=== PATIENT | female | born 1945 | race Caucasian/White ===

== ENCOUNTER 2019-08-18 06:40 | Inpatient (IN) | payer MEDICARE, SELFPAY ==
[2019-08-18] VITALS (13 sets, daily range): BP systolic 142–179; BP diastolic 54–95; PULSE 66–79; RESP 16–25; TEMP 36–37.1; O2SAT 97–100; BMI 22.1
--- NOTE | 2019-08-18 06:54 | W.ED.SOB ---
HPI - SOB/Dyspnea General: Chief Complaint: Shortness of Breath/Dyspnea Stated Complaint: DIFFICULTY BREATHING/ CHEST PAIN Time Seen by Provider: 08/18/19 06:47 History of Present Illness: HPI Narrative: 73-year-old female presents emergency room with complaint of shortness of breath moderately productive cough. She is a former smoker. She was recently treated for car monoxide poisoning about 7 to 10 days ago. She does report having had the problem in her home faxed. She has other family members at home who have not had any other problems. She denies any fever sweats or chills she does have some mild orthopnea. She previously had a mitral valve replacement and is on Coumadin digoxin and sotalol. Associated symptoms: Reports orthopnea; Deny abdominal pain, fever(s), nausea or vomiting Review of Systems Const: Reports: body aches and fatigue; Denies: fever, chills, change in appetite or malaise ENMT: Denies: throat pain, ear pain, nasal discharge or nasal congestion Card: Reports: shortness of breath when lying down; Denies: edema or shortness of breath on exertion Resp: Reports: shortness of breath and productive cough; Denies: non-productive cough GI: Denies: abdominal pain, nausea, vomiting, vomiting blood, coffee grounds in vomit, diarrhea, constipation, bloating, blood in stool or black tarry stool : Denies: flank pain, difficulty urinating, painful urination, urinary frequency or urinary urgency Skin/Breast: Denies: rash or itching PFSH ED PFSH: Statuses (acute, chronic, etc) shown below reflect problem list status as previously entered and may not be historically accurate Medical History Atrial fibrillation (Acute) COPD (chronic obstructive pulmonary disease) (Acute) Hypertension (Acute) Surgical History H/O mitral valve replacement (Acute) Mechanical valve H/O: hysterectomy (Acute) History of carpal tunnel release (Acute) History of lumbar surgery (Acute) Family History Mother Clotting disorder Father Clotting disorder Sister AAA (abdominal aortic aneurysm) Social History (Reviewed 08/20/19 @ 08:52 by EDGAR Sharp Smoking and tobacco status: former smoker Alcohol intake: former Substance/Drug Use: never Physical Exam Const: COMMON NORMALS: no apparent distress GENERAL APPEARANCE: cooperative and comfortable ORIENTATION/CONSCIOUSNESS: Yes awake, Yes oriented to person, Yes oriented to place and Yes oriented to time HENMT: COMMON NORMALS: normocephalic, head/scalp atraumatic, hearing grossly normal bilaterally, external ears normal, EAC's normal, TM's normal bilaterally, nasal mucous membranes and turbinates normal, moist oral mucous membranes and oropharynx normal HEAD & SCALP: normocephalic and atraumatic NOSE: nasal mucous membranes and turbinates normal EXTERNAL EAR: Yes external ears normal EXTERNAL AUDITORY CANAL: EAC's normal TYMPANIC MEMBRANE: TM's normal bilaterally Eye: COMMON NORMALS: PERRL, EOMs intact bilaterally, conjunctivae normal and no scleral icterus CONJUNCTIVA: Yes conjunctivae normal PUPIL: Yes PERRL Neck/C-Spine: COMMON NORMALS: full ROM, no lymphadenopathy, supple and no JVD Lymph: LYMPHATIC: no lymphadenopathy noted and no lymphedema noted Resp: EFFORT & INSPECTION: Yes tachypneic AUSCULTATION: rhonchi (Very mild mostly at the bases bilaterally) and wheezes throughout Cardio: COMMON NORMALS: no JVD and no murmurs RHYTHM: abnormal rhythm irregularly irregular GI: COMMON NORMALS: normal to inspection, nondistended, normoactive bowel sounds, soft to palpation and no hepatosplenomegaly PALPATION: Yes soft and Yes no hepatosplenomegaly : COMMON NORMALS: Yes no CVA tenderness BLADDER/KIDNEY EXAM: Yes no CVA tenderness Back/Pelvis: COMMON NORMALS: no CVA tenderness Extremity: COMMON NORMALS: normal to inspection, normal capillary refill, no clubbing, cyanosis or edema, no calf tenderness and no pedal edema Neuro: SENSORIUM/ORIENTATION: Yes oriented to person, Yes oriented to place and Yes oriented to time Skin: COMMON NORMALS: no rashes or lesions noted GENERAL SKIN EXAM: no rashes or lesions noted Course ED course: [address] Allison of admit Patient continues to be short of breath she normally is not on oxygen at home she has some mild vascular congestion she is on Coumadin for her mitral valve and her INR is 2.3 is difficult to think that she may have a PE. Her second troponin is normal but her overall troponins are mildly elevated suspect that is from her COPD as well suspect she has some mild congestive heart failure and mild exacerbation COPD will put her on observation. Vital Signs: Vital signs: Vital Signs Temperature 98.0 F 08/20/19 07:38 Pulse Rate 71 08/20/19 07:38 Respiratory Rate 18 08/20/19 07:38 Blood Pressure 128/67 08/20/19 07:38 Pulse Oximetry 97 08/20/19 07:38 MDM - SOB/Dyspnea Lab Data: Labs: Lab Results 08/18/19 08/18/19 08/18/19 Range/Units 06:45 06:45 06:45 WBC 12.9 H (4.0-10.0) 10^3/ uL RBC 3.61 L (4.1-5.3) 10^6/u L Hgb 8.3 L (11.5-15.3) g/dL Hct 28.4 L (37.0-47.0) % MCV 78.7 L (81-99) fL MCH 23.0 L (28.0-34.0) pg MCHC 29.2 L (30.0-36.0) g/dL RDW 18.0 H (12.1-15.1) % Plt Count 317 (130-400) 10^3/c mm MPV 10.8 H (7.4-10.4) fL Neut % (Auto) 73.1 % Lymph % (Auto) 16.1 % [place] % (Auto) 7.5 % Eos % (Auto) 2.6 % Baso % (Auto) 0.3 % Neut # (Auto) 9.4 H (1.8-7.7) 10^3/u L Lymph # (Auto) 2.1 (0.8-4.8) 10^3/u L [place] # (Auto) 1.0 H (0.2-0.9) 10^3/u L Eos # (Auto) 0.3 (0.0-0.8) 10^3/u L Baso # (Auto) 0.0 (0.0-0.1) 10^3/u L Nucleated RBC % (a uto) 0 % Nucleated RBCs # 0.0 /100WBC PT 26.10 H (10.5-13.3) SECO NDS INR 2.30 H (0.8-1.2) Specimen Type Sample Site ABG pH (7.35-7.45) ABG pCO2 (35-45) mmHg ABG pO2 (80.0-100.0) mmH g ABG HCO3 (22-26) mmol/L ABG Base Excess (-2.0-2.0) mmol/ L Brennen Test Hematocrit (37-47) % Hgb O2 Saturation (95-100) % Carboxyhemoglobin (0.4-20.1) %THgb Methemoglobin (0.4-1.5) % Total Hemoglobin (12-16) g/dL O2 Delivery Device O2 Liters/Min % Chief Architect ID Sodium 131 L (136-145) mmol/L Potassium 4.7 (3.5-5.1) mmol/L Chloride 95 L (98-107) mmol/L Carbon Dioxide 27 (22-29) mmol/L Anion Gap 13.7 (5-19) BUN 15 (8-23) mg/dL Creatinine 0.7 (0.5-0.9) mg/dL Glucose 128 H (74-106) mg/dL Calcium 10.2 (8.8-10.2) mg/Dl Iron (37-145) ug/dL TIBC mg/dL % Saturation (20-50) % Unsat Iron Binding (112-347) ug/dL Total Bilirubin 0.3 (0.15-1.2) mg/dL AST 22 (0-32) U/L ALT 16 (0-33) U/L Alkaline Phosphata se 81 (35-105) IU/L Troponin T Baselin e (0-10) ng/mL Troponin T 120 Min circle (0-10) ng/mL Delta Troponin T (0-10) ABS# NT-Pro-B Natriuret Pep 6627 H (0-125) pg/mL Total Protein 6.9 (6.6-8.7) g/dL Albumin 4.9 (3.5-5.2) g/dL Globulin 2.0 (1.3-4.6) g/dL Vitamin B12 (232-1245) pg/mL Folate (4.8-37.3) ng/mL Influenza Type A A g (Negative) POC Influenza B Ag (Negative) 08/18/19 08/18/19 08/18/19 Range/Units 06:45 06:45 06:45 WBC (4.0-10.0) 10^3/ uL RBC (4.1-5.3) 10^6/u L Hgb (11.5-15.3) g/dL Hct (37.0-47.0) % MCV (81-99) fL MCH (28.0-34.0) pg MCHC (30.0-36.0) g/dL RDW (12.1-15.1) % Plt Count (130-400) 10^3/c mm MPV (7.4-10.4) fL Neut % (Auto) % Lymph % (Auto) % [place] % (Auto) % Eos % (Auto) % Baso % (Auto) % Neut # (Auto) (1.8-7.7) 10^3/u L Lymph # (Auto) (0.8-4.8) 10^3/u L [place] # (Auto) (0.2-0.9) 10^3/u L Eos # (Auto) (0.0-0.8) 10^3/u L Baso # (Auto) (0.0-0.1) 10^3/u L Nucleated RBC % (a uto) % Nucleated RBCs # /100WBC PT (10.5-13.3) SECO NDS INR (0.8-1.2) Specimen Type Sample Site ABG pH (7.35-7.45) ABG pCO2 (35-45) mmHg ABG pO2 (80.0-100.0) mmH g ABG HCO3 (22-26) mmol/L ABG Base Excess (-2.0-2.0) mmol/ L Brennen Test Hematocrit (37-47) % Hgb O2 Saturation (95-100) % Carboxyhemoglobin (0.4-20.1) %THgb Methemoglobin (0.4-1.5) % Total Hemoglobin (12-16) g/dL O2 Delivery Device O2 Liters/Min % Chief Architect ID Sodium (136-145) mmol/L Potassium (3.5-5.1) mmol/L Chloride (98-107) mmol/L Carbon Dioxide (22-29) mmol/L Anion Gap (5-19) BUN (8-23) mg/dL Creatinine (0.5-0.9) mg/dL Glucose (74-106) mg/dL Calcium (8.8-10.2) mg/Dl Iron 16 L (37-145) ug/dL TIBC 389 mg/dL % Saturation 4.1 L (20-50) % Unsat Iron Binding 373 H (112-347) ug/dL Total Bilirubin (0.15-1.2) mg/dL AST (0-32) U/L ALT (0-33) U/L Alkaline Phosphata se (35-105) IU/L Troponin T Baselin e 46 H (0-10) ng/mL Troponin T 120 Min circle (0-10) ng/mL Delta Troponin T (0-10) ABS# NT-Pro-B Natriuret Pep (0-125) pg/mL Total Protein (6.6-8.7) g/dL Albumin (3.5-5.2) g/dL Globulin (1.3-4.6) g/dL Vitamin B12 366 (232-1245) pg/mL Folate 11.0 (4.8-37.3) ng/mL Influenza Type A A g (Negative) POC Influenza B Ag (Negative) 08/18/19 08/18/19 08/18/19 Range/Units 07:15 07:35 08:45 WBC (4.0-10.0) 10^3/ uL RBC (4.1-5.3) 10^6/u L Hgb (11.5-15.3) g/dL Hct (37.0-47.0) % MCV (81-99) fL MCH (28.0-34.0) pg MCHC (30.0-36.0) g/dL RDW (12.1-15.1) % Plt Count (130-400) 10^3/c mm MPV (7.4-10.4) fL Neut % (Auto) % Lymph % (Auto) % [place] % (Auto) % Eos % (Auto) % Baso % (Auto) % Neut # (Auto) (1.8-7.7) 10^3/u L Lymph # (Auto) (0.8-4.8) 10^3/u L [place] # (Auto) (0.2-0.9) 10^3/u L Eos # (Auto) (0.0-0.8) 10^3/u L Baso # (Auto) (0.0-0.1) 10^3/u L Nucleated RBC % (a uto) % Nucleated RBCs # /100WBC PT (10.5-13.3) SECO NDS INR (0.8-1.2) Specimen Type Arterial Sample Site Radial, right ABG pH 7.36 (7.35-7.45) ABG pCO2 49.6 H (35-45) mmHg ABG pO2 78.6 L (80.0-100.0) mmH g ABG HCO3 28.0 H (22-26) mmol/L ABG Base Excess 2.1 H (-2.0-2.0) mmol/ L Brennen Test Pos Hematocrit 25.0 L (37-47) % Hgb O2 Saturation 92.8 L (95-100) % Carboxyhemoglobin 1.5 (0.4-20.1) %THgb Methemoglobin 1.2 (0.4-1.5) % Total Hemoglobin 8.2 L (12-16) g/dL O2 Delivery Device Nc O2 Liters/Min 2.0 % Chief Architect ID jmn Sodium (136-145) mmol/L Potassium (3.5-5.1) mmol/L Chloride (98-107) mmol/L Carbon Dioxide (22-29) mmol/L Anion Gap (5-19) BUN (8-23) mg/dL Creatinine (0.5-0.9) mg/dL Glucose (74-106) mg/dL Calcium (8.8-10.2) mg/Dl Iron (37-145) ug/dL TIBC mg/dL % Saturation (20-50) % Unsat Iron Binding (112-347) ug/dL Total Bilirubin (0.15-1.2) mg/dL AST (0-32) U/L ALT (0-33) U/L Alkaline Phosphata se (35-105) IU/L Troponin T Baselin e (0-10) ng/mL Troponin T 120 Min circle 45.93 H (0-10) ng/mL Delta Troponin T -0.07 L (0-10) ABS# NT-Pro-B Natriuret Pep (0-125) pg/mL Total Protein (6.6-8.7) g/dL Albumin (3.5-5.2) g/dL Globulin (1.3-4.6) g/dL Vitamin B12 (232-1245) pg/mL Folate (4.8-37.3) ng/mL Influenza Type A A g Negative (Negative) POC Influenza B Ag Negative (Negative) Imaging Data^: CXR: Radiologist's impression: CLINICAL INFORMATION: ACUTE LOBAR PNEUMONIA COMPARISON: October 31, 2014 FINDINGS: Heart: Normal cardiac silhouette. Sternotomy. Aortic valve replacement. Aortic calcification. Lungs: Chronic emphysematous changes. No acute pulmonary infiltrates. No consolidation or pleural fluid. Bones: Normal visualized bony structures. IMPRESSION: 1. Normal cardiac silhouette. Sternotomy with aVR. 2. Chronic emphysema. 3. No acute pulmonary infiltrates. Signed by: Dean Moy MD EKG Data^: EKG 1: EKG Interpretation Date: 08/18/19 EKG interpretation time: 06:52 Interpretation: Normal sinus rhythm no acute ST changes noted nonpathologic Q waves in V5 and [address] changes IN and QT intervals are normal. Rate is 67. Discharge Plan Discharge Patient Disposition: Admitted As Inpatient Admit Provider: Leela Allison Clinical Impression: COPD (chronic obstructive pulmonary disease) Qualifiers: COPD type: COPD with acute exacerbation Qualified Code(s): J44.1 - Chronic obstructive pulmonary disease with (acute) exacerbation Hypertension Qualifiers: Hypertension type: essential hypertension Qualified Code(s): I10 - Essential (primary) hypertension Atrial fibrillation Qualifiers: Atrial fibrillation type: longstanding persistent Qualified Code(s): I48.11 - Longstanding persistent atrial fibrillation Condition: Stable Interventions: ED Discharge Assessment Last Done: 08/18/19 11:28 Discharge Date/Time: 08/18/19 12:13 Coding Level of Care Code ED Hoop Flaring Machine Operator for Chg Fwd Exam Problem Focused
--- NOTE | 2019-08-18 06:55 | PC.NURSE ---
EKG performed by suzie araujo and shown to ER doctor @[phone]
--- NOTE | 2019-08-18 06:57 | XR_ITS ---
WS: [id number] Portable AP upright chest, 08/18/2019 Clinical Data: Dyspnea Comparison: PA and lateral chest, 10/22/2017. Findings: There is enlargement of the left hilum which could represent a mass or hilar adenopathy. Th e pulmonary vascularity is increased and the heart is slightly enlarged. There is a small left pleura l effusion. The aortic arch and descending aorta show calcification and tortuosity. No pneumonia or p neumothorax is present. There are midline sternotomy sutures and an artificial cardiac valve. XR/XR chest 1V portable [id number] Impression: 1. Left hilar enlargement which could represent a lung mass or left hilar adeno elder. 2. Cardiomegaly and mild pulmonary vascular congestion with small left effusion . 3. Atherosclerosis.
[2019-08-18 07:03] LABS: Basophils % 0.3 %; Eosinophils # 0.3 10^3/uL (0.0-0.8); Eosinophils % 2.6 %; Hematocrit 28.4 % (37.0-47.0); Hemoglobin 8.3 g/dL (11.5-15.3); Lymphocytes # 2.1 10^3/uL (0.8-4.8); Lymphocytes % 16.1 %; Mean Corpuscular HGB Conc 29.2 g/dL (30.0-36.0); Mean Corpuscular Volume 78.7 fL (81-99); Mean Platelet Volume 10.8 fL (7.4-10.4); Monocytes % 7.5 %; Neutrophils # 9.4 10^3/uL (1.8-7.7); Neutrophils % 73.1 %; Nucleated Red Blood Cells % 0 %; Platelet Count 317 10^3/cmm (130-400); Red Blood Count 3.61 10^6/uL (4.1-5.3); White Blood Count 12.9 10^3/uL (4.0-10.0)
--- NOTE | 2019-08-18 07:09 | ECG_ITS ---
Measurements Intervals [place] Rate: 67 P: 44 CT: 170 QRS: 18 QRSD: 91 T: 69 QT: 393 QTc: 416 SINUS RHYTHM WITH SINUS ARRHYTHMIA NONSPECIFIC ST & T-WAVE ABNORMALITY Compared to ECG 10/31/2014 14:00:28 No significant changes Electronically Signed On 08-18-2019 13:47:56 GUEST ATTENDANT by Blanca Weaver M.D. [id number]
[2019-08-18 07:28] LABS: Alanine Aminotransferase 16 U/L (0-33); Albumin Level 4.9 g/dL (3.5-5.2); Alkaline Phosphatase 81 IU/L (35-105); Anion Gap 13.7 (5-19); Aspartate Amino Transferase 22 U/L (0-32); Blood Urea Nitrogen 15 mg/dL (8-23); Calcium 10.2 mg/Dl (8.8-10.2); Carbon Dioxide 27 mmol/L (22-29); Chloride 95 mmol/L (98-107); Glucose 128 mg/dL (74-106); NT Pro B Type Natriuretic Pept 6627 pg/mL (0-125); Potassium 4.7 mmol/L (3.5-5.1); Sodium 131 mmol/L (136-145); Total Bilirubin 0.3 mg/dL (0.15-1.2); Total Protein 6.9 g/dL (6.6-8.7)
[2019-08-18 07:41] LABS: Troponin(5th) Baseline 46 ng/mL (0-10)
[2019-08-18 07:47] LABS: ABG PCO2 49.6 mmHg (35-45); ABG PH Result 7.36 (7.35-7.45); Base Excess ABG 2.1 mmol/L (-2.0-2.0); Blood Gas Allen Test Pos; Blood Gas Sample Site Radial, right; Blood Gas Sample Type Arterial; Carboxyhemoglobin 1.5 %THgb (0.4-20.1); HGB O2 Sat 92.8 % (95-100); Methemoglobin 1.2 % (0.4-1.5); PO2 ABG 78.6 mmHg (80.0-100.0); Total Hemoglobin 8.2 g/dL (12-16)
[2019-08-18 08:08] LABS: Influenza A by IFA Negative (Negative); Influenza B by IFA Negative (Negative)
[2019-08-18] MEDS: levofloxacin-dextrose 5 % 750 MG/150 ML PREMIX 150 MG IV (08:57)
[2019-08-18 09:34] LABS: Troponin 5 2HR 45.93 ng/mL (0-10)
[2019-08-18 09:39] LABS: Troponin 5 2HR Delta -0.07 ABS# (0-10)
[2019-08-18] MEDS: FUROsemide 10 mg/mL SDV 4mL 40 MG IVP (10:37)
--- NOTE | 2019-08-18 11:18 | PC.NURSE ---
pt ambulated to bedside commode without need for assist, pt tolerated well. pt placed back on monitor and resting in bed comfortably with no further needs at this time.
--- NOTE | 2019-08-18 13:09 | ECG_ITS ---
Measurements Intervals [place] Rate: 67 P: -38 CO: 166 QRS: 35 QRSD: 86 T: 85 QT: 388 QTc: [address] & T-WAVE ABNORMALITY Compared to ECG 10/31/2014 14:00:28 Sinus arrhythmia no longer present T-wave abnormality still present Electronically Signed On 08-18-2019 13:58:33 TRIM SAWYER by Blanca Weaver M.D. [id number]
[2019-08-18 13:21] LABS: Troponin 5 6HR 31.29 ng/L (0-10)
[2019-08-18] MEDS: morphine 4 mg/mL SDV 1 mL 2 MG IVP ×2 (13:36→22:32)
--- NOTE | 2019-08-18 14:44 | CT_ITS ---
WS: [id number] CT scan of the chest with IV contrast, additional two-dimensional coronal and sagittal reconstruction was performed. 08/18/2019 Clinical Data: hypoxia, adenopathy Comparison: Chest x-ray, 08/18/2019, CT chest, 11/19/2018. DLP: 367.[address] scans at [facility] use at least one of these dose optimization techniques: automat ed exposure control; mA and/or kV adjustment per patient size (includes targeted exams where dose is matched to clinical indication); or iterative reconstruction. Findings: The density in the left mediastinum probably represents hilar adenopathy. There is an 2.5 cm irregul ar mass in the lingula of the left upper lobe. A mitral valve replacement is in good position. There are small bilateral effusions with more on the left than the right. Coronary artery calcification is seen. The heart size is normal with no pericardial effusion. The pulmonary arterial system and thorac ic aorta demonstrate no dilatations, but there is calcification in the wall of the thoracic aorta.. The upper abdomen shows no change from before. No adrenal masses are noted. 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 CT/CT chest w con* [id number] Impression: 1. The lingular density could represent a cancer of the lung with rapid growth of left hilar mediastinal adenopathy. 2. Lymphoma or metastatic disease could cause the left hilar adenopathy. 3. Small bilateral pleural effusions. 4. Mitral valve replacement.
--- NOTE | 2019-08-18 14:46 | USCV_ITS ---
Debbi Garcias Age: 73 Gender: F : 1945 Exam Date: 08/18/2019 16:05 Ordering Phys: Leela Allison DO Technologist: Celena Grya Exam Location: [facility] [place] Indication: CHF, MV REPAIR, HYPOXIA BP: 171 / 54 HR: 75 Rhythm: Sinus Technical Quality: Technically difficult study MEASUREMENTS (Male / Female) Normal Values 2D ECHO LV Diastolic Diameter PLAX 3.8 cm 4.2 - 5.9 / 3.9 - 5.3 cm LV Systolic Diameter PLAX 2.4 cm LV Chamber Size 4.2 cm IVS Diastolic Thickness 1.8 cm 0.6 - 1.0 / 0.6 - 0.9 cm IVS Systolic Thickness 1.7 cm LVPW Diastolic Thickness 1.1 cm 0.6 - 1.0 / 0.6 - 0.9 cm LVPW Systolic Thickness 1.5 cm RV Chamber Size 1.8 cm LVOT Diameter 1.5 cm LV Ejection Fraction 2D Teich 67.1 % LV Ejection Fraction MOD 2C 63.4 % LV Ejection Fraction 2C AL 66.9 % LA Diameter 4.8 cm LA Width 4.8 cm LA Height 4.7 cm RA Width 2.8 cm RA Height 4.8 cm M-MODE LV Diastolic Diameter MM 5.6 cm 4.2 - 5.9 / 3.9 - 5.3 cm LV Systolic Diameter MM 3.6 cm LV Ejection Fraction MM Teich 63.1 % IVS Diastolic Thickness MM 1.0 cm 0.6 - 1.0 / 0.6 - 0.9 cm IVS Systolic Thickness MM 1.4 cm LVPW Diastolic Thickness MM 1.1 cm 0.6 - 1.0 / 0.6 - 0.9 cm LVPW Systolic Thickness MM 1.4 cm RV Diastolic Diameter MM 0.8 cm Aortic Annulus Diameter 3.5 cm LA Ao Ratio MM 1.4 DOPPLER AV Peak Velocity 249.0 cm/s LVOT Peak Velocity 96.0 cm/s AV Area Cont Eq vti 0.7 cm squared AV Area Cont Eq pk 0.7 cm squared MV Peak Velocity 164.0 cm/s MV Area PHT 4.0 cm squared Mitral E to A Ratio 2.8 MV E' Velocity 165.0 cm/s TR Peak Velocity 300.0 cm/s TR Peak Gradient 36.0 mmHg TV Peak E Velocity 53.0 cm/s Right Atrial Pressure 8.0 mmHg Pulmonary Artery Systolic Pressu 44.0 mmHg PV Peak Velocity 67.0 cm/s RV Acceleration Time 0.1 s RV Ejection Time 0.3 s RV AcT/ET 0.3 FINDINGS Left Ventricle Normal left ventricular cavity size. Moderate left ventricular hypertrophy. Normal left ventricular systolic function. No regional wall motion abnormalities. Grade II/IV diastolic dysfunction, moderately elevated filling pressures. Left ventricular ejection fraction is estimated at 60 %. Right Ventricle Normal right ventricular size and systolic function. Mild pulmonary hypertension, RVSP 44 mmHg. Right Atrium Mildly increased right atrial size. Left Atrium Moderately increased left atrial size. Mitral Valve Mitral valve is poorly seen. There is significant echo reverberations. The valve has either been replaced or repaired. There is minimal mitral regurgitation. The mitral valve area by pressure halftime is likely within normal range. Aortic Valve Structurally normal trileaflet aortic valve. Mild aortic valve calcification. Mild aortic valve stenosis, mean gradient 12.7 mmHg. There is at least moderate aortic regurgitation. Tricuspid Valve Structurally normal tricuspid valve. Mild tricuspid valve regurgitation. Pulmonic Valve Pulmonic valve not well visualized. Pericardium Normal pericardium without effusion. Aorta Normal ascending aorta dimension. CONCLUSIONS Normal left ventricular cavity size. Moderate left ventricular hypertrophy. Normal left ventricular systolic function. No regional wall motion abnormalities. Grade II/IV diastolic dysfunction, moderately elevated filling pressures. Left ventricular ejection fraction is estimated at 60 %. Normal right ventricular size and systolic function. Mild pulmonary hypertension, RVSP 44 mmHg. Mildly increased right atrial size. Moderately increased left atrial size. Mitral valve is poorly seen. There is significant echo reverberations. The valve has either been replaced or repaired. There is minimal mitral regurgitation. The mitral valve area by pressure halftime is likely within normal range. Structurally normal trileaflet aortic valve. Mild aortic valve calcification. Mild aortic valve stenosis, mean gradient 12.7 mmHg. There is at least moderate aortic regurgitation. No change from 09/23/14 Dr. Adriel Alvarez MD (Electronically Signed) Final Date: 18 August 2019 18:08 S
--- NOTE | 2019-08-18 14:51 | PM.HP ---
Providers/Chief Complaint Admitting Physician: Leela Allison MD Primary Care Provider: Dylan Connors MD Chief Complaint: DIFFICULTY BREATHING/ CHEST PAIN History of Present Illness Debbi Garcias is a 73 year old female that presented to the hospital due to increasing shortness of breath. She reported that she was at home this morning and had difficulty getting adequate air in. She stated that she did not even have a cough, no dry or productive cough just inability to catch her breath. She stated that this is been progressive over the past couple of days. She reports that she has had decreased energy and weight loss over the past several weeks. She reports having carbon monoxide poisoning recently and since this time she has had generalized weakness. She stated that she is not on any home oxygen, has not been on any oxygen in the past. She reported that she has not been smoking over the past 6 days, prior to that she was smoking daily. Patient noted that she is following closely with her primary care provider, Dr. Connors, no recent medication changes or adjustments. No sick contacts. Patient was seen and evaluated in the emergency department noted to have concern for acute respiratory distress and admitted for further evaluation and treatment. Review of Systems Const: Reports: body aches, change in weight (Weight loss) and fatigue; Denies: fever, chills, change in appetite or malaise Eyes: Denies: change in vision ENMT: Denies: throat pain, ear pain, nasal discharge or nasal congestion Card: Reports: shortness of breath when lying down; Denies: edema or shortness of breath on exertion Resp: Reports: shortness of breath; Denies: productive cough, non-productive cough or coughing up blood GI: Denies: abdominal pain, nausea, vomiting, vomiting blood, coffee grounds in vomit, diarrhea, constipation, bloating, blood in stool or black tarry stool : Denies: flank pain, difficulty urinating, painful urination, urinary frequency or urinary urgency Musc: Denies: extremity pain Skin/Breast: Denies: rash or itching Neuro: Denies: headache or dizziness Medications/Allergies Home Medications Medication Instructions Recorded Confirmed Last Taken Type atorvastatin 80 mg PO DAILY 08/18/19 08/18/19 08/13/19 History budesonide-formoterol [Symbicort] 2 puff INHALATION BID PRN 08/18/19 08/18/19 08/18/19 History bupropion HCl 150 mg PO DAILY 08/18/19 08/18/19 08/18/19 History calcium polycarbophil [FiberCon] 625 mg PO BID 08/18/19 08/18/19 08/17/19 History cholecalciferol (vitamin D3) 1,000 unit PO DAILY 08/18/19 08/18/19 08/17/19 History [Vitamin D3] digoxin 125 mcg PO DAILY 08/18/19 08/18/19 08/18/19 History famotidine 20 mg PO BID 08/18/19 08/18/19 08/18/19 History fluticasone propionate [Flonase 1 spray INTRANASAL DAILY 08/18/19 08/18/19 08/17/19 History Allergy Relief] hydrocodone-acetaminophen [Brickeys] 1 tab PO QID PRN 08/18/19 08/18/19 08/18/19 History lisinopril 20 mg PO BID 08/18/19 08/18/19 08/18/19 History sotalol 80 mg PO BID 08/18/19 08/18/19 08/18/19 History warfarin 3 mg PO DAILY 08/18/19 08/18/19 08/17/19 History warfarin See Rx Instructions .ROUTE .COMPLEX 08/18/19 08/18/19 08/17/19 History Allergies Allergy/AdvReac Type Severity Reaction Status Date / Time adhesive tape Allergy Intermediate ALGY-Bliste Verified 08/18/19 06:52 r ampicillin Allergy Mild ALGY-Fever Verified 08/18/19 06:52 PFSH Acute PFSH: Statuses (acute, chronic, etc) shown below reflect problem list status as previously entered and may not be historically accurate Medical History (Updated 08/18/19 @ 15:43 by Leela Allison DO) Atrial fibrillation (Acute) COPD (chronic obstructive pulmonary disease) (Acute) Hypertension (Acute) Surgical History (Updated 08/18/19 @ 14:56 by Leela Allison DO) H/O mitral valve replacement (Acute) Mechanical valve H/O: hysterectomy (Acute) History of carpal tunnel release (Acute) History of lumbar surgery (Acute) Family History (Updated 08/18/19 @ 14:57 by Leela Allison DO) Mother Clotting disorder Father Clotting disorder Sister AAA (abdominal aortic aneurysm) Social History (Updated 08/18/19 @ 14:57 by Leela Allison DO) Smoking and tobacco status: former smoker Alcohol intake: former Substance/Drug Use: never Vitals/I&O/Wt Last Vital Signs Temp 97.6 F 08/18/19 12:29 Pulse 76 08/18/19 12:29 Resp 16 08/18/19 12:29 BP 153/60 08/18/19 12:29 Pulse Ox 97 08/18/19 13:36 Weight last 48 hrs Weight 53.07 kg Physical Exam Const: COMMON NORMALS: oriented x3 and alert GENERAL APPEARANCE: cooperative NUTRITIONAL APPEARANCE: thin ORIENTATION/CONSCIOUSNESS: Yes awake, Yes oriented to person, Yes oriented to place and Yes oriented to time HENMT: COMMON NORMALS: normocephalic and head/scalp atraumatic HEAD & SCALP: normocephalic and atraumatic Eye: COMMON NORMALS: PERRL PUPIL: Yes PERRL Neck/C-Spine: COMMON NORMALS: supple GENERAL: Yes normal visual inspection Resp: AUSCULTATION: no rhonchi and wheezes OTHER: Diminished breath sounds bilaterally Cardio: COMMON NORMALS: regular rate, regular rhythm and no murmurs RATE: regular rate RHYTHM: regular rhythm GI: COMMON NORMALS: soft to palpation and non-tender INSPECTION: No abdominal distension AUSCULTATION: Yes normoactive bowel sounds PALPATION: Yes soft : COMMON NORMALS: Yes no CVA tenderness BLADDER/KIDNEY EXAM: Yes no CVA tenderness Back/Pelvis: COMMON NORMALS: no CVA tenderness Extremity: COMMON NORMALS: no clubbing, cyanosis or edema and no calf tenderness Neuro: COMMON NORMALS: oriented x3, CN's II-XII intact bilaterally, moves all extremities and no focal motor deficits SENSORIUM/ORIENTATION: Yes alert, Yes oriented to person, Yes oriented to place and Yes oriented to time SPEECH: speech normal Psych: COMMON NORMALS: mental status grossly normal and cooperative Skin: COMMON NORMALS: no rashes or lesions noted GENERAL SKIN EXAM: no rashes or lesions noted Data Micro: Micro: Microbiology 08/18/19 08:45 Blood Culture - Pr eliminary Blood SPECIMEN [facility]TE 08/18/19 08:50 Blood Culture - Pr eliminary Blood SPECIMEN [facility] Imaging^: CXR: Radiologist's impression: 1. Left hilar enlargement which could represent a lung mass or left hilar adenopathy. 2. Cardiomegaly and mild pulmonary vascular congestion with small left effusion. 3. Atherosclerosis. A&P Assessment and plan (1) COPD (chronic obstructive pulmonary disease): COPD with acute exacerbation Continue on Solu-Medrol and Levaquin at this time Oxygen per protocol Respiratory therapy to assess and treat We will further evaluate with CT scan of the chest due to concern on chest ray x-ray of left hilar adenopathy Status: Acute Code(s): J44.9 - Chronic obstructive pulmonary disease, unspecified (2) Atrial fibrillation: Patient is in sinus rhythm at this time, continue on home digoxin 125 mcg daily, sotalol 80 mg Continue on warfarin, INR therapeutic at this time. Status: Acute Code(s): I48.91 - Unspecified atrial fibrillation Additional A&P Information Additional A&P Information: Hilar adenopathy: We will further evaluate with CT scan of the chest due to patient's weight loss and tobacco use history On chronic anticoagulation with Coumadin: Continue at this time, INR therapeutic Microcytic anemia: We will continue with further evaluation, no evidence of any active bleeding at this time, patient is on Coumadin but will continue due to no concern for active bleeding. elevated BNP with concern for pulmonary vascular congestion on chest x-ray: Given IV Lasix x1 in the ER, will monitor response to diuresis and will further evaluate with echocardiogram Attestations Medical Necessity Statement*: Patient requires hospitalization due to concern for acute COPD exacerbation with concern for pulmonary vascular congestion. Expected stay greater than 2 midnights Coding Level of Care Code Acute Phosphorus Processing Supervisor for [facility] Exam Problem Focused Diagnoses COPD (chronic obstructive pulmonary disease) J44.9 Atrial fibrillation I48.91
[2019-08-18] MEDS: D5-NS 0.45% + KCL 20 mEq 20 MEQ/1,000 ML BAG 100 MEQ IV (15:24)
[2019-08-18] MEDS: iohexol 300 mg/mL 100 mL Btl IV (15:40)
[2019-08-18] MEDS: ipratropium-albuterol 3 mL Neb INHALATION (15:47)
[2019-08-18 16:31] LABS: Iron 16 ug/dL (37-145); Percent Saturation 4.1 % (20-50); Total Iron Binding Capacity 389 mg/dL; Unsaturated Iron Binding 373 ug/dL (112-347); Vitamin B12 366 pg/mL (232-1245)
[2019-08-18] MEDS: sotalol 80 mg Tablet PO (17:50)
[2019-08-18] MEDS: calcium polycarbophil 625 mg Tablet PO (17:50)
[2019-08-18] MEDS: lisinopril 20 mg Tablet PO (17:50)
[2019-08-18] MEDS: famotidine 20 mg Tablet PO (17:50)
[2019-08-18] MEDS: nicotine 21 mg Patch 1 PATCH TRANSDERMA (20:18)
[2019-08-18] MEDS: HYDROcodone-acetaminophen 10-325 mg Tablet 1 TAB PO (20:18)
[2019-08-19] VITALS (13 sets, daily range): BP systolic 125–165; BP diastolic 60–77; PULSE 71–86; RESP 16–22; TEMP 36.4–36.9; O2SAT 91–100
[2019-08-19] MEDS: D5-NS 0.45% + KCL 20 mEq 20 MEQ/1,000 ML BAG 100 MEQ IV ×3 (02:39→22:19)
[2019-08-19] MEDS: levofloxacin-dextrose 5 % 750 MG/150 ML PREMIX 150 MG IV (07:49)
[2019-08-19] MEDS: calcium polycarbophil 625 mg Tablet PO ×2 (10:18→17:51)
[2019-08-19] MEDS: buPROPion XL (24 HR) 150 mg Tablet PO (10:18)
[2019-08-19] MEDS: famotidine 20 mg Tablet PO ×2 (10:19→17:51)
[2019-08-19] MEDS: lisinopril 20 mg Tablet PO ×2 (10:19→17:51)
[2019-08-19] MEDS: atorvastatin 40 mg Tablet 80 MG PO (10:19)
[2019-08-19] MEDS: HYDROcodone-acetaminophen 10-325 mg Tablet 1 TAB PO ×2 (10:19→17:51)
[2019-08-19] MEDS: nicotine 21 mg Patch 1 PATCH TRANSDERMA (10:20)
[2019-08-19] MEDS: digoxin 125 mcg Tablet PO (10:20)
[2019-08-19] MEDS: cholecalciferol (vitamin D3) 1,000 unit Tablet 1000 UNIT PO (10:20)
[2019-08-19] MEDS: sotalol 80 mg Tablet PO ×2 (10:20→17:51)
[2019-08-19] MEDS: fluticasone nasal spray 16gm Btl 1 SPRAY INTRANASAL (10:22)
[2019-08-19] MEDS: morphine 4 mg/mL SDV 1 mL 2 MG IVP ×2 (13:10→22:14)
--- NOTE | 2019-08-19 14:38 | PM.PN ---
Subjective Subjective: Interval history: Patient awake in bed at time of exam today. She reported that breathing is improved today. She reports that whenever she lies flat she has some shortness of breath but it is improved since admission. Discussed with patient CT findings and need for further evaluation with biopsy, she verbalized understanding Vitals/I&O/Wt Last Vital Signs Temp 97.7 F 08/19/19 10:48 Pulse 86 08/19/19 10:48 Resp 18 08/19/19 13:10 BP 151/69 08/19/19 10:48 Pulse Ox 95 08/19/19 10:48 08/18/19 08/19/19 08/19/19 22:59 06:59 14:59 Intake Total 745 / 745 1335 / 2080 1253.333 / 1253.333 Output Total 0 / 0 2200 / 2200 200 / 200 Balance 745 / 745 -865 / -120 1053.333 / 1053.333 Weight last 48 hrs Weight 58.876 kg Weight 58.74 kg Weight 53.07 kg Physical Exam Const: COMMON NORMALS: oriented x3 and alert GENERAL APPEARANCE: cooperative NUTRITIONAL APPEARANCE: thin ORIENTATION/CONSCIOUSNESS: Yes awake, Yes oriented to person, Yes oriented to place and Yes oriented to time HENMT: COMMON NORMALS: normocephalic and head/scalp atraumatic HEAD & SCALP: normocephalic and atraumatic Eye: COMMON NORMALS: PERRL PUPIL: Yes PERRL Neck/C-Spine: COMMON NORMALS: supple GENERAL: Yes normal visual inspection Resp: AUSCULTATION: no rhonchi and wheezes OTHER: Diminished breath sounds bilaterally Cardio: COMMON NORMALS: regular rate, regular rhythm and no murmurs RATE: regular rate RHYTHM: regular rhythm GI: COMMON NORMALS: soft to palpation and non-tender INSPECTION: No abdominal distension AUSCULTATION: Yes normoactive bowel sounds PALPATION: Yes soft Extremity: COMMON NORMALS: no clubbing, cyanosis or edema and no calf tenderness Neuro: COMMON NORMALS: oriented x3, CN's II-XII intact bilaterally, moves all extremities and no focal motor deficits SENSORIUM/ORIENTATION: Yes alert, Yes oriented to person, Yes oriented to place and Yes oriented to time SPEECH: speech normal Psych: COMMON NORMALS: mental status grossly normal and cooperative Skin: COMMON NORMALS: no rashes or lesions noted GENERAL SKIN EXAM: no rashes or lesions noted Data Micro: Micro: Microbiology 08/18/19 08:45 Blood Culture - Pr eliminary Blood NEGATIVE TO COMPA E 08/18/19 08:50 Blood Culture - Pr eliminary Blood NEGATIVE TO COMPA E A&P Assessment and plan (1) COPD (chronic obstructive pulmonary disease): COPD with acute exacerbation Transition to oral prednisone, continue Levaquin Oxygen per protocol Respiratory therapy to assess and treat Status: Acute Code(s): J44.9 - Chronic obstructive pulmonary disease, unspecified (2) Atrial fibrillation: Patient is in sinus rhythm at this time, continue on home digoxin 125 mcg daily, sotalol 80 mg Continue on warfarin, INR therapeutic at this time. Status: Acute Code(s): I48.91 - Unspecified atrial fibrillation Additional A&P Information Additional A&P Information: Hilar adenopathy: 2.5 cm irregular mass in the lingula along the left upper lobe. Findings were discussed with patient with concern for lymphoma or metastatic disease. Findings were discussed with county tax assessor, Dr. Lyle. Will plan for close outpatient follow-up. On chronic anticoagulation with Coumadin: Continue at this time, INR therapeutic Anemia: No evidence of any active bleeding, iron deficiency, recheck in the morning Diastolic congestive heart failure: Started on Lasix 20 mg daily Pulmonary hypertension Attestations Medical Necessity Statement*: Requires further hospitalization due to concern for diastolic congestive heart failure exacerbation as well as COPD exacerbation Coding Level of Care Code Acute Conveyor Loader for [facility] Fwd Diagnoses COPD (chronic obstructive pulmonary disease) J44.9 Atrial fibrillation I48.91
[2019-08-19] MEDS: FUROsemide 20 mg Tablet PO (15:14)
[2019-08-19] MEDS: warfarin 3 mg Tablet PO (15:15)
[2019-08-19] MEDS: warfarin 1 mg Tablet 0.5 MG PO (15:16)
[2019-08-19 16:13] LABS: Oxygen Device NC
--- NOTE | 2019-08-19 16:43 | PC.CHAP ---
Pastoral Care Encounter/Spiritual Assessment Type of Contact [] Declined cooking casing and drying supervisor visit [] Patient/Family/Request visit [] Outpatient visit [] Follow-up visit [] Physician referral [] Code/Alert x[] Routine visit [] Staff referral [] Actively dying [] Patient sleeping [] Family support [] [] Out of room [] Palliative care [] [] Receiving care in room [] Pre-surgical visit [] Trauma [] Long length of stay [] ICU visit [] Other: Relational/Emotional Strength [x] Patient feels connected with others/family/visitors/staff [] Distress [] Loneliness/isolation [] Abandonment Spirituality of Patient [x] Person of Eunice [] Attends Sikh of their [place] [x] Believes in Prayer [] Reads Bible or Mormonism materials [] There are Spiritual issues to be addressed Experimental Welder Interventions [x] Prayer [x] Active listening [x] Non-anxious presence [x] Spiritual/emotional support [] Crisis/trauma care [x] Spiritual counseling [] Bereavement support [] Provided bereavement packet [] Provided Bible/devotional materials [] Provided toy/stuffed animal, coloring book to patient or family member [] Completed spiritual assessment [] Provided Communion [x] Anointing/[place] [] Salvation [] Other: Impact on Illness or Injury [] Angry [x] Fearful [x] Anxious [x] Often cries [] Exhaustion [] Unable to work [] Unable to attend sikhism [] Unable to walk/stand [] Unable to read [] Unable to drive [] Unable to eat/drink [] Unable to sleep [] Unable to be with family [] Other: Summary the patient was distressed becaused of diagnosis she might get. tThe Experimental Welder prayed and anointed her and talked with her until she felt better. Patient was in better state of mind at end. Time spent with patient 45 min.
--- NOTE | 2019-08-19 16:57 | PC.RESP ---
Patient given information on Pulmonary Rehab.
[2019-08-19] MEDS: ferrous sulfate EC 325 mg Tablet PO (17:51)
[2019-08-19] MEDS: LORazepam 0.5 mg Tablet 0.25 MG PO (22:15)
[2019-08-20] VITALS (20 sets, daily range): BP systolic 125–185; BP diastolic 49–72; PULSE 65–87; RESP 16–20; TEMP 36.3–36.9; O2SAT 90–99
[2019-08-20 05:14] LABS: Basophils % 0.1 %; Hematocrit 24.6 % (37.0-47.0); Hemoglobin 7.1 g/dL (11.5-15.3); Lymphocytes % 4.1 %; Mean Corpuscular HGB Conc 28.9 g/dL (30.0-36.0); Mean Corpuscular Hemoglobin 22.5 pg (28.0-34.0); Mean Corpuscular Volume 78.1 fL (81-99); Mean Platelet Volume 10.8 fL (7.4-10.4); Monocytes # 1.2 10^3/uL (0.2-0.9); Monocytes % 4.9 %; Neutrophils # 21.8 10^3/uL (1.8-7.7); Neutrophils % 90.2 %; Nucleated Red Blood Cells % 0.1 %; Platelet Count 294 10^3/cmm (130-400); Red Blood Count 3.15 10^6/uL (4.1-5.3); Red Cell Distribution Width 18.4 % (12.1-15.1); White Blood Count 24.2 10^3/uL (4.0-10.0)
[2019-08-20 05:27] LABS: INR 2.59 (0.8-1.2)
[2019-08-20 05:31] LABS: Anion Gap 11.3 (5-19); Blood Urea Nitrogen 13 mg/dL (8-23); Carbon Dioxide 29 mmol/L (22-29); Chloride 99 mmol/L (98-107); Glucose 149 mg/dL (74-106); Potassium 4.3 mmol/L (3.5-5.1); Sodium 135 mmol/L (136-145)
[2019-08-20] MEDS: buPROPion XL (24 HR) 150 mg Tablet PO (08:52)
[2019-08-20] MEDS: atorvastatin 40 mg Tablet 80 MG PO (08:52)
[2019-08-20] MEDS: famotidine 20 mg Tablet PO ×2 (08:52→20:36)
[2019-08-20] MEDS: lisinopril 20 mg Tablet PO ×2 (08:52→20:38)
[2019-08-20] MEDS: digoxin 125 mcg Tablet PO (08:53)
[2019-08-20] MEDS: predniSONE 20 mg Tablet 40 MG PO (08:54)
[2019-08-20] MEDS: levofloxacin-dextrose 5 % 750 MG/150 ML PREMIX 150 MG IV (08:54)
[2019-08-20] MEDS: cholecalciferol (vitamin D3) 1,000 unit Tablet 1000 UNIT PO (08:54)
[2019-08-20] MEDS: ferrous sulfate EC 325 mg Tablet PO ×2 (08:55→20:36)
[2019-08-20] MEDS: FUROsemide 20 mg Tablet PO (08:55)
[2019-08-20] MEDS: sotalol 80 mg Tablet PO ×2 (08:55→20:36)
[2019-08-20] MEDS: nicotine 21 mg Patch 1 PATCH TRANSDERMA (08:56)
[2019-08-20] MEDS: HYDROcodone-acetaminophen 10-325 mg Tablet 1 TAB PO ×3 (08:56→21:32)
[2019-08-20] MEDS: fluticasone nasal spray 16gm Btl 1 SPRAY INTRANASAL (09:09)
[2019-08-20] MEDS: calcium polycarbophil 625 mg Tablet PO (10:46)
--- NOTE | 2019-08-20 12:01 | P.PN_ITS ---
Subjective Subjective: Interval history: Patient awake in bed at time of exam this morning. She reports that breathing is somewhat better today. Discussed with patient significant drop in hemoglobin and need for continued continued hospitalization and transfusion. She reports that she has received transfusion recently for anemia. She denies any active bleeding, no bright red blood per rectum, no melanotic stools. Discussed with patient she will need continued outpatient work-up for anemia. Vitals/I&O/Wt Last Vital Signs Temp 98.0 F 08/20/19 07:38 Pulse 65 08/20/19 08:53 Resp 18 08/20/19 07:38 BP 128/67 08/20/19 07:38 Pulse Ox 97 08/20/19 07:38 08/19/19 08/20/19 08/20/19 22:59 06:59 14:59 Intake Total 1360 / 2763.333 0 / 2763.333 240 / 240 Output Total 0 / 200 1400 / 1600 Balance 1360 / 2563.333 -1400 / 1163.333 240 / 240 Weight last 48 hrs Weight 56.699 kg Weight 58.876 kg Weight 58.74 kg Physical Exam Const: COMMON NORMALS: oriented x3 and alert GENERAL APPEARANCE: cooperative NUTRITIONAL APPEARANCE: thin ORIENTATION/CONSCIOUSNESS: Yes awake, Yes oriented to person, Yes oriented to place and Yes oriented to time HENMT: COMMON NORMALS: normocephalic and head/scalp atraumatic HEAD & SCALP: normocephalic and atraumatic Eye: COMMON NORMALS: PERRL PUPIL: Yes PERRL Neck/C-Spine: COMMON NORMALS: supple GENERAL: Yes normal visual inspection Resp: AUSCULTATION: no rhonchi and wheezes OTHER: Diminished breath sounds bilaterally Cardio: COMMON NORMALS: regular rate, regular rhythm and no murmurs RATE: regular rate RHYTHM: regular rhythm GI: COMMON NORMALS: soft to palpation and non-tender INSPECTION: No abdominal distension AUSCULTATION: Yes normoactive bowel sounds PALPATION: Yes soft Extremity: COMMON NORMALS: no clubbing, cyanosis or edema and no calf tenderness Neuro: COMMON NORMALS: oriented x3, CN's II-XII intact bilaterally, moves all extremities and no focal motor deficits SENSORIUM/ORIENTATION: Yes alert, Yes oriented to person, Yes oriented to place and Yes oriented to time SPEECH: speech normal Psych: COMMON NORMALS: mental status grossly normal and cooperative Skin: COMMON NORMALS: no rashes or lesions noted GENERAL SKIN EXAM: no rashes or lesions noted Data Micro: Micro: Microbiology 08/19/19 11:31 Gram Stain - Final Sputum - Expector ated Sputum Sputum Culture - P reliminary 08/18/19 08:45 Blood Culture - Pr eliminary Blood NEGATIVE TO COMPA E 08/18/19 08:50 Blood Culture - Pr eliminary Blood NEGATIVE TO COMPA E A&P Assessment and plan (1) COPD (chronic obstructive pulmonary disease): COPD with acute exacerbation Continue on prednisone, continue Levaquin Oxygen per protocol Respiratory therapy to assess and treat Status: Acute Qualifiers: COPD type: COPD with acute exacerbation Qualified Code(s): J44.1 - Chronic obstructive pulmonary disease with (acute) exacerbation Code(s): J44.9 - Chronic obstructive pulmonary disease, unspecified (2) Atrial fibrillation: Patient is in sinus rhythm at this time, continue on home digoxin 125 mcg daily, sotalol 80 mg Continue on warfarin, INR therapeutic at this time. Status: Acute Qualifiers: Atrial fibrillation type: longstanding persistent Qualified Code(s): I48.11 - Longstanding persistent atrial fibrillation Code(s): I48.91 - Unspecified atrial fibrillation Additional A&P Information Additional A&P Information: Hilar adenopathy: 2.5 cm irregular mass in the lingula along the left upper lobe. Findings were discussed with patient with concern for lymphoma or metastatic disease. Findings were discussed with mold machine operator, Dr. Lyle. Will plan for close outpatient follow-up. On chronic anticoagulation with Coumadin: Continue at this time, INR therapeutic Anemia: No evidence of any active bleeding, iron deficiency, hemoglobin of 7.1 today requiring transfusion of packed red blood cells Diastolic congestive heart failure: Started on Lasix 20 mg daily Pulmonary hypertension Attestations Medical Necessity Statement*: Patient requires continued hospitalization due to anemia requiring transfusion along with COPD exacerbation Coding Level of Care Code Acute Advertising Representative for [facility] Fw Diagnoses COPD (chronic obstructive pulmonary disease) J44.1 COPD type: COPD with acute exacerbation Atrial fibrillation I48.11 Atrial fibrillation type: longstanding persistent
[2019-08-20] MEDS: warfarin 3 mg Tablet PO (18:57)
[2019-08-20] MEDS: warfarin 1 mg Tablet 0.5 MG PO (18:58)
[2019-08-21] MEDS: D5-NS 0.45% + KCL 20 mEq 20 MEQ/1,000 ML BAG 100 MEQ IV (03:29)
[2019-08-21 04:00] VITALS: BP 160/69; PULSE 71; RESP 18; TEMP 36.7; O2SAT 97
[2019-08-21 05:48] LABS: Basophils % 0.1 %; Hemoglobin 8.9 g/dL (11.5-15.3); Lymphocytes % 13.3 %; Mean Corpuscular HGB Conc 29.7 g/dL (30.0-36.0); Mean Corpuscular Hemoglobin 23.2 pg (28.0-34.0); Mean Corpuscular Volume 78.1 fL (81-99); Mean Platelet Volume 10.9 fL (7.4-10.4); Monocytes # 1.2 10^3/uL (0.2-0.9); Monocytes % 8.3 %; Neutrophils # 11.6 10^3/uL (1.8-7.7); Neutrophils % 77.8 %; Nucleated Red Blood Cells % 0 %; Platelet Count 248 10^3/cmm (130-400); Red Blood Count 3.84 10^6/uL (4.1-5.3); Red Cell Distribution Width 18.1 % (12.1-15.1); White Blood Count 14.9 10^3/uL (4.0-10.0)
[2019-08-21] MEDS: HYDROcodone-acetaminophen 10-325 mg Tablet 1 TAB PO (06:19)
--- NOTE | 2019-08-21 07:26 | PC.NURSE ---
AT BEGINNING OF RN CLINICAL RESOURCE PT WAS RECEIVING HER SECOND BLOOD TRANSFUSION, AT THIS TIME SHE COMPLAINED OF SEVERE NAUSEA. NURSE STOPPED BLOOD AND GAVE HER NAUSEA MEDICATION. A FEW MINUTES LATER PT COMPLAINED OF SEVERE HEADACHE. NURSE CHECKED VITALS- BP-189/50, PULSE- 87, OXYGEN-90, AND TEMP 98.1. NURSE WENT TO GET PT BLOOD PRESSURE MEDICATION, WHEN NURSE RETURNED PT COMPLAINED OF SEVERE PAIN BETWEEN HER SHOULDER BLADES AND IN HER LEFT SHOULDER. NURSE WAS CONCERNED AND STOPPED BLOOD, AND THE DOCTOR WAS NOTIFIED. AT THIS TIME 4 HOURS HAD PASSED SINCE THE START OF TRANSFUSION AND THE BLOOD WAS NO LONGER GOOD TO GIVE. SO APPROXIMATELY 1/3 OF THE BAG WAS NOT GIVEN. VITALS CONTINUED TO BE STABLE, PT WAS GIVEN PAIN MEDICATION, AND NURSE CONTINUED TO MONITOR.
[2019-08-21 07:43] VITALS: PULSE 73; RESP 16; O2SAT 98
[2019-08-21 07:45] VITALS: BP 155/72; PULSE 70; RESP 18; TEMP 36.6; O2SAT 95
--- NOTE | 2019-08-21 08:58 | P.DS_ITS ---
Discharge Providers Date of Admission: 08/18/19 11:26 Date of Discharge: 08/21/19 Attending Provider at Admission: Leela Allison MD Attending Provider at Discharge: Leela Allison MD Primary Care Provider: Dylan Connors MD Diagnoses at Discharge Discharge Diagnosis (1) COPD (chronic obstructive pulmonary disease): Status: Acute Problem details: Acute exacerbation Continue on levaquin and prednisone Qualifiers: COPD type: COPD with acute exacerbation Qualified Code(s): J44.1 - Chronic obstructive pulmonary disease with (acute) exacerbation (2) Atrial fibrillation: Status: Acute Problem details: Continue on digoxin 125 mcg daily within Continue on sotalol 80 mg twice daily Qualifiers: Atrial fibrillation type: longstanding persistent Qualified Code(s): I48.11 - Longstanding persistent atrial fibrillation Reason for Visit Reason for Visit: Reason For Visit: DIFFICULTY BREATHING/ CHEST PAIN Hospital Course Hospital Course: Patient was seen and evaluated in the emergency department noted to have concern for an acute COPD exacerbation and admitted for further evaluation and treatment. She was started on IV antibiotics and steroids. Placed on oxygen which was gradually titrated off. She was also noted to have concern for acute fluid overload and given IV Lasix x1 and then transition to oral Lasix. Echocardiogram was ordered for further evaluation and treatment which showed pulmonary hypertension and grade 3 diastolic dysfunction. Patient also had CT scan of the chest performed due to chest x-ray concerns of hilar lymphadenopathy, showed large hilar lymph node on the left, findings were discussed and imaging was reviewed with Dr. Lyle, specialty therapist. Discussed findings with patient and also discussed with her concern and need for further imaging and biopsy. Patient verbalized understanding. She was set up for EBUS on 09/02/[address] Lyle, to have follow-up in the outpatient clinic prior to this. Patient was also noted to have chronic anemia and did require transfusion of blood while in the hospital due to drop in hemoglobin. Patient was continued on her home Coumadin as she did not have any evidence of any active bleeding. On date of discharge patient reported that her breathing was doing much better, cough improved, she denied any chest pain or shortness of breath. Discussed with patient plan for follow-up with her primary care provider as well as pulmonology and she verbalized understanding and agreed with plan. Physical Exam Const: COMMON NORMALS: oriented x3 and alert GENERAL APPEARANCE: cooperative NUTRITIONAL APPEARANCE: thin ORIENTATION/CONSCIOUSNESS: Yes awake, Yes oriented to person, Yes oriented to place and Yes oriented to time HENMT: COMMON NORMALS: normocephalic and head/scalp atraumatic HEAD & SCALP: normocephalic and atraumatic Eye: COMMON NORMALS: PERRL PUPIL: Yes PERRL Neck/C-Spine: COMMON NORMALS: supple GENERAL: Yes normal visual inspection Resp: AUSCULTATION: no rhonchi and wheezes OTHER: Diminished breath sounds bilaterally Cardio: COMMON NORMALS: regular rate, regular rhythm and no murmurs RATE: regular rate RHYTHM: regular rhythm GI: COMMON NORMALS: soft to palpation and non-tender INSPECTION: No abdominal distension AUSCULTATION: Yes normoactive bowel sounds PALPATION: Yes soft Extremity: COMMON NORMALS: no clubbing, cyanosis or edema and no calf tenderness Neuro: COMMON NORMALS: oriented x3, CN's II-XII intact bilaterally, moves all extremities and no focal motor deficits SENSORIUM/ORIENTATION: Yes alert, Yes oriented to person, Yes oriented to place and Yes oriented to time SPEECH: speech normal Psych: COMMON NORMALS: mental status grossly normal and cooperative Skin: COMMON NORMALS: no rashes or lesions noted GENERAL SKIN EXAM: no rashes or lesions noted Discharge Data Data Completed and Pending: Completed Studies During Hospitalization Category Date Time Status CT chest w con* [id number] Routine Cat Scan 08/18/19 14:44 Completed XR chest 1V tere ble [id number] Urgent Exams 08/18/19 06:57 Completed CV echo complete* [id number] Routine Ultrasound 08/18/19 14:46 Completed Pending at discharge Category Date Time Status Blood Culture Sta t Lab 08/18/19 08:45 Results Occult Blood Diag nostic x 3 Routine Lab 08/18/19 12:40 Uncollected Occult Blood Stoo l Stat Lab 08/18/19 12:40 Uncollected Sputum Culture an d Gram Stain Stat Lab 08/19/19 11:31 Results Labs from last 24 hours 08/21/19 08/20/19 05:07 09:57 WBC 14.9 H RBC 3.84 L Hgb 8.9 L Hct 30.0 L MCV 78.1 L MCH 23.2 L MCHC 29.7 L RDW 18.1 H Plt Count 248 MPV 10.9 H Neut % (Auto) 77.8 Lymph % (Auto) 13.3 [place] % (Auto) 8.3 Eos % (Auto) 0.0 Baso % (Auto) 0.1 Neut # (Auto) 11.6 H Lymph # (Auto) 2.0 [place] # (Auto) 1.2 H Eos # (Auto) 0.0 Baso # (Auto) 0.0 Nucleated RBC % (a uto) 0 Nucleated RBCs # 0.0 Blood Type A Negative Antibody Screen Negative Crossmatch See Detail Vitals: Last Vital Signs Temp 97.8 F 08/21/19 07:45 Pulse 70 08/21/19 07:45 Resp 18 08/21/19 07:45 BP 155/72 08/21/19 07:45 Pulse Ox 95 08/21/19 07:45 Discharge Plan Discharge Patient Disposition: Home, Self-Care Condition: Stable Prescriptions: New prednisone 20 mg Tablet 40 mg PO DAILY 3 Days Qty: 6 RF: 0 ferrous sulfate 325 mg (65 mg iron) Tablet,Delayed Release (Dr/Ec) 325 mg PO BIDWM 30 Days Qty: 60 RF: 0 Levaquin 750 mg tablet 750 mg PO DAILY 7 Days Qty: 7 RF: 0 furosemide 20 mg Tablet 20 mg PO DAILY@0800 30 Days Qty: 30 RF: 0 Continued atorvastatin 80 mg tablet 80 mg PO DAILY RF: 0 sotalol 80 mg Tablet 80 mg PO BID RF: 0 lisinopril 20 mg Tablet 20 mg PO BID RF: 0 [place] 10-325 mg Tablet 1 tab PO QID PRN (Reason: Pain) RF: 0 warfarin 3 mg tablet 3 mg PO DAILY RF: 0 famotidine 20 mg Tablet 20 mg PO BID RF: 0 digoxin 125 mcg (0.125 mg) Tablet 125 mcg PO DAILY RF: 0 warfarin 1 mg tablet See Rx Instructions .ROUTE .COMPLEX RF: 0 Flonase Allergy Relief 50 mcg/actuation [place],Suspension 1 spray INTRANASAL DAILY RF: 0 Vitamin D3 1,000 unit Capsule 1,000 unit PO DAILY RF: 0 bupropion HCl 150 mg tablet extended release 24 hr 150 mg PO DAILY RF: 0 Symbicort 160-4.5 mcg/actuation Hfa Aerosol Inhaler 2 puff INHALATION BID PRN (Reason: Shortness Of Breath) RF: 0 FiberCon 625 mg Tablet 625 mg PO BID RF: 0 Discharge Orders: Discharge Order (Routine); Ordered 08/21/19 Ordered By: Leela Allison Referrals: Darrel Lyle MD [Physician] - 4-7 days (Follow-up when first appointment available to discuss EBUS, EBUS scheduled for 09/02/19) Dylan Connors MD [Primary Care Provider] - 1-3 days Discharge Diet: Usual diet Discharge Activity: Increase activity as tolerated Activity Restrictions/Additional Instructions: Continue on Levaquin 750 mg daily as prescribed Continue on prednisone 40 mg daily as prescribed Started on Lasix 20 mg daily Follow-up with Dr. Connors in 3 to 5 days for hospital follow-up, recommend recheck INR at this time Follow-up with specialty therapist, Dr. Lyle to discuss left hilar mediastinal adenopathy, EBUS scheduled on 09/02/2019 Discharge Attestations Time Spent in Discharge Care*: greater than 30 min Quality Metrics Clinical Quality Measures During this hospital stay, did patient experience: None Coding Level of Care Code Acute It Risk Analyst for [facility] Fwd Diagnoses COPD (chronic obstructive pulmonary disease) J44.1 COPD type: COPD with acute exacerbation Atrial fibrillation I48.11 Atrial fibrillation type: longstanding persistent
[2019-08-21] MEDS: atorvastatin 40 mg Tablet 80 MG PO (09:08)
[2019-08-21] MEDS: nicotine 21 mg Patch 1 PATCH TRANSDERMA (09:08)
[2019-08-21] MEDS: FUROsemide 20 mg Tablet PO (09:08)
[2019-08-21] MEDS: famotidine 20 mg Tablet PO (09:09)
[2019-08-21] MEDS: cholecalciferol (vitamin D3) 1,000 unit Tablet 1000 UNIT PO (09:09)
[2019-08-21] MEDS: warfarin 1 mg Tablet 0.5 MG PO (09:09)
[2019-08-21] MEDS: ferrous sulfate EC 325 mg Tablet PO (09:09)
[2019-08-21] MEDS: buPROPion XL (24 HR) 150 mg Tablet PO (09:09)
[2019-08-21 09:10] VITALS: PULSE 80
[2019-08-21] MEDS: sotalol 80 mg Tablet PO (09:10)
[2019-08-21] MEDS: digoxin 125 mcg Tablet PO (09:10)
[2019-08-21] MEDS: lisinopril 20 mg Tablet PO (09:10)
[2019-08-21] MEDS: predniSONE 20 mg Tablet 40 MG PO (09:11)
[2019-08-21] MEDS: levofloxacin-dextrose 5 % 750 MG/150 ML PREMIX 150 MG IV (09:11)
[2019-08-21] MEDS: fluticasone nasal spray 16gm Btl 1 SPRAY INTRANASAL (09:20)
[2019-08-21 10:07] VITALS: PULSE 80
--- NOTE | 2019-08-21 12:47 | PC.NURSE ---
DISCHARGE SUMMARY Patient was discharged home with daughter. Patients IV was discontinued and vitals stable. Patient verbalized understanding of discharge instructions. Patient is to make follow up appointments with physicians when offices open up on Thursday. Patient was taken to vehicle via wheelchair and o2. Patient refused to have any o2 sent home with her and stated that if she was to need it, her had some at home. Patient stable.
== END 2019-08-21 11:00 | disposition home or self-care (01) | DRG 190 ==
LOC: ER 09:31 → MEDSURG 11:28
PROVIDERS: Admitting Provider Family Medicine; Emergency Provider Family Medicine; Family Provider Family Medicine; PCP Family Medicine; Visit Provider Family Medicine
DX: J44.1 Chronic obstructive pulmonary disease with (acute) exacerbation (principal); I50.31 Acute diastolic (congestive) heart failure; I48.11 Longstanding persistent atrial fibrillation; I11.0 Hypertensive heart disease with heart failure; Z79.01 Long term (current) use of anticoagulants; I27.20 Pulmonary hypertension, unspecified; Z95.2 Presence of prosthetic heart valve; Z87.891 Personal history of nicotine dependence; R59.0 Localized enlarged lymph nodes
CPT/HCPCS: 36415; 36430; 36600; 71045; 71260; 80048; 80053; 82607; 82746; 82805; 83540; 83550; 83880; 84484; 85025; 85610; 86850; 86900; 87040; 87070; 87205; 87804; 93005; 93306; 94640; 96374; 96375; 99283; J1940; J1956; J2270; J2930; J7512; P9016; Q9967

== ENCOUNTER → 2019-09-05 10:29 | Outpatient (BNVA) | payer MEDICARE, SELFPAY | PROVIDERS: Family Provider Family Medicine; PCP Family Medicine; Visit Provider Internal Medicine Critical Care Medicine | DX: R59.0 Localized enlarged lymph nodes (principal) | CPT/HCPCS: 85610 ==

== ENCOUNTER 2019-09-09 05:49 | Day surgery (SDC) | payer MEDICARE, SELFPAY ==
[2019-09-09] VITALS (8 sets, daily range): BP systolic 114–172; BP diastolic 46–72; PULSE 67–79; RESP 16–20; TEMP 36.5–36.8; O2SAT 91–97; BMI 21.9
[2019-09-09] MEDS: sodium chloride 0.9% 1,000 ML 30 ML IV (06:26)
[2019-09-09] MEDS: scopolamine 1.5 Patch 1 PATCH TRANSDERMA (06:28)
--- NOTE | 2019-09-09 06:52 | ANES.PREANES ---
Pre-Anesthetic Assessment Pre-Anesthetic Assessment: Height/Weight: Height 1.55 m Weight 52.617 kg Temp Pulse Resp BP Pulse Ox 97.7 F 79 20 H 172/67 91 09/09/19 06:17 09/09/19 06:17 09/09/19 06:17 09/09/19 06:17 09/09/19 06:17 Preop Diagnosis: L hilar mass Proposed Procedure: Operation Date: 09/09/19 07:00 Proposed Procedures p Ebus(Not Applicable) - Darrel Lyle MD Familial anesthetic complications: No trouble Last intake: Intake Last Liquid Date 09/08/19 Last Liquid Time 20:00 Social: Packs per day: former 1 ppd smoker quit 30 days ago Exam: Pre-Anes Outpt Exam: alert, oriented x 3, clear to auscultation bilaterally and regular rate & rhythm Airway: Cervical ROM: WNL MP: 4 Additional comments: missing, top dentures Pulmonary: Pulmonary: COPD, PND and SOB Comments: Does not wear oxygen at home, no steroids, shortness of breath with recumbency, sleeps on side CV/HEM: CV/HEM: Afib, Arrythmia (atrial fibrill), CHF and HTN Comments: mitral valve mechanical ventilation 2000 - doing well : : None reported Hepatic: Hepatic: None reported GI: GI: None reported Metabolic: Metabolic: Hyperlipidemia Musc/skel: Musc/skel: Lower Back Pain Neuropsych: Neuropsych: None reported Anesthetic Plan: ASA status: V Anesthesia: General Risk of > 500 ml blood loss (7ml/kg in children): No Other Pertinent Information: last took warfarin last thursday, last took lovenox last thursday Came in with O2 sats low 90s on room air, placed on oxygen Meds/Allergies Current Medications: Current Medications Generic Name Dose Route Start Last Admin Trade Name Freq PRN Reason Stop Dose Admin Sodium Chloride 1,000 mls @ 30 ml s/hr 09/09/19 06:00 09/09/19 06:26 Sodium Chloride 0.9% IV 09/10/19 05:59 30 mls/hr .Q24H JENNY Administration PFSH Anesthesia PFSH: Social History Smoking and tobacco status: former smoker Quit status (tobacco): has quit using tobacco Year quit tobacco: 2020 - 0.5 PPD x 35 Years Alcohol intake: former Household members: spouse Marital status: Current occupational status: retired History of recent travel: No Current gender identity: Female Data Anesthesia Cardiac Studies: No Data to Display
--- NOTE | 2019-09-09 07:05 | PM.HPUD ---
H&P update H&P Update: DATE OF SURGERY/PROCEDURE: 09/09/19 DATE H&P PERFORMED: 08/31/19 PLANNED PROCEDURE: Operation Date: 09/09/19 07:00 Proposed Procedures p Ebus(Not Applicable) - Darrel Lyle MD Full H&P HPI: PLANNED PROCEDURE: Bronchoscopy with airway inspection, endobronchial ultrasound-guided transbronchial needle aspiration of the left hilar mass. HPI: The patient is here for the forementioned procedure. There is no significant change since the last H&P in the office. Medications/Allergies: Current Medications: Current Medications Generic Name Dose Route Start Last Admin Trade Name Freq PRN Reason Stop Dose Admin Sodium Chloride 1,000 mls @ 30 ml s/hr 09/09/19 06:00 09/09/19 06:26 Sodium Chloride 0.9% IV 09/10/19 05:59 30 mls/hr .Q24H JENNY Administration Perinent History: Medical/Surgical History: Medical History (Updated 08/31/19 @ 14:50 by Darrel Lyle MD) Aortic regurgitation (Acute) Atrial fibrillation (Acute) Continue on digoxin 125 mcg daily within Continue on sotalol 80 mg twice daily Chronic anticoagulation (Acute) COPD (chronic obstructive pulmonary disease) (Acute) Diastolic CHF, chronic (Acute) Hypertension (Acute) Family History: Family History (Updated 08/18/19 @ 14:57 by Leela Allison DO) Mother Clotting disorder Father Clotting disorder Sister AAA (abdominal aortic aneurysm) Social History: Social History Smoking and tobacco status: former smoker Quit status (tobacco): has quit using tobacco Year quit tobacco: 2020 - 0.5 PPD x 35 Years Alcohol intake: former Household members: spouse Marital status: Current occupational status: retired History of recent travel: No Current gender identity: Female
[2019-09-09] MEDS: sotalol 80 mg Tablet PO (07:13)
[2019-09-09] MEDS: lidocaine 1% INJ 20 mL XX (07:35)
[2019-09-09] MEDS: EPINEPHrine 1 mg/mL INJ XX (08:14)
--- NOTE | 2019-09-09 08:34 | P.OP_ITS ---
Operative Report Date of procedure: September 09, 2019 Pre-op Diagnosis: L hilar mass Post-op diagnosis: same Post-op Findings: Diffuse mediastinal hilar and mediastinal lymphadenopathy Procedure Done: Bronchoscopy with endobronchial biopsies, bronchoalveolar lavage and Cytobrush, endobronchial ultrasound-guided transbronchial needle aspiration of the left hilar mass Surgeon: Darrel Lyle Procedure: Name of the procedure: Bronchoscopy with bronchoalveolar lavage, endobronchial biopsies of the left upper lobe, Cytobrush, control of bleeding, endobronchial ultrasound-guided transbronchial needle aspiration of left hilar mass. Indication: Left hilar mass with diffuse mediastinal and hilar lymphadenopathy Anesthesia: General anesthesia Local anesthesia: 1% lidocaine instilled on the vahid and right and left mainstem bronchi, a total of 5 mm was used. Description of the procedure: The patient was brought to the OR and was endotracheally intubated for general anesthesia. A timeout was performed. The bronchoscope was advanced through the ET tube to the lower part of the trachea was reached. The vahid appeared sharp. The vahid in the right and left mainstem bronchi anesthetized with 1% lidocaine. Endoscope was then advanced systematically into bilateral bronchial tree. The right upper lobe bronchus, bronchus intermedius and right lower lobe bronchi appeared patent, without any endobronchial lesion or mucous plugging. The bronchi were inspected at least at the fourth subsegmental level. The bronchoscope was then advanced into the left mainstem bronchus. Distortion of the left mainstem bronchus at its distal part was noted predominantly at the origin of the left upper lobe bronchus. There a ppeared to be submucosal infiltrate in the left upper lobe. There is no significant lesion or distortion of the left lower lobe. There is no active bleeding or endobronchial lesion. The bronchoscope was withdrawn and endobronchial ultrasound scope was then introduced through the ET tube. There was diffuse lymphadenopathy involving the hilar and mediastinal lymph nodes. The left hilar mass was identified under ultrasound guidance. Multiple transbronchial needle aspirations were performed. Samples: 1. Transbronchial needle aspiration of the left hilar mass. 7 samples are obtained and sent for cytologic evaluation in 1 container. 2. Endobronchial biopsies were performed from the left upper lobe bronchus. 2 samples were obtained. There was bleeding that was controlled with cold saline and epinephrine. 3. Left upper lobe Cytobrush in was performed and the specimen was sent for cytology. 4. Left upper lobe bronchoalveolar lavage was performed and sent for Gram stain and culture, AFB stain culture, fungal stain and culture. Also sent for cytology. Complications: There is no immediate complications. The patient was extubated and brought to the PACU in stable condition. Follow-up: I will follow-up the results and arrange for subsequent follow-up.
[2019-09-09] MEDS: ondansetron 2 mg/ML SDV 2 mL 4 MG IVP (08:40)
--- NOTE | 2019-09-09 13:05 | SUR.OPER ---
0820 balloon removed intact
== END 2019-09-09 10:00 | disposition home or self-care (01) ==
PROVIDERS: Family Provider Family Medicine; PCP Family Medicine; Visit Provider Internal Medicine Critical Care Medicine
PROC: BB4BZZZ Ultrasonography of Pleura (ICD-10-PCS; CPT 31624; principal; 2019-09-09 07:00)
DX: R59.1 Generalized enlarged lymph nodes (principal); F17.210 Nicotine dependence, cigarettes, uncomplicated; J44.9 Chronic obstructive pulmonary disease, unspecified; I48.91 Unspecified atrial fibrillation; I11.0 Hypertensive heart disease with heart failure; I50.9 Heart failure, unspecified; E78.5 Hyperlipidemia, unspecified
CPT/HCPCS: 31624; 31625; 12345; 87015; 87070; 87102; 87116; 87205; 87206; 87801; 88112; 88305; 88341; 88342; J0171; J2001; J2370; J2405; J2704; J2710; J3490; J7030

== ENCOUNTER → 2019-09-12 13:02 | Outpatient (BNVA) | payer MEDICARE, SELFPAY | PROVIDERS: Family Provider Family Medicine; PCP Family Medicine; Visit Provider Internal Medicine Critical Care Medicine | DX: Z79.01 Long term (current) use of anticoagulants (principal) | CPT/HCPCS: 85610 ==

== ENCOUNTER → 2019-09-15 11:40 | Outpatient (BNVA) | payer MEDICARE, SELFPAY | PROVIDERS: Family Provider Family Medicine; PCP Family Medicine; Visit Provider Internal Medicine Cardiovascular Disease | DX: I48.91 Unspecified atrial fibrillation (principal) | CPT/HCPCS: 85610 ==

== ENCOUNTER 2019-09-21 12:00 | Outpatient (CLI) | payer MEDICARE, SELFPAY ==
[2019-09-21 15:27] LABS: Ferritin 57 ng/mL (15-150); Iron 73 ug/dL (37-145); Total Iron Binding Capacity 292 mcg/dl; Unsaturated Iron Binding 219 ug/dL (112-347)
--- NOTE | 2019-09-21 15:31 | ONC CON_ITS ---
Dr. Delgadillo New Patient Note Patient: Debbi Garcias Unit #: [id number]: 1945 Dicatated By: Sonny Delgadillo M.D.Date of Visit: Sep 21, 2019 Onc MED New Patient/Consult Referring Physician: Dr. KITTY FRANCES M.D. History of Present Illness: Mrs. Debbi Garcias, is a 73-year-old female who was admitted to hospital on 08/18/2019 with a COPD exacerbation, patient was treated with IV antibiotics and steroids and diuretics for possible fluid overload and chest x-ray was done which showed left hilar fullness subsequently underwent CT scan of chest which showed the lingular density could represent a cancer of lung with left with rapid growth of left hilar mediastinal lymphadenopathy. Small bilateral pleural effusions. Mitral valve replacement , pulmonology was consulted and on 09/09/2019, patient underwent EBUS which confirmed small cell carcinoma of the lung. Possible medical history significant for mechanical mitral valve replacement in 2000, since then on chronic Coumadin therapy History of atrial fibrillation. COPD, diastolic congestive heart failure, hypertension. Iron deficiency anemia on oral iron supplement. History of smoking for 35 years quit year ago. Patient denies any fever, chills, nausea or vomiting. Denies any headaches blurred vision double vision, denies any muscle or hematemesis, denies any jaundice denies any bony pains. Past Medical History: Ms. Garcias's medical history consists of aortic regurgitation, atrial fibrillation, chronic obstructive pulmonary disease, congestive heart failure, and hypertension. Past Surgical History: Ms. Garcias's surgical/procedural history consists of carpal tunnel release, hysterectomy, lumbar surgery, and mitral valve replacement. Medications: Atorvastatin Calcium 1 Tablet (of 80 mg) Oral daily, buPROPion HCl ER (SR) 1 Tablet (of 150 mg) Tablet SR 12 HR Oral daily, Cholecalciferol 1 Tablet (of 1000 mg) Oral daily, Digoxin 1 Tablet (of 125 mcg) Oral daily, DULoxetine HCl 1 Capsule (of 20 mg) Capsule Delayed Release Particles Oral daily, HYDROcodone-Acetaminophen 1 Tablet (of 10-325 mg) Oral four times a day, Mirtazapine 0.5 Tablet (of 15 mg) Oral daily, Sotalol HCl 1 Tablet (of 80 mg) Oral daily, Warfarin Sodium Tablet Oral daily Allergies: Adhesive Tape and Ampicillin. Social History: Ms. Garcias is and she is retired. Ms. Garcias quit smoking 3 years ago but had smoked 1.0 pack/day for 54 years. She has no history of drinking. Family History: Ms. Garcias's mother at age 70: Chronic obstruction pulmonary disease. Ms. Garcias's father is : heart disease. Ms. Garcias has 1 brother who is alive. She has 2 sisters: 1 alive, 1 . Ms. Garcias's first sister's chronic obstruction pulmonary disease. Review Of Symptoms: Review of Systems is not available for this patient. Vital Signs: Performed on Sep 21, 2019 13:57: 0, 21.46, 1.49 sq.m, 61.00 in, 94 % (LOW), 80 /min, 18 /min, 146/69 mm(hg) (HIGH), 99.2 F (HIGH), and 113.6 lbs (HIGH). Performance Status: 1 - No physically strenuous activity, but ambulatory and able to carry out light or sedentary work (e.g. office work, light house work). (ECOG) Physical Examination: ENMT - No oral exudates, ulcers, masses, thrush or mucositis. Oropharynx clear. Tongue normal, Respiratory - poor air entry with mild wheezing, Cardiovascular - S1-S2 with click, Abdomen - Non-tender, non-distended, . Good bowel sounds. No guarding or rebound tenderness. No pulsatile masses, Extremities - no edema. Lab/Imaging: Most recent lab results are not available for this patient. 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 Next COPD, on home oxygen Mitral valve replacement, on chronic anticoagulation Iron deficiency anemia on oral iron supplement Plan: Discussed with patient regarding her disease status and further planning and options, at this point we'll proceed with staging workup which include CT PET scan and MRI scan of the head, if it shows localized disease e.g. limited disease then will consult radiation for combined chemoradiation therapy on the other hand if it shows metastatic disease then plan accordingly. Iron deficiency anemia, etiology iron malabsorption versus chronic GI blood loss, patient is on chronic anticoagulation, and now on oral iron, we'll repeat her iron studies and CBC if it shows improvement then continue and also discuss about GI workup if is not done recently. We will also request for Port-A-Cath placement to facilitate systemic therapy. Patient will return to clinic after CT PET scan MRI scan of the brain done for further discussion Signed By: Sonny Delgadillo M.D. <<Signature on File>>
[2019-09-21 15:41] LABS: Vitamin B12 341 pg/mL (232-1245)
[2019-09-21 16:05] LABS: Folate Level 10.2 ng/mL (4.8-37.3)
== END 2019-09-21 12:01 | disposition home or self-care (01) ==
PROVIDERS: Absent Provider Radiology Radiation Oncology; Family Provider Family Medicine; PCP Family Medicine; Visit Provider Internal Medicine Hematology & Oncology
DX: C34.02 Malignant neoplasm of left main bronchus (principal); I48.91 Unspecified atrial fibrillation; J44.9 Chronic obstructive pulmonary disease, unspecified; I50.9 Heart failure, unspecified; I11.0 Hypertensive heart disease with heart failure; D64.9 Anemia, unspecified; Z99.81 Dependence on supplemental oxygen; Z79.891 Long term (current) use of opiate analgesic; Z79.01 Long term (current) use of anticoagulants; Z95.2 Presence of prosthetic heart valve; Z87.891 Personal history of nicotine dependence
CPT/HCPCS: 36415; 82607; 82728; 82746; 83540; 83550; 99203

== ENCOUNTER 2019-09-28 09:14 | Outpatient (CLI) | payer MEDICARE, SELFPAY ==
--- NOTE | 2019-09-28 09:22 | MR_ITS ---
WS: [id number] MRI BRAIN WITH AND WITHOUT CONTRAST HISTORY: SMALL CELL LUNG CANCER/STAGING COMPARISON: 12/15/[address] head 12/10/2018 TECHNIQUE: Multiplanar imaging performed through the brain with Prohance 11 ml's IV. No acute infarcts are identified today. Again noted is the chronic infarct with gliosis involving the RIGHT parasagittal occipital and posterior RIGHT temporal lobe. There are additional multiple foci o f increased T2 and FLAIR signal in the subcortical and periventricular white matter. Slightly greater on the RIGHT than the LEFT. Overall slight progression of disease since 12/15/2018. Increased T1 signa l in the area the chronic RIGHT occipital lobe infarct. No enhancement. Stable bilateral cerebellar i nfarcts. No susceptibility artifacts or prior lacunar infarcts. Ventricles and extra-axial spaces are normal. Clivus and pituitary gland are normal. Visualized posterior fossa and brainstem are also normal. Postcontrast images are negative for masses or vascular malformations. Dural venous sinuses are normal. Paranasal sinuses: Well aerated with no significant disease. Mastoid air cells: Normal. Calvarium and scalp: Normal. MR/MR head wo/w con [id number] IMPRESSION: 1. No acute infarct or metastatic disease to the brain. 2. Remote infarct with volume loss RIGHT parasagittal occipital and temporal l obe. 3. Moderate chronic microvascular ischemic disease with mild progression since 12/15/2018.
== END 2019-09-28 09:15 | disposition home or self-care (01) ==
LOC: ONCMED 09:17
PROVIDERS: Family Provider Family Medicine; PCP Family Medicine; Visit Provider Internal Medicine Hematology & Oncology
DX: C34.02 Malignant neoplasm of left main bronchus (principal)
CPT/HCPCS: 70553; A9579

== ENCOUNTER 2019-10-17 15:46 | Outpatient (CLI) | payer MEDICARE, SELFPAY ==
[2019-10-17 16:29] LABS: Basophils % 0.5 %; Hematocrit 31.4 % (37.0-47.0); Hemoglobin 9.7 g/dL (11.5-15.3); Lymphocytes # 1.1 10^3/uL (0.8-4.8); Lymphocytes % 17.7 %; Mean Corpuscular HGB Conc 30.9 g/dL (30.0-36.0); Mean Corpuscular Hemoglobin 27.3 pg (28.0-34.0); Mean Corpuscular Volume 88.5 fL (81-99); Mean Platelet Volume 10.6 fL (7.4-10.4); Monocytes # 0.4 10^3/uL (0.2-0.9); Monocytes % 6.6 %; Neutrophils # 4.6 10^3/uL (1.8-7.7); Neutrophils % 74.6 %; Nucleated Red Blood Cells % 0 %; Platelet Count 278 10^3/cmm (130-400); Red Blood Count 3.55 10^6/uL (4.1-5.3); Red Cell Distribution Width 19.2 % (12.1-15.1); White Blood Count 6.2 10^3/uL (4.0-10.0)
[2019-10-17 16:36] LABS: Alanine Aminotransferase 17 U/L (0-33); Albumin Level 3.9 g/dL (3.5-5.2); Alkaline Phosphatase 74 IU/L (35-105); Anion Gap 15.4 (5-19); Aspartate Amino Transferase 35 U/L (0-32); Blood Urea Nitrogen 16 mg/dL (8-23); Calcium 10.2 mg/dL (8.5-10.5); Carbon Dioxide 29 mmol/L (22-29); Chloride 92 mmol/L (98-107); Glucose 134 mg/dL (65-115); Osmolality Calculated 272 mOsm/kg (285-295); Potassium 4.4 mmol/L (3.5-5.1); Sodium 132 mmol/L (136-145); Total Bilirubin 0.3 mg/dL (0.15-1.2); Total Protein 6.9 g/dL (6.6-8.7)
--- NOTE | 2019-10-17 17:24 | ONC FU_ITS ---
Dr. Delgadillo follow up note Patient: Debbi Garcias Unit #: [id number]: 1945 Dicatated By: Sonny Delgadillo M.D.Date of Visit:Oct 17, 2019 Onc Med Follow-up/Prog Note History of Present Illness: Mrs. Debbi Garcias, is a 73-year-old female who was admitted to hospital on 08/18/2019 with a COPD exacerbation, patient was treated with IV antibiotics and steroids and diuretics for possible fluid overload and chest x-ray was done which showed left hilar fullness subsequently underwent CT scan of chest which showed the lingular density could represent a cancer of lung with left with rapid growth of left hilar mediastinal lymphadenopathy. Small bilateral pleural effusions. Mitral valve replacement , pulmonology was consulted and on 09/09/2019, patient underwent EBUS which confirmed small cell carcinoma of the lung. Possible medical history significant for mechanical mitral valve replacement in 2000, since then on chronic Coumadin therapy History of atrial fibrillation. COPD, diastolic congestive heart failure, hypertension. Iron deficiency anemia on oral iron supplement. History of smoking for 35 years quit year ago. Patient denies any fever, chills, nausea or vomiting. Denies any headaches blurred vision double vision, denies any muscle or hematemesis, denies any jaundice denies any bony pains.CT PET scan done on 10/01/2019 showed left upper lobe mass with mediastinal invasion, malignant mediastinal, left internal mammary lymphadenopathy, other satellite subpleural nodules FDG positive consistent with malignancy, multifocal osseous metastatic disease. MRI scan of the head done on 09/28/2019 showed no evidence of metastatic disease Came for follow-up, denies any specific complaints patient missed follow-up appointments twice because of family issues. Denies any fever chills denies any nausea vomiting denies any hemoptysis hematemesis denies any shortness of breath denies any dysphagia or jaundice or headaches or blurred vision. Medications: Atorvastatin Calcium 1 Tablet (of 80 mg) Oral daily, buPROPion HCl ER (SR) 1 Tablet (of 150 mg) Tablet SR 12 HR Oral daily, Cholecalciferol 1 Tablet (of 1000 mg) Oral daily, Digoxin 1 Tablet (of 125 mcg) Oral daily, DULoxetine HCl 1 Capsule (of 20 mg) Capsule Delayed Release Particles Oral daily, HYDROcodone-Acetaminophen 1 Tablet (of 10-325 mg) Oral four times a day, Mirtazapine 0.5 Tablet (of 15 mg) Oral daily, Sotalol HCl 1 Tablet (of 80 mg) Oral daily, Warfarin Sodium Tablet Oral daily Allergies: Adhesive Tape and Ampicillin. Review of Systems: Constitutional - Appetite is fair and weight is decreasing. No fever, chills, hot flashes, or night sweats. Energy level is poor, ENMT - Positive for sinus congestion/drainage. No mouth sores. No sore throat or difficulty swallowing, Hematologic/Lymphatic - Positive for easy bruising, Respiratory - Positive for shortness of breath. No cough. No pleuritic pain or hemoptysis, Cardiovascular - No angina pain. No palpitations, Gastrointestinal - Positive for nausea, no vomiting. Positive for heartburn and acid reflux. No diarrhea or constipation. No blood in the stool or black stools, Genitourinary (F) - No dysuria or hematuria. No urinary frequency. No urgency or incontinence, Musculoskeletal - Positive for joint pain, Neurologic - No headache or dizziness. No numbness/paresthesias or other focal neurologic symptoms, Psychiatric - Positive for anxiety and depression. Vital Signs: Performed on Oct 17, 2019 16:20 Height - 61.00 in Weight - 110.2 lbs (LOW) BSA - 1.47 sq.m BMI - 20.82 Temperature - 97.6 F (LOW) Pulse - 91 /min Respiration - 18 /min BP - 118/50 mm(hg) O2 Sat - 99 % Pain - 0 Performance Status: 1 - No physically strenuous activity, but ambulatory and able to carry out light or sedentary work (e.g. office work, light house work). (ECOG) Physical Examination: ENMT - No oral exudates, ulcers, masses, thrush or mucositis. Oropharynx clear. Tongue normal, Respiratory - Lungs are clear to auscultation without rhonchi or wheezing, Cardiovascular - Regular rate and rhythm of heart, Abdomen - Non-tender, non-distended, Good bowel sounds. No guarding or rebound tenderness. No pulsatile masses, Extremities - no edema. Lab/Imaging: Test performed on Sep 21, 2019 14:44 Ferritin 57 ng/mL Iron 73 ug/dL Vitamin B12 341 pg/mL UIBC 219 ug/dL Impression: metastatic Small cell lung cancer involving left hilar per EBUS biopsy done on 09/09/2019 CT scan of chest done on 08/18/2019 shows lingular density could represent cancer of the lung with rapid growth of left hilar mediastinal lymphadenopathy, small bilateral pleural effusion, mitral valve replacement. follow-up CT PET scan done on 10/01/2019 showed a lingular mass invading into mediastinal measuring 7.2 x 6.5 cm with SUV of 11.6. Secondary nodule at the anterior left upper lobe measure 1.7 x 2.8 cm with SUV of 6.4. As subpleural nodule in the left lower lobe measure 1.4 cm with SUV of 2.6 consistent with metastatic disease. Multiple mediastinal and left internal mammary nodes are FDG positive consistent with metastatic disease. Multiple osseous metastatic disease is present index lesion in the right sacrum has an SUV of 5.4. Other suspicious, less conspicuous lesions are present in the posterior left iliac, L5, C7, left ischium . MRI scan of the head done on 09/28/2019 shows no brain metastases, clinical stage extensive disease small cell lung cancer COPD, on home oxygen Mitral valve replacement, on chronic anticoagulation Iron deficiency anemia on oral iron supplement Plan: discussed with patient and her daughter regarding her CT PET scan report and MRI scan of the head report, CT PET scan has confirmed she has extensive disease with bone metastases. At this point we'll consider systemic therapy withchemotherapy/immunotherapy with carboplatin/etoposide/tecentriq with Neulasta support every 3 - 4 weeks and monthly Xgeva to prevent skeletal related complications. All the side effect possible benefits associated with chemotherapy including but not limited to bone marrow suppression, nausea vomiting, hair loss, thrombocytopenia due to carboplatin and immunotherapy related side effects like colitis, pneumonitis skin rash or thyroid malfunctioning.and tumor lysis, Further teaching will be done by chemotherapy nurse. we will consider allopurinol 100 mg twice a day for tumor lysis prevention and patient was also maintained maintain good hydration during and after chemotherapy, we'll follow her electrolytes. We will obtain approval from her insurance prior to the treatment and also consider Port-A-Cath Placement to facilitate chemotherapy. And patient will return to clinic week after chemotherapy is initiated.with CBC CMP Signed By: Sonny Delgadillo M.D. <<Signature on File>>
[2019-10-17 20:19] LABS: Ferritin 31 ng/mL (15-150); Iron 29 ug/dL (37-145); Percent Saturation 8.9 % (20-50); Total Iron Binding Capacity 323 mcg/dl; Unsaturated Iron Binding 294 ug/dL (112-347)
[2019-10-17 20:34] LABS: Vitamin B12 352 pg/mL (232-1245)
== END 2019-10-17 15:47 | disposition home or self-care (01) ==
LOC: ONCMED 15:49
PROVIDERS: Family Provider Family Medicine; PCP Family Medicine; Visit Provider Internal Medicine Hematology & Oncology
DX: C34.02 Malignant neoplasm of left main bronchus (principal); J44.9 Chronic obstructive pulmonary disease, unspecified; I48.91 Unspecified atrial fibrillation; I50.32 Chronic diastolic (congestive) heart failure; D50.9 Iron deficiency anemia, unspecified; Z99.81 Dependence on supplemental oxygen; Z79.891 Long term (current) use of opiate analgesic; Z79.899 Other long term (current) drug therapy; Z79.01 Long term (current) use of anticoagulants; Z95.2 Presence of prosthetic heart valve; Z87.891 Personal history of nicotine dependence
CPT/HCPCS: 36415; 80053; 82607; 82728; 83540; 83550; 85025; 99214

== ENCOUNTER 2019-10-25 11:40 | Outpatient (CLI) | payer MEDICARE, SELFPAY ==
[2019-10-25 13:04] LABS: INR 2.04 (0.8-1.2)
== END 2019-10-25 11:41 | disposition home or self-care (01) ==
LOC: ONCMED 13:33
PROVIDERS: Family Provider Family Medicine; PCP Family Medicine; Visit Provider Internal Medicine Hematology & Oncology
DX: C34.02 Malignant neoplasm of left main bronchus (principal)
CPT/HCPCS: 85610

== ENCOUNTER 2019-10-25 14:33 | Outpatient (CLI) | payer MEDICARE, SELFPAY ==
--- NOTE | 2019-10-25 15:19 | XR_ITS ---
WS: [id number] XR chest 1V portable [id number] REASON FOR EXAM: post picc insertion FINDINGS: PICC line is seen extending from the right side the tip is seen in this midportion of the s uperior vena cava. A large mass is seen off the left hilum. There is previous bowel wrist replacement of the mitral valve. XR/XR chest 1V portable [id number] IMPRESSION: PICC line in adequate position. 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
== END 2019-10-25 14:34 | disposition home or self-care (01) ==
LOC: OPS 14:41
PROVIDERS: Family Provider Family Medicine; PCP Family Medicine; Visit Provider Internal Medicine Hematology & Oncology
DX: Z45.2 Encounter for adjustment and management of vascular access device (principal)
CPT/HCPCS: 36569; 71045

== ENCOUNTER 2019-10-25 15:51 | Inpatient (IN) | payer MEDICARE, SELFPAY ==
[2019-10-25] VITALS (7 sets, daily range): BP systolic 101–152; BP diastolic 66–74; PULSE 69–128; RESP 17–25; TEMP 36.7–36.8; O2SAT 94–100; BMI 20.7
--- NOTE | 2019-10-25 16:02 | ECG_ITS ---
Measurements Intervals [place] Rate: 68 P: 94 [place]: 179 QRS: 38 QRSD: 96 T: 59 QT: 385 QTc: [address] & T-WAVE ABNORMALITY Compared to ECG 08/18/2019 09:16:21 No significant changes Electronically Signed On 10-25-2019 17:42:58 CDT by Blanca Weaver M.D. [id number]
[2019-10-25 16:16] LABS: Basophils % 0.5 %; Eosinophils % 0.3 %; Hematocrit 24.4 % (37.0-47.0); Hemoglobin 7.4 g/dL (11.5-15.3); Lymphocytes % 13.2 %; Mean Corpuscular HGB Conc 30.3 g/dL (30.0-36.0); Mean Corpuscular Hemoglobin 26.1 pg (28.0-34.0); Mean Corpuscular Volume 85.9 fL (81-99); Mean Platelet Volume 10.1 fL (7.4-10.4); Monocytes # 0.8 10^3/uL (0.2-0.9); Monocytes % 9.6 %; Neutrophils # 5.9 10^3/uL (1.8-7.7); Neutrophils % 75.6 %; Nucleated Red Blood Cells % 0.3 %; Platelet Count 344 10^3/cmm (130-400); Red Blood Count 2.84 10^6/uL (4.1-5.3); Red Cell Distribution Width 18.6 % (12.1-15.1); White Blood Count 7.8 10^3/uL (4.0-10.0)
[2019-10-25 16:42] LABS: Troponin(5th) Baseline 25 ng/mL (0-10)
[2019-10-25 16:52] LABS: Alanine Aminotransferase 15 U/L (0-33); Albumin Level 3.7 g/dL (3.5-5.2); Alkaline Phosphatase 71 IU/L (35-105); Anion Gap 14.3 (5-19); Aspartate Amino Transferase 32 U/L (0-32); Blood Urea Nitrogen 16 mg/dL (8-23); Calcium 9.7 mg/dL (8.5-10.5); Carbon Dioxide 26 mmol/L (22-29); Chloride 91 mmol/L (98-107); Creatinine Clr Calc Pharmacy 48.0891; Globulin 2.6 g/dL (1.3-4.6); Glucose 96 mg/dL (65-115); NT Pro B Type Natriuretic Pept 2569 pg/mL (0-125); Osmolality Calculated 260 mOsm/kg (285-295); Potassium 4.3 mmol/L (3.5-5.1); Sodium 127 mmol/L (136-145); Total Bilirubin 0.4 mg/dL (0.15-1.2); Total Protein 6.3 g/dL (6.6-8.7)
--- NOTE | 2019-10-25 17:18 | PC.NURSE ---
Patient uncomfortable in bed. She was assisted to a wheel chair. She is much more comfortable sitting.
--- NOTE | 2019-10-25 17:47 | W.ED.CHESTPA ---
Documented by User: Crow Shaffer DO 10/25/19 17:47 HPI - Chest Pain General: Chief Complaint: Chest Pain Stated Complaint: CHEST PAIN Time Seen by Provider: 10/25/19 16:09 PFSH ED PFSH: Medical History Aortic regurgitation Atrial fibrillation Continue on digoxin 125 mcg daily within Continue on sotalol 80 mg twice daily Chronic anticoagulation COPD (chronic obstructive pulmonary disease) Diastolic CHF, chronic Hypertension Surgical History H/O mitral valve replacement Mechanical valve H/O: hysterectomy History of carpal tunnel release History of lumbar surgery Family History Mother Clotting disorder Father Clotting disorder Sister AAA (abdominal aortic aneurysm) Social History Smoking and tobacco status: former smoker Quit status (tobacco): has quit using tobacco Year quit tobacco: 2020 - 0.5 PPD x 35 Years Alcohol intake: former Household members: spouse Marital status: Current occupational status: retired History of recent travel: No Current gender identity: Female Course Vital Signs: Vital signs: Vital Signs Temperature 98.2 F 10/25/19 15:57 Pulse Rate 114 H 10/25/19 21:00 Respiratory Rate 20 H 10/25/19 21:00 Blood Pressure 152/74 10/25/19 15:57 Pulse Oximetry 94 10/25/19 21:00 MDM - Chest Pain Lab Data: Labs: Lab Results 10/25/19 10/25/19 10/25/19 Range/Units 16:10 16:10 16:10 WBC 7.8 (4.0-10.0) 10^3/ uL RBC 2.84 L (4.1-5.3) 10^6/u L Hgb 7.4 L (11.5-15.3) g/dL Hct 24.4 L (37.0-47.0) % MCV 85.9 (81-99) fL MCH 26.1 L (28.0-34.0) pg MCHC 30.3 (30.0-36.0) g/dL RDW 18.6 H (12.1-15.1) % Plt Count 344 (130-400) 10^3/c mm MPV 10.1 (7.4-10.4) fL Neut % (Auto) 75.6 % Lymph % (Auto) 13.2 % [place] % (Auto) 9.6 % Eos % (Auto) 0.3 % Baso % (Auto) 0.5 % Neut # (Auto) 5.9 (1.8-7.7) 10^3/u L Lymph # (Auto) 1.0 (0.8-4.8) 10^3/u L [place] # (Auto) 0.8 (0.2-0.9) 10^3/u L Eos # (Auto) 0.0 (0.0-0.8) 10^3/u L Baso # (Auto) 0.0 (0.0-0.1) 10^3/u L Nucleated RBC % (a uto) 0.3 % Nucleated RBCs # 0.0 /100WBC PT (10.5-13.3) SECO NDS INR (0.8-1.2) Sodium 127 L (136-145) mmol/L Potassium 4.3 (3.5-5.1) mmol/L Chloride 91 L (98-107) mmol/L Carbon Dioxide 26 (22-29) mmol/L Anion Gap 14.3 (5-19) BUN 16 (8-23) mg/dL Creatinine 0.8 (0.5-0.9) mg/dL Glucose 96 (65-115) mg/dL Calculated Osmolal ity 260 L (285-295) mOsm/k g Calcium 9.7 (8.5-10.5) mg/dL Total Bilirubin 0.4 (0.15-1.2) mg/dL AST 32 (0-32) U/L ALT 15 (0-33) U/L Alkaline Phosphata se 71 (35-105) IU/L Troponin T Baselin e 25 H (0-10) ng/mL Troponin T 120 Min [place] (0-10) ng/mL Delta Troponin T (0-10) ABS# NT-Pro-B Natriuret Pep 2569 H (0-125) pg/mL Total Protein 6.3 L (6.6-8.7) g/dL Albumin 3.7 (3.5-5.2) g/dL Globulin 2.6 (1.3-4.6) g/dL 10/25/19 10/25/19 Range/Units 18:04 18:04 WBC (4.0-10.0) 10^3/ uL RBC (4.1-5.3) 10^6/u L Hgb (11.5-15.3) g/dL Hct (37.0-47.0) % MCV (81-99) fL MCH (28.0-34.0) pg MCHC (30.0-36.0) g/dL RDW (12.1-15.1) % Plt Count (130-400) 10^3/c mm MPV (7.4-10.4) fL Neut % (Auto) % Lymph % (Auto) % [place] % (Auto) % Eos % (Auto) % Baso % (Auto) % Neut # (Auto) (1.8-7.7) 10^3/u L Lymph # (Auto) (0.8-4.8) 10^3/u L [place] # (Auto) (0.2-0.9) 10^3/u L Eos # (Auto) (0.0-0.8) 10^3/u L Baso # (Auto) (0.0-0.1) 10^3/u L Nucleated RBC % (a uto) % Nucleated RBCs # /100WBC PT 23.60 H (10.5-13.3) SECO NDS INR 2.08 H (0.8-1.2) Sodium (136-145) mmol/L Potassium (3.5-5.1) mmol/L Chloride (98-107) mmol/L Carbon Dioxide (22-29) mmol/L Anion Gap (5-19) BUN (8-23) mg/dL Creatinine (0.5-0.9) mg/dL Glucose (65-115) mg/dL Calculated Osmolal ity (285-295) mOsm/k g Calcium (8.5-10.5) mg/dL Total Bilirubin (0.15-1.2) mg/dL AST (0-32) U/L ALT (0-33) U/L Alkaline Phosphata se (35-105) IU/L Troponin T Baselin e (0-10) ng/mL Troponin T 120 Min [place] 25.10 H (0-10) ng/mL Delta Troponin T 0.10 (0-10) ABS# NT-Pro-B Natriuret Pep (0-125) pg/mL Total Protein (6.6-8.7) g/dL Albumin (3.5-5.2) g/dL Globulin (1.3-4.6) g/dL Discharge Plan Discharge Patient Disposition: Admitted As Inpatient Clinical Impression: Acute hyponatremia, Chest pain, Anemia, GI bleed Condition: Stable Referrals: Dylan Connors MD [Primary Care Provider] - Coding Level of Care Code ED Senior Informatica Developer for Chg Fwd Exam Detailed Documented by User: JAIME Jacques 10/25/19 21:32 HPI - Chest Pain General: Chief Complaint: Chest Pain Stated Complaint: CHEST PAIN Time Seen by Provider: 10/25/19 16:09 Source: patient Mode of arrival: wheelchair Limitations: no limitations History of Present Illness: HPI narrative: Patient is a 74-year-old female who presents to ED today after developing chest pain while she was receiving a port to begin receiving chemotherapy treatments. 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 Patient states upon arrival her chest pain has subsided. She states over the past 3 months she has had about 1-2 episodes of weekly chest pains that last about an hour and describes them as heartburn-like . Patient reports history of mitral valve replacement. She denies any previous heart attacks or cardiac stents. Patient has a complaint of hoarseness over the past 2 to 3 days. She states she also has been short of breath. She has not been running fevers or had recent travel. She has no sick contacts. She is not experiencing a cough. PMH is significant for HTN, mitral valve replacement, hypercholesterolemia, and the lung mass MD complaint: chest pain Onset (ago): hour(s) Timing of current episode: now resolved Prior episodes: Yes Onset: during rest Pain location: substernal Pain radiation: none Quality: other ( heartburn like ) Relieving factors: nothing Exacerbating factors: nothing Associated symptoms: Reports dyspnea; Deny abdominal pain, fever(s), nausea, palpitations, syncope or vomiting Review of Systems Const: Denies: fever, chills, body aches, change in appetite, change in weight or fatigue Eyes: Denies: change in vision or blurry vision ENMT: Reports: other (hoarseness); Denies: throat pain, enlarged tonsils or painful swallowing Card: Reports: chest pain (resolved now); Denies: palpitations, irregular heart rhythm, edema, lightheadedness, syncope or pre-syncope Resp: Reports: shortness of breath; Denies: productive cough, non-productive cough, pain on inspiration, coughing up blood or chest congestion GI: Denies: abdominal pain, nausea, vomiting or diarrhea : Denies: flank pain, difficulty urinating, painful urination, urinary frequency or urinary urgency Musc: Denies: neck pain or back pain Skin/Breast: Denies: rash Neuro: Denies: headache, numbness in extremities, weakness in extremities or changes in sensation PFSH ED PFSH: Medical History Aortic regurgitation Atrial fibrillation Continue on digoxin 125 mcg daily within Continue on sotalol 80 mg twice daily Chronic anticoagulation COPD (chronic obstructive pulmonary disease) Diastolic CHF, chronic Hypertension Surgical History H/O mitral valve replacement Mechanical valve H/O: hysterectomy History of carpal tunnel release History of lumbar surgery Family History Mother Clotting disorder Father Clotting disorder Sister AAA (abdominal aortic aneurysm) Social History Smoking and tobacco status: former smoker Quit status (tobacco): has quit using tobacco Year quit tobacco: 2020 - 0.5 PPD x 35 Years Alcohol intake: former Household members: spouse Marital status: Current occupational status: retired History of recent travel: No Current gender identity: Female Physical Exam Const: COMMON NORMALS: no apparent distress, oriented x3, no limitations, alert and well nourished HENMT: COMMON NORMALS: normocephalic and head/scalp atraumatic HEAD & SCALP: normocephalic and atraumatic Chest: COMMONS NORMALS: inspection of chest normal and palpation of chest normal Resp: COMMON NORMALS: normal respiratory effort and clear to auscultation bilaterally AUSCULTATION: clear to auscultation bilaterally Cardio: COMMON NORMALS: regular rate and regular rhythm RATE: regular rate RHYTHM: regular rhythm GI: OTHER: hemoccult positive Extremity: COMMON NORMALS: normal to inspection Neuro: COMMON NORMALS: oriented x3 SENSORIUM/ORIENTATION: Yes alert Skin: COMMON NORMALS: no rashes or lesions noted GENERAL SKIN EXAM: no rashes or lesions noted Course Vital Signs: Vital signs: Vital Signs Temperature 98.2 F 10/25/19 15:57 Pulse Rate 114 H 10/25/19 21:00 Respiratory Rate 20 H 10/25/19 21:00 Blood Pressure 152/74 10/25/19 15:57 Pulse Oximetry 94 10/25/19 21:00 MDM - Chest Pain MDM Narrative: Medical decision making narrative: Patient's initial troponin is 25. We will obtain repeat. Patient's hemoglobin today is 7.4. She was 9.7 8 days ago. She tells me she does have a history of anemia requiring blood transfusions. She states they have evaluated her for GI bleeds and these are always negative however pts hemoccult is positive today. Upon repeat examination patient's O2 sat was anywhere from 88-90% on room air. She was placed on 2L O2. She is also hyponatremic. HEART score of 6. Spoke to Dr. Mendoza and we will admit her to hospital. Lab Data: Labs: Lab Results 10/25/19 10/25/19 10/25/19 Range/Units 16:10 16:10 16:10 WBC 7.8 (4.0-10.0) 10^3/ uL RBC 2.84 L (4.1-5.3) 10^6/u L Hgb 7.4 L (11.5-15.3) g/dL Hct 24.4 L (37.0-47.0) % MCV 85.9 (81-99) fL MCH 26.1 L (28.0-34.0) pg MCHC 30.3 (30.0-36.0) g/dL RDW 18.6 H (12.1-15.1) % Plt Count 344 (130-400) 10^3/c mm MPV 10.1 (7.4-10.4) fL Neut % (Auto) 75.6 % Lymph % (Auto) 13.2 % [place] % (Auto) 9.6 % Eos % (Auto) 0.3 % Baso % (Auto) 0.5 % Neut # (Auto) 5.9 (1.8-7.7) 10^3/u L Lymph # (Auto) 1.0 (0.8-4.8) 10^3/u L [place] # (Auto) 0.8 (0.2-0.9) 10^3/u L Eos # (Auto) 0.0 (0.0-0.8) 10^3/u L Baso # (Auto) 0.0 (0.0-0.1) 10^3/u L Nucleated RBC % (a uto) 0.3 % Nucleated RBCs # 0.0 /100WBC PT (10.5-13.3) SECO NDS INR (0.8-1.2) Sodium 127 L (136-145) mmol/L Potassium 4.3 (3.5-5.1) mmol/L Chloride 91 L (98-107) mmol/L Carbon Dioxide 26 (22-29) mmol/L Anion Gap 14.3 (5-19) BUN 16 (8-23) mg/dL Creatinine 0.8 (0.5-0.9) mg/dL Glucose 96 (65-115) mg/dL Calculated Osmolal ity 260 L (285-295) mOsm/k g Calcium 9.7 (8.5-10.5) mg/dL Total Bilirubin 0.4 (0.15-1.2) mg/dL AST 32 (0-32) U/L ALT 15 (0-33) U/L Alkaline Phosphata se 71 (35-105) IU/L Troponin T Baselin e 25 H (0-10) ng/mL Troponin T 120 Min [place] (0-10) ng/mL Delta Troponin T (0-10) ABS# NT-Pro-B Natriuret Pep 2569 H (0-125) pg/mL Total Protein 6.3 L (6.6-8.7) g/dL Albumin 3.7 (3.5-5.2) g/dL Globulin 2.6 (1.3-4.6) g/dL 10/25/19 10/25/19 Range/Units 18:04 18:04 WBC (4.0-10.0) 10^3/ uL RBC (4.1-5.3) 10^6/u L Hgb (11.5-15.3) g/dL Hct (37.0-47.0) % MCV (81-99) fL MCH (28.0-34.0) pg MCHC (30.0-36.0) g/dL RDW (12.1-15.1) % Plt Count (130-400) 10^3/c mm MPV (7.4-10.4) fL Neut % (Auto) % Lymph % (Auto) % [place] % (Auto) % Eos % (Auto) % Baso % (Auto) % Neut # (Auto) (1.8-7.7) 10^3/u L Lymph # (Auto) (0.8-4.8) 10^3/u L [place] # (Auto) (0.2-0.9) 10^3/u L Eos # (Auto) (0.0-0.8) 10^3/u L Baso # (Auto) (0.0-0.1) 10^3/u L Nucleated RBC % (a uto) % Nucleated RBCs # /100WBC PT 23.60 H (10.5-13.3) SECO NDS INR 2.08 H (0.8-1.2) Sodium (136-145) mmol/L Potassium (3.5-5.1) mmol/L Chloride (98-107) mmol/L Carbon Dioxide (22-29) mmol/L Anion Gap (5-19) BUN (8-23) mg/dL Creatinine (0.5-0.9) mg/dL Glucose (65-115) mg/dL Calculated Osmolal ity (285-295) mOsm/k g Calcium (8.5-10.5) mg/dL Total Bilirubin (0.15-1.2) mg/dL AST (0-32) U/L ALT (0-33) U/L Alkaline Phosphata se (35-105) IU/L Troponin T Baselin e (0-10) ng/mL Troponin T 120 Min [place] 25.10 H (0-10) ng/mL Delta Troponin T 0.10 (0-10) ABS# NT-Pro-B Natriuret Pep (0-125) pg/mL Total Protein (6.6-8.7) g/dL Albumin (3.5-5.2) g/dL Globulin (1.3-4.6) g/dL Imaging Data^: CXR: Radiologist's impression: [address] [address] XRay Report Signed Patient: Debbi Garcias Unit #: [id number] : 1945 Age/Sex: 74 / F ADM Date: 10/25/19 Loc: OPS Room/Bed: Attending Dr: Sonny Delgadillo MD Ordering Provider/Ordering MD: Sonny Delgadillo MD Date of Service: 10/25/19 Procedure(s): XR chest 1V portable 11340 Accession Number(s): [id number] Report Number: [id number] WS: [id number] XR chest 1V portable [id number] REASON FOR EXAM: post picc insertion FINDINGS: PICC line is seen extending from the right side the tip is seen in this midportion of the superior vena cava. A large mass is seen off the left hilum. There is previous bowel wrist replacement of the mitral valve. XR/XR chest 1V portable [id number] IMPRESSION: PICC line in adequate position. 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 Dictated By: Daniel Bates DO Signed By: Daniel Bates DO Signed Date/Time: 10/25/191533 DD/ 32 Discharge Plan Discharge Patient Disposition: Admitted As Inpatient Clinical Impression: Acute hyponatremia, Chest pain, Anemia, GI bleed Condition: Stable Referrals: Dylan Connors MD [Primary Care Provider] - Coding Level of Care Code ED Senior Informatica Developer for Chg Fwd Exam Detailed Documented by User: Shaka Mendoza DO 10/25/19 20:31 HPI - Chest Pain General: Chief Complaint: Chest Pain Stated Complaint: CHEST PAIN Time Seen by Provider: 10/25/19 16:09 History of Present Illness: HPI narrative: 74-year-old female came emergency room for chest pain. Initially seen by JAIME Jacques reviewed her notes also discussed with her and seen and examined the patient see below. [facility] ED PFSH: Medical History Aortic regurgitation Atrial fibrillation Continue on digoxin 125 mcg daily within Continue on sotalol 80 mg twice daily Chronic anticoagulation COPD (chronic obstructive pulmonary disease) Diastolic CHF, chronic Hypertension Surgical History H/O mitral valve replacement Mechanical valve H/O: hysterectomy History of carpal tunnel release History of lumbar surgery Family History Mother Clotting disorder Father Clotting disorder Sister AAA (abdominal aortic aneurysm) Social History Smoking and tobacco status: former smoker Quit status (tobacco): has quit using tobacco Year quit tobacco: 2020 - 0.5 PPD x 35 Years Alcohol intake: former Household members: spouse Marital status: Current occupational status: retired History of recent travel: No Current gender identity: Female Course ED course: Discussed the findings with the patient I agree with admission for evaluation of anemia as well as evaluation of her chest pain. I discussed Dr. Akers she will admit the patient we will put her on CSU for now. Vital Signs: Vital signs: Vital Signs Temperature 98.2 F 10/25/19 15:57 Pulse Rate 114 H 10/25/19 21:00 Respiratory Rate 20 H 10/25/19 21:00 Blood Pressure 152/74 10/25/19 15:57 Pulse Oximetry 94 10/25/19 21:00 MDM - Chest Pain Lab Data: Labs: Lab Results 10/25/19 10/25/19 10/25/19 Range/Units 16:10 16:10 16:10 WBC 7.8 (4.0-10.0) 10^3/ uL RBC 2.84 L (4.1-5.3) 10^6/u L Hgb 7.4 L (11.5-15.3) g/dL Hct 24.4 L (37.0-47.0) % MCV 85.9 (81-99) fL MCH 26.1 L (28.0-34.0) pg MCHC 30.3 (30.0-36.0) g/dL RDW 18.6 H (12.1-15.1) % Plt Count 344 (130-400) 10^3/c mm MPV 10.1 (7.4-10.4) fL Neut % (Auto) 75.6 % Lymph % (Auto) 13.2 % [place] % (Auto) 9.6 % Eos % (Auto) 0.3 % Baso % (Auto) 0.5 % Neut # (Auto) 5.9 (1.8-7.7) 10^3/u L Lymph # (Auto) 1.0 (0.8-4.8) 10^3/u L [place] # (Auto) 0.8 (0.2-0.9) 10^3/u L Eos # (Auto) 0.0 (0.0-0.8) 10^3/u L Baso # (Auto) 0.0 (0.0-0.1) 10^3/u L Nucleated RBC % (a uto) 0.3 % Nucleated RBCs # 0.0 /100WBC PT (10.5-13.3) SECO NDS INR (0.8-1.2) Sodium 127 L (136-145) mmol/L Potassium 4.3 (3.5-5.1) mmol/L Chloride 91 L (98-107) mmol/L Carbon Dioxide 26 (22-29) mmol/L Anion Gap 14.3 (5-19) BUN 16 (8-23) mg/dL Creatinine 0.8 (0.5-0.9) mg/dL Glucose 96 (65-115) mg/dL Calculated Osmolal ity 260 L (285-295) mOsm/k g Calcium 9.7 (8.5-10.5) mg/dL Total Bilirubin 0.4 (0.15-1.2) mg/dL AST 32 (0-32) U/L ALT 15 (0-33) U/L Alkaline Phosphata se 71 (35-105) IU/L Troponin T Baselin e 25 H (0-10) ng/mL Troponin T 120 Min [place] (0-10) ng/mL Delta Troponin T (0-10) ABS# NT-Pro-B Natriuret Pep 2569 H (0-125) pg/mL Total Protein 6.3 L (6.6-8.7) g/dL Albumin 3.7 (3.5-5.2) g/dL Globulin 2.6 (1.3-4.6) g/dL 10/25/19 10/25/19 Range/Units 18:04 18:04 WBC (4.0-10.0) 10^3/ uL RBC (4.1-5.3) 10^6/u L Hgb (11.5-15.3) g/dL Hct (37.0-47.0) % MCV (81-99) fL MCH (28.0-34.0) pg MCHC (30.0-36.0) g/dL RDW (12.1-15.1) % Plt Count (130-400) 10^3/c mm MPV (7.4-10.4) fL Neut % (Auto) % Lymph % (Auto) % [place] % (Auto) % Eos % (Auto) % Baso % (Auto) % Neut # (Auto) (1.8-7.7) 10^3/u L Lymph # (Auto) (0.8-4.8) 10^3/u L [place] # (Auto) (0.2-0.9) 10^3/u L Eos # (Auto) (0.0-0.8) 10^3/u L Baso # (Auto) (0.0-0.1) 10^3/u L Nucleated RBC % (a uto) % Nucleated RBCs # /100WBC PT 23.60 H (10.5-13.3) SECO NDS INR 2.08 H (0.8-1.2) Sodium (136-145) mmol/L Potassium (3.5-5.1) mmol/L Chloride (98-107) mmol/L Carbon Dioxide (22-29) mmol/L Anion Gap (5-19) BUN (8-23) mg/dL Creatinine (0.5-0.9) mg/dL Glucose (65-115) mg/dL Calculated Osmolal ity (285-295) mOsm/k g Calcium (8.5-10.5) mg/dL Total Bilirubin (0.15-1.2) mg/dL AST (0-32) U/L ALT (0-33) U/L Alkaline Phosphata se (35-105) IU/L Troponin T Baselin e (0-10) ng/mL Troponin T 120 Min [place] 25.10 H (0-10) ng/mL Delta Troponin T 0.10 (0-10) ABS# NT-Pro-B Natriuret Pep (0-125) pg/mL Total Protein (6.6-8.7) g/dL Albumin (3.5-5.2) g/dL Globulin (1.3-4.6) g/dL Discharge Plan Discharge Patient Disposition: Admitted As Inpatient Clinical Impression: Acute hyponatremia, Chest pain, Anemia, GI bleed Condition: Stable Referrals: Dylan Connors MD [Primary Care Provider] - Coding Level of Care Code ED Senior Informatica Developer for Chg Fwd Exam Detailed
[2019-10-25 18:32] LABS: INR 2.08 (0.8-1.2)
--- NOTE | 2019-10-25 22:02 | ECG_ITS ---
Measurements Intervals [place] Rate: 74 P: -32 W[place]: 116 QRS: 52 QRSD: 101 T: 77 QT: 375 QTc: 417 SINUS RHYTHM WITH SHORT W[place] INTERVAL NONSPECIFIC ST & T-WAVE ABNORMALITY Compared to ECG 10/25/2019 16:03:05 Short [place] interval now present T-wave abnormality still present Electronically Signed On 10-25-2019 20:06:33 CDT by Blanca Weaver M.D. [email or web address]
[2019-10-25] MEDS: HYDROcodone-acetaminophen 10-325 mg Tablet 1 TAB PO (22:05)
--- NOTE | 2019-10-25 22:09 | PM.HP ---
Providers/Chief Complaint Admitting Physician: Ale Akers MD Primary Care Provider: Dylan Connors MD Chief Complaint: CHEST PAIN History of Present Illness Debbi Garcias is a 74 year old female with h/o COPD, not on home 02 per se but uses 's 02 at 2lpm , pulmonary hypertension, recently diagnosed to have a left hilar mass for which she underwent EBUS and confirmed small cell carcinoma of the lung. Past medical history also significant for mechanical mitral valve replacement 2000, currently on anticoagulation with Coumadin, history of atrial fibrillation, diastolic CHF, hypertension, iron deficiency anemia. She recently saw oncology on September 21, 2019, found to have extensive metastatic disease to with bone involevment. She is planned for systemic chemotherapy/immunotherapy and underwent placement of R arm PICC line for the same. Chemo has not yet started. She presented to Er after undergoing placement of this line with c/o chest pain. The pain has since subsided since arrival to the ER. Denies any current shortness of breath, palpitations. syncope. Incidentally she was noted to have a hemoglobin of 7.4, which was 9.7 and will be difficult. Hemoccult was checked in the ED and was positive. She was also noted to be tachycardic with heart rate between 120s to 130s. She was also briefly hypoxic. He did have tachycardia between 88 to 90% on room air. She is currently on 2 L oxygen and maintaining oxygen saturation well. Troponins x2 have been unremarkable with nonsignificant delta's. Her INR today is 2.08. She denies any current complaints of melena or hematemesis. Last colonoscopy in system dates back to 2014 which showed cecal polyps. Review of Systems General: Reports: 10 or more systems reviewed and unremarkable except in HPI and below Const: Denies: fever, chills or body aches Eyes: Denies: change in vision, blurry vision or photophobia ENMT: Denies: throat pain, enlarged tonsils, painful swallowing, hoarseness or nasal congestion Card: Denies: chest pain, palpitations, irregular heart rhythm, edema, swelling of feet/ankles, lightheadedness, pre-syncope, shortness of breath on exertion or shortness of breath when lying down Resp: Denies: shortness of breath, productive cough, non-productive cough, wheezing, stridor, pain on inspiration, change in phlegm color, coughing up blood or chest congestion GI: Denies: abdominal pain, nausea, vomiting, vomiting blood, coffee grounds in vomit, difficulty swallowing, heartburn/indigestion, diarrhea, constipation, cramping, change in stool character, blood in stool or black tarry stool : Denies: flank pain, difficulty urinating, painful urination, urinary frequency, urinary urgency, urinary hesitancy or blood in urine Musc: Denies: neck pain, back pain, extremity pain, joint swelling, joint warmth or deformity Neuro: Denies: headache, numbness in extremities, weakness in extremities, changes in sensation, difficulty walking, frequent falls, dizziness, vertigo, behavioral changes, slurred speech or seizure-like activity Psych: Denies: anxiety, depression, suicidal ideation or homicidal ideation Endo: Denies: excessive urination, excessive thirst, tired all the time, cold intolerance or hot flashes Royal/Lymph: Denies: easy bruising or easy bleeding Medications/Allergies Home Medications Medication Instructions Recorded Confirmed Last Taken Type buspirone 5 mg PO BID 10/25/19 10/25/19 10/25/19 History duloxetine 20 mg PO BID 10/25/19 10/25/19 10/25/19 History Allergies Allergy/AdvReac Type Severity Reaction Status Date / Time adhesive tape Allergy Intermediate ALGY-Bliste Verified 08/31/19 13:03 r ampicillin Allergy Mild ALGY-Fever Verified 08/31/19 13:03 PFSH Acute PFSH: Medical History Aortic regurgitation Atrial fibrillation Continue on digoxin 125 mcg daily within Continue on sotalol 80 mg twice daily Chronic anticoagulation COPD (chronic obstructive pulmonary disease) Diastolic CHF, chronic Hypertension Surgical History H/O mitral valve replacement Mechanical valve H/O: hysterectomy History of carpal tunnel release History of lumbar surgery Family History Mother Clotting disorder Father Clotting disorder Sister AAA (abdominal aortic aneurysm) Social History Smoking and tobacco status: former smoker Quit status (tobacco): has quit using tobacco Year quit tobacco: 2020 - 0.5 PPD x 35 Years Alcohol intake: former Household members: spouse Marital status: Current occupational status: retired History of recent travel: No Current gender identity: Female Vitals/I&O/Wt Last Vital Signs Temp 98.2 F 10/25/19 15:57 Pulse 114 H 10/25/19 21:00 Resp 20 H 10/25/19 21:00 BP 152/74 10/25/19 15:57 Pulse Ox 94 10/25/19 21:00 Weight last 48 hrs Weight 49.895 kg Physical Exam Narrative: EXAM NARRATIVE: GEN: Awake, alert and oriented, no acute distress CVS: S1S2 N RS: CTA B/L Abd: Soft, nt/nd , bs+ BATCH TESTER: no focal neuro deficits Data : 10/25/19 16:10 10/25/19 16:10 A&P Assessment and plan (1) Chest pain: Status: Acute Code(s): R07.9 - Chest pain, unspecified (2) Anemia: Status: Acute Code(s): D64.9 - Anemia, unspecified (3) GI bleed: Status: Acute Code(s): K92.2 - Gastrointestinal hemorrhage, unspecified (4) COPD (chronic obstructive pulmonary disease): Status: Acute Qualifiers: COPD type: COPD with acute exacerbation Qualified Code(s): J44.1 - Chronic obstructive pulmonary disease with (acute) exacerbation Code(s): J44.9 - Chronic obstructive pulmonary disease, unspecified (5) Atrial fibrillation: Status: Acute Qualifiers: Atrial fibrillation type: longstanding persistent Qualified Code(s): I48.11 - Longstanding persistent atrial fibrillation Code(s): I48.91 - Unspecified atrial fibrillation (6) Hypertension: Status: Acute Qualifiers: Hypertension type: essential hypertension Qualified Code(s): I10 - Essential (primary) hypertension Code(s): I10 - Essential (primary) hypertension (7) H/O mitral valve replacement with mechanical valve: Status: Acute Code(s): Z95.2 - Presence of prosthetic heart valve (8) Diastolic CHF, chronic: Status: Acute Code(s): I50.32 - Chronic diastolic (congestive) heart failure (9) Non-small cell lung cancer: Status: Acute Code(s): C34.90 - Malignant neoplasm of unspecified part of unspecified bronchus or lung Additional A&P Information 74-year-old lady recently diagnosed with lung cancer, plan to start chemotherapy which she received a PICC line today. After placement of She started to experience chest pain. ACS ruled out by negative troponins and no acute ST-T changes. Incidentally noted to have hemoglobin of 7.4 from 9.7 recently. Hemoccult positive in the ER. No rachel melena but reports dark stools recently. Last colonoscopy dates back to 2014. 1. Non-small cell lung cancer, not yet started definitive treatment. Received PICC line today for the same. 2. Atrial fibrillation currently with RVR with heart rate of 120s. She has missed her regular doses of digoxin and sotalol today. I will resume this so she can get both of these medications at this present time. She is on chronic anticoagulation with Coumadin for a mechanical mitral valve. INR today is at 2.08. For now we will hold the Coumadin and bridge her with heparin with close monitoring of hemoglobin every 4 hours. Given history of diverticulosis, positive Hemoccult, will consult surgery for possible colonoscopy to rule out active bleeding before placing her back on Coumadin. 3. COPD, not currently exacerbated. L DuoNeb and budesonide inhalation No steroids for now 4. GI bleeding as noted with positive heme and hemoglobin to 7.4 Blood transfusion today with 1 unit of packed red blood cells with target to keep hemoglobin greater than 8 in cardiac patient symptoms of chest pain. Review of notes patient also received blood transfusion for anemia without any active source of bleeding noted in August of this year. Protonix infusion in the interim Keep n.p.o. except medications after midnight for the same 4. Hypertension: Hold lisinopril for now 5. History of diastolic CHF: Currently not in acute exacerbation. Euvolemic. 6. Continue home medications of aspirin, duloxetine Full code Dvt ppx: heaprin drip Attestations Medical Necessity Statement*: Anticipate greater than 2 midnight admission for management of anemia, GI bleeding which needs close monitoring, A. fib Coding Level of Care Code Acute Zigzag Machine Operator for [facility] Fwd Diagnoses Chest pain R07.9 Anemia D64.9 GI bleed K92.2 COPD (chronic obstructive pulmonary disease) J44.1 COPD type: COPD with acute exacerbation Atrial fibrillation I48.11 Atrial fibrillation type: longstanding persistent Hypertension I10 Hypertension type: essential hypertension H/O mitral valve replacement with mechanical valve Z95.2 Diastolic CHF, chronic I50.32 Non-small cell lung cancer C34.90
[2019-10-25 22:45] LABS: Troponin 5 6HR 26.53 ng/mL (0-10); Troponin 5 6HR Delta 1.53 ng/L (0-12)
[2019-10-25 22:56] LABS: Hematocrit 24.8 % (37.0-47.0); Hemoglobin 7.5 g/dL (11.5-15.3); Platelet Count 350 10^3/cmm (130-400)
[2019-10-25 23:39] LABS: Partial Thromboplastin Time 37.6 SECONDS (23.9-36.7)
[2019-10-25] MEDS: pantoprazole 40 MG in sodium chloride 0.9% (plus) 100 ML 20 MG IV (23:44)
[2019-10-25] MEDS: sodium chloride 0.9% 1,000 ML 125 ML IV (23:48)
[2019-10-25] MEDS: sotalol 80 mg Tablet PO (23:51)
[2019-10-25] MEDS: duloxetine 20 mg Capsule PO (23:51)
[2019-10-25] MEDS: digoxin 125 mcg Tablet PO (23:52)
[2019-10-25] MEDS: BuSPIRONE 5 mg Tablet PO (23:52)
[2019-10-25] MEDS: ondansetron 2 mg/ML SDV 2 mL 4 MG IVP (23:57)
[2019-10-26] VITALS (33 sets, daily range): BP systolic 99–164; BP diastolic 33–85; PULSE 70–128; RESP 13–27; TEMP 36.1–37.1; O2SAT 90–99
[2019-10-26] MEDS: heparin 5,000 unit/mL INJ 1 mL IV (02:08)
[2019-10-26] MEDS: heparin drip 25,000 UNIT/500 ML PREMIX 16 UNIT IV (02:11)
--- NOTE | 2019-10-26 02:14 | PC.NURSE ---
Dr. Akers notified of patient asking for something to help her sleep. Xanax 0.25 mg ordered.
[2019-10-26] MEDS: ALPRAZolam 0.25 mg Tablet PO (02:20)
[2019-10-26] MEDS: pantoprazole 40 MG in sodium chloride 0.9% (plus) 100 ML 20 MG IV ×4 (04:49→20:59)
[2019-10-26 04:55] LABS: Basophils % 0.6 %; Eosinophils # 0.1 10^3/uL (0.0-0.8); Eosinophils % 0.8 %; Hemoglobin 9.1 g/dL (11.5-15.3); Lymphocytes # 1.6 10^3/uL (0.8-4.8); Lymphocytes % 21.7 %; Mean Corpuscular HGB Conc 30.3 g/dL (30.0-36.0); Mean Corpuscular Hemoglobin 27.6 pg (28.0-34.0); Mean Corpuscular Volume 90.9 fL (81-99); Mean Platelet Volume 9.8 fL (7.4-10.4); Monocytes # 0.9 10^3/uL (0.2-0.9); Monocytes % 12.2 %; Neutrophils # 4.6 10^3/uL (1.8-7.7); Neutrophils % 63.7 %; Nucleated Red Blood Cells % 0.3 %; Platelet Count 258 10^3/cmm (130-400); White Blood Count 7.2 10^3/uL (4.0-10.0)
[2019-10-26 05:07] LABS: Alanine Aminotransferase 13 U/L (0-33); Albumin Level 3.1 g/dL (3.5-5.2); Alkaline Phosphatase 69 IU/L (35-105); Anion Gap 15.5 (5-19); Aspartate Amino Transferase 29 U/L (0-32); Blood Urea Nitrogen 12 mg/dL (8-23); Calcium 9.2 mg/dL (8.5-10.5); Carbon Dioxide 24 mmol/L (22-29); Chloride 94 mmol/L (98-107); Creatinine Clr Calc Pharmacy 48.0891; Globulin 3.1 g/dL (1.3-4.6); Glucose 94 mg/dL (65-115); Osmolality Calculated 264 mOsm/kg (285-295); Potassium 4.5 mmol/L (3.5-5.1); Sodium 129 mmol/L (136-145); Total Bilirubin 0.7 mg/dL (0.15-1.2); Total Protein 6.2 g/dL (6.6-8.7)
--- NOTE | 2019-10-26 05:17 | PC.NURSE ---
patients blood transfusion went off well, no complaints of fever, chills, nausea, extreme back pain, dizziness or other side effects. H & H scheduled for 2 hours after.
[2019-10-26 08:31] LABS: Hematocrit 28.4 % (37.0-47.0)
[2019-10-26 08:53] LABS: Partial Thromboplastin Time > 250.0 SECONDS (23.9-36.7)
--- NOTE | 2019-10-26 09:01 | PM.PN ---
Subjective Subjective: Interval history: Admitted overnight. Labs and H&P noted. This morning patient was evaluated prior to her endoscopy. She has been on heparin drip, Protonix drip since last night. PTT just prior to me examining her was more than 250 so I have asked the heparin drip to be stopped for 2 hours. Patient denies of having any nausea, vomiting, weakness, dizziness, headache last 24 hours she has received 1 unit of PRBC transfusion. Vitals/I&O/Wt Last Vital Signs Temp 98.7 F 10/26/19 07:33 Pulse 78 10/26/19 07:33 Resp 24 H 10/26/19 07:33 BP 135/72 10/26/19 07:33 Pulse Ox 92 10/26/19 07:33 10/25/19 10/26/19 10/26/19 22:59 06:59 14:59 Intake Total 554.167 / 554.167 Balance 554.167 / 554.167 Weight last 48 hrs Weight 49.895 kg Physical Exam Narrative: EXAM NARRATIVE: General: No acute distress, AO x3, pallor present HEENT: PERRLA, pupils bilaterally equal and reactive Chest: Normal vesicular breath sounds, no added sounds, equal good air entry bilaterally CVS: S1-S2 regular metallic click heard in the whole precordium, no murmurs, no tachycardia, no gallops, no rubs Abdomen: Soft, nontender, no organomegaly, bowel sounds present Neuro: No focal deficits, no facial deformity, AO x3, power 5/5 in all limbs Data : 10/26/19 09:21 10/26/19 03:59 A&P Assessment and plan (1) Chest pain: Status: Acute Code(s): R07.9 - Chest pain, unspecified (2) Anemia: Status: Acute Code(s): D64.9 - Anemia, unspecified (3) GI bleed: Status: Acute Code(s): K92.2 - Gastrointestinal hemorrhage, unspecified (4) COPD (chronic obstructive pulmonary disease): Status: Acute Qualifiers: COPD type: COPD with acute exacerbation Qualified Code(s): J44.1 - Chronic obstructive pulmonary disease with (acute) exacerbation Code(s): J44.9 - Chronic obstructive pulmonary disease, unspecified (5) Atrial fibrillation: Status: Acute Qualifiers: Atrial fibrillation type: longstanding persistent Qualified Code(s): I48.11 - Longstanding persistent atrial fibrillation Code(s): I48.91 - Unspecified atrial fibrillation (6) Hypertension: Status: Acute Qualifiers: Hypertension type: essential hypertension Qualified Code(s): I10 - Essential (primary) hypertension Code(s): I10 - Essential (primary) hypertension (7) H/O mitral valve replacement with mechanical valve: Status: Acute Code(s): Z95.2 - Presence of prosthetic heart valve (8) Diastolic CHF, chronic: Status: Acute Code(s): I50.32 - Chronic diastolic (congestive) heart failure (9) Non-small cell lung cancer: Status: Acute Code(s): C34.90 - Malignant neoplasm of unspecified part of unspecified bronchus or lung Additional A&P Information 74-year-old lady recently diagnosed with lung cancer, plan to start chemotherapy which she received a PICC line today. After placement of She started to experience chest pain. ACS ruled out by negative troponins and no acute ST-T changes. Incidentally noted to have hemoglobin of 7.4 from 9.7 recently. Hemoccult positive in the ER. No rachel melena but reports dark stools recently. Last colonoscopy dates back to 2014. GI bleed: Endoscopy done by Dr. Maharaj suggestive of gastritis. Stop Protonix drip start on Protonix oral 40 twice daily Check hemoglobin every 12 hours. Check iron panel to the first lab. For now we will start patient on oral iron supplementation 325 mg twice daily. Metallic mitral valve: Patient is on Coumadin as blood thinners. She states she takes 4.5 mg 7 days a week. As per her her goal INR is 3.2. Goal on INR to be 3?3.5. Patient admission was subtherapeutic. Continue with heparin drip keeping PTT therapeutic. We will bridge her to warfarin till we get to the goal INR. As stated above will monitor hemoglobin every 12 hours. Atrial fibrillation: Currently rate controlled. Continue with home dose of sotalol, digoxin. Anticoagulation as described above. Non-small cell lung cancer, not yet started definitive treatment. Received PICC line today for the same. COPD, not currently exacerbated: DuoNeb every 6 hour and budesonide twice daily inhalation No steroids for now Hypertension: Well-controlled. Hold lisinopril for now History of diastolic CHF: Currently not in acute exacerbation. Euvolemic. Continue home medications of aspirin, duloxetine Full code Dvt ppx: heaprin drip/Coumadin bridge. GI soft diet Attestations Medical Necessity Statement*: Subtherapeutic INR, GI bleed Time Spent in Patient Care: Greater than 35 minutes Coding Level of Care Code Acute Dot Net Architect for [facility] Fwd Diagnoses Chest pain R07.9 Anemia D64.9 GI bleed K92.2 COPD (chronic obstructive pulmonary disease) J44.1 COPD type: COPD with acute exacerbation Atrial fibrillation I48.11 Atrial fibrillation type: longstanding persistent Hypertension I10 Hypertension type: essential hypertension H/O mitral valve replacement with mechanical valve Z95.2 Diastolic CHF, chronic I50.32 Non-small cell lung cancer C34.90
[2019-10-26] MEDS: ipratropium-albuterol 3 mL Neb INHALATION ×2 (09:28→20:09)
[2019-10-26 09:29] LABS: Hematocrit 28.3 % (37.0-47.0); Hemoglobin 8.9 g/dL (11.5-15.3)
[2019-10-26] MEDS: digoxin 125 mcg Tablet PO (09:29)
[2019-10-26] MEDS: budesonide 0.5 mg/2 mL Neb INHALATION ×2 (09:29→20:09)
[2019-10-26] MEDS: BuSPIRONE 5 mg Tablet PO ×2 (09:29→18:05)
[2019-10-26] MEDS: atorvastatin 40 mg Tablet 80 MG PO (09:29)
[2019-10-26] MEDS: duloxetine 20 mg Capsule PO ×2 (09:29→18:05)
[2019-10-26] MEDS: sotalol 80 mg Tablet PO ×2 (09:29→18:05)
--- NOTE | 2019-10-26 09:57 | PC.CHAP ---
Pastoral Care Encounter/Spiritual Assessment Type of Contact [] Declined presser and shaper knitted goods visit [] Patient/Family/Request visit [] Outpatient visit [] Follow-up visit [] Physician referral [] Code/Alert [x] Routine visit [] Staff referral [] Actively dying [] Patient sleeping [] Family support [] [] Out of room [] Palliative care [] [] Receiving care in room [] Pre-surgical visit [] Trauma [] Long length of stay [] ICU visit [] Other: Relational/Emotional Strength [] Patient feels connected with others/family/visitors/staff [] Distress [] Loneliness/isolation [] Abandonment Spirituality of Patient [] Person of Eunice [] Attends Yazidism of their Eunice [] Believes in Prayer [] Reads Bible or Pentecostal materials [] There are Spiritual issues to be addressed Doughnut Machine Operator Interventions [x] Prayer [] Active listening [] Non-anxious presence [] Spiritual/emotional support [] Crisis/trauma care [] Spiritual counseling [] Bereavement support [] Provided bereavement packet [] Provided Bible/devotional materials [] Provided toy/stuffed animal, coloring book to patient or family member [] Provided Communion [] Anointing/[place] [] Salvation [x] Completed spiritual assessment [] Other: Impact on Illness or Injury [] Angry [] Fearful [] Anxious [] Often cries [] Exhaustion [] Unable to work [] Unable to attend anglican [] Unable to walk/stand [] Unable to read [] Unable to drive [] Unable to eat/drink [] Unable to sleep [] Unable to be with family [] Patient intubated [] Other: Summary Doctor present. Nurse treating patient. Breathing treatment being administered Patient feeling weak Myah didn't want to interrupt in room care Time spent with patient 5 min
--- NOTE | 2019-10-26 10:44 | PM.CONSULT ---
Providers/Reason For Consult Consulting Physican/Specialty*: General Surgery Norberto Maharaj MD Reason for Consult*: Melena, anemia, heme positive stool. Attending Physician: Josiah Jha MD Primary Care Provider: Dylan Connors MD History of Present Illness History of Present Illness Debbi Garcias is a 74 year old female who recently presented to the emergency room for some chest pain and shortness of breath. This apparently got better while she was waiting to be seen, but she was found to have a hemoglobin of 7.4. Her stool was heme at checked and was found to be positive. She does report having some black stool for the last 3 weeks. She does report having increased heartburn over that period of time, as well. She denies any regular NSAID use and has no known history of peptic ulcer disease but she does take Coumadin at home. Debbi had a colonoscopy 09/2014 and some small polyps removed but they were hyperplastic. She does not recall ever having an EGD. Meds/Allergies Home Medications and Allergies Home Medications Medication Instructions Recorded Confirmed Type Symbicort 2 puff INHALATION BID PRN 08/18/19 10/25/19 History atorvastatin 80 mg PO DAILY 08/18/19 10/25/19 History calcium polycarbophil [FiberCon] 625 mg PO BID 08/18/19 10/25/19 History cholecalciferol (vitamin D3) 1,000 unit PO DAILY 08/18/19 10/25/19 History [Vitamin D3] digoxin 125 mcg PO DAILY 08/18/19 10/25/19 History famotidine 20 mg PO BID 08/18/19 10/25/19 History fluticasone propionate [Flonase 1 spray INTRANASAL DAILY 08/18/19 10/25/19 History Allergy Relief] hydrocodone-acetaminophen [Minerva] 1 tab PO QID PRN 08/18/19 10/25/19 History lisinopril 40 mg PO DAILY 08/18/19 10/25/19 History sotalol 80 mg PO BID 08/18/19 10/25/19 History warfarin See Rx Instructions .ROUTE .COMPLEX 08/18/19 10/25/19 History warfarin See Rx Instructions .ROUTE .COMPLEX 08/18/19 10/25/19 History buspirone 5 mg PO BID 10/25/19 10/25/19 History duloxetine 20 mg PO BID 10/25/19 10/25/19 History Allergies Allergy/AdvReac Type Severity Reaction Status Date / Time adhesive tape Allergy Intermediate ALGY-Bliste Verified 08/31/19 13:03 r ampicillin Allergy Mild ALGY-Fever Verified 08/31/19 13:03 Current Medications Current Medications Generic Name Dose Route Start Last Admin Trade Name Freq PRN Reason Stop Dose Admin Hydrocodone Bitart/Acetaminophen 1 tab 10/25/19 22:02 10/25/19 22:05 Minerva 10-325 Mg PO 1 tab QID PRN Administration Pain Albuterol/Ipratropium 3 ml 10/25/19 23:02 10/26/19 09:28 Duoneb INHALATION 3 ml Q4H.RESPIRATORY PRN Administration SHORTNESS OF BREATH Atorvastatin Calcium 80 mg 10/26/19 09:00 10/26/19 09:29 Lipitor PO 80 mg DAILY JENNY Administration Budesonide 0.5 mg 10/26/19 09:00 10/26/19 09:29 Pulmicort INHALATION 0.5 mg BID.RESPIRATORY JENNY Administration Buspirone HCl 5 mg 10/25/19 22:15 10/26/19 09:29 Buspar PO 5 mg BID JENNY Administration Digoxin 125 mcg 10/25/19 22:30 10/26/19 09:29 Lanoxin PO 125 mcg DAILY JENNY Administration Heparin Sodium (Beef Lung) 0 unit 10/25/19 22:30 10/26/19 02:08 Heparin IV 2,800 unit PRN PRN Administration Heparin weight-base protocol Protocol Pantoprazole Sodium 40 mg/ 100 mls @ 20 mls/hr 10/25/19 22:30 10/26/19 10:06 Sodium Chloride IV 8 mg/hr .Q5H JENNY 20 mls/hr Administration 8 MG/HR Heparin Sodium/Sodium Chloride 25,000 unit in 500 mls @ 0 mls/hr 10/25/19 22:30 10/26/19 02:11 Heparin Drip IV 16.03 unit/kg/hr .Q0M JENNY 16 mls/hr Administration Protocol Per Protocol Ondansetron HCl 4 mg 10/25/19 21:57 10/25/19 23:57 Zofran IVP 4 mg Q8H PRN Administration vomiting, or N/V if npo Sotalol HCl 80 mg 10/25/19 22:15 10/26/19 09:29 Betapace PO 80 mg BID JENNY Administration PFSH Acute PFSH: Medical History (Updated 10/26/19 @ 10:53 by Norberto Maharaj MD) Aortic regurgitation Atrial fibrillation Continue on digoxin 125 mcg daily within Continue on sotalol 80 mg twice daily Chronic anticoagulation COPD (chronic obstructive pulmonary disease) Diastolic CHF, chronic Hypertension Non-small cell lung cancer Surgical History (Updated 10/26/19 @ 10:52 by Nobrerto Maharaj MD) H/O mitral valve replacement Mechanical valve 2000 H/O: hysterectomy Left oophorectomy History of carpal tunnel release Right History of lumbar surgery x 1 Family History Mother Clotting disorder Father Clotting disorder Sister AAA (abdominal aortic aneurysm) Social History Smoking and tobacco status: former smoker Quit status (tobacco): has quit using tobacco Year quit tobacco: 2020 - 0.5 PPD x 35 Years Alcohol intake: former Household members: spouse Marital status: Current occupational status: retired History of recent travel: No Current gender identity: Female Vitals/I&O/Wt Last Vital Signs Temp 98.7 F 10/26/19 07:33 Pulse 74 10/26/19 09:41 Resp 20 H 10/26/19 09:34 BP 135/72 10/26/19 07:33 Pulse Ox 98 10/26/19 09:34 10/25/19 10/26/19 10/26/19 22:59 06:59 14:59 Intake Total 554.167 / 554.167 100 / 100 Balance 554.167 / 554.167 100 / 100 Weight last 48 hrs Weight 110 lb Physical Exam Narrative: EXAM NARRATIVE: The patient was encountered in her hospital room sitting on the edge of her bed with a nasal cannula in place. She does not appear to be in any distress. The pupils seem equal. The neck reveals no bruits. The lungs revealed diminished air movement and she has a few inspiratory and expiratory wheezes on the left side. The heart is regular but there is a mechanical heart valve sound present. The abdomen is soft and nontender. The extremities reveal no edema. Neurologically the patient appears to be grossly intact. A&P Assessment and plan (1) Anemia: Patient was transfused last night. Status: Acute Code(s): D64.9 - Anemia, unspecified (2) Melena: This has been going on for about 3 weeks. The patient reports increased heartburn symptoms during that time. The patient had a colonoscopy 5 years ago which was unremarkable for any significant findings. Given her melena and lack of any obvious hematochezia, I think an EGD is probably much more appropriate at this time as opposed to repeating her colonoscopy. She is currently on a heparin drip but I think an EGD could be reasonably safely performed with her anticoagulated. The procedure was discussed with her in some detail and she would like to proceed. She says she is very hungry and would like to eat following the procedure if possible. Status: Acute Code(s): K92.1 - Melena (3) Heme positive stool: Plan as above. Status: Acute Code(s): R19.5 - Other fecal abnormalities Consult Attestations Medical Necessity Statement: See admitting service's notation. Coding Level of Care Code Acute Manager Loan for [facility] Fwd Diagnoses Anemia D64.9 Melena K92.1 Heme positive stool R19.5
--- NOTE | 2019-10-26 11:11 | ANES.PREANE2 ---
Pre-Anesthetic Assessment Pre-Anesthetic Assessment: Height/Weight: Height 1.55 m Weight 49.895 kg Temp Pulse Resp BP Pulse Ox 97.4 F L 73 20 H 143/59 98 10/26/19 11:09 10/26/19 11:09 10/26/19 11:09 10/26/19 11:09 10/26/19 11:09 Preop Diagnosis: L hilar mass Proposed Procedure: Operation Date: 10/26/19 11:00 Proposed Procedures p EGD(Not Applicable) - Norberto Maharaj MD Was Beta Jj taken within 24 hours: Yes Last Intake: 08:00 Social: Social History: Tobacco and No alcohol Packs per day: 0.5 Pack years: 30 plus Comment: stop 3 month ago Exam: Pre-Anes Outpt Exam: alert and oriented x 3 Additional Exam Findings (including area of procedure): Exp wheezes bilateral with mechanical valve noted Airway: Submandibular: WNL Cervical ROM: WNL MP: 2 Dentition: False Pulmonary: Pulmonary: COPD, BYRD and SOB Comments: pul HTN wears 02 at night CV/HEM: CV/HEM: Afib, CAD, CHF, HTN and Murmur Comments: mechanical mitral valve : : None reported Hepatic: Hepatic: None reported GI: GI: None reported Metabolic: Metabolic: None reported Musc/skel: Musc/skel: Lower Back Pain Neuropsych: Neuropsych: Anxiety and Depression Anesthetic Plan: ASA status: 4 Anesthesia: Anesthesia Evaluation and MAC Risk of > 500 ml blood loss (7ml/kg in children): No Meds/Allergies Current Medications: Current Medications Generic Name Dose Route Start Last Admin Trade Name Freq PRN Reason Stop Dose Admin Hydrocodone Bitart /Acetaminophen 1 tab 10/25/19 22:02 10/25/19 22:05 [place] 10-325 Mg PO 1 tab QID PRN Administration Pain Albuterol/Ipratrop ium 3 ml 10/25/19 23:02 10/26/19 09:28 Duoneb INHALATION 3 ml Q4H.RESPIRATORY P RN Administration SHORTNESS OF HUEY TH Atorvastatin Calci um 80 mg 10/26/19 09:00 10/26/19 09:29 Lipitor PO 80 mg DAILY JENNY Administration Budesonide 0.5 mg 10/26/19 09:00 10/26/19 09:29 Pulmicort INHALATION 0.5 mg BID.RESPIRATORY S CH Administration Buspirone HCl 5 mg 10/25/19 22:15 10/26/19 09:29 Buspar PO 5 mg BID JENNY Administration Digoxin 125 mcg 10/25/19 22:30 10/26/19 09:29 Lanoxin PO 125 mcg DAILY JENNY Administration Heparin Sodium (Be ef Lung) 0 unit 10/25/19 22:30 10/26/19 02:08 Heparin IV 2,800 unit PRN PRN Administration Heparin weight-ba se protocol Protocol Pantoprazole Sodiu m 40 mg/ 100 mls @ 20 mls/ hr 10/25/19 22:30 10/26/19 10:06 Sodium Chloride IV 8 mg/hr .Q5H JENNY 20 mls/hr Administration 8 MG/HR Heparin Sodium/Sod ium Chloride 25,000 unit in 50 0 mls @ 0 mls/hr 10/25/19 22:30 10/26/19 02:11 Heparin Drip IV 16.03 unit/kg/hr .Q0M JENNY 16 mls/hr Administration Protocol Per Protocol Ondansetron HCl 4 mg 10/25/19 21:57 10/25/19 23:57 Zofran IVP 4 mg Q8H PRN Administration vomiting, or N/V if npo Sotalol HCl 80 mg 10/25/19 22:15 10/26/19 09:29 Betapace PO 80 mg BID JENNY Administration PFSH Anesthesia PFSH: Medical History Aortic regurgitation Atrial fibrillation Continue on digoxin 125 mcg daily within Continue on sotalol 80 mg twice daily Chronic anticoagulation COPD (chronic obstructive pulmonary disease) Diastolic CHF, chronic Hypertension Non-small cell lung cancer Surgical History H/O mitral valve replacement Mechanical valve 2000 H/O: hysterectomy Left oophorectomy History of carpal tunnel release Right History of lumbar surgery x 1 Family History Mother Clotting disorder Father Clotting disorder Sister AAA (abdominal aortic aneurysm) Social History Smoking and tobacco status: former smoker Quit status (tobacco): has quit using tobacco Year quit tobacco: 2020 - 0.5 PPD x 35 Years Alcohol intake: former Household members: spouse Marital status: Current occupational status: retired History of recent travel: No Current gender identity: Female Data Anesthesia CBC & Chem 7: 10/26/19 09:21 10/26/19 03:59 Other Labs: Laboratory Results - last 48 hr 10/25/19 10/25/19 10/25/19 16:10 16:10 16:10 WBC 7.8 RBC 2.84 L Hgb 7.4 L Hct 24.4 L MCV 85.9 MCH 26.1 L MCHC 30.3 RDW 18.6 H Plt Count 344 MPV 10.1 Neut % (Auto) 75.6 Lymph % (Auto) 13.2 [place] % (Auto) 9.6 Eos % (Auto) 0.3 Baso % (Auto) 0.5 Neut # (Auto) 5.9 Lymph # (Auto) 1.0 [place] # (Auto) 0.8 Eos # (Auto) 0.0 Baso # (Auto) 0.0 Nucleated RBC % (auto) 0.3 Nucleated RBCs # 0.0 PT INR APTT Sodium 127 L Potassium 4.3 Chloride 91 L Carbon Dioxide 26 Anion Gap 14.3 BUN 16 Creatinine 0.8 Glucose 96 Calculated Osmolality 260 L Calcium 9.7 Total Bilirubin 0.4 AST 32 ALT 15 Alkaline Phosphatase 71 Troponin I 6 Hour Troponin I Hi Sens Del Troponin T Baseline 25 H Troponin T 120 Minute Delta Troponin T NT-Pro-B Natriuret Pep 2569 H Total Protein 6.3 L Albumin 3.7 Globulin 2.6 Blood Type Rho(D) Type Antibody Screen Crossmatch 10/25/19 10/25/19 10/25/19 18:04 18:04 22:19 WBC RBC Hgb Hct MCV MCH MCHC RDW Plt Count MPV Neut % (Auto) Lymph % (Auto) [place] % (Auto) Eos % (Auto) Baso % (Auto) Neut # (Auto) Lymph # (Auto) [place] # (Auto) Eos # (Auto) Baso # (Auto) Nucleated RBC % (auto) Nucleated RBCs # PT 23.60 H INR 2.08 H APTT Sodium Potassium Chloride Carbon Dioxide Anion Gap BUN Creatinine Glucose Calculated Osmolality Calcium Total Bilirubin AST ALT Alkaline Phosphatase Troponin I 6 Hour 26.53 H Troponin I Hi Sens Del 1.53 Troponin T Baseline Troponin T 120 Minute 25.10 H Delta Troponin T 0.10 NT-Pro-B Natriuret Pep Total Protein Albumin Globulin Blood Type Rho(D) Type Antibody Screen Crossmatch 10/25/19 10/25/19 10/25/19 22:19 22:19 23:11 WBC RBC Hgb 7.5 L Hct 24.8 L MCV MCH MCHC RDW Plt Count 350 MPV Neut % (Auto) Lymph % (Auto) [place] % (Auto) Eos % (Auto) Baso % (Auto) Neut # (Auto) Lymph # (Auto) [place] # (Auto) Eos # (Auto) Baso # (Auto) Nucleated RBC % (auto) Nucleated RBCs # PT INR APTT 37.6 H Sodium Potassium Chloride Carbon Dioxide Anion Gap BUN Creatinine Glucose Calculated Osmolality Calcium Total Bilirubin AST ALT Alkaline Phosphatase Troponin I 6 Hour Troponin I Hi Sens Del Troponin T Baseline Troponin T 120 Minute Delta Troponin T NT-Pro-B Natriuret Pep Total Protein Albumin Globulin Blood Type A Negative Rho(D) Type Negaive Antibody Screen Negative Crossmatch See Detail 10/26/19 10/26/19 10/26/19 03:59 03:59 07:48 WBC 7.2 RBC 3.30 L Hgb 9.1 L Hct 30.0 L MCV 90.9 D MCH 27.6 L MCHC 30.3 RDW 17.0 H Plt Count 258 MPV 9.8 Neut % (Auto) 63.7 Lymph % (Auto) 21.7 [place] % (Auto) 12.2 Eos % (Auto) 0.8 Baso % (Auto) 0.6 Neut # (Auto) 4.6 Lymph # (Auto) 1.6 [place] # (Auto) 0.9 Eos # (Auto) 0.1 Baso # (Auto) 0.0 Nucleated RBC % (auto) 0.3 Nucleated RBCs # 0.0 PT INR APTT > 250.0 H* D Sodium 129 L Potassium 4.5 Chloride 94 L Carbon Dioxide 24 Anion Gap 15.5 BUN 12 Creatinine 0.7 Glucose 94 Calculated Osmolality 264 L Calcium 9.2 Total Bilirubin 0.7 AST 29 ALT 13 Alkaline Phosphatase 69 Troponin I 6 Hour Troponin I Hi Sens Del Troponin T Baseline Troponin T 120 Minute Delta Troponin T NT-Pro-B Natriuret Pep Total Protein 6.2 L Albumin 3.1 L Globulin 3.1 Blood Type Rho(D) Type Antibody Screen Crossmatch 10/26/19 10/26/19 10/26/19 07:48 09:21 09:21 WBC RBC Hgb 9.0 L 8.9 L Hct 28.4 L 28.3 L MCV MCH MCHC RDW Plt Count MPV Neut % (Auto) Lymph % (Auto) [place] % (Auto) Eos % (Auto) Baso % (Auto) Neut # (Auto) Lymph # (Auto) [place] # (Auto) Eos # (Auto) Baso # (Auto) Nucleated RBC % (auto) Nucleated RBCs # PT INR APTT 239.0 H* Sodium Potassium Chloride Carbon Dioxide Anion Gap BUN Creatinine Glucose Calculated Osmolality Calcium Total Bilirubin AST ALT Alkaline Phosphatase Troponin I 6 Hour Troponin I Hi Sens Del Troponin T Baseline Troponin T 120 Minute Delta Troponin T NT-Pro-B Natriuret Pep Total Protein Albumin Globulin Blood Type Rho(D) Type Antibody Screen Crossmatch Cardiac Studies: No Data to Display
--- NOTE | 2019-10-26 11:57 | ANE.PACU2 ---
 Inpatient post-anesthesia follow up: Airway intact: Yes Vital signs: Temperature 97 F Pulse Rate 74 Respiratory Rate 20 Blood Pressure 135/74 Pulse Oximetry 99 Oxygen Delivery Me thod Nasal Cannula Oxygen Flow Rate 2 Fraction of Inspir ed Oxygen Hydration adequate: Yes Nausea and vomiting: No Pain level: 1
[2019-10-26] MEDS: sodium chloride 0.9% 1,000 ML 30 ML (11:58)
[2019-10-26 13:01] LABS: Partial Thromboplastin Time 101.3 SECONDS (23.9-36.7)
[2019-10-26] MEDS: HYDROcodone-acetaminophen 10-325 mg Tablet 1 TAB PO (20:59)
[2019-10-26 22:53] LABS: Partial Thromboplastin Time 126.3 SECONDS (23.9-36.7)
[2019-10-27] VITALS (31 sets, daily range): BP systolic 124–169; BP diastolic 52–84; PULSE 74–90; RESP 8–39; TEMP 36.6–36.8; O2SAT 91–98
[2019-10-27] MEDS: pantoprazole 40 MG in sodium chloride 0.9% (plus) 100 ML 20 MG IV ×2 (02:15→06:13)
[2019-10-27 04:40] LABS: Basophils % 0.3 %; Eosinophils # 0.1 10^3/uL (0.0-0.8); Eosinophils % 1.9 %; Hematocrit 26.3 % (37.0-47.0); Hemoglobin 8.3 g/dL (11.5-15.3); Lymphocytes # 1.3 10^3/uL (0.8-4.8); Lymphocytes % 22.4 %; Mean Corpuscular HGB Conc 31.6 g/dL (30.0-36.0); Mean Corpuscular Hemoglobin 27.7 pg (28.0-34.0); Mean Corpuscular Volume 87.7 fL (81-99); Mean Platelet Volume 10.3 fL (7.4-10.4); Monocytes # 0.8 10^3/uL (0.2-0.9); Monocytes % 13.2 %; Neutrophils # 3.5 10^3/uL (1.8-7.7); Neutrophils % 61.2 %; Nucleated Red Blood Cells % 0.5 %; Platelet Count 280 10^3/cmm (130-400); Red Cell Distribution Width 17.5 % (12.1-15.1); White Blood Count 5.8 10^3/uL (4.0-10.0)
[2019-10-27 05:03] LABS: Alanine Aminotransferase 14 U/L (0-33); Albumin Level 3.3 g/dL (3.5-5.2); Alkaline Phosphatase 67 IU/L (35-105); Anion Gap 12.1 (5-19); Aspartate Amino Transferase 29 U/L (0-32); Blood Urea Nitrogen 12 mg/dL (8-23); Calcium 8.9 mg/dL (8.5-10.5); Carbon Dioxide 27 mmol/L (22-29); Chloride 96 mmol/L (98-107); Creatinine Clr Calc Pharmacy 48.0891; Globulin 2.3 g/dL (1.3-4.6); Glucose 111 mg/dL (65-115); Osmolality Calculated 269 mOsm/kg (285-295); Potassium 4.1 mmol/L (3.5-5.1); Sodium 131 mmol/L (136-145); Total Bilirubin 0.3 mg/dL (0.15-1.2); Total Protein 5.6 g/dL (6.6-8.7)
[2019-10-27 05:08] LABS: Partial Thromboplastin Time 133.3 SECONDS (23.9-36.7)
[2019-10-27 05:59] LABS: H. Pylori / CLO Test Negative
[2019-10-27] MEDS: budesonide 0.5 mg/2 mL Neb INHALATION ×2 (08:42→20:50)
[2019-10-27] MEDS: ipratropium-albuterol 3 mL Neb INHALATION (08:42)
[2019-10-27] MEDS: duloxetine 20 mg Capsule PO ×2 (09:05→17:52)
[2019-10-27] MEDS: BuSPIRONE 5 mg Tablet PO ×2 (09:05→17:52)
[2019-10-27] MEDS: digoxin 125 mcg Tablet PO (09:06)
[2019-10-27] MEDS: atorvastatin 40 mg Tablet 80 MG PO (09:06)
[2019-10-27] MEDS: sotalol 80 mg Tablet PO ×2 (09:06→17:52)
--- NOTE | 2019-10-27 09:28 | P.PN_ITS ---
Subjective Subjective: Interval history: Patient underwent EGD yesterday and was found to have some gastritis/duodenitis with some very small superficial erosions but no ongoing bleeding. She says the bowel movements that she had yesterday afternoon are getting back to normal color. Vitals/I&O/Wt Last Vital Signs Temp 97.8 F 10/27/19 07:27 Pulse 84 10/27/19 09:06 Resp 22 H 10/27/19 08:45 BP 151/56 10/27/19 07:27 Pulse Ox 91 10/27/19 08:45 10/26/19 10/27/19 10/27/19 22:59 06:59 14:59 Intake Total 845.400 / 1576.600 239.000 / 1815.600 120 / 120 Balance 845.400 / 1576.600 239.000 / 1815.600 120 / 120 Weight last 48 hrs Weight 110 lb Physical Exam Narrative: EXAM NARRATIVE: Exam remains about the same. Data : 10/27/19 03:00 10/27/19 03:00 A&P Assessment and plan (1) Gastritis: The patient was found to have some gastritis on her EGD yesterday. CLOtest was negative. Hemoglobin has drifted but her stools have returned to normal color. I am hoping this has now plateaued and still do not feel strongly about performing another colonoscopy at this time since the patient has had no evidence of hematochezia. If her hemoglobin continues to drift then it could be considered. Continue proton pump inhibitor. Status: Acute Code(s): K29.70 - Gastritis, unspecified, without bleeding Attestations Medical Necessity Statement*: See admitting service's notation. 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
--- NOTE | 2019-10-27 11:59 | PM.PN ---
Subjective Subjective: Interval history: No acute events overnight. Patient denies of any nausea, vomiting, palpitations but does complain of orthopnea and PND which has been getting worse for last 3 to 4 months. Patient underwent EGD yesterday and was found to have some gastritis/duodenitis with some very small superficial erosions but no ongoing bleeding. She says the bowel movements that she had yesterday afternoon are getting back to normal color. Labs noted. Vitals/I&O/Wt Last Vital Signs Temp 97.8 F 10/27/19 11:23 Pulse 86 10/27/19 11:23 Resp 18 10/27/19 11:23 BP 169/83 10/27/19 11:23 Pulse Ox 97 10/27/19 11:23 10/26/19 10/27/19 10/27/19 22:59 06:59 14:59 Intake Total 845.400 / 1576.600 239.000 / 1815.600 120 / 120 Balance 845.400 / 1576.600 239.000 / 1815.600 120 / 120 Weight last 48 hrs Weight 49.895 kg Physical Exam Narrative: EXAM NARRATIVE: General: No acute distress, AO x3, pallor present HEENT: PERRLA, pupils bilaterally equal and reactive Chest: Normal vesicular breath sounds, no added sounds, equal good air entry bilaterally CVS: S1-S2 regular metallic click heard in the whole precordium, no murmurs, no tachycardia, no gallops, no rubs Abdomen: Soft, nontender, no organomegaly, bowel sounds present Neuro: No focal deficits, no facial deformity, AO x3, power 5/5 in all limbs Data : 10/27/19 03:00 10/27/19 03:00 A&P Assessment and plan (1) Chest pain: Status: Acute Code(s): R07.9 - Chest pain, unspecified (2) Anemia: Status: Acute Code(s): D64.9 - Anemia, unspecified (3) GI bleed: Status: Acute Code(s): K92.2 - Gastrointestinal hemorrhage, unspecified (4) COPD (chronic obstructive pulmonary disease): Status: Acute Qualifiers: COPD type: COPD with acute exacerbation Qualified Code(s): J44.1 - Chronic obstructive pulmonary disease with (acute) exacerbation Code(s): J44.9 - Chronic obstructive pulmonary disease, unspecified (5) Atrial fibrillation: Status: Acute Qualifiers: Atrial fibrillation type: longstanding persistent Qualified Code(s): I48.11 - Longstanding persistent atrial fibrillation Code(s): I48.91 - Unspecified atrial fibrillation (6) Hypertension: Status: Acute Qualifiers: Hypertension type: essential hypertension Qualified Code(s): I10 - Essential (primary) hypertension Code(s): I10 - Essential (primary) hypertension (7) H/O mitral valve replacement with mechanical valve: Status: Acute Code(s): Z95.2 - Presence of prosthetic heart valve (8) Diastolic CHF, chronic: Status: Acute Code(s): I50.32 - Chronic diastolic (congestive) heart failure (9) Non-small cell lung cancer: Status: Acute Code(s): C34.90 - Malignant neoplasm of unspecified part of unspecified bronchus or lung Additional A&P Information 74-year-old lady recently diagnosed with lung cancer, plan to start chemotherapy which she received a PICC line today. After placement of She started to experience chest pain. ACS ruled out by negative troponins and no acute ST-T changes. Incidentally noted to have hemoglobin of 7.4 from 9.7 recently. Hemoccult positive in the ER. No rachel melena but reports dark stools recently. Last colonoscopy dates back to 2014. GI bleed: Endoscopy done by Dr. Maharaj suggestive of gastritis. Protonix oral 40 twice daily Check hemoglobin every 12 hours. Hemoglobin is lower today as compared to yesterday. If continues to trend down tomorrow will have to plan for a possible colonoscopy. Case discussed with Dr. Maharaj. Oral iron supplementation 325 mg twice daily. Appreciate Dr. Bearden recommendations Metallic Mitral valve: Patient is on Coumadin as blood thinners. She states she takes 4.5 mg 7 days a week. As per her her goal INR is 3.2. Goal on INR to be 3?3.5. Patient admission was subtherapeutic. Continue with heparin drip keeping PTT therapeutic. We will bridge her to warfarin till we get to the goal INR. Warfarin 6 mg daily for now. As stated above will monitor hemoglobin every 12 hours. Atrial fibrillation: Currently rate controlled. Continue with home dose of sotalol, digoxin. Anticoagulation as described above. Diastolic heart failure: Patient symptoms consistent with heart failure. Echo done August consistent with diastolic heart failure. Most likely getting exacerbated by anemia. Start on Lasix 20 mg daily. Non-small cell lung cancer, not yet started definitive treatment. Received PICC line today for the same. COPD, not currently exacerbated: DuoNeb every 6 hour and budesonide twice daily inhalation No steroids for now Hypertension: Well-controlled. Hold lisinopril for now History of diastolic CHF: Currently not in acute exacerbation. Euvolemic. Continue home medications of aspirin, duloxetine Full code Dvt ppx: Heparin drip/Coumadin bridge. 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
[2019-10-27] MEDS: FUROsemide 20 mg Tablet PO (12:13)
[2019-10-27 12:30] LABS: Potassium, Radom Urine 48 mmol/L; Urine Creatinine 104 mg/dL (28-217); Urine Random Chloride 146 mmol/L; Urine Random Sodium 72 mmol/L
[2019-10-27 12:48] LABS: INR 1.76 (0.8-1.2); Partial Thromboplastin Time 51.4 SECONDS (23.9-36.7)
[2019-10-27] MEDS: warfarin 3 mg Tablet 6 MG PO (13:38)
[2019-10-27] MEDS: heparin 5,000 unit/mL INJ 1 mL 1100 UNIT IV (13:40)
[2019-10-27] MEDS: pantoprazole DR 40 mg Tablet PO (17:52)
[2019-10-27] MEDS: HYDROcodone-acetaminophen 10-325 mg Tablet 1 TAB PO (19:14)
[2019-10-27 20:09] LABS: Partial Thromboplastin Time 47.8 SECONDS (23.9-36.7)
[2019-10-27] MEDS: heparin 5,000 unit/mL INJ 1 mL IV (20:38)
--- NOTE | 2019-10-27 20:47 | PC.NURSE ---
Patient was found laying upside down in her bed. Patient stated that this is a comfortable position for her. Patient had her oxygen pulled out of her nose and oxygen saturation was 70 percent. Patient was educated that she needed to leave her oxygen on and verbalized understanding. Continuous pulse ox placed on patient for closer monitoring.
--- NOTE | 2019-10-27 22:05 | PC.NURSE ---
Patient was found with her oxygen cord and IV tubing tangled and wrapped around her. Patient had pulled of pulse ox monitor and part of heart monitor. Patient is alert and oriented to person, place, time and situation. Patient was reattached to cords and repositioned in bed. Patient has been reeducated on need for oxygen and pulse ox and heart monitor and verbalized understanding. Call light within reach and patient showed how to use call light. Will continue to monitor. Patient is close to nurse's station for close monitoring.
[2019-10-28] VITALS (22 sets, daily range): BP systolic 128–160; BP diastolic 59–68; PULSE 69–130; RESP 14–30; TEMP 36.6–36.8; O2SAT 83–100
--- NOTE | 2019-10-28 00:18 | PC.NURSE ---
Patient again pulled her oxygen out of her nose and pulled her sticker for her pulse ox off of her finger. These were placed back on patient and patient was educated again that she needs her oxygen. Patient stated I don't know why I keep pulling them off, I just keep forgetting.
--- NOTE | 2019-10-28 02:42 | PC.NURSE ---
Patient has pulled her oxygen out of her nose several times. Nurse continually puts oxygen backs in patients nose and reminds patient that she needs it. Patient states oh shoot, I keep forgetting. Patient's oxygen saturation drops down into the 70s when oxygen is out of patient's nose. Will continue to monitor.
[2019-10-28 02:44] LABS: Basophils % 0.2 %; Eosinophils # 0.1 10^3/uL (0.0-0.8); Eosinophils % 1.1 %; Hematocrit 26.9 % (37.0-47.0); Hemoglobin 8.5 g/dL (11.5-15.3); Lymphocytes # 0.9 10^3/uL (0.8-4.8); Lymphocytes % 13.8 %; Mean Corpuscular HGB Conc 31.6 g/dL (30.0-36.0); Mean Corpuscular Volume 85.4 fL (81-99); Mean Platelet Volume 9.4 fL (7.4-10.4); Monocytes # 0.7 10^3/uL (0.2-0.9); Monocytes % 11.1 %; Neutrophils # 4.6 10^3/uL (1.8-7.7); Neutrophils % 73.2 %; Nucleated Red Blood Cells % 0 %; Platelet Count 266 10^3/cmm (130-400); Red Blood Count 3.15 10^6/uL (4.1-5.3); Red Cell Distribution Width 17.1 % (12.1-15.1); White Blood Count 6.3 10^3/uL (4.0-10.0)
--- NOTE | 2019-10-28 02:47 | PC.NURSE ---
Patient's states that she hasn't had a bowel movement in a month and a half, however patient seems to be very forgetful.
[2019-10-28 03:05] LABS: Alanine Aminotransferase 16 U/L (0-33); Albumin Level 3.4 g/dL (3.5-5.2); Alkaline Phosphatase 75 IU/L (35-105); Aspartate Amino Transferase 29 U/L (0-32); Blood Urea Nitrogen 7 mg/dL (8-23); Calcium 9.4 mg/dL (8.5-10.5); Carbon Dioxide 35 mmol/L (22-29); Chloride 90 mmol/L (98-107); Globulin 2.9 g/dL (1.3-4.6); Glucose 98 mg/dL (65-115); Osmolality Calculated 266 mOsm/kg (285-295); Sodium 130 mmol/L (136-145); Total Bilirubin 0.4 mg/dL (0.15-1.2); Total Protein 6.3 g/dL (6.6-8.7)
[2019-10-28 03:12] LABS: Partial Thromboplastin Time 69.6 SECONDS (23.9-36.7)
--- NOTE | 2019-10-28 05:37 | PC.NURSE ---
Patient again pulled her sticker pulse ox off her finger. Nurse went to check on patient and her oxygen was also out of her nose. Patient's oxygen was placed back in her nose and patient was reeducated on need for oxygen.
[2019-10-28] MEDS: FUROsemide 20 mg Tablet PO (07:30)
[2019-10-28] MEDS: sotalol 80 mg Tablet PO ×2 (07:30→17:37)
[2019-10-28] MEDS: atorvastatin 40 mg Tablet 80 MG PO (07:31)
[2019-10-28] MEDS: lisinopril 20 mg Tablet PO (07:31)
[2019-10-28] MEDS: duloxetine 20 mg Capsule PO ×2 (07:31→17:37)
[2019-10-28] MEDS: digoxin 125 mcg Tablet PO (07:31)
[2019-10-28] MEDS: BuSPIRONE 5 mg Tablet PO ×2 (07:32→17:37)
[2019-10-28] MEDS: pantoprazole DR 40 mg Tablet PO ×2 (07:32→17:37)
[2019-10-28] MEDS: HYDROcodone-acetaminophen 10-325 mg Tablet 1 TAB PO (08:11)
[2019-10-28] MEDS: ipratropium-albuterol 3 mL Neb INHALATION ×2 (08:42→21:11)
[2019-10-28] MEDS: budesonide 0.5 mg/2 mL Neb INHALATION ×2 (08:42→21:11)
[2019-10-28 09:38] LABS: Partial Thromboplastin Time 73.3 SECONDS (23.9-36.7)
--- NOTE | 2019-10-28 09:58 | ECG_ITS ---
Measurements Intervals [place] Rate: 78 P: 91 NE: 202 QRS: 24 QRSD: 94 T: 74 QT: 332 QTc: [address] & T-WAVE ABNORMALITY Compared to ECG 10/25/2019 19:13:26 Short NE interval no longer present T-wave abnormality still present Electronically Signed On 10-28-2019 10:59:44 CDT by Marycruz Trent [email or web address]
--- NOTE | 2019-10-28 13:06 | PM.PN ---
Subjective Subjective: Interval history: No acute events overnight. Patient denies of any nausea, vomiting, palpitations, orthopnea and PND. She states her orthopnea and PND has resolved for now. She is complaining of mild headache earlier in the day but none none at present. She is actually states she is feeling a lot better today. No episodes of melena, diarrhea, hematemesis. Labs noted. Vitals/I&O/Wt Last Vital Signs Temp 97.9 F 10/28/19 02:45 Pulse 102 H 10/28/19 12:00 Resp 17 10/28/19 12:00 BP 141/61 10/28/19 12:00 Pulse Ox 90 10/28/19 11:00 10/27/19 10/28/19 10/28/19 22:59 06:59 14:59 Intake Total 241.167 / 564.000 200 / 764.000 480 / 480 Output Total 1300 / 1300 200 / 1500 250 / 250 Balance -1058.833 / -736.000 0 / -736.000 230 / 230 Weight last 48 hrs Weight 55.021 kg Physical Exam Narrative: EXAM NARRATIVE: General: No acute distress, AO x3, pallor present HEENT: PERRLA, pupils bilaterally equal and reactive Chest: Normal vesicular breath sounds, no added sounds, equal good air entry bilaterally CVS: S1-S2 regular metallic click heard in the whole precordium, no murmurs, no tachycardia, no gallops, no rubs Abdomen: Soft, nontender, no organomegaly, bowel sounds present Neuro: No focal deficits, no facial deformity, AO x3, power 5/5 in all limbs Data : 10/28/19 02:30 10/28/19 02:30 A&P Assessment and plan (1) Chest pain: Status: Acute Code(s): R07.9 - Chest pain, unspecified (2) Anemia: Status: Acute Code(s): D64.9 - Anemia, unspecified (3) GI bleed: Status: Acute Code(s): K92.2 - Gastrointestinal hemorrhage, unspecified (4) COPD (chronic obstructive pulmonary disease): Status: Acute Qualifiers: COPD type: COPD with acute exacerbation Qualified Code(s): J44.1 - Chronic obstructive pulmonary disease with (acute) exacerbation Code(s): J44.9 - Chronic obstructive pulmonary disease, unspecified (5) Atrial fibrillation: Status: Acute Qualifiers: Atrial fibrillation type: longstanding persistent Qualified Code(s): I48.11 - Longstanding persistent atrial fibrillation Code(s): I48.91 - Unspecified atrial fibrillation (6) Hypertension: Status: Acute Qualifiers: Hypertension type: essential hypertension Qualified Code(s): I10 - Essential (primary) hypertension Code(s): I10 - Essential (primary) hypertension (7) H/O mitral valve replacement with mechanical valve: Status: Acute Code(s): Z95.2 - Presence of prosthetic heart valve (8) Diastolic CHF, chronic: Status: Acute Code(s): I50.32 - Chronic diastolic (congestive) heart failure (9) Non-small cell lung cancer: Status: Acute Code(s): C34.90 - Malignant neoplasm of unspecified part of unspecified bronchus or lung Additional A&P Information 74-year-old lady recently diagnosed with lung cancer, plan to start chemotherapy which she received a PICC line today. After placement of She started to experience chest pain. ACS ruled out by negative troponins and no acute ST-T changes. Incidentally noted to have hemoglobin of 7.4 from 9.7 recently. Hemoccult positive in the ER. No rachel melena but reports dark stools recently. Last colonoscopy dates back to 2014. GI bleed: Endoscopy done by Dr. Maharaj suggestive of gastritis. Protonix oral 40 twice daily. Hemoglobin stable. Recheck hemoglobin on daily basis for now until patient has melena. If hemoglobin continues to trend down tomorrow will have to plan for a possible colonoscopy. Case discussed with Dr. Maharaj. Oral iron supplementation 325 mg twice daily. Appreciate Dr. Bearden recommendations Metallic Mitral valve: Patient is on Coumadin as blood thinners. She states she takes 4.5 mg 7 days a week. Goal on INR to be 3?3.5. Patient admission was subtherapeutic. INR 2.0 today Continue with heparin drip keeping PTT therapeutic. We will bridge her to warfarin till we get to the goal INR. Increase warfarin to 7 mg daily for now. We will continue the same dose till patient becomes therapeutic. Atrial fibrillation: Currently rate controlled. Continue with home dose of sotalol, digoxin. Anticoagulation as described above. Diastolic heart failure: Patient symptoms consistent with heart failure. Echo done August consistent with diastolic heart failure. Most likely getting exacerbated by anemia. Patient is euvolemic today. Her lab is consistent with contraction alkalosis so we will change Lasix to 20 mg daily as needed for shortness of breath, orthopnea. Non-small cell lung cancer, not yet started definitive treatment. Received PICC line today for the same. COPD, not currently exacerbated: DuoNeb every 6 hour and budesonide twice daily inhalation No steroids for now Hypertension: Well-controlled. Hold lisinopril for now History of diastolic CHF: Currently not in acute exacerbation. Euvolemic. Continue home medications of aspirin, duloxetine Full code Dvt ppx: Heparin drip/Coumadin bridge. GI soft diet Attestations Medical Necessity Statement*: GI bleed, metallic mitral valve, subtherapeutic INR. 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
[2019-10-28] MEDS: warfarin 2 mg Tablet PO (14:55)
[2019-10-28] MEDS: warfarin 5 mg Tablet PO (14:55)
--- NOTE | 2019-10-28 14:55 | PC.CHAP ---
Pastoral Care Encounter/Spiritual Assessment Type of Contact [] Declined tariff clerk visit [] Patient/Family/Request visit [] Outpatient visit [] Follow-up visit [] Physician referral [] Code/Alert [x] Routine visit [] Staff referral [] Actively dying [] Patient sleeping [] Family support [] [] Out of room [] Palliative care [] [] Receiving care in room [] Pre-surgical visit [] Trauma [] Long length of stay [] ICU visit [] Other: Relational/Emotional Strength [x] Patient feels connected with others/family/visitors/staff [] Distress [] Loneliness/isolation [] Abandonment Spirituality of Patient [x] Person of Eunice [] Attends Restorationism of their Eunice [] Believes in Prayer [] Reads Bible or Catholic materials [] There are Spiritual issues to be addressed Corporate Communications Manager Interventions [x] Prayer [x] Active listening [x] Non-anxious presence [x] Spiritual/emotional support [] Crisis/trauma care [] Spiritual counseling [] Bereavement support [] Provided bereavement packet [] Provided Bible/devotional materials [] Provided toy/stuffed animal, coloring book to patient or family member [] Provided Communion [] Anointing/[place] [] Salvation [x] Completed spiritual assessment [] Other: Impact on Illness or Injury [] Angry [] Fearful [] Anxious [] Often cries [] Exhaustion [] Unable to work [] Unable to attend mormon [] Unable to walk/stand [] Unable to read [] Unable to drive [] Unable to eat/drink [] Unable to sleep [] Unable to be with family [] Patient intubated [] Other: Summary Patient is feeling better and wants to go home . Time spent with patient 10 min
[2019-10-28] MEDS: heparin drip 25,000 UNIT/500 ML PREMIX 6 UNIT IV (17:38)
[2019-10-28 21:26] LABS: Partial Thromboplastin Time 60.9 SECONDS (23.9-36.7)
--- NOTE | 2019-10-28 22:52 | PC.NURSE ---
Rounded on patient and patient's oxygen cannula was on her bedside commode. Oxygen saturation was 83% and Nasal cannula was placed in patient's nose. Bed alarm activated.
[2019-10-28] MEDS: metoprolol tartrate 1 mg/1 mL SDV 5 mL 2.5 MG IV (23:39)
--- NOTE | 2019-10-28 23:49 | PC.NURSE ---
Patient's heart rate sustained greater than 130 bpm. Metoprolol 2.5 mg IVP given as ordered. Will continue to monitor.
[2019-10-29] VITALS (17 sets, daily range): BP systolic 137–168; BP diastolic 51–82; PULSE 81–112; RESP 16–27; TEMP 36.3–36.6; O2SAT 90–98
[2019-10-29] MEDS: ipratropium-albuterol 3 mL Neb INHALATION ×4 (02:00→20:37)
[2019-10-29 03:23] LABS: Basophils % 0.4 %; Eosinophils % 0.4 %; Hematocrit 27.7 % (37.0-47.0); Lymphocytes # 1.1 10^3/uL (0.8-4.8); Lymphocytes % 15.6 %; Mean Corpuscular HGB Conc 32.5 g/dL (30.0-36.0); Mean Corpuscular Hemoglobin 26.9 pg (28.0-34.0); Mean Corpuscular Volume 82.9 fL (81-99); Mean Platelet Volume 9.6 fL (7.4-10.4); Monocytes # 0.8 10^3/uL (0.2-0.9); Neutrophils # 5.2 10^3/uL (1.8-7.7); Neutrophils % 72.2 %; Nucleated Red Blood Cells % 0.3 %; Platelet Count 293 10^3/cmm (130-400); Red Blood Count 3.34 10^6/uL (4.1-5.3); White Blood Count 7.2 10^3/uL (4.0-10.0)
[2019-10-29 03:44] LABS: Partial Thromboplastin Time 67.8 SECONDS (23.9-36.7)
[2019-10-29 03:54] LABS: INR 2.79 (0.8-1.2)
[2019-10-29] MEDS: budesonide 0.5 mg/2 mL Neb INHALATION ×2 (08:39→20:37)
--- NOTE | 2019-10-29 09:34 | XR_ITS ---
WS: [id number] XR chest 1V portable [id number] REASON FOR EXAM: lethargy FINDINGS: Increased left pleural effusion with increased mass configuration off the left hilum. The right lung field is well aerated. There is cardiomegaly and radius mitral valve replacement. The apices are normal. XR/XR chest 1V portable [id number] IMPRESSION: Increased left pleural effusion Increased mass configuration of the left hilum Sternotomy with previous mitral valve replacement.
[2019-10-29] MEDS: sotalol 80 mg Tablet PO ×2 (09:38→18:13)
[2019-10-29] MEDS: duloxetine 20 mg Capsule PO (09:38)
[2019-10-29] MEDS: digoxin 125 mcg Tablet PO (09:38)
[2019-10-29] MEDS: lisinopril 20 mg Tablet PO (09:38)
[2019-10-29] MEDS: atorvastatin 40 mg Tablet 80 MG PO (09:40)
[2019-10-29] MEDS: BuSPIRONE 5 mg Tablet PO ×2 (09:40→18:13)
[2019-10-29] MEDS: pantoprazole DR 40 mg Tablet PO ×2 (09:40→18:13)
--- NOTE | 2019-10-29 09:44 | PM.PN ---
Subjective Subjective: Interval history: Having nausea and feeling tired. Lethargic this morning. Wakes up to follow some commands. A little short of breath but has not been wearing her oxygen. At home reportedly wears her 's. Denies cough. Afebrile. Vitals/I&O/Wt Last Vital Signs Temp 97.9 F 10/29/19 04:00 Pulse 86 10/29/19 08:54 Resp 18 10/29/19 08:40 BP 149/82 10/29/19 04:00 Pulse Ox 97 10/29/19 04:00 10/28/19 10/29/19 10/29/19 22:59 06:59 14:59 Intake Total 386.2 / 945.933 180 / 180 Output Total 200 / 800 Balance 186.2 / 145.933 180 / 180 Weight last 48 hrs Weight 54.567 kg Weight 55.021 kg Physical Exam Const: COMMON NORMALS: no apparent distress; negative for oriented x3 HENMT: COMMON NORMALS: oropharynx normal Neck/C-Spine: COMMON NORMALS: no JVD Resp: COMMON NORMALS: normal respiratory effort and clear to auscultation bilaterally AUSCULTATION: clear to auscultation bilaterally Cardio: COMMON NORMALS: no JVD, regular rhythm, S1 normal heart sound, S2 normal heart sound and no murmurs RHYTHM: regular rhythm HEART SOUNDS: S1 normal and S2 normal GI: COMMON NORMALS: normal to inspection, nondistended, normoactive bowel sounds and soft to palpation PALPATION: Yes soft and Yes tender (Epigastrium) Extremity: COMMON NORMALS: no joint enlargement and no pedal edema Neuro: COMMON NORMALS: moves all extremities; negative for oriented x3 Skin: COMMON NORMALS: no rashes or lesions noted GENERAL SKIN EXAM: no rashes or lesions noted Data : 10/29/19 03:14 10/28/19 02:30 A&P Assessment and plan (1) Acute encephalopathy: Lethargic, wakes up to voice, follows some commands, however, not very cooperative. Not oriented x3. Baseline is unknown. Reporting some tenderness in epigastrium and nausea. Denies any other pain. No headache. No cough. Is little short of breath, although is not wearing oxygen and at home wears her 's. At this time request for UA, chest x-ray, rapid flu. Will decrease duloxetine dose to 10 mg. Check digoxin level. Monitor for development of fever, cough. No answer on 's phone. Status: Acute Code(s): G93.40 - Encephalopathy, unspecified (2) Chest pain: Currently no chest pain. Acute VA was not suspected. Status: Acute Code(s): R07.9 - Chest pain, unspecified (3) GI bleed: This appears to have improved. Stools were reported back to normal color. Currently constipated. Hemoglobin is 9. INR approaching therapeutic. Status: Acute Code(s): K92.2 - Gastrointestinal hemorrhage, unspecified (4) Anemia: Status: Acute Code(s): D64.9 - Anemia, unspecified (5) COPD (chronic obstructive pulmonary disease): Likely may need her own oxygen on discharge. Continue nebs. Status: Acute Qualifiers: COPD type: COPD with acute exacerbation Qualified Code(s): J44.1 - Chronic obstructive pulmonary disease with (acute) exacerbation Code(s): J44.9 - Chronic obstructive pulmonary disease, unspecified (6) Atrial fibrillation: Continue control medications. Check digoxin level. Warfarin approaching therapeutic level. Status: Acute Qualifiers: Atrial fibrillation type: longstanding persistent Qualified Code(s): I48.11 - Longstanding persistent atrial fibrillation Code(s): I48.91 - Unspecified atrial fibrillation (7) Hypertension: Monitor blood pressures. Status: Acute Qualifiers: Hypertension type: essential hypertension Qualified Code(s): I10 - Essential (primary) hypertension Code(s): I10 - Essential (primary) hypertension (8) H/O mitral valve replacement with mechanical valve: INR up to 2.79 today. Goals reported 3-3.5. Decrease warfarin dose to 6 mg. Heparin drip bridging until therapeutic. Status: Acute Code(s): Z95.2 - Presence of prosthetic heart valve (9) Diastolic CHF, chronic: Currently does not appear in fluid overload. Continue cardiac diet, Lasix as needed. Status: Acute Code(s): I50.32 - Chronic diastolic (congestive) heart failure (10) Non-small cell lung cancer: Awaiting initiation of chemotherapy. Status post PICC line placement. Status: Acute Code(s): C34.90 - Malignant neoplasm of unspecified part of unspecified bronchus or lung (11) Gastritis: Continue twice daily PPI. Status: Acute Code(s): K29.70 - Gastritis, unspecified, without bleeding Additional A&P Information Constipation: Add MiraLAX, Dulcolax suppository. Avoid constipation. Attestations Medical Necessity Statement*: Continue admission for assessment management of acute encephalopathy, optimization of anticoagulation for mechanical mitral valve with heparin bridging and monitoring of hemoglobin with GI bleed and gastritis. Coding Level of Care Code Acute [employer] Developer for [facility] Diagnoses Acute encephalopathy G93.40 Chest pain R07.9 GI bleed K92.2 Anemia D64.9 COPD (chronic obstructive pulmonary disease) J44.1 COPD type: COPD with acute exacerbation Atrial fibrillation I48.11 Atrial fibrillation type: longstanding persistent Hypertension I10 Hypertension type: essential hypertension H/O mitral valve replacement with mechanical valve Z95.2 Diastolic CHF, chronic I50.32 Non-small cell lung cancer C34.90 Gastritis K29.70
[2019-10-29] MEDS: bisacodyl 10 mg Supp PR (09:45)
[2019-10-29] MEDS: HYDROcodone-acetaminophen 10-325 mg Tablet 1 TAB PO (10:03)
[2019-10-29 10:18] LABS: Partial Thromboplastin Time 61.6 SECONDS (23.9-36.7)
[2019-10-29 10:23] LABS: Alanine Aminotransferase 17 U/L (0-33); Albumin Level 3.5 g/dL (3.5-5.2); Alkaline Phosphatase 75 IU/L (35-105); Aspartate Amino Transferase 28 U/L (0-32); Blood Urea Nitrogen 11 mg/dL (8-23); Calcium 9.8 mg/dL (8.5-10.5); Carbon Dioxide 29 mmol/L (22-29); Chloride 88 mmol/L (98-107); Globulin 2.5 g/dL (1.3-4.6); Glucose 120 mg/dL (65-115); Osmolality Calculated 265 mOsm/kg (285-295); Sodium 129 mmol/L (136-145); Total Bilirubin 0.5 mg/dL (0.15-1.2)
[2019-10-29 12:27] LABS: Add Urine Microscopic? NO
[2019-10-29 12:51] LABS: Bilirubin Urine Neg (NEGATIVE); Blood Urine Neg (Negative); Glucose Urine UA Norm (Normal); Ketones Urine 1+ (Negative); Leukocyte Esterase Urine Negative (Negative); Nitrate Urine Negative (Negative); Protein Urine Neg (Negative); Specific Gravity, Urine 1.025 (1.005-1.030); Urine Appearance Clear (CLEAR); Urine Color Yellow (Yellow); Urobilinogen Urine Norm (Negative); pH Urine 5 (5-7)
[2019-10-29 12:52] LABS: Influenza A by IFA Negative (Negative); Influenza B by IFA Negative (Negative)
[2019-10-29] MEDS: warfarin 5 mg Tablet PO (14:27)
[2019-10-29] MEDS: warfarin 1 mg Tablet PO (14:27)
[2019-10-29] MEDS: duloxetine 20 mg Capsule 10 MG PO (18:12)
[2019-10-29] MEDS: ferrous sulfate EC 325 mg Tablet PO (18:13)
[2019-10-29] MEDS: polyethylene glycol 3350 Pkt 17 gm PO (18:14)
[2019-10-29 18:17] LABS: Ketone (Acetest) Serum Negative (Negative)
--- NOTE | 2019-10-29 19:14 | CTR_ITS ---
PROCEDURE INFORMATION: Exam: CT Head Without Contrast Exam date and time: 10/29/2019 7:50 PM Age: 74 years old Clinical indication: Malaise or fatigue; Patient HX: Lethargy; Additional info: Lethargy, anticoagulation TECHNIQUE: Imaging protocol: Computed tomography of the head without contrast. Total DLP: 634.33 mGy-cm Radiation optimization: All CT scans at this facility use at least one of these dose optimization techniques: automated exposure control; mA and/or kV adjustment per patient size (includes targeted exams where dose is matched to clinical indication); or iterative reconstruction. COMPARISON: CT head wo con* [id number] 12/10/2018 1:22 PM; MRI brain 09/28/2019. 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 No significant overall change since 12/10/2018. No visible evidence of acute or subacute intracranial pathologic process, infarction, hemorrhage, or trauma. Age-appropriate atrophic changes. Evidence of mild small vessel ischemic disease with periventricular leukomalacia. Ventricles: Unremarkable for age. No ventriculomegaly. Bones/joints: Unremarkable. No acute fracture. Sinuses: Visualized sinuses are unremarkable. No fluid levels. Mastoid air cells: Visualized mastoid air cells are well aerated. Soft tissues: Unremarkable. Vasculature: Mild cerebral arterial sclerosis. CT/CT head wo con* [id number] IMPRESSION: Nonacute. Radiation Dose CTDIVOL = (mGy): DLP = 634.33 (mGy-cm)
--- NOTE | 2019-10-29 20:15 | PC.NURSE ---
Patient back from CT and placed back on oxygen and telemetry. Will continue to monitor.
[2019-10-30] VITALS (13 sets, daily range): BP systolic 135–175; BP diastolic 48–76; PULSE 79–99; RESP 16–22; TEMP 36.5–37.1; O2SAT 90–98
[2019-10-30] MEDS: ipratropium-albuterol 3 mL Neb INHALATION ×4 (02:14→20:22)
[2019-10-30 05:11] LABS: Basophils % 0.4 %; Eosinophils % 0.4 %; Hematocrit 27.8 % (37.0-47.0); Hemoglobin 8.6 g/dL (11.5-15.3); Lymphocytes # 1.1 10^3/uL (0.8-4.8); Lymphocytes % 15.9 %; Mean Corpuscular HGB Conc 30.9 g/dL (30.0-36.0); Mean Corpuscular Hemoglobin 26.2 pg (28.0-34.0); Mean Corpuscular Volume 84.8 fL (81-99); Mean Platelet Volume 10.2 fL (7.4-10.4); Monocytes # 0.9 10^3/uL (0.2-0.9); Neutrophils # 4.7 10^3/uL (1.8-7.7); Neutrophils % 69.7 %; Nucleated Red Blood Cells % 0 %; Platelet Count 298 10^3/cmm (130-400); Red Blood Count 3.28 10^6/uL (4.1-5.3); Red Cell Distribution Width 17.5 % (12.1-15.1); White Blood Count 6.7 10^3/uL (4.0-10.0)
[2019-10-30 05:35] LABS: Alanine Aminotransferase 17 U/L (0-33); Albumin Level 3.5 g/dL (3.5-5.2); Alkaline Phosphatase 71 IU/L (35-105); Anion Gap 11.3 (5-19); Aspartate Amino Transferase 32 U/L (0-32); Blood Urea Nitrogen 11 mg/dL (8-23); Calcium 9.8 mg/dL (8.5-10.5); Carbon Dioxide 33 mmol/L (22-29); Chloride 87 mmol/L (98-107); Globulin 2.5 g/dL (1.3-4.6); Glucose 108 mg/dL (65-115); Osmolality Calculated 261 mOsm/kg (285-295); Potassium 4.3 mmol/L (3.5-5.1); Sodium 127 mmol/L (136-145); Total Bilirubin 0.4 mg/dL (0.15-1.2)
[2019-10-30 05:37] LABS: Partial Thromboplastin Time 69.9 SECONDS (23.9-36.7)
[2019-10-30 05:44] LABS: INR 3.68 (0.8-1.2)
[2019-10-30] MEDS: budesonide 0.5 mg/2 mL Neb INHALATION ×2 (08:04→20:22)
[2019-10-30] MEDS: digoxin 125 mcg Tablet PO (09:28)
[2019-10-30] MEDS: BuSPIRONE 5 mg Tablet PO ×2 (09:28→18:10)
[2019-10-30] MEDS: sotalol 80 mg Tablet PO ×2 (09:29→18:10)
[2019-10-30] MEDS: pantoprazole DR 40 mg Tablet PO ×2 (09:29→18:10)
[2019-10-30] MEDS: polyethylene glycol 3350 Pkt 17 gm PO ×2 (09:29→18:10)
[2019-10-30] MEDS: lisinopril 20 mg Tablet PO (09:29)
[2019-10-30] MEDS: atorvastatin 40 mg Tablet 80 MG PO (09:29)
[2019-10-30] MEDS: ferrous sulfate EC 325 mg Tablet PO ×2 (09:31→18:10)
--- NOTE | 2019-10-30 09:59 | PC.SOCIAL ---
IMM Update Pg2 of IMM given and explained to patient who verbalized understanding. Copy provided to patient and chart updated.
--- NOTE | 2019-10-30 10:22 | P.PN_ITS ---
Subjective Subjective: Interval history: She is more alert today. Feeling tired, but otherwise no particular complaints. Denies cough. Remains afebrile. Has lost her voice. Vitals/I&O/Wt Last Vital Signs Temp 97.9 F 10/30/19 07:10 Pulse 92 10/30/19 09:28 Resp 16 10/30/19 08:00 BP 174/64 10/30/19 07:10 Pulse Ox 96 10/30/19 08:00 10/29/19 10/30/19 10/30/19 22:59 06:59 14:59 Intake Total 555 / 1215 449.3 / 449.3 Output Total 100 / 200 100 / 100 Balance 555 / 1115 -100 / 1015 349.3 / 349.3 Weight last 48 hrs Weight 58.105 kg Weight 54.567 kg Physical Exam Const: COMMON NORMALS: no apparent distress and oriented x3 HENMT: COMMON NORMALS: oropharynx normal Neck/C-Spine: COMMON NORMALS: no JVD Resp: COMMON NORMALS: normal respiratory effort and clear to auscultation bilaterally AUSCULTATION: clear to auscultation bilaterally Cardio: COMMON NORMALS: no JVD, regular rhythm, S1 normal heart sound, S2 normal heart sound and no murmurs RHYTHM: regular rhythm HEART SOUNDS: S1 normal and S2 normal GI: COMMON NORMALS: normal to inspection, nondistended, normoactive bowel sounds and soft to palpation PALPATION: Yes soft and No tender (Epigastrium) Extremity: COMMON NORMALS: no joint enlargement and no pedal edema Neuro: COMMON NORMALS: oriented x3 and moves all extremities Skin: COMMON NORMALS: no rashes or lesions noted GENERAL SKIN EXAM: no rashes or lesions noted Data : 10/30/19 04:05 10/30/19 04:05 A&P Assessment and plan (1) Acute encephalopathy: Today mental status is much better. She wakes up easily, interacting, provides history. Remembers us talking yesterday. Says that she is feeling tired, but better today compared to yesterday. Discussed with her test results from her CT (as well as past MRI) with old CVA, no fresh bleeding, or other acute findings. Influenza negative. UA not suggestive of UTI. Chest x-ray with some left hilar mass. There is left pleural effusion with perhaps slight worsening. We will need to monitor and reassess this as she is now on fully therapeutic anticoagulation. To attempt thoracentesis this would need to be discontinued. We will touch base with her oncologist tomorrow whether sampling this fluid would be of additional assistance with staging. Epigastric symptoms are better. No headache. No cough. Decreased duloxetine dose to 10 mg. Digoxin level therapeutic. Monitor for development of fever, cough. Status: Acute Code(s): G93.40 - Encephalopathy, unspecified (2) Chest pain: Currently no chest pain. Acute GA was not suspected. Status: Acute Code(s): R07.9 - Chest pain, unspecified (3) GI bleed: This appears to have improved. Stools were reported back to normal color. Currently constipated. Now had a BM. Hemoglobin is 9. INR therapeutic. Status: Acute Code(s): K92.2 - Gastrointestinal hemorrhage, unspecified (4) Anemia: Status: Acute Code(s): D64.9 - Anemia, unspecified (5) COPD (chronic obstructive pulmonary disease): Likely may need her own oxygen on discharge. Continue nebs. Status: Acute Qualifiers: COPD type: COPD with acute exacerbation Qualified Code(s): J44.1 - Chronic obstructive pulmonary disease with (acute) exacerbation Code(s): J44.9 - Chronic obstructive pulmonary disease, unspecified (6) Atrial fibrillation: Continue control medications. Warfarin. Status: Acute Qualifiers: Atrial fibrillation type: longstanding persistent Qualified Code(s): I48.11 - Longstanding persistent atrial fibrillation Code(s): I48.91 - Unspecified atrial fibrillation (7) Hypertension: Monitor blood pressures. Status: Acute Qualifiers: Hypertension type: essential hypertension Qualified Code(s): I10 - Es sential (primary) hypertension Code(s): I10 - Essential (primary) hypertension (8) H/O mitral valve replacement with mechanical valve: INR therapeutic. DC heparin drip. Decrease warfarin to home dose. Goals INR reported at 3.2. Status: Acute Code(s): Z95.2 - Presence of prosthetic heart valve (9) Diastolic CHF, chronic: Currently does not appear in fluid overload. Continue cardiac diet, Lasix as needed. Status: Acute Code(s): I50.32 - Chronic diastolic (congestive) heart failure (10) Non-small cell lung cancer: Awaiting initiation of chemotherapy. Status post PICC line placement. Status: Acute Code(s): C34.90 - Malignant neoplasm of unspecified part of unspecified bronchus or lung (11) Gastritis: Continue twice daily PPI. Status: Acute Code(s): K29.70 - Gastritis, unspecified, without bleeding Additional A&P Information Constipation: MiraLAX, Dulcolax suppository. Avoid constipation. Left pleural effusion: She is afebrile, without leukocytosis, without cough or other symptoms to suggest pneumonia. Concerned perhaps effusion secondary to malignancy, versus some fluid overload secondary to heparin drip and other IV medications. Heparin drip discontinued today. Will restart her Lasix dose. Will monitor for enlargement of effusion which may need thoracentesis, in which case anticoagulation again would have to be held with bridging. Dysphonia: Denies any sore throat. Likely secondary to oxygen therapy. Requested to add humidifier. Cepacol lozenges. Attestations Medical Necessity Statement*: Continue admission for assessment and management of pleural effusion with pulmonary malignancy, chronic anticoagulation due to metallic mitral valve, recent GI bleeding. Coding Level of Care Code Acute [employer] Converter for [facility] Diagnoses Acute encephalopathy G93.40 Chest pain R07.9 GI bleed K92.2 Anemia D64.9 COPD (chronic obstructive pulmonary disease) J44.1 COPD type: COPD with acute exacerbation Atrial fibrillation I48.11 Atrial fibrillation type: longstanding persistent Hypertension I10 Hypertension type: essential hypertension H/O mitral valve replacement with mechanical valve Z95.2 Diastolic CHF, chronic I50.32 Non-small cell lung cancer C34.90 Gastritis K29.70
[2019-10-30] MEDS: duloxetine 20 mg Capsule 10 MG PO ×2 (11:11→18:10)
[2019-10-30] MEDS: FUROsemide 20 mg Tablet PO (11:11)
[2019-10-30] MEDS: HYDROcodone-acetaminophen 10-325 mg Tablet 1 TAB PO ×2 (11:13→18:27)
[2019-10-30] MEDS: amlodipine 5 mg Tablet PO (13:11)
[2019-10-30] MEDS: warfarin 3 mg Tablet PO (13:12)
[2019-10-30] MEDS: warfarin 1 mg Tablet PO (13:12)
--- NOTE | 2019-10-30 17:33 | PC.PT ---
PT note; attempted to see patient twice today, patient sleeping soundly on first attempt, and on lengthy phone conversation on second, will reattempt tomorrow
--- NOTE | 2019-10-30 18:53 | PC.NURSE ---
PICC LINE DRESSING CHANGE Sterile technique used. chlohexidine swab scrubbed around site arm. stat lock change. flushed saline. end caps change. pt tolerated procedure well.
[2019-10-30] MEDS: metoprolol tartrate 1 mg/1 mL SDV 5 mL 2.5 MG IV (22:32)
--- NOTE | 2019-10-30 23:32 | PC.NURSE ---
2229 patient heart rate went up to 130's and patient was given her PRN metoprolol 2.5 mg IVP. Will continue to [facility].
[2019-10-31] VITALS (14 sets, daily range): BP systolic 111–173; BP diastolic 56–100; PULSE 82–135; RESP 16–29; TEMP 36.7–37; O2SAT 89–97
[2019-10-31] MEDS: ondansetron 2 mg/ML SDV 2 mL 4 MG IVP (01:38)
--- NOTE | 2019-10-31 01:43 | PC.NURSE ---
Patient heart rate in the 70's. complaint of nausea and IVP zofran provided. Will continue to monitor.
[2019-10-31] MEDS: ipratropium-albuterol 3 mL Neb INHALATION ×4 (02:06→21:03)
[2019-10-31] MEDS: HYDROcodone-acetaminophen 10-325 mg Tablet 1 TAB PO ×3 (02:37→12:23)
[2019-10-31 04:04] LABS: Basophils % 0.3 %; Eosinophils % 0.5 %; Hemoglobin 8.4 g/dL (11.5-15.3); Lymphocytes # 0.9 10^3/uL (0.8-4.8); Lymphocytes % 11.7 %; Mean Corpuscular HGB Conc 31.1 g/dL (30.0-36.0); Mean Corpuscular Hemoglobin 26.2 pg (28.0-34.0); Mean Corpuscular Volume 84.1 fL (81-99); Mean Platelet Volume 9.7 fL (7.4-10.4); Monocytes # 0.9 10^3/uL (0.2-0.9); Monocytes % 12.1 %; Neutrophils # 5.8 10^3/uL (1.8-7.7); Neutrophils % 74.9 %; Nucleated Red Blood Cells % 0 %; Platelet Count 273 10^3/cmm (130-400); Red Blood Count 3.21 10^6/uL (4.1-5.3); Red Cell Distribution Width 17.1 % (12.1-15.1); White Blood Count 7.8 10^3/uL (4.0-10.0)
[2019-10-31 04:22] LABS: Alanine Aminotransferase 23 U/L (0-33); Albumin Level 3.3 g/dL (3.5-5.2); Alkaline Phosphatase 71 IU/L (35-105); Anion Gap 12.6 (5-19); Aspartate Amino Transferase 34 U/L (0-32); Blood Urea Nitrogen 11 mg/dL (8-23); Calcium 9.5 mg/dL (8.5-10.5); Carbon Dioxide 33 mmol/L (22-29); Chloride 87 mmol/L (98-107); Globulin 2.6 g/dL (1.3-4.6); Glucose 147 mg/dL (65-115); Osmolality Calculated 267 mOsm/kg (285-295); Potassium 3.6 mmol/L (3.5-5.1); Sodium 129 mmol/L (136-145); Total Bilirubin 0.3 mg/dL (0.15-1.2); Total Protein 5.9 g/dL (6.6-8.7)
--- NOTE | 2019-10-31 06:00 | XRR_ITS ---
PROCEDURE INFORMATION: Exam: XR Chest, 1 View Exam date and time: 10/31/2019 6:35 AM Age: 74 years old Clinical indication: Other: Hypoxia; Prior surgery; Surgery date: 6+ months; Surgery type: Mitral valve, date of surgery not provided TECHNIQUE: Imaging protocol: XR of the chest Views: Frontal portable upright view of the chest. COMPARISON: CR XR chest 1V portable [id number] 10/29/2019 9:42 AM FINDINGS: Tubes, catheters and devices: The right upper extremity PICC line tip is in the mid SVC. EKG leads are present overlying the chest. Lungs: Increased left lower lobe pulmonary partial atelectasis. The pulmonary vasculature is slightly more congested and ill-defined. Right lower lung zone calcified pulmonary parenchymal granuloma. Pleural space: Mildly increased large left pleural effusion. Heart/Mediastinum: Stable moderate cardiomegaly. Bones/joints: An intracardiac valvular prosthesis is present. The patient is status post median sternotomy with intact sternal cerclage wires. XR/XR chest 1V portable [id number] IMPRESSION: 1. Mildly increased large left pleural effusion. 2. Increased left lower lobe pulmonary partial atelectasis. 3. Slightly increased pulmonary vascular congestion.
[2019-10-31] MEDS: budesonide 0.5 mg/2 mL Neb INHALATION ×2 (08:39→21:03)
[2019-10-31] MEDS: BuSPIRONE 5 mg Tablet PO ×2 (08:43→18:07)
[2019-10-31] MEDS: sotalol 80 mg Tablet PO ×2 (08:43→17:23)
[2019-10-31] MEDS: atorvastatin 40 mg Tablet 80 MG PO (08:43)
[2019-10-31] MEDS: lisinopril 20 mg Tablet PO (08:43)
[2019-10-31] MEDS: FUROsemide 20 mg Tablet PO (08:43)
[2019-10-31] MEDS: amlodipine 5 mg Tablet PO (08:43)
[2019-10-31] MEDS: ferrous sulfate EC 325 mg Tablet PO ×2 (08:43→18:07)
[2019-10-31] MEDS: pantoprazole DR 40 mg Tablet PO ×2 (08:44→17:23)
[2019-10-31] MEDS: polyethylene glycol 3350 Pkt 17 gm PO ×2 (08:44→18:07)
[2019-10-31] MEDS: digoxin 125 mcg Tablet PO (08:44)
--- NOTE | 2019-10-31 08:55 | ECG_ITS ---
Measurements Intervals [place] Rate: 94 P: MA: 0 QRS: 32 QRSD: 97 T: 60 QT: 317 QTc: [address] & T-WAVE ABNORMALITY ABNORMAL RHYTHM ECG Compared to ECG 10/28/2019 10:03:20 Sinus rhythm no longer present T-wave abnormality still present Electronically Signed On 10-31-2019 19:28:15 CDT by Messi Green M.D. [email or web address]
[2019-10-31 09:13] LABS: INR 4.17 (0.8-1.2)
--- NOTE | 2019-10-31 09:32 | P.PN_ITS ---
Subjective Subjective: Interval history: She today reports that she is feeling somewhat better. She is awake and alert. Reports that she was having some chest discomfort overnight. Currently resolved. Denies cough. Vitals/I&O/Wt Last Vital Signs Temp 98.2 F 10/31/19 04:00 Pulse 102 H 10/31/19 08:47 Resp 18 10/31/19 08:41 BP 140/56 10/31/19 08:00 Pulse Ox 96 10/31/19 08:41 10/30/19 10/31/19 10/31/19 22:59 06:59 14:59 Intake Total 240 / 689.3 500 / 1189.3 360 / 360 Output Total 700 / 1100 450 / 1550 Balance -460 / -410.7 50 / -360.7 360 / 360 Weight last 48 hrs Weight 58.105 kg Physical Exam Const: COMMON NORMALS: no apparent distress and oriented x3 HENMT: COMMON NORMALS: oropharynx normal Neck/C-Spine: COMMON NORMALS: no JVD Resp: COMMON NORMALS: normal respiratory effort and clear to auscultation bilaterally AUSCULTATION: clear to auscultation bilaterally Cardio: COMMON NORMALS: no JVD, regular rhythm, S1 normal heart sound, S2 normal heart sound and no murmurs RHYTHM: regular rhythm HEART SOUNDS: S1 normal and S2 normal GI: COMMON NORMALS: normal to inspection, nondistended, normoactive bowel sounds and soft to palpation PALPATION: Yes soft and No tender (Epigastrium) Extremity: COMMON NORMALS: no joint enlargement and no pedal edema Neuro: COMMON NORMALS: oriented x3 and moves all extremities Skin: COMMON NORMALS: no rashes or lesions noted GENERAL SKIN EXAM: no r ashes or lesions noted Data : 10/31/19 03:41 10/31/19 03:41 A&P Assessment and plan (1) Pleural effusion: She is afebrile, without leukocytosis, without cough or other symptoms to suggest pneumonia. Concerned perhaps effusion secondary to malignancy, versus some fluid overload secondary to heparin drip and other IV medications. Does not have signs or symptoms of sepsis or pneumonia. Discussed with her regarding effusion which appears to have increased in size somewhat stable from the last imaging. Lasix were restarted yesterday. She is requiring 2 L oxygen by nasal cannula. Discussed with her for thoracentesis we would need to discontinue her anticoagulation again. Discussed we are following up x-ray today again to see if effusion is still increasing in size. Discussed also with her oncologist, and appears she has not received any chemotherapy so far. With high concern for malignant effusion, with a widely metastatic disease, they will arrange for her to have a cycle of chemotherapy here. Per discussion this should take care of the effusion as well. Add allopurinol 100 mg 3 times daily for 7-10 days. Status: Acute Code(s): J90 - Pleural effusion, not elsewhere classified (2) Acute encephalopathy: Today mental status is much better. She is feeling better subjectively. Discussed with her test results from her CT (as well as past MRI) with old CVA, no fresh bleeding, or other acute findings. Influenza negative. UA not suggestive of UTI. Chest x-ray with some left hilar mass. There is left pleural effusion with perhaps slight worsening. We will need to monitor and reassess this as she is now on fully therapeutic anticoagulation. Epigastric symptoms are better. No headache. No cough. Decreased duloxetine dose to 10 mg. Digoxin level therapeutic. Monitor for development of fever, cough. Status: Acute Code(s): G93.40 - Encephalopathy, unspecified (3) Chest pain: Recurrence of chest pain overnight. Discussed with her pleural effusion usually should not be symptomatic. May have pain from her malignancy. Althou gh, she does not related it is pleuritic in nature. Will check troponin series. She has had variable heart rates with episodes of tachycardia overnight, and suspect symptoms may be related to that. Metoprolol was tried overnight although not with very good response. Currently chest pain is resolved. Heart rates are down in the 90s. Monitor for recurrence of tachycardia. If needed we may give her an extra dose of digoxin. Status: Acute Code(s): R07.9 - Chest pain, unspecified (4) GI bleed: This appears to have improved. Stools were reported back to normal color. Currently constipated. Now had a BM. Hemoglobin has been stable. INR therapeutic. Status: Acute Code(s): K92.2 - Gastrointestinal hemorrhage, unspecified (5) Anemia: Status: Acute Code(s): D64.9 - Anemia, unspecified (6) COPD (chronic obstructive pulmonary disease): Likely may need her own oxygen on discharge. Continue nebs. Status: Acute Qualifiers: COPD type: COPD with acute exacerbation Qualified Code(s): J44.1 - Chronic obstructive pulmonary disease with (acute) exacerbation Code(s): J44.9 - Chronic obstructive pulmonary disease, unspecified (7) Atrial fibrillation: Continue control medications. Warfarin. Status: Acute Qualifiers: Atrial fibrillation type: longstanding persistent Qualified Code(s): I48.11 - Longstanding persistent atrial fibrillation Code(s): I48.91 - Unspecified atrial fibrillation (8) Hypertension: Monitor blood pressures. Status: Acute Qualifiers: Hypertension type: essential hypertension Qualified Code(s): I10 - Essential (primary) hypertension Code(s): I10 - Essential (primary) hypertension (9) H/O mitral valve replacement with mechanical valve: INR therapeutic. DC heparin drip. Decrease warfarin to home dose. Goals INR reported at 3.2. Status: Acute Code(s): Z95.2 - Presence of prosthetic heart valve (10) Diastolic CHF, chronic: Currently does not appear in fluid overload. Continue cardiac diet, Lasix as needed. Status: Acute Code(s): I50.32 - Chronic diastolic (congestive) heart failure (11) Non-small cell lung cancer: Awaiting initiation of chemotherapy. Status post PICC line placement. Status: Acute Code(s): C34.90 - Malignant neoplasm of unspecified part of unspecified bronchus or lung (12) Gastritis: Continue twice daily PPI. Status: Acute Code(s): K29.70 - Gastritis, unspecified, without bleeding Additional A&P Information Constipation: MiraLAX, Dulcolax suppository. Avoid constipation. Dysphonia: Denies any sore throat. Likely secondary to oxygen therapy. Requested to add humidifier. Cepacol lozenges. Hyponatremia: With mild sodium improvement today. Appears to have chronic hyponatremia, although currently slightly worse, perhaps due to malignancy, effusion. Monitor sodium levels. Remove sodium restriction. Attestations Medical Necessity Statement*: Continue admission for assessment of management of hypoxia, small cell lung cancer, pleural effusion in setting of need for chronic anticoagulation due to metallic mitral valve. 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
[2019-10-31 09:34] LABS: Magnesium 1.6 mg/dL (1.7-2.3)
[2019-10-31 10:20] LABS: Troponin(5th) Baseline 45 ng/mL (0-10)
--- NOTE | 2019-10-31 11:33 | ECG_ITS ---
Measurements Intervals [place] Rate: 98 P: ME: 0 QRS: 31 QRSD: 84 T: 120 QT: 322 QTc: 412 ATRIAL FLUTTER/TACHYCARDIA POSSIBLE RIGHT VENTRICULAR CONDUCTION DELAY [RSR (QR) IN V1/V2] NONSPECIFIC ST & T-WAVE ABNORMALITY Compared to ECG 10/28/2019 10:03:20 Sinus rhythm no longer present T-wave abnormality still present Electronically Signed On 10-31-2019 19:29:45 CDT by Messi Green M.D. [id number]
[2019-10-31 12:44] LABS: Troponin 5 2HR 44.92 ng/mL (0-10)
[2019-10-31 12:56] LABS: Troponin 5 2HR Delta -0.08 ABS# (0-10)
[2019-10-31] MEDS: lidocaine 5% Patch 1 PATCH TOPICAL (13:11)
[2019-10-31] MEDS: warfarin 3 mg Tablet PO (15:26)
--- NOTE | 2019-10-31 15:33 | ECG_ITS ---
Measurements Intervals [place] Rate: 94 P: IA: 0 QRS: 19 QRSD: 93 T: 251 QT: 354 QTc: [address] DEVIATION AND MODERATE T-WAVE ABNORMALITY, CONSIDER INFERIOR ISCHEMIA [-0.1+ mV T WAVE IN II/aVF] Compared to ECG 10/28/2019 10:03:20 Possible ischemia now present Sinus rhythm no longer present T-wave abnormality still present Electronically Signed On 10-31-2019 19:29:29 CDT by Messi Green M.D. [email or web address]
[2019-10-31] MEDS: allopurinol 100 mg Tablet PO ×2 (17:00→21:26)
[2019-10-31 17:11] LABS: Troponin 5 6HR 36.89 ng/mL (0-10); Troponin 5 6HR Delta -8.11 ng/L (0-12)
[2019-10-31] MEDS: duloxetine 20 mg Capsule PO (18:07)
--- NOTE | 2019-10-31 22:11 | PC.NURSE ---
Patient lying supine in bed. Denies complaints from chemo therapy today. Will monitor.
[2019-11-01] VITALS (14 sets, daily range): BP systolic 131–171; BP diastolic 54–100; PULSE 81–122; RESP 16–22; TEMP 36.4–36.6; O2SAT 90–98
--- NOTE | 2019-11-01 00:43 | PC.NURSE ---
Patient's heart rate has ranged from 80's to 120's; however, not sustaining above 110. Denies complaints. Will monitor.
[2019-11-01] MEDS: HYDROcodone-acetaminophen 10-325 mg Tablet 1 TAB PO ×3 (00:53→21:41)
--- NOTE | 2019-11-01 01:25 | PC.NURSE ---
Lidocaine patch removed from left shoulder. Complaining of back/shoulder pain at 9-10 on 1-10 pain scale. Pain medication given. Will monitor.
[2019-11-01] MEDS: metoprolol tartrate 1 mg/1 mL SDV 5 mL 2.5 MG IV (01:52)
--- NOTE | 2019-11-01 02:02 | PC.NURSE ---
Heart rate sustaining 140's. Labetolol 2.5mg IVP given as ordered for sustained heart rate greater than 110. Awakened patient to give. Denies complaints. Heart rate now running 80's-90's. Will monitor.
[2019-11-01] MEDS: ipratropium-albuterol 3 mL Neb INHALATION ×4 (03:29→20:52)
--- NOTE | 2019-11-01 03:48 | PC.NURSE ---
Patient had nasal cannula up on forehead. When asked by this nurse how it got there, patient states, Oh heck ain't much telling. Nasal Cannula then replaced. Heart rate showing upper 90's to low 100's. Denies complaints at this time. Will monitor.
[2019-11-01 03:50] LABS: Hematocrit 28.1 % (37.0-47.0); Hemoglobin 8.6 g/dL (11.5-15.3); Lymphocytes # 0.3 10^3/uL (0.8-4.8); Lymphocytes % 5.3 %; Mean Corpuscular HGB Conc 30.6 g/dL (30.0-36.0); Mean Corpuscular Hemoglobin 26.7 pg (28.0-34.0); Mean Corpuscular Volume 87.3 fL (81-99); Monocytes # 0.2 10^3/uL (0.2-0.9); Monocytes % 3.3 %; Neutrophils # 4.5 10^3/uL (1.8-7.7); Neutrophils % 91.2 %; Nucleated Red Blood Cells % 0 %; Platelet Count 273 10^3/cmm (130-400); Red Blood Count 3.22 10^6/uL (4.1-5.3); Red Cell Distribution Width 17.4 % (12.1-15.1); White Blood Count 4.9 10^3/uL (4.0-10.0)
[2019-11-01 03:59] LABS: Alanine Aminotransferase 25 U/L (0-33); Albumin Level 3.2 g/dL (3.5-5.2); Alkaline Phosphatase 72 IU/L (35-105); Anion Gap 14.6 (5-19); Aspartate Amino Transferase 38 U/L (0-32); Blood Urea Nitrogen 9 mg/dL (8-23); Calcium 9.5 mg/dL (8.5-10.5); Carbon Dioxide 28 mmol/L (22-29); Chloride 88 mmol/L (98-107); Glucose 151 mg/dL (65-115); Osmolality Calculated 261 mOsm/kg (285-295); Potassium 4.6 mmol/L (3.5-5.1); Sodium 126 mmol/L (136-145); Total Bilirubin 0.7 mg/dL (0.15-1.2); Total Protein 6.2 g/dL (6.6-8.7)
--- NOTE | 2019-11-01 06:17 | PC.NURSE ---
Patient sitting on side of bed after using bedside commode. Denies complaints at this time. Bed alarm discontinued while patient sitting up. Monitor showing heart rate 90's to low 100's. Will monitor.
[2019-11-01] MEDS: budesonide 0.5 mg/2 mL Neb INHALATION ×2 (08:51→20:52)
[2019-11-01] MEDS: lidocaine 5% Patch 1 PATCH TOPICAL (10:10)
[2019-11-01] MEDS: BuSPIRONE 5 mg Tablet PO ×2 (10:11→18:54)
[2019-11-01] MEDS: duloxetine 20 mg Capsule PO ×2 (10:11→18:54)
[2019-11-01] MEDS: sotalol 80 mg Tablet PO ×2 (10:11→18:54)
[2019-11-01] MEDS: ferrous sulfate EC 325 mg Tablet PO ×2 (10:11→18:54)
[2019-11-01] MEDS: lisinopril 20 mg Tablet PO (10:12)
[2019-11-01] MEDS: digoxin 125 mcg Tablet PO (10:12)
[2019-11-01] MEDS: FUROsemide 20 mg Tablet PO (10:12)
[2019-11-01] MEDS: pantoprazole DR 40 mg Tablet PO ×2 (10:12→18:54)
[2019-11-01] MEDS: amlodipine 5 mg Tablet PO (10:12)
[2019-11-01] MEDS: atorvastatin 40 mg Tablet 80 MG PO (10:15)
[2019-11-01] MEDS: allopurinol 100 mg Tablet PO ×3 (10:16→21:41)
--- NOTE | 2019-11-01 10:21 | PC.SOCIAL ---
IMM Updated Updated pt on Pg 2 IMM. NO questions voiced. Provided pt a copy & left on their bedside table. Signed, dated, & timed copy in chart.
--- NOTE | 2019-11-01 13:24 | PM.PN ---
Subjective Subjective: Interval history: She is feeling tired, but otherwise is doing all right. She is alert and oriented x3. Denies any pain. Denies any particular shortness of breath. No cough, chills or other symptoms. Vitals/I&O/Wt Last Vital Signs Temp 97.9 F 11/01/19 10:50 Pulse 122 H 11/01/19 10:50 Resp 18 11/01/19 10:50 BP 171/100 11/01/19 10:50 Pulse Ox 94 11/01/19 10:50 10/31/19 11/01/19 11/01/19 22:59 06:59 14:59 Intake Total 60 / 420 60 / 480 360 / 360 Output Total 400 / 400 425 / 825 Balance -340 / 20 -365 / -345 360 / 360 Weight last 48 hrs Weight 60.192 kg Physical Exam Const: COMMON NORMALS: no apparent distress and oriented x3 HENMT: COMMON NORMALS: oropharynx normal Neck/C-Spine: COMMON NORMALS: no JVD Resp: COMMON NORMALS: normal respiratory effort AUSCULTATION: diminished lung sounds on the right Cardio: COMMON NORMALS: no JVD, regular rhythm, S1 normal heart sound, S2 normal heart sound and no murmurs RHYTHM: regular rhythm HEART SOUNDS: S1 normal and S2 normal GI: COMMON NORMALS: normal to inspection, nondistended, normoactive bowel sounds and soft to palpation PALPATION: Yes soft and No tender (Epigastrium) Extremity: COMMON NORMALS: no joint enlargement and no pedal edema Neuro: COMMON NORMALS: oriented x3 and moves all extremities Skin: COMMON NORMALS: no rashes or lesions noted GENERAL SKIN EXAM: no rashes or lesions noted Data : 11/01/19 03:22 11/01/19 03:22 A&P Assessment and plan (1) Pleural effusion: Started chemotherapy last night. She is afebrile, without leukocytosis, without cough or other symptoms to suggest pneumonia. Concern is effusion is related to malignancy. Versus some fluid overload secondary to heparin drip and other IV medications. Discussed with her regarding effusion which appears to have increased in size somewhat stable from the last imaging. Lasix were restarted yesterday. She is requiring 2 L oxygen by nasal cannula. Discussed with her for thoracentesis we would need to discontinue her anticoagulation again. Discussed we are following up x-ray today again to see if effusion is still increasing in size. Add allopurinol 100 mg 3 times daily for 7-10 days. Status: Acute Code(s): J90 - Pleural effusion, not elsewhere classified (2) Acute encephalopathy: Mental status is much better. She is feeling better subjectively. Discussed with her test results from her CT (as well as past MRI) with old CVA, no fresh bleeding, or other acute findings. Influenza negative. UA not suggestive of UTI. Chest x-ray with some left hilar mass. There is left pleural effusion with perhaps slight worsening. We will need to monitor and reassess this as she is now on fully therapeutic anticoagulation. Epigastric symptoms are better. No headache. No cough. Monitor for development of fever, cough. Status: Acute Code(s): G93.40 - Encephalopathy, unspecified (3) Chest pain: Pain free. Discussed with her pleural effusion usually should not be symptomatic. May have pain from her malignancy. Although, she does not related it is pleuritic in nature. Troponin series with minimal elevation. She has had variable heart rates with episodes of tachycardia overnight, and suspect symptoms may be related to that. Status: Acute Code(s): R07.9 - Chest pain, unspecified (4) GI bleed: This appears to have improved. Stools were reported back to normal color. Currently constipated. Now had a BM. Hemoglobin has been stable. INR therapeutic. Status: Acute Code(s): K92.2 - Gastrointestinal hemorrhage, unspecified (5) Anemia: Status: Acute Code(s): D64.9 - Anemia, unspecified (6) COPD (chronic obstructive pulmonary disease): Likely may need her own oxygen on discharge. Continue nebs. Status: Acute Qualifiers: COPD type: COPD with acute exacerbation Qualified Code(s): J44.1 - Chronic obstructive pulmonary disease with (acute) exacerbation Code(s): J44.9 - Chronic obstructive pulmonary disease, unspecified (7) Atrial fibrillation: A. fib with intermittent RVR. Continue digoxin, metoprolol. Monitor rate. Replace magnesium. Continue control medications. Warfarin. Status: Acute Qualifiers: Atrial fibrillation type: longstanding persistent Qualified Code(s): I48.11 - Longstanding persistent atrial fibrillation Code(s): I48.91 - Unspecified atrial fibrillation (8) Hypertension: Monitor blood pressures. Status: Acute Qualifiers: Hypertension type: essential hypertension Qualified Code(s): I10 - Essential (primary) hypertension Code(s): I10 - Essential (primary) hypertension (9) H/O mitral valve replacement with mechanical valve: Recheck INR. Goals INR reported at 3.2. Status: Acute Code(s): Z95.2 - Presence of prosthetic heart valve (10) Diastolic CHF, chronic: Currently does not appear in fluid overload. Continue cardiac diet, Lasix as needed. Status: Acute Code(s): I50.32 - Chronic diastolic (congestive) heart failure (11) Non-small cell lung cancer: Awaiting initiation of chemotherapy. Status post PICC line placement. Status: Acute Code(s): C34.90 - Malignant neoplasm of unspecified part of unspecified bronchus or lung (12) Gastritis: Continue twice daily PPI. Status: Acute Code(s): K29.70 - Gastritis, unspecified, without bleeding Additional A&P Information Constipation: MiraLAX, Dulcolax suppository. Avoid constipation. Dysphonia: Denies any sore throat. Likely secondary to oxygen therapy. Requested to add humidifier. Cepacol lozenges. Better. Hyponatremia: Appears to have chronic hyponatremia, although currently slightly worse, perhaps due to malignancy, effusion. Monitor sodium levels. Removed sodium restriction. Attestations Medical Necessity Statement*: Continued mission for assessment management of small cell lung cancer, with pleural effusion, hypoxia, requiring therapeutic anticoagulation due to metallic mitral valve. 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
[2019-11-01] MEDS: magnesium sulfate premix 2 GM/50 ML PIGGYBACK IV (14:03)
[2019-11-01] MEDS: ondansetron 4 MG Tablet 8 MG PO (14:04)
[2019-11-01] MEDS: warfarin 3 mg Tablet PO (14:04)
[2019-11-01] MEDS: dexamethasone 4 mg Tablet 10 MG PO (14:04)
[2019-11-01 14:05] LABS: INR 4.75 (0.8-1.2)
[2019-11-02] VITALS (15 sets, daily range): BP systolic 90–146; BP diastolic 50–69; PULSE 78–111; RESP 16–30; TEMP 36.3–36.9; O2SAT 94–98
[2019-11-02] MEDS: metoprolol tartrate 1 mg/1 mL SDV 5 mL 2.5 MG IV (01:20)
--- NOTE | 2019-11-02 01:26 | PC.NURSE ---
Heart rate up in 140's. Metoprolol 2.5mg IVP given as ordered PRN for heart rate greater than 110. Denies complaints at this time. Will monitor.
[2019-11-02] MEDS: ipratropium-albuterol 3 mL Neb INHALATION ×4 (02:27→19:59)
[2019-11-02 04:40] LABS: Basophils % 0.1 %; Hematocrit 27.7 % (37.0-47.0); Hemoglobin 8.6 g/dL (11.5-15.3); Lymphocytes # 0.3 10^3/uL (0.8-4.8); Lymphocytes % 1.7 %; Mean Corpuscular Hemoglobin 26.5 pg (28.0-34.0); Mean Corpuscular Volume 85.5 fL (81-99); Mean Platelet Volume 10.4 fL (7.4-10.4); Monocytes # 0.5 10^3/uL (0.2-0.9); Monocytes % 3.3 %; Neutrophils % 94.3 %; Nucleated Red Blood Cells % 0 %; Platelet Count 303 10^3/cmm (130-400); Red Blood Count 3.24 10^6/uL (4.1-5.3); Red Cell Distribution Width 17.6 % (12.1-15.1); White Blood Count 14.9 10^3/uL (4.0-10.0)
[2019-11-02 05:03] LABS: Magnesium 2.3 mg/dL (1.7-2.3)
[2019-11-02 05:14] LABS: Alanine Aminotransferase 32 U/L (0-33); Albumin Level 3.6 g/dL (3.5-5.2); Alkaline Phosphatase 75 IU/L (35-105); Aspartate Amino Transferase 43 U/L (0-32); Blood Urea Nitrogen 17 mg/dL (8-23); Calcium 9.6 mg/dL (8.5-10.5); Carbon Dioxide 30 mmol/L (22-29); Chloride 85 mmol/L (98-107); Globulin 2.3 g/dL (1.3-4.6); Glucose 147 mg/dL (65-115); Osmolality Calculated 257 mOsm/kg (285-295); Sodium 124 mmol/L (136-145); Total Bilirubin 0.4 mg/dL (0.15-1.2); Total Protein 5.9 g/dL (6.6-8.7)
[2019-11-02 05:31] LABS: Uric Acid 2.8 mg/dL (2.4-5.7)
--- NOTE | 2019-11-02 06:26 | PC.NURSE ---
Heart rate continues to run upper 90's to low 100's. Will monitor.
[2019-11-02 06:50] LABS: Phosphorus 3.9 mg/dL (2.5-4.5)
[2019-11-02] MEDS: ondansetron 2 mg/ML SDV 2 mL 4 MG IVP ×2 (08:12→11:55)
[2019-11-02 08:24] LABS: INR 5.13 (0.8-1.2)
[2019-11-02] MEDS: budesonide 0.5 mg/2 mL Neb INHALATION ×2 (08:57→19:51)
[2019-11-02] MEDS: polyethylene glycol 3350 Pkt 17 gm PO ×2 (09:26→17:56)
[2019-11-02] MEDS: digoxin 125 mcg Tablet PO (09:26)
[2019-11-02] MEDS: lidocaine 5% Patch 1 PATCH TOPICAL (09:26)
[2019-11-02] MEDS: duloxetine 20 mg Capsule PO ×2 (09:27→17:56)
[2019-11-02] MEDS: pantoprazole DR 40 mg Tablet PO ×2 (09:27→17:56)
[2019-11-02] MEDS: ferrous sulfate EC 325 mg Tablet PO ×2 (09:27→17:56)
[2019-11-02] MEDS: atorvastatin 40 mg Tablet 80 MG PO (09:27)
[2019-11-02] MEDS: allopurinol 100 mg Tablet PO ×3 (09:27→19:56)
[2019-11-02] MEDS: sotalol 80 mg Tablet PO ×2 (09:27→17:56)
[2019-11-02] MEDS: lisinopril 20 mg Tablet PO (09:27)
[2019-11-02] MEDS: FUROsemide 20 mg Tablet PO (09:27)
[2019-11-02] MEDS: amlodipine 5 mg Tablet PO (09:27)
[2019-11-02] MEDS: BuSPIRONE 5 mg Tablet PO ×2 (09:28→17:56)
--- NOTE | 2019-11-02 09:48 | PC.CHAP ---
Pastoral Care Encounter/Spiritual Assessment Type of Contact [] Declined time piece repairer visit [] Patient/Family/Request visit [] Outpatient visit [] Follow-up visit [] Physician referral [] Code/Alert [x] Routine visit [] Staff referral [] Actively dying [] Patient sleeping [] Family support [] [] Out of room [] Palliative care [] [] Receiving care in room [] Pre-surgical visit [] Trauma [x] Long length of stay [] ICU visit [] Other: Relational/Emotional Strength [] Patient feels connected with others/family/visitors/staff [] Distress [] Loneliness/isolation [] Abandonment Spirituality of Patient [x] Person of Eunice [] Attends Sabianism of their Eunice [x] Believes in Prayer [] Reads Bible or Confucianism materials [] There are Spiritual issues to be addressed Nutrition Coordinator Interventions [x] Prayer [] Active listening [] Non-anxious presence [] Spiritual/emotional support [] Crisis/trauma care [] Spiritual counseling [] Bereavement support [] Provided bereavement packet [] Provided Bible/devotional materials [] Provided toy/stuffed animal, coloring book to patient or family member [] Provided Communion [] Anointing/[place] [] Salvation [x] Completed spiritual assessment [] Other: Impact on Illness or Injury [] Angry [] Fearful [] Anxious [] Often cries [] Exhaustion [] Unable to work [] Unable to attend mu-ism [] Unable to walk/stand [] Unable to read [] Unable to drive [] Unable to eat/drink [] Unable to sleep [] Unable to be with family [] Patient intubated [] Other: Summary Patient looking and feeling so much stronger than Myah's last visit. Myah have patient booklet to read (she loves to read) Time spent with patient 15min
--- NOTE | 2019-11-02 10:44 | PC.RESP ---
Patient given Pulmonary Rehab information.
[2019-11-02] MEDS: HYDROcodone-acetaminophen 10-325 mg Tablet 1 TAB PO ×2 (11:33→19:57)
[2019-11-02] MEDS: ondansetron 4 MG Tablet 8 MG PO (14:43)
[2019-11-02] MEDS: warfarin 1 mg Tablet PO (14:43)
[2019-11-02] MEDS: dexamethasone 4 mg Tablet 10 MG PO (14:43)
--- NOTE | 2019-11-02 16:30 | P.PN_ITS ---
Subjective Subjective: Interval history: This morning she is nauseated. Otherwise denies shortness of breath. No cough. Despite nausea does not have abdominal pain. She is doing better in the afternoon per discussion with oncologist with seen her. Vitals/I&O/Wt Last Vital Signs Temp 97.3 F L 11/02/19 15:01 Pulse 92 11/02/19 15:01 Resp 28 H 11/02/19 15:01 BP 123/57 11/02/19 15:01 Pulse Ox 94 11/02/19 15:01 11/02/19 11/02/19 11/02/19 06:59 14:59 22:59 Intake Total 60 / 540 500 / 500 Output Total 275 / 1025 300 / 300 Balance -215 / -485 500 / 500 -300 / 200 Weight last 48 hrs Weight 61.779 kg Weight 60.192 kg Physical Exam Const: COMMON NORMALS: no apparent distress and oriented x3 HENMT: COMMON NORMALS: oropharynx normal Neck/C-Spine: COMMON NORMALS: no JVD Resp: COMMON NORMALS: normal respiratory effort and clear to auscultation bilaterally AUSCULTATION: clear to auscultation bilaterally Cardio: COMMON NORMALS: no JVD, regular rhythm, S1 normal heart sound, S2 normal heart sound and no murmurs RHYTHM: regular rhythm HEART SOUNDS: S1 normal and S2 normal GI: COMMON NORMALS: normal to inspection, nondistended, normoactive bowel sounds and soft to palpation PALPATION: Yes soft and No tender (Epigastrium) Extremity: COMMON NORMALS: no joint enlargement and no pedal edema Neuro: COMMON NORMALS: oriented x3 and moves all extremities Skin: COMMON NORMALS: no rashes or lesions noted GENERAL SKIN EXAM: no rashes or lesions noted Data : 11/02/19 03:46 11/02/19 03:46 A&P Assessment and plan (1) Pleural effusion: Started chemotherapy cycle 10/30. Her breathing is comfortable. She is having some nausea with her chemotherapy. Discussed with her oncologist. She is doing well this afternoon. If pleural effusion is not increasing on imaging in the morning she may we will discharge home with follow-up in 1 week with repeat x-ray in office with Dr. Delgadillo. Effusion suspected due to metastatic malignancy which should be sensitive to chemotherapy. Status: Acute Code(s): J90 - Pleural effusion, not elsewhere classified (2) Acute encephalopathy: Resolved. Mental status is much better. Status: Acute Code(s): G93.40 - Encephalopathy, unspecified (3) Chest pain: Pain free. Discussed with her pleural effusion usually should not be symptomatic. May have pain from her malignancy. Although, she does not related it is pleuritic in nature. Troponin series with minimal elevation. She has had variable heart rates with episodes of tachycardia overnight, and suspect symptoms may be related to that. Status: Acute Code(s): R07.9 - Chest pain, unspecified (4) GI bleed: This appears to have improved. Stools were reported back to normal color. Currently constipated. Now had a BM. Hemoglobin has been stable. INR supratherapeutic and warfarin galdamez decreased. Status: Acute Code(s): K92.2 - Gastrointestinal hemorrhage, unspecified (5) Anemia: Status: Acute Code(s): D64.9 - Anemia, unspecified (6) COPD (chronic obstructive pulmonary disease): Likely may need her own oxygen on discharge. Continue nebs. Status: Acute Qualifiers: COPD type: COPD with acute exacerbation Qualified Code(s): J44.1 - Chronic obstructive pulmonary disease with (acute) exacerbation Code(s): J44.9 - Chronic obstructive pulmonary disease, unspecified (7) Atrial fibrillation: A. fib with intermittent RVR. Continue digoxin, metoprolol. Monitor rate. Replace magnesium. Continue control medications. Warfarin. Status: Acute Qualifiers: Atrial fibrillation type: longstanding persistent Qualified Code(s): I48.11 - Longstanding persistent atrial fibrillation Code(s): I48.91 - Unspecified atrial fibrillation (8) Hypertension: Monitor blood pressures. Status: Acute Qualifiers: Hypertension type: essential hypertension Qualified Code(s): I10 - Essential (primary) hypertension Code(s): I10 - Essential (primary) hypertension (9) H/O mitral valve replacement with mechanical valve: Warfarin dose decreased due to supratherapeutic INR. Today 1 mg. Recheck INR. Goals INR reported at 3.2. Status: Acute Code(s): Z95.2 - Presence of prosthetic heart valve (10) Diastolic CHF, chronic: Currently does not appear in fluid overload. Continue cardiac diet, Lasix as needed. Status: Acute Code(s): I50.32 - Chronic diastolic (congestive) heart failure (11) Non-small cell lung cancer: Awaiting initiation of chemotherapy. Status post PICC line placement. Status: Acute Code(s): C34.90 - Malignant neoplasm of unspecified part of unspecified bronchus or lung (12) Gastritis: Continue twice daily PPI. Status: Acute Code(s): K29.70 - Gastritis, unspecified, without bleeding Additional A&P Information Constipation: MiraLAX, Dulcolax suppository. Avoid constipation. Dysphonia: Denies any sore throat. Likely secondary to oxygen therapy. Requested to add humidifier. Cepacol lozenges. Better. Hyponatremia: Appears to have chronic hyponatremia, although currently slightly worse, perhaps due to malignancy, effusion. Monitor sodium levels. Removed sodium restriction. Attestations Medical Necessity Statement*: Continue admission for assessment of management of hypoxia, metastatic small cell lung cancer with pleural effusion, in the setting of metallic cardiac valve requiring chronic anticoagulation. 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
[2019-11-02] MEDS: LORazepam 0.5 mg Tablet PO (19:56)
[2019-11-03] VITALS (11 sets, daily range): BP systolic 141–165; BP diastolic 53–86; PULSE 66–97; RESP 16–27; TEMP 36.4–36.8; O2SAT 93–98
[2019-11-03 04:42] LABS: Basophils % 0.1 %; Hematocrit 26.1 % (37.0-47.0); Hemoglobin 8.2 g/dL (11.5-15.3); Lymphocytes # 0.2 10^3/uL (0.8-4.8); Lymphocytes % 1.1 %; Mean Corpuscular HGB Conc 31.4 g/dL (30.0-36.0); Mean Corpuscular Hemoglobin 27.1 pg (28.0-34.0); Mean Corpuscular Volume 86.1 fL (81-99); Mean Platelet Volume 10.4 fL (7.4-10.4); Monocytes # 0.2 10^3/uL (0.2-0.9); Monocytes % 1.4 %; Neutrophils # 13.3 10^3/uL (1.8-7.7); Neutrophils % 96.8 %; Nucleated Red Blood Cells % 0 %; Platelet Count 277 10^3/cmm (130-400); Red Blood Count 3.03 10^6/uL (4.1-5.3); Red Cell Distribution Width 17.7 % (12.1-15.1); White Blood Count 13.8 10^3/uL (4.0-10.0)
[2019-11-03 04:59] LABS: Alanine Aminotransferase 35 U/L (0-33); Albumin Level 3.3 g/dL (3.5-5.2); Alkaline Phosphatase 68 IU/L (35-105); Aspartate Amino Transferase 45 U/L (0-32); Blood Urea Nitrogen 19 mg/dL (8-23); Calcium 8.9 mg/dL (8.5-10.5); Carbon Dioxide 30 mmol/L (22-29); Chloride 86 mmol/L (98-107); Globulin 2.2 g/dL (1.3-4.6); Glucose 128 mg/dL (65-115); Osmolality Calculated 256 mOsm/kg (285-295); Sodium 124 mmol/L (136-145); Total Bilirubin 0.3 mg/dL (0.15-1.2); Total Protein 5.5 g/dL (6.6-8.7)
[2019-11-03 05:16] LABS: INR 5.15 (0.8-1.2)
--- NOTE | 2019-11-03 06:00 | XR_ITS ---
WS: [id number] Portable AP upright chest, 11/03/2019 Clinical Data: Hypoxia Comparison: Portable chest, 10/31/2019 Findings: The left pleural effusion has increased. There is minimal aerated lung in the left upper lo be. The right lung is clear. The heart size is probably large. Midline sternotomy sutures and cardiac valve replacement are noted. There are monitor leads on the chest wall. The right PICC line ends in the superior vena cava. No pneumonia or pneumothorax is seen. XR/XR chest 1V portable [id number] Impression: 1. Increase in left pleural effusion. 2. Cardiomegaly.
[2019-11-03] MEDS: polyethylene glycol 3350 Pkt 17 gm PO ×2 (08:39→17:45)
[2019-11-03] MEDS: atorvastatin 40 mg Tablet 80 MG PO (08:39)
[2019-11-03] MEDS: lidocaine 5% Patch 1 PATCH TOPICAL (08:39)
[2019-11-03] MEDS: digoxin 125 mcg Tablet PO (08:39)
[2019-11-03] MEDS: allopurinol 100 mg Tablet PO ×3 (08:40→20:07)
[2019-11-03] MEDS: lisinopril 20 mg Tablet PO (08:40)
[2019-11-03] MEDS: pantoprazole DR 40 mg Tablet PO ×2 (08:40→17:45)
[2019-11-03] MEDS: BuSPIRONE 5 mg Tablet PO ×2 (08:40→17:45)
[2019-11-03] MEDS: ferrous sulfate EC 325 mg Tablet PO ×2 (08:40→17:45)
[2019-11-03] MEDS: FUROsemide 20 mg Tablet PO (08:40)
[2019-11-03] MEDS: sotalol 80 mg Tablet PO ×2 (08:40→17:45)
[2019-11-03] MEDS: duloxetine 20 mg Capsule PO ×2 (08:40→17:45)
[2019-11-03] MEDS: amlodipine 5 mg Tablet PO (08:40)
[2019-11-03] MEDS: HYDROcodone-acetaminophen 10-325 mg Tablet 1 TAB PO ×3 (08:42→20:07)
--- NOTE | 2019-11-03 09:09 | PC.SOCIAL ---
IMM Updated Updated pt on Pg 2 IMM. No questions voiced. Provided pt a copy & left on their bedside table. Signed, dated, & timed copy in chart.
[2019-11-03] MEDS: budesonide 0.5 mg/2 mL Neb INHALATION ×2 (09:25→21:02)
[2019-11-03] MEDS: ipratropium-albuterol 3 mL Neb INHALATION ×3 (09:25→21:01)
--- NOTE | 2019-11-03 09:55 | CT_ITS ---
WS: [id number] CT CHEST WITHOUT INTRAVENOUS CONTRAST HISTORY: effusion vs atelectasis TECHNIQUE: Contiguous 5 mm axial imaging performed on the thorax. Coronal and sagittal reformats are submitted. All CT scans at [facility] use at least one of these dose optimization techniq ues: automated exposure control; mA and/or kV adjustment per patient size (includes targeted exams wh ere dose is matched to clinical indication); or iterative reconstruction. CONTRAST: None DLP: 367.35 mGy.cm COMPARISON: 08/18/2019 Lungs, pleura and central airway: Since 08/18/2019 and there has been a significant change in the LEFT thorax. There is near complete opacification due to combination of increasing tumor size, atelectasis and moderate layering pleural effusion. Large tumor burden begins in the anterior medial LEFT upper thorax with obliteration of the fat plane between aorta and the mediastinal structures. Mass continue s into the AP window and inferiorly encasing the proximal LEFT hilar structures. There is narrowing o f the bronchi and encasement of bronchi. Mass extends over length of 11 cm and transversely by 6.8 cm . Significant increase in size of the mass since 08/18/2019 and slight increase since 10/01/2019 PET/CT. Linear areas of atelectasis RIGHT middle lobe and at the RIGHT lung base. Very small layering RIGHT pleural effusion. Heart and pericardium: Cardiac chambers are enlarged. Prior mitral annular valve replacement. Tumor a buts the pericardium over the ventricular apex but there is still a fat plane present. Mediastinum and lary: There is extensive mediastinal and hilar confluent adenopathy contiguous with m ass. Better described on the prior PET/CT. There are lymph nodes extending along the LEFT internal ma mmary chain. Vessels: Mild enlargement of the pulmonary artery. Atherosclerosis of aorta. There is diffuse soft tissue edema and soft tissue thickening involving the LEFT breast which has pro gressed. There is edema over the upper abdominal wall. Upper abdomen: Since the prior examinations development of diffuse pulmonary metastatic nodules with the largest measuring approximately 2.0 cm. No adrenal mass. Extensive calcifications within the uppe r abdominal aorta. Superior pole of the LEFT kidney is enlarged with perinephric stranding. Osseous structures: No osseous metastatic disease identified in the chest. Patient does have known me tastatic bone disease. CT/CT chest wo con [id number] IMPRESSION: 1. Significant progression of fluid, atelectasis and tumor burden in the LEFT thorax. Moderate-sized pleural effusion now present. Patient has known malignan cy. Please see PET/CT report from 10/01/2019. 2. Soft tissue edema involving the LEFT chest, LEFT breast and soft tissue. Ma y be due to dependent edema. 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 3. Significant progression of mediastinal or hilar adenopathy. 4. New diffuse metastatic disease throughout the liver. 5. Perinephric stranding around the upper pole the LEFT kidney with enlargemen t. Correlate for possible pyelonephritis or obstruction. New since 10/01/2019.
--- NOTE | 2019-11-03 10:06 | PM.PN ---
Subjective Subjective: Interval history: Today she is having a mild headache, but also feels is having more difficulty try to catch a deep breath. Vitals/I&O/Wt Last Vital Signs Temp 97.7 F 11/03/19 07:16 Pulse 78 11/03/19 09:27 Resp 18 11/03/19 09:27 BP 156/85 11/03/19 07:16 Pulse Ox 98 11/03/19 09:27 11/02/19 11/03/19 11/03/19 22:59 06:59 14:59 Intake Total 360 / 860 120 / 980 Output Total 300 / 300 Balance 60 / 560 120 / 680 Weight last 48 hrs Weight 60.781 kg Weight 61.779 kg Physical Exam Const: COMMON NORMALS: no apparent distress and oriented x3 HENMT: COMMON NORMALS: oropharynx normal Neck/C-Spine: COMMON NORMALS: no JVD Resp: COMMON NORMALS: normal respiratory effort and clear to auscultation bilaterally AUSCULTATION: clear to auscultation bilaterally Cardio: COMMON NORMALS: no JVD, regular rhythm, S1 normal heart sound, S2 normal heart sound and no murmurs RHYTHM: regular rhythm HEART SOUNDS: S1 normal and S2 normal GI: COMMON NORMALS: normal to inspection, nondistended, normoactive bowel sounds and soft to palpation PALPATION: Yes soft and No tender (Epigastrium) Extremity: COMMON NORMALS: no joint enlargement and no pedal edema Neuro: COMMON NORMALS: oriented x3 and moves all extremities Skin: COMMON NORMALS: no rashes or lesions noted GENERAL SKIN EXAM: no rashes or lesions noted Data : 11/03/19 03:33 11/03/19 03:33 A&P Assessment and plan (1) Pleural effusion: Started chemotherapy cycle 10/30 and completed the cycle. Overall she has remained stable, and consideration was given for return home with outpatient monitoring of effusion, however, on repeat chest x-ray today effusion appears to have been progressing. Discussed with her. At this time would not be safe for her to return home. We will again have to hold her warfarin, transition to heparin bridge, with subsequent drainage. For now we will not give reversal agents as she has been stable, however, should this change this may need to be urgently done. Will perform CT of the chest to assess if areas of atelectasis which may benefit from chest PT, etc. Currently is breathing comfortably on 3 L nasal cannula, although is having more difficulty catching a deep breath. Effusion suspected due to metastatic malignancy which should be sensitive to chemotherapy per discussion with her oncologist. Status: Acute Code(s): J90 - Pleural effusion, not elsewhere classified (2) Acute encephalopathy: Resolved. Mental status is much better. Status: Acute Code(s): G93.40 - Encephalopathy, unspecified (3) Chest pain: Pain free. Intermittent A. fib with RVR, although not recently. Status: Acute Code(s): R07.9 - Chest pain, unspecified (4) GI bleed: This appears to have improved. Hemoglobin has been stable. Warfarin held. Status: Acute Code(s): K92.2 - Gastrointestinal hemorrhage, unspecified (5) Anemia: Status: Acute Code(s): D64.9 - Anemia, unspecified (6) COPD (chronic obstructive pulmonary disease): Likely may need her own oxygen on discharge. Continue nebs. Status: Acute Qualifiers: COPD type: COPD with acute exacerbation Qualified Code(s): J44.1 - Chronic obstructive pulmonary disease with (acute) exacerbation Code(s): J44.9 - Chronic obstructive pulmonary disease, unspecified (7) Atrial fibrillation: A. fib with intermittent RVR. Continue digoxin, metoprolol. Monitor rate. Replace magnesium. Continue control medications. Warfarin held. Status: Acute Qualifiers: Atrial fibrillation type: longstanding persistent Qualified Code(s): I48.11 - Longstanding persistent atrial fibrillation Code(s): I48.91 - Unspecified atrial fibrillation (8) Hypertension: Monitor blood pressures. Status: Acute Qualifiers: Hypertension type: essential hypertension Qualified Code(s): I10 - Essential (primary) hypertension Code(s): I10 - Essential (primary) hypertension (9) H/O mitral valve replacement with mechanical valve: Warfarin held due to progressing effusion. Recheck INR. Goals INR reported at 3.2. Status: Acute Code(s): Z95.2 - Presence of prosthetic heart valve (10) Diastolic CHF, chronic: Currently does not appear in fluid overload. Continue cardiac diet, Lasix as needed. Status: Acute Code(s): I50.32 - Chronic diastolic (congestive) heart failure (11) Non-small cell lung cancer: S/p first cycle chemo. R arm PICC line. Status: Acute Code(s): C34.90 - Malignant neoplasm of unspecified part of unspecified bronchus or lung (12) Gastritis: Continue twice daily PPI. Status: Acute Code(s): K29.70 - Gastritis, unspecified, without bleeding Additional A&P Information Constipation: MiraLAX Dysphonia: Denies any sore throat. Humidifier. Cepacol lozenges. Better. Hyponatremia: Appears to have chronic hyponatremia, although currently worse due to malignancy, effusion. Monitor sodium levels. Removed sodium restriction. Attestations Medical Necessity Statement*: Continue admission for assessment of management of suspected malignant effusion with need for chronic anticoagulation with mechanical mitral valve. Coding Level of Care Code Acute Bowling Ball Assembler for Len Fwd Diagnoses Pleural effusion J90 Acute encephalopathy G93.40 Chest pain R07.9 GI bleed K92.2 Anemia D64.9 COPD (chronic obstructive pulmonary disease) J44.1 COPD type: COPD with acute exacerbation Atrial fibrillation I48.11 Atrial fibrillation type: longstanding persistent Hypertension I10 Hypertension type: essential hypertension H/O mitral valve replacement with mechanical valve Z95.2 Diastolic CHF, chronic I50.32 Non-small cell lung cancer C34.90 Gastritis K29.70
--- NOTE | 2019-11-03 13:59 | ECG_ITS ---
Measurements Intervals [place] Rate: 77 P: -48 NV: 160 QRS: 30 QRSD: 92 T: 60 QT: 347 QTc: [address] & T-WAVE ABNORMALITY Compared to ECG 10/31/2019 17:48:57 Atrial flutter no longer present T-wave abnormality still present Electronically Signed On 11-03-2019 21:07:22 CDT by Blanca Weaver M.D. [email or web address]
--- NOTE | 2019-11-03 14:36 | US_ITS ---
WS: [id number] RENAL ULTRASOUND Urinary bladder ultrasound HISTORY: Possible polynephritis versus hydronephrosis. COMPARISON: None available. TECHNIQUE: 2-D and color Doppler imaging of the kidney submitted. Right kidney: 10.1 cm x 5.1 cm x 5.7 cm. Normal echogenicity with no hydronephrosis or mass. Left kidney: 10.2 cm x 4.6 cm x 5.5 cm. Normal echogenicity with no hydronephrosis or mass. Recently described edema and perinephric strandin g around the superior pole of the LEFT kidney is not evident by ultrasound. Aorta: Normal. Urinary Bladder: Normal distention. US/US renal BI with bladder IMPRESSION: 1. No hydronephrosis. 2. LEFT kidney appears negative by ultrasound. Correlate for urinary tract inf ection by urinalysis.
--- NOTE | 2019-11-03 15:05 | PC.NURSE ---
PATIENT HAD COMPLAINS OF MILD SHORTNESS OF BREATH AND CHEST PAIN. DR. FORBES NOTIFIED. ORDERED STAT EKG AND TROPONIN. OTHER ORDERS TO FOLLOW.
[2019-11-03 15:06] LABS: Troponin T (5th) Once 31 ng/mL (0-10)
[2019-11-03] MEDS: phytonadione (ADULT) 10 mg/mL Ampule 1 mL 2.5 MG PO (15:31)
[2019-11-03 19:31] LABS: INR 3.97 (0.8-1.2)
[2019-11-03] MEDS: LORazepam 0.5 mg Tablet PO (20:07)
[2019-11-04] VITALS (11 sets, daily range): BP systolic 115–150; BP diastolic 46–71; PULSE 67–79; RESP 16–69; TEMP 36.6–36.8; O2SAT 94–99
[2019-11-04 00:53] LABS: Bilirubin Urine Neg (NEGATIVE); Blood Urine Neg (Negative); Glucose Urine UA Norm (Normal); Ketones Urine Negative (Negative); Nitrate Urine Negative (Negative); Protein Urine Neg (Negative); Urine Appearance Hazy (CLEAR); Urine Color Yellow (Yellow); pH Urine 6 (5-7)
[2019-11-04 00:54] LABS: Add Urine Microscopic? YES; Leukocyte Esterase Urine Negative (Negative); Urobilinogen Urine Norm (Negative)
[2019-11-04 00:58] LABS: RBC Urine 0-4 /hpf (0-2)
[2019-11-04 01:01] LABS: Add Urine Culture? No; Bacteria Urine 1+; Squamous Epithelial Cell Urine 55-80 (0-5)
[2019-11-04] MEDS: ipratropium-albuterol 3 mL Neb INHALATION ×2 (02:26→20:37)
[2019-11-04 05:10] LABS: Eosinophils % 0.1 %; Hemoglobin 7.7 g/dL (11.5-15.3); Lymphocytes # 0.5 10^3/uL (0.8-4.8); Lymphocytes % 4.9 %; Mean Corpuscular HGB Conc 30.8 g/dL (30.0-36.0); Mean Corpuscular Hemoglobin 26.5 pg (28.0-34.0); Mean Corpuscular Volume 85.9 fL (81-99); Mean Platelet Volume 10.1 fL (7.4-10.4); Monocytes % 0.4 %; Neutrophils # 9.1 10^3/uL (1.8-7.7); Neutrophils % 94.1 %; Nucleated Red Blood Cells % 0 %; Platelet Count 224 10^3/cmm (130-400); Red Blood Count 2.91 10^6/uL (4.1-5.3); Red Cell Distribution Width 17.7 % (12.1-15.1); White Blood Count 9.7 10^3/uL (4.0-10.0)
[2019-11-04 05:23] LABS: INR 1.43 (0.8-1.2)
[2019-11-04 05:33] LABS: Alanine Aminotransferase 36 U/L (0-33); Albumin Level 3.1 g/dL (3.5-5.2); Alkaline Phosphatase 66 IU/L (35-105); Anion Gap 10.7 (5-19); Aspartate Amino Transferase 46 U/L (0-32); Blood Urea Nitrogen 20 mg/dL (8-23); Calcium 8.9 mg/dL (8.5-10.5); Carbon Dioxide 34 mmol/L (22-29); Chloride 85 mmol/L (98-107); Globulin 2.2 g/dL (1.3-4.6); Glucose 97 mg/dL (65-115); Osmolality Calculated 256 mOsm/kg (285-295); Potassium 4.7 mmol/L (3.5-5.1); Sodium 125 mmol/L (136-145); Total Bilirubin 0.4 mg/dL (0.15-1.2); Total Protein 5.3 g/dL (6.6-8.7)
--- NOTE | 2019-11-04 08:55 | PC.NURSE ---
Time out for Left sided Thoracentesis Dr. Lyle at bedside. Verified left posterior thorax for left thoracentesis. Vital signs monitored. 0906- BP-130/53, p8oft-92%, RR-27, HR-80. Pt positioned sitting up with shoulders resting on bedside table. Explained procedure to pt. [id number] ml of bright serosanguinous pleural fluid drained. VS monitored. Pt tolerated the procedure well. Dr. Lyle applied pressure and covered site with bandaid. Will keep monitoring.
--- NOTE | 2019-11-04 08:58 | P.PN_ITS ---
Subjective Subjective: Interval history: She is feeling a little better, denies any pain or discomfort, denies trouble breathing. Vitals/I&O/Wt Last Vital Signs Temp 98.1 F 11/04/19 04:00 Pulse 70 11/04/19 04:00 Resp 69 H 11/04/19 04:00 BP 115/46 11/04/19 04:00 Pulse Ox 97 11/04/19 04:00 11/03/19 11/04/19 11/04/19 22:59 06:59 14:59 Intake Total 120 / 360 240 / 600 120 / 120 Output Total 400 / 400 Balance 120 / 360 -160 / 200 120 / 120 Weight last 48 hrs Weight 61.235 kg Weight 60.781 kg Physical Exam Const: COMMON NORMALS: no apparent distress and oriented x3 HENMT: COMMON NORMALS: oropharynx normal Neck/C-Spine: COMMON NORMALS: no JVD Resp: COMMON NORMALS: normal respiratory effort AUSCULTATION: diminished lung sounds on the left Cardio: COMMON NORMALS: no JVD, regular rhythm, S1 normal heart sound, S2 normal heart sound and no murmurs RHYTHM: regular rhythm HEART SOUNDS: S1 normal and S2 normal OTHER: Audible mechanical valve GI: COMMON NORMALS: normal to inspection, nondistended, normoactive bowel sounds and soft to palpation PALPATION: Yes soft and No tender (Epigastrium) Extremity: COMMON NORMALS: no joint enlargement and no pedal edema Neuro: COMMON NORMALS: oriented x3 and moves all extremities Skin: COMMON NORMALS: no rashes or lesions noted GENERAL SKIN EXAM: no rashes or lesions noted Data : 11/04/19 04:45 11/04/19 04:45 A&P Assessment and plan (1) Pleural effusion: INR down to 1.43 from 5.15 yesterday. Currently to undergo thoracentesis, subsequently bridging with heparin drip. Chemotherapy cycle 10/30-. Cancer is expected to be sensitive to chemotherapy per discussion with her oncologist. Status: Acute Code(s): J90 - Pleural effusion, not elsewhere classified (2) Acute encephalopathy: Resolved. Mental status is much better. Status: Acute Code(s): G93.40 - Encephalopathy, unspecified (3) Chest pain: Pain free. Intermittent A. fib with RVR, although not recently. Status: Acute Code(s): R07.9 - Chest pain, unspecified (4) GI bleed: This appears to have improved. Hemoglobin has been stable. Warfarin held. Status: Acute Code(s): K92.2 - Gastrointestinal hemorrhage, unspecified (5) Anemia: Status: Acute Code(s): D64.9 - Anemia, unspecified (6) COPD (chronic obstructive pulmonary disease): Likely may need her own oxygen on discharge. Continue nebs. Status: Acute Qualifiers: COPD type: COPD with acute exacerbation Qualified Code(s): J44.1 - Client Consultant lucio obstructive pulmonary disease with (acute) exacerbation Code(s): J44.9 - Chronic obstructive pulmonary disease, unspecified (7) Atrial fibrillation: A. fib with intermittent RVR, but overall heart rates are much better. Co ntinue digoxin, metoprolol. Monitor rate. Warfarin held. Status: Acute Qualifiers: Atrial fibrillation type: longstanding persistent Qualified Code(s): I48.11 - Longstanding persistent atrial fibrillation Code(s): I48.91 - Unspecified atrial fibrillation (8) Hypertension: Monitor blood pressures. Status: Acute Qualifiers: Hypertension type: essential hypertension Qualified Code(s): I10 - Essential (primary) hypertension Code(s): I10 - Essential (primary) hypertension (9) H/O mitral valve replacement with mechanical valve: Warfarin held due to progressing effusion. Goals INR reported at 3.2. Status: Acute Code(s): Z95.2 - Presence of prosthetic heart valve (10) Diastolic CHF, chronic: Currently does not appear in fluid overload. Continue cardiac diet, Lasix as needed. Status: Acute Code(s): I50.32 - Chronic diastolic (congestive) heart failure (11) Non-small cell lung cancer: S/p first cycle chemo. R arm PICC line. Status: Acute Code(s): C34.90 - Malignant neoplasm of unspecified part of unspecified bronchus or lung (12) Gastritis: Continue twice daily PPI. Status: Acute Code(s): K29.70 - Gastritis, unspecified, without bleeding Additional A&P Information Constipation: MiraLAX Dysphonia: Denies any sore throat. Humidifier. Cepacol lozenges. Better. Hyponatremia: Appears to have chronic hyponatremia, although currently worse due to malignancy, effusion. Monitor sodium levels. Removed sodium restriction. Attestations Medical Necessity Statement*: Continue admission for assessment of management of large left-sided pleural effusion suspected related to malignancy, while requiring chronic anticoagulation due to mechanical mitral valve. Coding Level of Care Code Acute Lecturer Of Portuguese for Chg Fwd Diagnoses Pleural effusion J90 Acute encephalopathy G93.40 Chest pain R07.9 GI bleed K92.2 Anemia D64.9 COPD (chronic obstructive pulmonary disease) J44.1 COPD type: COPD with acute exacerbation Atrial fibrillation I48.11 Atrial fibrillation type: longstanding persistent Hypertension I10 Hypertension type: essential hypertension H/O mitral valve replacement with mechanical valve Z95.2 Diastolic CHF, chronic I50.32 Non-small cell lung cancer C34.90 Gastritis K29.70
--- NOTE | 2019-11-04 09:38 | PM.ACPR ---
Procedure/Consent Time out: Time Out Performed: Yes Consent: Consent for Procedure: Consent obtained from patient Procedure Narrative: Name of the procedure: Left sided thoracentesis under ultrasound guidance. Indication: Suspicion for symptomatic malignant pleural effusion Anesthetics: Local anesthesia with 1% lidocaine. IV pain medication: None. Description of the procedure: The procedure was explained to the patient in detail including the risks and a consent was obtained. The left hemithorax was scanned with ultrasound to find a safe fluid pocket. Large pleural fluid collection was noted with positive plankton sign. There was no complexity. Following identification of the fluid pocket the site was marked. The site was cleaned using sterile technique. Lidocaine 1% was injected into the skin and the subcutaneous tissue. Subsequently, the periosteum in the parietal pleural was also anesthetized using lidocaine. The pleural space was entered in the posterior axillary line in the left seventh intercostal space. Serosanguineous fluid was aspirated. 1700 cc of fluid was aspirated. Sample: The pleural fluid was sent for cell count and differential, pH, protein, LDH, albumin, Gram stain and culture, fungal stain and culture, AFB stain and culture and cytology. Postprocedure chest x-ray is pending. Acute Procedures Epistaxis Control: Time out performed: Yes
--- NOTE | 2019-11-04 09:41 | XR_ITS ---
WS: [id number] PORTABLE CHEST HISTORY: post thoracentesis COMPARISON: 11/03/2019 Prior median sternotomy. RIGHT central line with tip in distal SVC. Cardiac valve replacement. Moderate improvement in the LEFT pleural effusion. Slightly better aeration in the LEFT upper lung. T here is continued consolidation at the LEFT lung base with atelectasis. No pneumothorax. RIGHT lung i s clear with the exception of a granuloma at the RIGHT base. Cardiac size: Cardiac silhouette is obscured by the pleural fluid and mediastinal mass. Mediastinum/Aorta: Atherosclerosis aorta. Obscuration of the aortic arch from the mediastinal mass wh ich has been previously described. No osseous abnormality seen. XR/XR chest 1V portable [id number] IMPRESSION: 1. Moderate improvement in the LEFT pleural effusion. No pneumothorax status p ost thoracentesis. 2. Patient has a known RIGHT mediastinal and upper lung mass. 3. Continued consolidation at the LEFT lung base is a combination of neoplasm, atelectasis and effusion.
[2019-11-04] MEDS: heparin drip 25,000 UNIT/500 ML PREMIX 15 UNIT IV (10:34)
[2019-11-04] MEDS: heparin 5,000 unit/mL INJ 1 mL IV (10:34)
[2019-11-04] MEDS: digoxin 125 mcg Tablet PO (10:38)
[2019-11-04] MEDS: pantoprazole DR 40 mg Tablet PO ×2 (10:38→18:11)
[2019-11-04] MEDS: BuSPIRONE 5 mg Tablet PO ×2 (10:38→18:13)
[2019-11-04] MEDS: allopurinol 100 mg Tablet PO ×3 (10:39→20:14)
[2019-11-04] MEDS: sotalol 80 mg Tablet PO ×2 (10:39→18:11)
[2019-11-04] MEDS: atorvastatin 40 mg Tablet 80 MG PO (10:39)
[2019-11-04] MEDS: ferrous sulfate EC 325 mg Tablet PO (10:39)
[2019-11-04 10:40] LABS: Body Fluid Polynuclear #Cells 0.086 10^3/uL; Monocytes # Body Fluid 1.177 10^3/uL; RBC, Body Fluid 72 10^3/uL (0-0)
[2019-11-04] MEDS: duloxetine 20 mg Capsule PO ×2 (10:40→18:11)
[2019-11-04 10:47] LABS: Color, Body Fluid RED (PALE YELLOW)
[2019-11-04] MEDS: lidocaine 5% Patch 1 PATCH TOPICAL (10:58)
[2019-11-04 11:20] LABS: LDH Pleural Fluid 363 U/L
[2019-11-04 11:33] LABS: PATH Referral YES
[2019-11-04 11:56] LABS: Apprearance, Body Fluid CLOUDY (CLEAR)
[2019-11-04 13:17] LABS: Osmolality Urine 625
--- NOTE | 2019-11-04 14:09 | XR_ITS ---
WS: [id number] PORTABLE CHEST HISTORY: dyspnea COMPARISON: 11/04/2019 and 11/03/2019. Prior median sternotomy and valve replacement. Continued consolidation and obscuration of the mid and lower LEFT lung. No pneumothorax or interval c hange since the study obtained post thoracentesis. Patient has a known mediastinal and LEFT upper ami g field mass. RIGHT lung is clear. Cardiac size: Obscured by the consolidation in the LEFT lung. Mediastinum/Aorta: Mediastinal widening due to the known neoplasm. No osseous abnormality seen. XR/XR chest 1V portable [id number] IMPRESSION: 1. No pneumothorax. 2. Continued consolidation in the mid and lower LEFT lung due to combination o f pleural fluid, atelectasis and neoplasm which has been previously described.
[2019-11-04] MEDS: amlodipine 5 mg Tablet PO (15:27)
[2019-11-04] MEDS: HYDROcodone-acetaminophen 10-325 mg Tablet 1 TAB PO ×2 (15:27→20:14)
[2019-11-04 17:51] LABS: Partial Thromboplastin Time > 250.0 SECONDS (23.9-36.7)
--- NOTE | 2019-11-04 18:00 | PC.NURSE ---
Heparin Drip on hold Called Dr. Esteban on pt's PTT is greater than 250. Received order to hold drip and repeat PTT now.
[2019-11-04] MEDS: LORazepam 0.5 mg Tablet PO (20:14)
[2019-11-04] MEDS: budesonide 0.5 mg/2 mL Neb INHALATION (20:37)
[2019-11-05] VITALS (14 sets, daily range): BP systolic 108–134; BP diastolic 40–69; PULSE 67–112; RESP 17–23; TEMP 36.5–36.8; O2SAT 92–98
[2019-11-05 02:43] LABS: Eosinophils % 0.4 %; Hematocrit 25.2 % (37.0-47.0); Hemoglobin 7.9 g/dL (11.5-15.3); Lymphocytes # 0.7 10^3/uL (0.8-4.8); Lymphocytes % 8.7 %; Mean Corpuscular HGB Conc 31.3 g/dL (30.0-36.0); Neutrophils # 6.9 10^3/uL (1.8-7.7); Neutrophils % 90.5 %; Nucleated Red Blood Cells % 0 %; Platelet Count 204 10^3/cmm (130-400); Red Blood Count 2.93 10^6/uL (4.1-5.3); Red Cell Distribution Width 17.6 % (12.1-15.1); White Blood Count 7.6 10^3/uL (4.0-10.0)
[2019-11-05 03:01] LABS: Alanine Aminotransferase 31 U/L (0-33); Albumin Level 3.1 g/dL (3.5-5.2); Alkaline Phosphatase 66 IU/L (35-105); Anion Gap 7.9 (5-19); Aspartate Amino Transferase 40 U/L (0-32); Blood Urea Nitrogen 20 mg/dL (8-23); Carbon Dioxide 34 mmol/L (22-29); Chloride 85 mmol/L (98-107); Globulin 2.2 g/dL (1.3-4.6); Glucose 109 mg/dL (65-115); Osmolality Calculated 251 mOsm/kg (285-295); Potassium 4.9 mmol/L (3.5-5.1); Sodium 122 mmol/L (136-145); Total Bilirubin 0.4 mg/dL (0.15-1.2); Total Protein 5.3 g/dL (6.6-8.7)
[2019-11-05 03:14] LABS: Partial Thromboplastin Time 82.7 SECONDS (23.9-36.7)
[2019-11-05 03:18] LABS: INR 1.07 (0.8-1.2)
[2019-11-05] MEDS: ipratropium-albuterol 3 mL Neb INHALATION ×4 (03:29→20:46)
[2019-11-05 03:31] LABS: Slide Review Slide Review Perform
[2019-11-05] MEDS: ondansetron 2 mg/ML SDV 2 mL 4 MG IVP ×3 (07:37→18:24)
--- NOTE | 2019-11-05 07:42 | PC.NURSE ---
PT ROUNDING PT REPORTED OF BEING NAUSEATED AND FEELS WEAK. ZOFRAN GIVEN PRN ORDER. WILL MONITOR.
[2019-11-05] MEDS: budesonide 0.5 mg/2 mL Neb INHALATION ×2 (08:16→20:46)
[2019-11-05] MEDS: atorvastatin 40 mg Tablet 80 MG PO (09:20)
[2019-11-05] MEDS: digoxin 125 mcg Tablet PO (09:20)
[2019-11-05] MEDS: lisinopril 20 mg Tablet PO (09:20)
[2019-11-05] MEDS: duloxetine 20 mg Capsule PO ×2 (09:20→17:35)
[2019-11-05] MEDS: sotalol 80 mg Tablet PO ×2 (09:20→17:35)
[2019-11-05] MEDS: pantoprazole DR 40 mg Tablet PO ×2 (09:20→17:35)
[2019-11-05] MEDS: ferrous sulfate EC 325 mg Tablet PO ×2 (09:20→17:35)
[2019-11-05] MEDS: amlodipine 5 mg Tablet PO (09:20)
--- NOTE | 2019-11-05 09:20 | PC.SOCIAL ---
IMM Updated Page 2 of IMM updated and given to patient. Initialed, dated, and timed and placed back in chart.
[2019-11-05] MEDS: allopurinol 100 mg Tablet PO ×3 (09:21→21:09)
[2019-11-05] MEDS: lidocaine 5% Patch 1 PATCH TOPICAL (09:21)
[2019-11-05] MEDS: BuSPIRONE 5 mg Tablet PO ×2 (09:21→17:35)
[2019-11-05] MEDS: sodium chloride 1 gm Tablet PO ×2 (09:23→17:35)
[2019-11-05] MEDS: FUROsemide 10 mg/mL SDV 2mL 20 MG IVP (09:23)
[2019-11-05] MEDS: HYDROcodone-acetaminophen 10-325 mg Tablet 1 TAB PO ×2 (09:28→17:38)
[2019-11-05 10:24] LABS: Partial Thromboplastin Time 67.3 SECONDS (23.9-36.7)
--- NOTE | 2019-11-05 13:34 | PM.PN ---
Subjective Subjective: Interval history: No acute events overnight. In last 24 hours patient went left thoracocentesis for which 1700 cc were removed. This morning on evaluation patient is sleeping comfortably in bed, on examination patient wakes up and is AO x3 denies of having any chest pain, nausea, vomiting complains of feeling mildly weak. Denies of having any bleeding. She denies any shortness of breath, cough. Vitals/I&O/Wt Last Vital Signs Temp 97.9 F 11/05/19 11:56 Pulse 90 11/05/19 11:56 Resp 18 11/05/19 11:56 BP 108/69 11/05/19 11:56 Pulse Ox 97 11/05/19 11:56 11/04/19 11/05/19 11/05/19 22:59 06:59 14:59 Intake Total 471.5 / 711.5 149.6 / 861.1 360 / 360 Output Total 300 / 2000 600 / 600 Balance 471.5 / -988.5 -150.4 / -1138.9 -240 / -240 Weight last 48 hrs Weight 59.738 kg Weight 61.235 kg Physical Exam Narrative: EXAM NARRATIVE: General: No acute distress, AO x3, pallor present HEENT: PERRLA, pupils bilaterally equal and reactive Chest: Normal vesicular breath sounds, no added sounds, equal good air entry bilaterally except left middle and lower zone. CVS: S1-S2 regular metallic click heard in the whole precordium, no murmurs, no tachycardia, no gallops, no rubs Abdomen: Soft, nontender, no organomegaly, bowel sounds present Neuro: No focal deficits, no facial deformity, AO x3, power 5/5 in all limbs Data : 11/05/19 02:37 11/05/19 02:37 Micro: Microbiology 11/04/19 09:30 Gram Stain - Final Pleural Fluid Body Fluid Culture - Preliminary A&P Assessment and plan (1) Pleural effusion: Status: Acute Code(s): J90 - Pleural effusion, not elsewhere classified (2) H/O mitral valve replacement with mechanical valve: Status: Acute Code(s): Z95.2 - Presence of prosthetic heart valve (3) Atrial fibrillation: Status: Acute Qualifiers: Atrial fibrillation type: longstanding persistent Qualified Code(s): I48.11 - Longstanding persistent atrial fibrillation Code(s): I48.91 - Unspecified atrial fibrillation (4) Diastolic CHF, chronic: Status: Acute Code(s): I50.32 - Chronic diastolic (congestive) heart failure (5) Anemia: Status: Acute Code(s): D64.9 - Anemia, unspecified (6) GI bleed: Status: Acute Code(s): K92.2 - Gastrointestinal hemorrhage, unspecified (7) COPD (chronic obstructive pulmonary disease): Status: Acute Qualifiers: COPD type: COPD with acute exacerbation Qualified Code(s): J44.1 - Chronic obstructive pulmonary disease with (acute) exacerbation Code(s): J44.9 - Chronic obstructive pulmonary disease, unspecified (8) Non-small cell lung cancer: Status: Acute Code(s): C34.90 - Malignant neoplasm of unspecified part of unspecified bronchus or lung (9) Hypertension: Status: Acute Qualifiers: Hypertension type: essential hypertension Qualified Code(s): I10 - Essential (primary) hypertension Code(s): I10 - Essential (primary) hypertension (10) Subtherapeutic international normalized ratio (INR): Status: Acute Code(s): R79.1 - Abnormal coagulation profile (11) Hyponatremia: Status: Acute Code(s): E87.1 - Hypo-osmolality and hyponatremia Additional A&P Information 74-year-old lady recently diagnosed with lung cancer, plan to start chemotherapy which she received a PICC line today. After placement of She started to experience chest pain. ACS ruled out by negative troponins and no acute ST-T changes. Incidentally noted to have hemoglobin of 7.4 from 9.7 recently. Hemoccult positive in the ER. No rachel melena but reports dark stools recently. Last colonoscopy dates back to 2014. Non-small cell lung cancer: Post first cycle chemotherapy on October 30. Pleural effusion: Post thoracocentesis on November 03. 1700 serosanguineous fluid was aspirated. Fluid results appreciated. Chest x-ray tomorrow morning to see if the fluid collection is increasing. If the fluid collection is increasing patient would most likely need a [place] drain. Continue holding warfarin till definitive plan of [place] drain was decided. Continue oxygen supplementation keeping saturation over 90%. At baseline patient is on 2 L nasal cannula. Hyponatremia: Sodium levels 122. Baseline seems to be around 1 28-1 30. 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 Urine osmolality 625. Check urine lites. Continue with fluid restrictions. We will switch to regular diet. 1 g salt tablets twice daily. Continue to monitor BMP and sodium levels daily. Metallic Mitral valve: Patient is on Coumadin as blood thinners. She states she takes 4.5 mg 7 days a week. Goal on INR to be 3.0. Patient admission was subtherapeutic. Continue with heparin drip keeping PTT therapeutic. We will bridge her to warfarin till we get to the goal INR. Atrial fibrillation: Currently rate controlled. Continue with home dose of sotalol, digoxin with Lopressor IV as needed. Anticoagulation as described above. Diastolic heart failure: Patient symptoms consistent with heart failure. Echo done August consistent with diastolic heart failure. Most likely getting exacerbated by anemia. Patient is euvolemic today. We will change oral to IV Lasix for today. From tomorrow continue with oral Lasix. GI bleed: Endoscopy done by Dr. Maharaj suggestive of gastritis. Protonix oral 40 twice daily. Hemoglobin stable. 7.9 today. Advance diet from GI soft to regular diet. Recheck hemoglobin on daily basis for now until patient has melena. If hemoglobin continues to trend down tomorrow will have to plan for a possible colonoscopy. Case discussed with Dr. Maharaj. Oral iron supplementation 325 mg twice daily. Appreciate Dr. Bearden recommendations COPD, not currently exacerbated: DuoNeb every 6 hour and budesonide twice daily inhalation No steroids for now Hypertension: Well-controlled. Hold lisinopril for now History of diastolic CHF: Currently not in acute exacerbation. Euvolemic. Continue home medications of aspirin, duloxetine Full code Dvt ppx: Heparin drip/Coumadin bridge. Regular diet. 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
[2019-11-05 14:30] LABS: NT Pro B Type Natriuretic Pept 1834 pg/mL (0-125)
--- NOTE | 2019-11-05 15:00 | PC.NURSE ---
Nausea and headache Pt reported of having throbbing headache and feels like she is going to throw up. BP-97/50. HR-80s to 90s Afib. Zofran IVP given PRN as ordered. Notified doctor. Received order for Tylenol P.O 650 mg q6h PRN. 1535pm- Pt is asleep at this time upon doing pt rounding checks. Will monitor.
[2019-11-06] VITALS (20 sets, daily range): BP systolic 118–152; BP diastolic 38–75; PULSE 68–81; RESP 18–26; TEMP 36.5–36.9; O2SAT 94–99; BMI 24.5
[2019-11-06] MEDS: HYDROcodone-acetaminophen 10-325 mg Tablet 1 TAB PO ×3 (00:55→17:32)
[2019-11-06] MEDS: ipratropium-albuterol 3 mL Neb INHALATION ×3 (02:16→20:58)
[2019-11-06 04:58] LABS: Eosinophils # 0.1 10^3/uL (0.0-0.8); Eosinophils % 0.9 %; Hematocrit 23.5 % (37.0-47.0); Hemoglobin 7.2 g/dL (11.5-15.3); Lymphocytes # 0.5 10^3/uL (0.8-4.8); Mean Corpuscular HGB Conc 30.6 g/dL (30.0-36.0); Mean Corpuscular Hemoglobin 26.9 pg (28.0-34.0); Mean Corpuscular Volume 87.7 fL (81-99); Mean Platelet Volume 10.4 fL (7.4-10.4); Neutrophils # 4.7 10^3/uL (1.8-7.7); Neutrophils % 88.2 %; Nucleated Red Blood Cells % 0 %; Platelet Count 170 10^3/cmm (130-400); Red Blood Count 2.68 10^6/uL (4.1-5.3); Red Cell Distribution Width 17.5 % (12.1-15.1); White Blood Count 5.3 10^3/uL (4.0-10.0)
[2019-11-06 05:19] LABS: Partial Thromboplastin Time 64.9 SECONDS (23.9-36.7)
[2019-11-06 05:20] LABS: Alanine Aminotransferase 27 U/L (0-33); Albumin Level 2.9 g/dL (3.5-5.2); Alkaline Phosphatase 64 IU/L (35-105); Anion Gap 9.5 (5-19); Aspartate Amino Transferase 30 U/L (0-32); Blood Urea Nitrogen 16 mg/dL (8-23); Calcium 8.9 mg/dL (8.5-10.5); Carbon Dioxide 34 mmol/L (22-29); Chloride 87 mmol/L (98-107); Globulin 2.3 g/dL (1.3-4.6); Glucose 128 mg/dL (65-115); Osmolality Calculated 260 mOsm/kg (285-295); Potassium 4.5 mmol/L (3.5-5.1); Sodium 126 mmol/L (136-145); Total Bilirubin 0.3 mg/dL (0.15-1.2); Total Protein 5.2 g/dL (6.6-8.7)
[2019-11-06 05:40] LABS: INR 0.97 (0.8-1.2)
[2019-11-06 05:53] LABS: Slide Review Slide Review Perform
[2019-11-06] MEDS: ferrous sulfate EC 325 mg Tablet PO ×2 (07:09→17:31)
[2019-11-06] MEDS: ondansetron 2 mg/ML SDV 2 mL 4 MG IVP ×2 (07:46→17:41)
[2019-11-06] MEDS: heparin drip 25,000 UNIT/500 ML PREMIX 11 UNIT IV (07:49)
--- NOTE | 2019-11-06 08:00 | XRR_ITS ---
PROCEDURE INFORMATION: Exam: XR Chest, 1 View Exam date and time: 11/05/2019 11:59 PM Age: 74 years old Clinical indication: Shortness of breath; Prior surgery; Additional info: Follow up for pleural effusion TECHNIQUE: Imaging protocol: XR of the chest Views: 1 view. COMPARISON: CR XR chest 1V portable [id number] 11/04/2019 2:39 PM FINDINGS: Median sternotomy wires are present. Prosthetic heart valve is noted. Right upper extremity PICC line, tip overlying the lower superior vena cava. Moderate enlargement of the cardiac silhouette (consistent with cardiomegaly and/or pericardial effusion), similar to prior study. The right lung is clear. Large area of airspace opacity (atelectasis and/or consolidation) in the left mid lung and left lung base, similar to prior study. No visualized pulmonary edema. No visible pneumothorax. Large left pleural effusion, similar to prior study. XR/XR chest 1V portable [id number] IMPRESSION: 1. Moderate enlargement of the cardiac silhouette (consistent with cardiomegaly and/or pericardial effusion), similar to prior study. 2. Large area of airspace opacity (atelectasis and/or consolidation) in the left mid lung and left lung base, similar to prior study. 3. Large left pleural effusion, similar to prior study.
[2019-11-06] MEDS: allopurinol 100 mg Tablet PO ×3 (09:40→21:42)
[2019-11-06] MEDS: sodium chloride 1 gm Tablet PO ×2 (09:40→17:31)
[2019-11-06] MEDS: lisinopril 20 mg Tablet PO (09:40)
[2019-11-06] MEDS: pantoprazole DR 40 mg Tablet PO ×2 (09:40→17:31)
[2019-11-06] MEDS: lidocaine 5% Patch 1 PATCH TOPICAL ×2 (09:40→21:42)
[2019-11-06] MEDS: amlodipine 5 mg Tablet PO (09:40)
[2019-11-06] MEDS: sotalol 80 mg Tablet PO ×2 (09:40→17:31)
--- NOTE | 2019-11-06 09:42 | PC.RESP ---
Pt c/o nausea nursing at bedside. No tx given.
--- NOTE | 2019-11-06 09:43 | PC.NURSE ---
lightheadedness and nausea Pt complaints of being dizzy and nauseous. Zofran was given 2 hrs ago. applied cool compress to head per pt request. Pt refused her cymbalta, buspar due to dizziness. she also refused her bisacodyl and miralax.
[2019-11-06] MEDS: cetylpyridinium Lozenge 1 EACH MUCOUS MEM (10:42)
[2019-11-06 11:55] LABS: Partial Thromboplastin Time 61.1 SECONDS (23.9-36.7)
--- NOTE | 2019-11-06 12:12 | PM.PN ---
Subjective Subjective: Interval history: Patient is having increasing dyspnea at rest. She says that it improved after the thoracentesis, however it is gradually worsening again. She denies any chest pains. The patient has not had any bleeding from her rectum at this time. The patient's pulse has been in A. fib with RVR yesterday, however it has been okay today. The patient has continued to have pain, however her pain medications are helping to control it. Vitals/I&O/Wt Last Vital Signs Temp 97.9 F 11/06/19 07:23 Pulse 75 11/06/19 07:23 Resp 19 H 11/06/19 07:23 BP 148/51 11/06/19 07:23 Pulse Ox 98 11/06/19 07:23 11/05/19 11/06/19 11/06/19 22:59 06:59 14:59 Intake Total 266 / 691.083 420 / 1111.083 625.817 / 625.817 Output Total 230 / 830 1050 / 1880 Balance 36 / -138.917 -630 / -768.917 625.817 / 625.817 Weight last 48 hrs Weight 129 lb 8 oz Weight 131 lb 11.2 oz Physical Exam Narrative: EXAM NARRATIVE: General: Alert and oriented x3 Cardiac: Regular rate and rhythm without murmurs Lungs: Significantly decreased air movement in the left lung with air movement only heard in the left upper lung. Right lung with decreased air entry, however no crackles, rhonchi or wheezes. Abdomen: Soft, nontender Extremities: No edema Data : 11/06/19 04:45 11/06/19 04:45 Micro: Microbiology 11/04/19 09:30 Gram Stain - Final Pleural Fluid Body Fluid Culture - Preliminary A&P Assessment and plan (1) Hyponatremia: Status: Acute Code(s): E87.1 - Hypo-osmolality and hyponatremia (2) Subtherapeutic international normalized ratio (INR): Status: Acute Code(s): R79.1 - Abnormal coagulation profile (3) Pleural effusion: Status: Acute Code(s): J90 - Pleural effusion, not elsewhere classified (4) Non-small cell lung cancer: Status: Acute Code(s): C34.90 - Malignant neoplasm of unspecified part of unspecified bronchus or lung (5) Anemia: Status: Acute Code(s): D64.9 - Anemia, unspecified (6) GI bleed: Status: Acute Code(s): K92.2 - Gastrointestinal hemorrhage, unspecified (7) Hypertension: Status: Acute Qualifiers: Hypertension type: essential hypertension Qualified Code(s): I10 - Essential (primary) hypertension Code(s): I10 - Essential (primary) hypertension (8) COPD (chronic obstructive pulmonary disease): Status: Acute Qualifiers: COPD type: COPD with acute exacerbation Qualified Code(s): J44.1 - Chronic obstructive pulmonary disease with (acute) exacerbation Code(s): J44.9 - Chronic obstructive pulmonary disease, unspecified (9) Atrial fibrillation: Status: Acute Qualifiers: Atrial fibrillation type: longstanding persistent Qualified Code(s): I48.11 - Longstanding persistent atrial fibrillation Code(s): I48.91 - Unspecified atrial fibrillation Additional A&P Information 1. GI bleed with anemia -the patient has a hemoglobin that is trending downwards and is currently 7.2. We will give 1 unit of packed red blood cells. We will watch for fluid overload closely. Since the patient's hemoglobin is continuing to trend downwards, a colonoscopy may be necessary. We will contact Dr. Maharaj tomorrow to consider this. 2. Atrial fibrillation with RVR -currently stable. Continue with current medications. 3. Left pleural effusion the patient's pleural effusion initially improved after removing 1700 mL. -It has worsened again and the patient is now having shortness of breath. Because of this she likely needs a [place] drain placement. I will make her n.p.o. after midnight and the hospitalist team can contact the on-call physician for tomorrow for placement of [place] drain if still necessary. 4. 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 I let the patient know of these findings. This is certainly concerning for a worse prognosis. 5. Hypertension -stable at this time. 6. COPD -stable at this time. 7. Prophylaxis -the patient needs to have an INR goal of 3.0 with Coumadin, however she has been switched to a heparin drip as she will likely have another thoracentesis or [place] drain placement. Continue with heparin until need for further interventions is decreased and then okay to switch back to Coumadin. Attestations Medical Necessity Statement*: The patient continues need inpatient care for the above issues. Her stable cross more than 2 midnights. 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
[2019-11-06] MEDS: digoxin 125 mcg Tablet PO (12:48)
[2019-11-06] MEDS: BuSPIRONE 5 mg Tablet PO (17:31)
[2019-11-06] MEDS: duloxetine 20 mg Capsule PO (17:31)
--- NOTE | 2019-11-06 17:45 | PC.NURSE ---
Up to the bathroom offered pt to use bedside commode, she decided to use the bathroom. assisted pt as a standby assist to bathroom. she reported BM. Upon going back to her bed, she felt dizzy and nauseated and stomach upset. Assisted pt back in bed. VS taken after resting. BP-152/75. HR-76. Afebrile T-98.1. o2 sat 96% on 3 L.
[2019-11-06 20:11] LABS: Hematocrit 24.6 % (37.0-47.0); Hemoglobin 7.8 g/dL (11.5-15.3)
[2019-11-06] MEDS: budesonide 0.5 mg/2 mL Neb INHALATION (20:58)
[2019-11-06] MEDS: atorvastatin 40 mg Tablet 80 MG PO (21:42)
[2019-11-07] VITALS (24 sets, daily range): BP systolic 114–165; BP diastolic 39–98; PULSE 72–85; RESP 14–31; TEMP 36.6–36.8; O2SAT 93–99
[2019-11-07] MEDS: HYDROcodone-acetaminophen 10-325 mg Tablet 1 TAB PO ×4 (00:14→19:34)
[2019-11-07] MEDS: ipratropium-albuterol 3 mL Neb INHALATION ×2 (03:17→08:25)
[2019-11-07 05:23] LABS: Basophils % 0.3 %; Eosinophils % 0.9 %; Hemoglobin 7.8 g/dL (11.5-15.3); Lymphocytes # 0.4 10^3/uL (0.8-4.8); Lymphocytes % 12.5 %; Mean Corpuscular HGB Conc 31.2 g/dL (30.0-36.0); Mean Corpuscular Volume 86.5 fL (81-99); Mean Platelet Volume 10.7 fL (7.4-10.4); Monocytes % 0.3 %; Neutrophils % 83.7 %; Nucleated Red Blood Cells % 0 %; Platelet Count 143 10^3/cmm (130-400); Red Blood Count 2.89 10^6/uL (4.1-5.3); Red Cell Distribution Width 16.9 % (12.1-15.1); White Blood Count 3.5 10^3/uL (4.0-10.0)
[2019-11-07 05:36] LABS: INR 0.96 (0.8-1.2)
[2019-11-07 05:38] LABS: Partial Thromboplastin Time 53.9 SECONDS (23.9-36.7)
[2019-11-07] MEDS: ondansetron 2 mg/ML SDV 2 mL 4 MG IVP ×2 (05:42→12:43)
[2019-11-07 05:49] LABS: Magnesium 1.8 mg/dL (1.7-2.3); Phosphorus 3.4 mg/dL (2.5-4.5)
[2019-11-07 05:50] LABS: Alanine Aminotransferase 26 U/L (0-33); Albumin Level 3.1 g/dL (3.5-5.2); Alkaline Phosphatase 66 IU/L (35-105); Anion Gap 10.7 (5-19); Aspartate Amino Transferase 31 U/L (0-32); Blood Urea Nitrogen 14 mg/dL (8-23); Calcium 9.2 mg/dL (8.5-10.5); Carbon Dioxide 32 mmol/L (22-29); Chloride 89 mmol/L (98-107); Globulin 2.2 g/dL (1.3-4.6); Glucose 111 mg/dL (65-115); Osmolality Calculated 261 mOsm/kg (285-295); Potassium 4.7 mmol/L (3.5-5.1); Sodium 127 mmol/L (136-145); Total Bilirubin 1.5 mg/dL (0.15-1.2); Total Protein 5.3 g/dL (6.6-8.7)
--- NOTE | 2019-11-07 05:51 | PC.NURSE ---
patients urine tonight was more orange than yellow.
[2019-11-07 05:55] LABS: Slide Review Slide Review Perform
[2019-11-07] MEDS: heparin 5,000 unit/mL INJ 1 mL IV ×2 (06:02→23:09)
--- NOTE | 2019-11-07 08:16 | P.PN_ITS ---
Subjective Subjective: Interval history: No acute events overnight. Overnight patient was kept n.p.o. for possible [place] drain today morning. This morning on evaluation patient is sitting comfortably in bed stating she is feeling very good. Denies of having any nausea, vomiting, headache, dizziness or shortness of breath. Vitals/I&O/Wt Last Vital Signs Temp 98.4 F 11/06/19 18:49 Pulse 76 11/07/19 04:00 Resp 26 H 11/07/19 04:00 BP 139/56 11/07/19 04:00 Pulse Ox 96 11/07/19 04:00 11/06/19 11/07/19 11/07/19 22:59 06:59 14:59 Intake Total 532 / 1437.084 0 / 1437.084 Output Total 300 / 630 375 / 1005 300 / 300 Balance 232 / 807.084 -375 / 432.084 -300 / -300 Weight last 48 hrs Weight 58.74 kg Physical Exam Narrative: EXAM NARRATIVE: General: No acute distress, AO x3, pallor present HEENT: PERRLA, pupils bilaterally equal and reactive Chest: Normal vesicular breath sounds, no added sounds, equal good air entry bilaterally except left middle and lower zone. CVS: S1-S2 regular metallic click heard in the whole precordium, no murmurs, no tachycardia, no gallops, no rubs Abdomen: Soft, nontender, no organomegaly, bowel sounds present Neuro: No focal deficits, no facial deformity, AO x3, power 5/5 in all limbs Data : 11/07/19 04:26 11/07/19 04:26 Micro: Microbiology 11/04/19 09:30 Mycobacterial Smear - Preliminary Body Fluids - Pleura 11/04/19 09:30 Gram Stain - Final Pleural Fluid Body Fluid Culture - Preliminary A&P Assessment and plan (1) Pleural effusion: Status: Acute Code(s): J90 - Pleural effusion, not elsewhere classified (2) H/O mitral valve replacement with mechanical valve: Status: Acute Code(s): Z95.2 - Presence of prosthetic heart valve (3) Atrial fibrillation: Status: Acute Qualifiers: Atrial fibrillation type: longstanding persistent Qualified Code(s): I48.11 - Longstanding persistent atrial fibrillation Code(s): I48.91 - Unspecified atrial fibrillation (4) Diastolic CHF, chronic: Status: Acute Code(s): I50.32 - Chronic diastolic (congestive) heart failure (5) Anemia: Status: Acute Code(s): D64.9 - Anemia, unspecified (6) GI bleed: Status: Acute Code(s): K92.2 - Gastrointestinal hemorrhage, unspecified (7) COPD (chronic obstructive pulmonary disease): Status: Acute Qualifiers: COPD type: COPD with acute exacerbation Qualified Code(s): J44.1 - Chronic obstructive pulmonary disease with (acute) exacerbation Code(s): J44.9 - Chronic obstructive pulmonary disease, unspecified (8) Non-small cell lung cancer: Status: Acute Code(s): C34.90 - Malignant neoplasm of unspecified part of unspecified bronchus or lung (9) Hypertension: Status: Acute Qualifiers: Hypertension type: essential hypertension Qualified Code(s): I10 - Essential (primary) hypertension Code(s): I10 - Essential (primary) hypertension (10) Subtherapeutic international normalized ratio (INR): Status: Acute Code(s): R79.1 - Abnormal coagulation profile (11) Hyponatremia: Status: Acute Code(s): E87.1 - Hypo-osmolality and hyponatremia Additional A&P Information 74-year-old lady recently diagnosed with lung cancer, plan to start chemotherapy which she received a PICC line today. After placement of She started to experience chest pain. ACS ruled out by negative troponins and no acute ST-T changes. Incidentally noted to have hemoglobin of 7.4 from 9.7 recently. Hemoccult positive in the ER. No rachel melena but reports dark stools recently. Last colonoscopy dates back to 2014. Non-small cell lung cancer: Post first cycle chemotherapy on October 30. Next cycle in 4 weeks Pleural effusion: Post thoracocentesis on November 03. 1700 serosanguineous fluid was aspirated. Fluid results appreciated. On chest x-ray it seems that the fluid is accumulating again. Case discussed with Dr. Delgadillo and Dr. Lyle. Plan is to do another thoracocentesis today after all in process to avoid a [place] drain as that could lead to higher infection chances. Continue oxygen supplementation keeping saturation over 90%. At baseline patient is on 2 L nasal cannula. Hyponatremia: 127 today. Baseline seems to be around 1 28-1 30. 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 Urine osmolality 625. Continue with fluid restrictions. Continue with regular diet and 1 g salt tablets twice daily. Continue to monitor BMP and sodium levels daily. Metallic Mitral valve: Patient is on Coumadin as blood thinners. She states she takes 4.5 mg 7 days a week. Goal on INR to be 3.0. Patient admission was subtherapeutic. Continue with heparin drip keeping PTT therapeutic. We will bridge her to warfarin till we get to the goal INR. Atrial fibrillation: Currently rate controlled. Continue with home dose of sotalol, digoxin with Lopressor IV as needed. Anticoagulation as described above. Diastolic heart failure: Patient symptoms consistent with heart failure. Echo done August consistent with diastolic heart failure. Most likely getting exacerbated by anemia. Patient is euvolemic today. Continue with oral Lasix. GI bleed: Endoscopy done by Dr. Maharaj suggestive of gastritis. Hemoglobin 7.8 today. Overall patient has needed 2 units of PRBC and admission. Hemoglobin possibly trending down because of chemotherapy. Patient denies of having any active melena at present. Protonix oral 40 twice daily. Oral iron supplementation 325 mg twice daily. Check hemoglobin daily. If hemoglobin continues to stay below 8 we will plan to transfuse 1 more unit given her cardiac history. COPD, not currently exacerbated: DuoNeb every 6 hour and budesonide twice daily inhalation No steroids for now Hypertension: Well-controlled. Hold lisinopril for now History of diastolic CHF: Currently not in acute exacerbation. Euvolemic. Continue home medications of aspirin, duloxetine Full code Dvt ppx: Heparin drip/Coumadin bridge. Regular diet. 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
[2019-11-07] MEDS: budesonide 0.5 mg/2 mL Neb INHALATION (08:26)
[2019-11-07] MEDS: polyethylene glycol 3350 Pkt 17 gm PO (09:03)
[2019-11-07] MEDS: ferrous sulfate EC 325 mg Tablet PO ×2 (09:04→17:40)
[2019-11-07] MEDS: duloxetine 20 mg Capsule PO ×2 (09:04→17:40)
[2019-11-07] MEDS: allopurinol 100 mg Tablet PO ×3 (09:04→19:34)
[2019-11-07] MEDS: digoxin 125 mcg Tablet PO (09:04)
[2019-11-07] MEDS: amlodipine 5 mg Tablet PO (09:04)
[2019-11-07] MEDS: sodium chloride 1 gm Tablet PO ×2 (09:04→17:39)
[2019-11-07] MEDS: BuSPIRONE 5 mg Tablet PO ×2 (09:04→17:40)
[2019-11-07] MEDS: lisinopril 20 mg Tablet PO (09:04)
[2019-11-07] MEDS: pantoprazole DR 40 mg Tablet PO ×2 (09:04→17:40)
[2019-11-07] MEDS: sotalol 80 mg Tablet PO ×2 (09:04→17:40)
[2019-11-07] MEDS: lidocaine 5% Patch 1 PATCH TOPICAL (09:06)
--- NOTE | 2019-11-07 12:05 | PC.SOCIAL ---
IMM Updated Page 2 of IMM updated and given to patient. Initialed, dated, and timed and placed back in chart.
[2019-11-07] MEDS: simethicone 80 mg Chew PO (15:21)
[2019-11-07] MEDS: acetaminophen 325 mg Tablet 650 MG PO (16:21)
[2019-11-07 16:41] LABS: Partial Thromboplastin Time 32.9 SECONDS (23.9-36.7)
--- NOTE | 2019-11-07 17:12 | PC.NURSE ---
Thoracentesis performed by Dr. Lyle Time out performed patient stated full name and date of and was able to describe procedure although was unclear of the name of it 1648 start time cath introduced to plural space ultrasound guided and 1200ML of clear red drainage removed into vacu glass containers 1704 stop time vital signs remained stable patient tolerated well
--- NOTE | 2019-11-07 17:30 | XRR_ITS ---
PROCEDURE INFORMATION: Exam: XR Chest, 1 View Exam date and time: 11/07/2019 5:59 PM Age: 74 years old Clinical indication: Device placement; Other: Post thora; Prior surgery; Additional info: Post procedure TECHNIQUE: Imaging protocol: XR of the chest Views: 1 view. COMPARISON: CR (CHEST, ) 11/06/2019 8:14 AM FINDINGS: Tubes, catheters and devices: Right PICC line tip is in the superior vena cava. Lungs: There appears to be some loculated fluid laterally at the left lung base. Left pulmonary infiltrates are not significantly changed from yesterday's examination. Pleural space: Left pleural effusion is smaller following thoracentesis. No pneumothorax is identified. Heart/Mediastinum: Mild cardiomegaly is unchanged. Bones/joints: Unremarkable. XR/XR chest 1V portable [id number] IMPRESSION: No pneumothorax following thoracentesis.
--- NOTE | 2019-11-07 17:31 | PC.NURSE ---
Dr corrales notified of procedure complete new instructions given to restart heparin drip at same rate as when it was turned off with no bolus and recheck PTT in 2 hours then continue based on PTT at protocol; obtain chest xray
[2019-11-07] MEDS: heparin drip 25,000 UNIT/500 ML PREMIX 12 UNIT IV (17:34)
--- NOTE | 2019-11-07 17:54 | PM.ACPR ---
Procedure/Consent Time out: Time Out Performed: Yes Consent: Consent for Procedure: Consent obtained from patient Procedure Narrative: Name of the procedure: Left sided thoracentesis under ultrasound guidance. Indication: Symptomatic relief for suspected malignant pleural effusion Anesthetics: Local anesthesia with 1% lidocaine. IV pain medication: None. Description of the procedure: The procedure was explained to the patient in detail including the risks and a consent was obtained. The left hemithorax was scanned with ultrasound to find a safe fluid pocket. Large pleural fluid collection was noted with positive plankton sign. There was no complexity. Following identification of the fluid pocket the site was marked. The site was cleaned using sterile technique. Lidocaine 1% was injected into the skin and the subcutaneous tissue. Subsequently, the periosteum in the parietal pleural was also anesthetized using lidocaine. The pleural space was entered in the posterior axillary line in the left seventh intercostal space using the previous catheter insertion site. Serosanguineous fluid was aspirated. 1200 cc of fluid was aspirated. Sample: The pleural fluid was not sent for any study. Complications: None Chest x-ray: Pending Postprocedure chest x-ray is pending. Acute Procedures Epistaxis Control: Time out performed: Yes
[2019-11-07] MEDS: atorvastatin 40 mg Tablet 80 MG PO (19:33)
--- NOTE | 2019-11-07 21:18 | PC.NURSE ---
Patient sitting up moving a bit more, got up and bck to bsc on her own, had large greenish bm and dark yellow urine.
[2019-11-07] MEDS: cetylpyridinium Lozenge 1 EACH MUCOUS MEM (21:26)
[2019-11-08] VITALS (11 sets, daily range): BP systolic 147–159; BP diastolic 53–76; PULSE 79–87; RESP 18–26; TEMP 36.3–36.9; O2SAT 92–98
[2019-11-08] MEDS: HYDROcodone-acetaminophen 10-325 mg Tablet 1 TAB PO ×2 (01:06→21:21)
[2019-11-08 04:41] LABS: Platelet Count 126 10^3/cmm (130-400)
[2019-11-08] MEDS: lisinopril 20 mg Tablet PO (09:25)
[2019-11-08] MEDS: BuSPIRONE 5 mg Tablet PO ×2 (09:25→17:23)
[2019-11-08] MEDS: duloxetine 20 mg Capsule PO ×2 (09:25→17:23)
[2019-11-08] MEDS: amlodipine 5 mg Tablet PO (09:25)
[2019-11-08] MEDS: sodium chloride 1 gm Tablet PO ×2 (09:25→17:23)
[2019-11-08] MEDS: ferrous sulfate EC 325 mg Tablet PO ×2 (09:25→17:23)
[2019-11-08] MEDS: sotalol 80 mg Tablet PO ×2 (09:26→17:23)
[2019-11-08] MEDS: digoxin 125 mcg Tablet PO (09:26)
[2019-11-08] MEDS: pantoprazole DR 40 mg Tablet PO ×2 (09:26→17:23)
[2019-11-08] MEDS: lidocaine 5% Patch 1 PATCH TOPICAL (09:26)
[2019-11-08] MEDS: allopurinol 100 mg Tablet PO ×3 (09:26→21:21)
[2019-11-08 12:04] LABS: Partial Thromboplastin Time 64.6 SECONDS (23.9-36.7)
--- NOTE | 2019-11-08 12:42 | P.PN_ITS ---
Subjective Subjective: Interval history: No acute events overnight. Denies of having nausea, vomiting, shortness of breath, headache, dizziness. Underwent thoracocentesis yesterday afternoon which was uneventful. 1200 cc were drained. Vitals/I&O/Wt Last Vital Signs Temp 98.2 F 11/08/19 11:03 Pulse 85 11/08/19 11:03 Resp 26 H 11/08/19 11:03 BP 154/62 11/08/19 11:03 Pulse Ox 94 11/08/19 11:03 11/07/19 11/08/19 11/08/19 22:59 06:59 14:59 Intake Total 720 / 1617.367 240 / 1857.367 360 / 360 Output Total 1500 / 1800 575 / 2375 Balance -780 / -182.633 -335 / -517.633 360 / 360 Physical Exam Narrative: EXAM NARRATIVE: General: No acute distress, AO x3, pallor present HEENT: PERRLA, pupils bilaterally equal and reactive Chest: Normal vesicular breath sounds, no added sounds, equal good air entry bilaterally except left middle and lower zone. CVS: S1-S2 regular metallic click heard in the whole precordium, no murmurs, no tachycardia, no gallops, no rubs Abdomen: Soft, nontender, no organomegaly, bowel sounds present Neuro: No focal deficits, no facial deformity, AO x3, power 5/5 in all limbs Data : 11/08/19 04:05 11/07/19 04:26 Micro: Microbiology 11/04/19 09:30 Gram Stain - Final Pleural Fluid Body Fluid Culture - Final A&P Assessment and plan (1) Pleural effusion: Status: Acute (2) H/O mitral valve replacement with mechanical valve: Status: Acute (3) Atrial fibrillation: A. fib with intermittent RVR, but overall heart rates are much better. Continue digoxin, metoprolol. Monitor rate. Warfarin held. Status: Acute Qualifiers: Atrial fibrillation type: longstanding persistent Qualified Code(s): I48.11 - Longstanding persistent atrial fibrillation (4) Diastolic CHF, chronic: Status: Acute (5) Anemia: Status: Acute (6) GI bleed: This appears to have improved. Hemoglobin has been stable. Warfarin held. Status: Acute (7) COPD (chronic obstructive pulmonary disease): Likely may need her own oxygen on discharge. Continue nebs. Status: Acute Qualifiers: COPD type: COPD with acute exacerbation Qualified Code(s): J44.1 - Chronic obstructive pulmonary disease with (acute) exacerbation (8) Non-small cell lung cancer: S/p first cycle chemo. R arm PICC line. Status: Acute (9) Hypertension: Monitor blood pressures. Status: Acute Qualifiers: Hypertension type: essential hypertension Qualified Code(s): I10 - Essential (primary) hypertension (10) Subtherapeutic international normalized ratio (INR): Status: Acute (11) Hyponatremia: Status: Acute Additional A&P Information 74-year-old lady recently diagnosed with lung cancer, plan to start chemotherapy which she received a PICC line today. After placement of She started to experience chest pain. ACS ruled out by negative troponins and no acute ST-T changes. Incidentally noted to have hemoglobin of 7.4 from 9.7 recently. Hemoccult positive in the ER. No rachel melena but reports dark stools recently. Last colonoscopy dates back to 2014. Non-small cell lung cancer: Post first cycle chemotherapy on October 30. Next cycle in 4 weeks Pleural effusion: Post thoracocentesis on November 03. 1700 serosanguineous fluid was aspirated. Repeat thoracocentesis June 08 and 1200 cc was removed. Follow-up chest x-ray reviewed. Fluid results appreciated. Patient recollects fluid removed slightly in the [place] drain as an outpatient. For now we will try to avoid to reduce chances of infection. Most likely due to malignancy and should respond to the chemotherapy. Continue oxygen supplementation keeping saturation over 90%. At baseline patient is on 2 L nasal cannula. Hyponatremia: Baseline seems to be around 1 28-1 30. 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 Urine osmolality 625. Continue with fluid restrictions. Continue with regular diet and 1 g salt tablets twice daily. Continue to monitor BMP and sodium levels daily. Metallic Mitral valve: Patient is on Coumadin as blood thinners. She states she takes 4.5 mg 7 days a week. Goal on INR to be 3.0. Patient admission was subtherapeutic. Continue with heparin drip keeping PTT therapeutic. We will bridge her to warfarin till we get to the goal INR. Coumadin 7 mg daily for now. Atrial fibrillation: Currently rate controlled. Continue with home dose of sotalol, digoxin with Lopressor IV as needed. Anticoagulation as described above. Diastolic heart failure: Patient symptoms consistent with heart failure. Echo done August consistent with diastolic heart failure. Most likely getting exacerbated by anemia. Patient is euvolemic today. Continue with oral Lasix. GI bleed: Endoscopy done by Dr. Maharaj suggestive of gastritis. Overall patient has needed 2 units of PRBC and admission. Hemoglobin possibly trending down because of chemotherapy. Patient denies of having any active melena at present. Protonix oral 40 twice daily. Oral iron supplementation 325 mg twice daily. Check hemoglobin daily. If hemoglobin continues to stay below 8 we will plan to transfuse 1 more unit given her cardiac history. COPD, not currently exacerbated: DuoNeb every 6 hour and budesonide twice daily inhalation No steroids for now Hypertension: Well-controlled. Hold lisinopril for now History of diastolic CHF: Currently not in acute exacerbation. Euvolemic. Continue home medications of aspirin, duloxetine Full code Dvt ppx: Heparin drip/Coumadin bridge. Regular diet. Attestations Medical Necessity Statement*: Awaiting anticoagulation bridged from heparin to Coumadin, mitral metallic valve, diastolic heart failure, lung cancer Time Spent in Patient Care: Greater than 35 minutes Coding Level of Care Code Acute Assembly Line Driver for [facility] Fwd Diagnoses Pleural effusion J90 H/O mitral valve replacement with mechanical valve Z95.2 Atrial fibrillation I48.11 Atrial fibrillation type: longstanding persistent Diastolic CHF, chronic I50.32 Anemia D64.9 GI bleed K92.2 COPD (chronic obstructive pulmonary disease) J44.1 COPD type: COPD with acute exacerbation Non-small cell lung cancer C34.90 Hypertension I10 Hypertension type: essential hypertension Subtherapeutic international normalized ratio (INR) R79.1 Hyponatremia E87.1
[2019-11-08 13:39] LABS: INR 0.99 (0.8-1.2)
[2019-11-08 18:55] LABS: Partial Thromboplastin Time 67.7 SECONDS (23.9-36.7)
--- NOTE | 2019-11-08 20:00 | PC.NURSE ---
Sitting up in bed. I just want to go home. Explained to patient that the medicine through her IV needs to be stopped before she went home and that the physician was working on getting it off so she could go home. Patient voices understanding. Requesting breathing treatment. RT notified. Will monitor.
[2019-11-08] MEDS: ipratropium-albuterol 3 mL Neb INHALATION (20:37)
[2019-11-08] MEDS: budesonide 0.5 mg/2 mL Neb INHALATION (20:37)
[2019-11-08] MEDS: atorvastatin 40 mg Tablet 80 MG PO (21:21)
[2019-11-08] MEDS: LORazepam 0.5 mg Tablet PO (21:21)
[2019-11-09] VITALS (22 sets, daily range): BP systolic 96–150; BP diastolic 46–63; PULSE 28–110; RESP 17–28; TEMP 36.4–36.7; O2SAT 91–98
[2019-11-09 00:58] LABS: Partial Thromboplastin Time 74.8 SECONDS (23.9-36.7)
[2019-11-09] MEDS: ipratropium-albuterol 3 mL Neb INHALATION ×4 (02:46→21:30)
[2019-11-09] MEDS: heparin drip 25,000 UNIT/500 ML PREMIX 12 UNIT IV (02:53)
--- NOTE | 2019-11-09 03:50 | PC.NURSE ---
Patient sitting on side of bed. Denies complaints at this time. Assisted patient to lie down. Will monitor.
[2019-11-09 04:53] LABS: Eosinophils % 1.9 %; Hematocrit 23.5 % (37.0-47.0); Hemoglobin 7.4 g/dL (11.5-15.3); Lymphocytes # 0.3 10^3/uL (0.8-4.8); Lymphocytes % 64.2 %; Mean Corpuscular HGB Conc 31.5 g/dL (30.0-36.0); Mean Corpuscular Hemoglobin 26.6 pg (28.0-34.0); Mean Corpuscular Volume 84.5 fL (81-99); Mean Platelet Volume 10.8 fL (7.4-10.4); Monocytes % 1.9 %; Nucleated Red Blood Cells % 0 %; Platelet Count 107 10^3/cmm (130-400); Red Blood Count 2.78 10^6/uL (4.1-5.3); Red Cell Distribution Width 16.3 % (12.1-15.1)
[2019-11-09 05:10] LABS: INR 1.01 (0.8-1.2)
[2019-11-09 05:11] LABS: Alanine Aminotransferase 27 U/L (0-33); Albumin Level 2.8 g/dL (3.5-5.2); Alkaline Phosphatase 93 IU/L (35-105); Anion Gap 12.7 (5-19); Aspartate Amino Transferase 22 U/L (0-32); Blood Urea Nitrogen 13 mg/dL (8-23); Carbon Dioxide 29 mmol/L (22-29); Chloride 91 mmol/L (98-107); Globulin 2.8 g/dL (1.3-4.6); Glucose 126 mg/dL (65-115); Osmolality Calculated 264 mOsm/kg (285-295); Potassium 4.7 mmol/L (3.5-5.1); Sodium 128 mmol/L (136-145); Total Bilirubin 0.4 mg/dL (0.15-1.2); Total Protein 5.6 g/dL (6.6-8.7)
[2019-11-09 06:00] LABS: Neutrophils # 0.2 10^3/uL (1.8-7.7); Slide Review Slide Review Perform; White Blood Count 0.5 10^3/uL (4.0-10.0)
[2019-11-09 06:03] LABS: Partial Thromboplastin Time 69.5 SECONDS (23.9-36.7)
--- NOTE | 2019-11-09 08:26 | PM.PN ---
Subjective Subjective: Interval history: No acute events overnight. Denies of having nausea, vomiting, shortness of breath, headache, dizziness. On examination lying comfortably in bed. States she is feeling weak. Really frustrated because she still in the hospital. Has remained afebrile and hemodynamically stable. Labs noted. Vitals/I&O/Wt Last Vital Signs Temp 97.9 F 11/09/19 07:26 Pulse 110 H 11/09/19 07:26 Resp 25 H 11/09/19 07:26 BP 148/62 11/09/19 07:26 Pulse Ox 95 11/09/19 07:26 11/08/19 11/09/19 11/09/19 22:59 06:59 14:59 Intake Total 240 / 600 459.8 / 1059.8 Output Total 400 / 1550 Balance 240 / -550 59.8 / -490.2 Weight last 48 hrs Weight 57.47 kg Physical Exam Narrative: EXAM NARRATIVE: General: No acute distress, AO x3, pallor present HEENT: PERRLA, pupils bilaterally equal and reactive Chest: Normal vesicular breath sounds, no added sounds, equal good air entry bilaterally except left middle and lower zone. CVS: S1-S2 regular metallic click heard in the whole precordium, no murmurs, no tachycardia, no gallops, no rubs Abdomen: Soft, nontender, no organomegaly, bowel sounds present Neuro: No focal deficits, no facial deformity, AO x3, power 5/5 in all limbs Data : 11/09/19 04:05 11/09/19 04:05 A&P Assessment and plan (1) Neutropenia: Status: Acute (2) Subtherapeutic international normalized ratio (INR): Status: Acute (3) Hyponatremia: Status: Acute (4) Pleural effusion: Status: Acute (5) H/O mitral valve replacement with mechanical valve: Status: Acute (6) Atrial fibrillation: A. fib with intermittent RVR, but overall heart rates are much better. Continue digoxin, metoprolol. Monitor rate. Warfarin held. Status: Acute Qualifiers: Atrial fibrillation type: longstanding persistent Qualified Code(s): I48.11 - Longstanding persistent atrial fibrillation (7) Diastolic CHF, chronic: Status: Acute (8) Anemia: Status: Acute (9) GI bleed: This appears to have improved. Hemoglobin has been stable. Warfarin held. Status: Acute (10) COPD (chronic obstructive pulmonary disease): Likely may need her own oxygen on discharge. Continue nebs. Status: Acute Qualifiers: COPD type: COPD with acute exacerbation Qualified Code(s): J44.1 - Chronic obstructive pulmonary disease with (acute) exacerbation (11) Non-small cell lung cancer: S/p first cycle chemo. R arm PICC line. Status: Acute (12) Hypertension: Monitor blood pressures. Status: Acute Qualifiers: Hypertension type: essential hypertension Qualified Code(s): I10 - Essential (primary) hypertension Additional A&P Information 74-year-old lady recently diagnosed with lung cancer, plan to start chemotherapy which she received a PICC line today. After placement of She started to experience chest pain. ACS ruled out by negative troponins and no acute ST-T changes. Incidentally noted to have hemoglobin of 7.4 from 9.7 recently. Hemoccult positive in the ER. No rachel melena but reports dark stools recently. Last colonoscopy dates back to 2014. Neutropenia: Most likely secondary to chemotherapy. Case discussed with Dr. Delgadillo. We will start patient on Neupogen 480 daily. Non-small cell lung cancer: Post first cycle chemotherapy on October 30. Next cycle in 4 weeks Pleural effusion: Post paracentesis twice in this admission with last one on November 06. Overall 2900 cc of fluid has been removed. Follow-up chest x-ray reviewed. Fluid results appreciated. Patient recollects fluid removed slightly in the [place] drain as an outpatient. For now we will try to avoid to reduce chances of infection. Most likely due to malignancy and should respond to the chemotherapy. Continue oxygen supplementation keeping saturation over 90%. At baseline patient is on 2 L nasal cannula. Hyponatremia: Back to baseline. Baseline seems to be around 1 28-1 30. 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 Urine osmolality 625. Continue with fluid restrictions. Continue with regular diet and 1 g salt tablets twice daily. Continue to monitor BMP and sodium levels daily. Metallic Mitral valve: Patient is on Coumadin as blood thinners. She states she takes 4.5 mg 7 days a week. Goal on INR to be 3.0. Patient admission was subtherapeutic. Continue with heparin drip keeping PTT therapeutic. We will bridge her to warfarin till we get to the goal INR. Coumadin 7.5 mg daily for now. Atrial fibrillation: Currently rate controlled. Continue with home dose of sotalol, digoxin with Lopressor IV as needed. Anticoagulation as described above. Diastolic heart failure: Patient symptoms consistent with heart failure. Echo done August consistent with diastolic heart failure. Most likely getting exacerbated by anemia. Patient is euvolemic today. Continue with oral Lasix. GI bleed: Hemoglobin trickling down to 7.2 today. Most likely secondary to recent chemotherapy. Endoscopy done by Dr. Maharaj suggestive of gastritis. Overall patient has needed 2 units of PRBC and admission. Patient denies of having any active melena at present. Transfuse 1 unit PRBC today Protonix oral 40 twice daily. Oral iron supplementation 325 mg twice daily. COPD, not currently exacerbated: DuoNeb every 6 hour and budesonide twice daily inhalation No steroids for now Hypertension: Well-controlled. Hold lisinopril for now History of diastolic CHF: Currently not in acute exacerbation. Euvolemic. Continue home medications of aspirin, duloxetine Full code Dvt ppx: Heparin drip/Coumadin bridge. Regular diet. Attestations Medical Necessity Statement*: Neutropenia, subtherapeutic INR, bridging between heparin and Coumadin for metallic mitral valve Time Spent in Patient Care: Greater than 35 minutes Coding Level of Care Code Acute Area Counselor for g Fwd Diagnoses Neutropenia D70.9 Subtherapeutic international normalized ratio (INR) R79.1 Hyponatremia E87.1 Pleural effusion J90 H/O mitral valve replacement with mechanical valve Z95.2 Atrial fibrillation I48.11 Atrial fibrillation type: longstanding persistent Diastolic CHF, chronic I50.32 Anemia D64.9 GI bleed K92.2 COPD (chronic obstructive pulmonary disease) J44.1 COPD type: COPD with acute exacerbation Non-small cell lung cancer C34.90 Hypertension I10 Hypertension type: essential hypertension
[2019-11-09] MEDS: budesonide 0.5 mg/2 mL Neb INHALATION ×2 (08:27→21:30)
[2019-11-09] MEDS: ferrous sulfate EC 325 mg Tablet PO ×2 (09:00→17:33)
[2019-11-09] MEDS: BuSPIRONE 5 mg Tablet PO ×2 (09:01→17:33)
[2019-11-09] MEDS: duloxetine 20 mg Capsule PO ×2 (09:01→17:33)
[2019-11-09] MEDS: lidocaine 5% Patch 1 PATCH TOPICAL (09:01)
[2019-11-09] MEDS: sotalol 80 mg Tablet PO ×2 (09:01→17:34)
[2019-11-09] MEDS: digoxin 125 mcg Tablet PO (09:01)
[2019-11-09] MEDS: sodium chloride 1 gm Tablet PO ×2 (09:01→17:34)
[2019-11-09] MEDS: pantoprazole DR 40 mg Tablet PO ×2 (09:01→17:33)
[2019-11-09] MEDS: allopurinol 100 mg Tablet PO ×3 (09:01→20:47)
[2019-11-09] MEDS: amlodipine 5 mg Tablet PO (09:01)
[2019-11-09] MEDS: lisinopril 20 mg Tablet PO (09:01)
--- NOTE | 2019-11-09 09:09 | PC.SOCIAL ---
IMM Updated Updated pt on Pg 2 IMM via phone d/t taking precautions b/c of COVID . No questions voiced. Signed, dated, & timed, copy in chart.
[2019-11-09] MEDS: HYDROcodone-acetaminophen 10-325 mg Tablet 1 TAB PO ×3 (11:36→23:59)
[2019-11-09] MEDS: sodium chloride 0.9% 100 ML (16:42)
[2019-11-09 17:13] LABS: Partial Thromboplastin Time 67.4 SECONDS (23.9-36.7)
[2019-11-09] MEDS: polyethylene glycol 3350 Pkt 17 gm PO (17:32)
[2019-11-09] MEDS: atorvastatin 40 mg Tablet 80 MG PO (20:47)
[2019-11-09] MEDS: LORazepam 0.5 mg Tablet PO (20:47)
[2019-11-10] VITALS (11 sets, daily range): BP systolic 138–177; BP diastolic 56–92; PULSE 82–97; RESP 18–28; TEMP 36.6; O2SAT 86–97
[2019-11-10] MEDS: ipratropium-albuterol 3 mL Neb INHALATION ×3 (02:16→14:51)
[2019-11-10 05:29] LABS: Eosinophils % 2.4 %; Hematocrit 26.6 % (37.0-47.0); Hemoglobin 8.5 g/dL (11.5-15.3); Lymphocytes # 0.3 10^3/uL (0.8-4.8); Lymphocytes % 80.5 %; Mean Corpuscular Volume 87.5 fL (81-99); Mean Platelet Volume 10.9 fL (7.4-10.4); Monocytes % 2.4 %; Neutrophils % 14.7 %; Nucleated Red Blood Cells % 0 %; Platelet Count 78 10^3/cmm (130-400); Red Blood Count 3.04 10^6/uL (4.1-5.3); Red Cell Distribution Width 15.8 % (12.1-15.1)
[2019-11-10 05:39] LABS: Alanine Aminotransferase 39 U/L (0-33); Alkaline Phosphatase 100 IU/L (35-105); Anion Gap 10.6 (5-19); Aspartate Amino Transferase 29 U/L (0-32); Blood Urea Nitrogen 17 mg/dL (8-23); Calcium 9.5 mg/dL (8.5-10.5); Carbon Dioxide 31 mmol/L (22-29); Chloride 92 mmol/L (98-107); Globulin 3.1 g/dL (1.3-4.6); Glucose 126 mg/dL (65-115); Osmolality Calculated 266 mOsm/kg (285-295); Potassium 4.6 mmol/L (3.5-5.1); Sodium 129 mmol/L (136-145); Total Bilirubin 0.6 mg/dL (0.15-1.2); Total Protein 6.1 g/dL (6.6-8.7)
[2019-11-10 06:19] LABS: INR 1.57 (0.8-1.2); Partial Thromboplastin Time 83.3 SECONDS (23.9-36.7)
[2019-11-10 07:08] LABS: Slide Review Slide Review Perform
[2019-11-10 07:09] LABS: White Blood Count 0.4 10^3/uL (4.0-10.0)
[2019-11-10 07:10] LABS: Neutrophils # 0.1 10^3/uL (1.8-7.7)
[2019-11-10] MEDS: budesonide 0.5 mg/2 mL Neb INHALATION (07:53)
[2019-11-10] MEDS: digoxin 125 mcg Tablet PO (09:20)
[2019-11-10] MEDS: BuSPIRONE 5 mg Tablet PO (09:20)
[2019-11-10] MEDS: sotalol 80 mg Tablet PO (09:20)
[2019-11-10] MEDS: pantoprazole DR 40 mg Tablet PO (09:20)
[2019-11-10] MEDS: sodium chloride 1 gm Tablet PO (09:20)
[2019-11-10] MEDS: duloxetine 20 mg Capsule PO (09:20)
[2019-11-10] MEDS: amlodipine 5 mg Tablet PO (09:20)
[2019-11-10] MEDS: allopurinol 100 mg Tablet PO ×2 (09:21→15:11)
[2019-11-10] MEDS: ferrous sulfate EC 325 mg Tablet PO (09:21)
[2019-11-10] MEDS: lisinopril 20 mg Tablet PO ×2 (09:22→10:39)
[2019-11-10] MEDS: lidocaine 5% Patch 1 PATCH TOPICAL (09:22)
--- NOTE | 2019-11-10 11:12 | P.PN_ITS ---
Subjective Subjective: Interval history: No acute events overnight. Denies of having nausea, vomiting, shortness of breath, headache, dizziness. On examination lying comfortably in bed. States she is feeling weak. Really frustrated because she still in the hospital. Has remained afebrile and hemodynamically stable. Labs noted. Vitals/I&O/Wt Last Vital Signs Temp 97.8 F 11/10/19 10:45 Pulse 84 11/10/19 10:45 Resp 28 H 11/10/19 10:45 BP 138/92 11/10/19 10:45 Pulse Ox 92 11/10/19 10:45 11/09/19 11/10/19 11/10/19 22:59 06:59 14:59 Intake Total 960 / 1200 120 / 1320 Balance 960 / 600 120 / 720 Weight last 48 hrs Weight 57.47 kg Physical Exam Narrative: EXAM NARRATIVE: General: No acute distress, AO x3, pallor present HEENT: PERRLA, pupils bilaterally equal and reactive Chest: Normal vesicular breath sounds, no added sounds, equal good air entry bilaterally except left middle and lower zone. CVS: S1-S2 regular metallic click heard in the whole precordium, no murmurs, no tachycardia, no gallops, no rubs Abdomen: Soft, nontender, no organomegaly, bowel sounds present Neuro: No focal deficits, no facial deformity, AO x3, power 5/5 in all limbs Data : 11/10/19 04:30 11/10/19 04:30 A&P Assessment and plan (1) Neutropenia: Status: Acute (2) Subtherapeutic international normalized ratio (INR): Status: Acute (3) Hyponatremia: Status: Acute (4) Pleural effusion: Status: Acute (5) H/O mitral valve replacement with mechanical valve: Status: Acute (6) Atrial fibrillation: A. fib with intermittent RVR, but overall heart rates are much better. Continue digoxin, metoprolol. Monitor rate. Warfarin held. Status: Acute Qualifiers: Atrial fibrillation type: longstanding persistent Qualified Code(s): I48.11 - Longstanding persistent atrial fibrillation (7) Diastolic CHF, chronic: Status: Acute (8) Anemia: Status: Acute (9) GI bleed: This appears to have improved. Hemoglobin has been stable. Warfarin held. Status: Acute (10) COPD (chronic obstructive pulmonary disease): Likely may need her own oxygen on discharge. Continue nebs. Status: Acute Qualifiers: COPD type: COPD with acute exacerbation Qualified Code(s): J44.1 - Chronic obstructive pulmonary disease with (acute) exacerbation (11) Non-small cell lung cancer: S/p first cycle chemo. R arm PICC line. Status: Acute (12) Hypertension: Monitor blood pressures. Status: Acute Qualifiers: Hypertension type: essential hypertension Qualified Code(s): I10 - Essential (primary) hypertension Additional A&P Information 74-year-old lady recently diagnosed with lung cancer, plan to start chemotherapy which she received a PICC line today. After placement of She started to experience chest pain. ACS ruled out by negative troponins and no acute ST-T changes. Incidentally noted to have hemoglobin of 7.4 from 9.7 recently. Hemoccult positive in the ER. No rachel melena but reports dark stools recently. Last colonoscopy dates back to 2014. Neutropenia: Most likely secondary to chemotherapy. Case discussed with Dr. Delgadillo. We will start patient on Neupogen 480 daily. Non-small cell lung cancer: Post first cycle chemotherapy on October 30. Next cy trung in 4 weeks Pleural effusion: Post paracentesis twice in this admission with last one on November 06. Overall 2900 cc of fluid has been removed. Follow-up chest x-ray reviewed. Fluid results appreciated. Patient recollects fluid removed slightly in the [place] drain as an outpatient. For now we will try to avoid to reduce chances of infection. Most likely due to malignancy and should respond to the chemotherapy. Continue oxygen supplementation keeping saturation over 90%. At baseline patien t is on 2 L nasal cannula. Hyponatremia: Back to baseline. Baseline seems to be around 1 28-1 30. 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 Urine osmolality 625. Continue with fluid restrictions. Continue with regular diet and 1 g salt tablets twice daily. Continue to monitor BMP and sodium levels daily. Metallic Mitral valve: Patient is on Coumadin as blood thinners. She states she takes 4.5 mg 7 days a week. Goal on INR to be 3.0. Patient admission was subtherapeutic. Continue with heparin drip keeping PTT therapeutic. We will bridge her to warfarin till we get to the goal INR. Coumadin 7.5 mg daily for now. Atrial fibrillation: Currently rate controlled. Continue with home dose of sotalol, digoxin with Lopressor IV as needed. Anticoagulation as described above. Diastolic heart failure: Patient symptoms consistent with heart failure. Echo done August consistent with diastolic heart failure. Most likely getting exacerbated by anemia. Patient is euvolemic today. Continue with oral Lasix. GI bleed: Hemoglobin trickling down to 7.2 today. Most likely secondary to recent chemotherapy. Endoscopy done by Dr. Maharaj suggestive of gastritis. Overall patient has needed 2 units of PRBC and admission. Patient denies of having any active melena at present. Transfuse 1 unit PRBC today Protonix oral 40 twice daily. Oral iron supplementation 325 mg twice daily. COPD, not currently exacerbated: DuoNeb every 6 hour and budesonide twice daily inhalation No steroids for now Hypertension: Well-controlled. Hold lisinopril for now History of diastolic CHF: Currently not in acute exacerbation. Euvolemic. Continue home medications of aspirin, duloxetine Full code Dvt ppx: Heparin drip/Coumadin bridge. Regular diet. Coding Level of Care Code Acute Orientation And Mobility Specialist for [facility] Fwd Diagnoses Neutropenia D70.9 Subtherapeutic international normalized ratio (INR) R79.1 Hyponatremia E87.1 Pleural effusion J90 H/O mitral valve replacement with mechanical valve Z95.2 Atrial fibrillation I48.11 Atrial fibrillation type: longstanding persistent Diastolic CHF, chronic I50.32 Anemia D64.9 GI bleed K92.2 COPD (chronic obstructive pulmonary disease) J44.1 COPD type: COPD with acute exacerbation Non-small cell lung cancer C34.90 Hypertension I10 Hypertension type: essential hypertension
--- NOTE | 2019-11-10 11:57 | P.DS_ITS ---
Discharge Providers Date of Admission: 10/25/19 20:09 Date of Discharge: November 10, 2019 Attending Provider at Admission: Ale Akers MD Attending Provider at Discharge: Josiah Jha MD Consults: Surgery: Dr. Maharaj Oncology: Dr. Delgadillo Pulmonology: Dr. Lyle Primary Care Provider: Dylan Connors MD Diagnoses at Discharge Discharge Diagnosis (1) Neutropenia: Status: Acute (2) Subtherapeutic international normalized ratio (INR): Status: Acute (3) Hyponatremia: Status: Acute (4) Pleural effusion: Status: Acute (5) H/O mitral valve replacement with mechanical valve: Status: Acute (6) Atrial fibrillation: Status: Acute Qualifiers: Atrial fibrillation type: longstanding persistent Qualified Code(s): I48.11 - Longstanding persistent atrial fibrillation (7) Diastolic CHF, chronic: Status: Acute (8) Anemia: Status: Acute (9) GI bleed: Status: Acute (10) COPD (chronic obstructive pulmonary disease): Status: Acute Qualifiers: COPD type: COPD with acute exacerbation Qualified Code(s): J44.1 - Chronic obstructive pulmonary disease with (acute) exacerbation (11) Non-small cell lung cancer: Status: Acute (12) Hypertension: Status: Acute Qualifiers: Hypertension type: essential hypertension Qualified Code(s): I10 - Essential (primary) hypertension Reason for Visit Reason for Visit: Reason For Visit: CHEST PAIN Hospital Course Discharge Summary: Debbi Garcias is a 74 year old female with h/o COPD, not on home 02 per se but uses 's 02 at 2lpm , pulmonary hypertension, recently diagnosed to have a left hilar mass for which she underwent EBUS and confirmed small cell carcinoma of the lung. Past medical history also significant for mechanical mitral valve replacement 2000, currently on anticoagulation with Coumadin, history of atrial fibrillation, diastolic CHF, hypertension, iron deficiency anemia. She recently saw oncology on September 21, 2019, found to have extensive metastatic disease to with bone involevment. She is planned for systemic chemotherapy/immunotherapy and underwent placement of R arm PICC line for the same. Chemo has not yet started. She presented to Er after undergoing placement of this line with c/o chest pain. The pain has since subsided since arrival to the ER. Denies any current shortness of breath, palpitations. syncope. Incidentally she was noted to have a hemoglobin of 7.4. Because of drop in hemoglobin along with patient being on chronic Coumadin she was admitted for further work-up as her FOBT was positive. Coumadin was stopped and she was started on a heparin drip because of mitral metallic valve. Surgery was consulted and she underwent only EGD which showed some gastritis without any active bleed. Patient was started on PPIs twice daily and after which her hemoglobin stable. Colonoscopy was not done as patient has had a colonoscopy in last 5 years which was normal. Patient had a prolonged hospitalization because she was found to be mildly tachypneic which was thought to be secondary to left-sided pleural effusion. Etiology of her left-sided pleural effusion was thought to be secondary to her non-small cell lung carcinoma. Because of this oncology was consulted and she underwent first cycle of chemotherapy on October 30. Patient tolerated the chemotherapy well and for left-sided pleural effusion she underwent thoracocentesis while being on heparin drip. While patient was being monitored post thoracocentesis she developed effusion again in 3 days which led to her minimal tachypnea. Amite drain was considered but was not placed as that would have put her on a higher risk of infection. She underwent 1 more thoracocentesis with the last being on November 06. Overall 2700 cc of fluid was removed. On day 8 post chemotherapy patient started developing pancytopenia. During this hospitalization patient received 2 units of blood transfusion and her hemoglobin remained stable. For pancytopenia patient was started on Neupogen. Patient is being bridged from heparin to Coumadin but as her platelet counts were on the lower side her goal INR is changed from 3-2.5. Patient is been discharged today in hemodynamically stable condition at her baseline oxygen supplementation requirement with advised to take Neupogen for 7 days while being on levofloxacin for neutropenic precautions. Patient is advised to check her CBC in 1 week. Patient is due for her next cycle of chemotherapy in 4 weeks from her last cycle. For her anticoagulation patient is to take Lovenox 1 mg/kg body weight twice daily for 3 more days along with warfarin 6 mg tomorrow on November 10 followed by 5 mg daily. Patient is asked to check her INR in 3 days and if her INR is at goal to stop the Lovenox. If INR is not at goal patient is to continue Lovenox for 3 more days and recheck INR. Patient is to continue taking Lovenox and warfarin till her INR comes at goal of 2.5. INR is to be followed by her primary care physician. Patient has been counseled and educated on how to take injections. Home health has been set up. Home oxygen evaluation was done prior to discharge. Patient has been counseled and educated in detail regarding lower goals now as her platelet count to be fluctuating given the fact that she will be on chemotherapy now. Patient understands that this puts her at a higher risk of bleeding and stuck valve. Patient is been discharged in hemodynamically stable condition. Physical Exam Narrative: EXAM NARRATIVE: General: No acute distress, AO x3, pallor present HEENT: PERRLA, pupils bilaterally equal and reactive Chest: Normal vesicular breath sounds, no added sounds, equal good air entry bilaterally except left middle and lower zone. CVS: S1-S2 regular metallic click heard in the whole precordium, no murmurs, no tachycardia, no gallops, no rubs Abdomen: Soft, nontender, no organomegaly, bowel sounds present Neuro: No focal deficits, no facial deformity, AO x3, power 5/5 in all limbs Discharge Data Data Completed and Pending: Completed Studies During Hospitalization Category Date Time Status CT chest wo con 7 1250 Routine Cat Scan 11/03/19 09:[address] head wo con* 7 0450 Routine Cat Scan 10/29/19 19:14 Completed XR chest 1V tere ble [id number] Routine Exams 10/29/19 09:34 Completed XR chest 1V tere ble [id number] Routine Exams 10/31/19 06:00 Completed XR chest 1V teer ble [id number] Routine Exams 11/03/19 06:00 Completed XR chest 1V tere ble [id number] Routine Exams 11/04/19 14:09 Completed XR chest 1V tere ble [id number] Routine Exams 11/06/19 08:00 Completed XR chest 1V tere ble [id number] Routine Exams 11/07/19 17:30 Completed XR chest 1V tere ble [id number] Stat Exams 11/04/19 09:41 Completed Cytology [PTH] Ro utine Pth 11/04/19 09:37 Completed US renal BI with bladder Routine Ultrasound 11/03/19 14:36 Completed Pending at discharge Category Date Time Status Mycobacteria, Cul ture w/Fluor Routi ne Lab 11/04/19 09:30 Results PROTEIN, TOTAL AN D PROTEIN KYLIE Rout ine Lab 11/04/19 00:01 Received Prothrombin Time INR AM LABS Lab 11/11/19 04:00 Ordered Labs from last 24 hours 11/10/19 11/10/19 11/10/19 04:30 04:30 04:30 WBC 0.4 L* RBC 3.04 L Hgb 8.5 L Hct 26.6 L MCV 87.5 MCH 28.0 MCHC 32.0 RDW 15.8 H Plt Count 78 L MPV 10.9 H Neut % (Auto) 14.7 Lymph % (Auto) 80.5 Williams % (Auto) 2.4 Eos % (Auto) 2.4 Baso % (Auto) 0.0 Neut # (Auto) 0.1 L* Lymph # (Auto) 0.3 L Williams # (Auto) 0.0 L Eos # (Auto) 0.0 Baso # (Auto) 0.0 Nucleated RBC % (a uto) 0 Nucleated RBCs # 0.0 PT INR APTT 83.3 H Sodium 129 L Potassium 4.6 Chloride 92 L Carbon Dioxide 31 H Anion Gap 10.6 BUN 17 Creatinine 0.5 Glucose 126 H Calculated Osmolal ity 266 L Calcium 9.5 Total Bilirubin 0.6 AST 29 ALT 39 H Alkaline Phosphata se 100 Total Protein 6.1 L Albumin 3.0 L Globulin 3.1 Blood Type Rho(D) Type Antibody Screen Crossmatch 11/10/19 11/09/19 11/06/19 04:30 16:46 12:33 WBC RBC Hgb Hct MCV MCH MCHC RDW Plt Count MPV Neut % (Auto) Lymph % (Auto) Williams % (Auto) Eos % (Auto) Baso % (Auto) Neut # (Auto) Lymph # (Auto) Williams # (Auto) Eos # (Auto) Baso # (Auto) Nucleated RBC % (a uto) Nucleated RBCs # PT 18.90 H INR 1.57 H APTT 67.4 H Sodium Potassium Chloride Carbon Dioxide Anion Gap BUN Creatinine Glucose Calculated Osmolal ity Calcium Total Bilirubin AST ALT Alkaline Phosphata se Total Protein Albumin Globulin Blood Type A Negative Rho(D) Type Negaive Antibody Screen Negative Crossmatch See Detail Vitals: Last Vital Signs Temp 97.8 F 11/10/19 10:45 Pulse 84 11/10/19 10:45 Resp 28 H 11/10/19 10:45 BP 138/92 11/10/19 10:45 Pulse Ox 92 11/10/19 10:45 Discharge Plan Discharge Patient Disposition: Home, Self-Care Condition: Stable Prescriptions: New amlodipine 5 mg Tablet 5 mg PO DAILY Qty: 30 RF: 0 ferrous sulfate 325 mg (65 mg iron) Tablet,Delayed Release (Dr/Ec) 325 mg PO BIDWM Qty: 60 RF: 0 Neupogen 480 mcg/1.6 mL Solution 480 mcg SUBCUT Q24H Qty: 7 RF: 0 Lovenox 60 mg/0.6 mL syringe 57 mg SUBCUT Q12H 5 Days Qty: 5.7 RF: 0 levofloxacin 750 mg tablet 750 mg PO DAILY 7 Days RF: 0 warfarin 6 mg tablet 6 mg PO DAILY 1 Days Qty: 1 RF: 0 warfarin 5 mg tablet 5 mg PO DAILY Qty: 30 RF: 0 Continued atorvastatin 80 mg tablet 80 mg PO DAILY RF: 0 sotalol 80 mg Tablet 80 mg PO BID RF: 0 lisinopril 20 mg Tablet 40 mg PO DAILY RF: 0 hydrocodone-acetaminophen [[place]] 10-325 mg Tablet 1 tab PO QID PRN (Reason: Pain) RF: 0 famotidine 20 mg Tablet 20 mg PO BID RF: 0 digoxin 125 mcg (0.125 mg) Tablet 125 mcg PO DAILY RF: 0 fluticasone propionate [Flonase Allergy Relief] 50 mcg/actuation [place],Suspension 1 spray INTRANASAL DAILY RF: 0 cholecalciferol (vitamin D3) [Vitamin D3] 1,000 unit Capsule 1,000 unit PO DAILY RF: 0 Symbicort 160-4.5 mcg/actuation Hfa Aerosol Inhaler 2 puff INHALATION BID PRN (Reason: Shortness Of Breath) RF: 0 calcium polycarbophil [FiberCon] 625 mg Tablet 625 mg PO BID RF: 0 buspirone 5 mg Tablet 5 mg PO BID RF: 0 duloxetine 20 mg Capsule,Delayed Release(Dr/Ec) 20 mg PO BID RF: 0 Discontinued warfarin 3 mg tablet See Rx Instructions .ROUTE .COMPLEX RF: 0 warfarin 1 mg tablet See Rx Instructions .ROUTE .COMPLEX RF: 0 Discharge Orders: Discharge Order (Routine); Ordered 11/10/19 Ordered By: Josiah Jha Other Ambulatory Orders: DME: Oxygen (Order) Location: None Selected Ordered By: Josiah Jha Ref[place] [facility] [facility] [place] [facility] [place] [facility] [place]) [Outside] Sonny Delgadillo MD [Staff Physician] - 1-3 days (You have a followup with Dr. Delgadillo at [facility] TOMORROW, November 10 at 10:30. [phone]) Dylan Connors MD [Primary Care Provider] - 4-7 days (You have a hospital followup at [facility] with [facility] on November 16 at 8:20am. You will have a CBC bloodwork done at this appointment. Any questions or appointment changes, please call them at [phone]) Discharge Diet: Regular Discharge Activity: Increase activity as tolerated Patient Instructions: Iron Supplements (By mouth), Warfarin (By mouth), Amlodipine (By mouth), Enoxaparin (Injection), Filgrastim (Injection), Levofloxacin (By mouth), Gastrointestinal Bleeding (DC), Lung Cancer (DC), Hyponatremia (DC), Pleural Effusion (DC), Neutropenia (DC) Activity Restrictions/Additional Instructions: For neutropenia: Take Neupogen every day for 7 more days. Take levofloxacin every day for 7 more days. Check CBC in 1 week. Follow-up with Dr. Delgadillo for further work-up and treatment for lung cancer. For INR/mitral metallic valve: Since platelet counts will be fluctuating because of chemotherapy the goal INR for mitral metallic valve is 2.5 now. Take Lovenox 1 mg/kg body weight twice daily and check INR in 3 days. Take warfarin 6 mg on November 10. From November 11 take 5 mg daily. Check INR in 3 days on November 12. If INR is not at goal of 2.5 continue taking Lovenox and check INR again in 3 days after that. Discharge Date/Time: 11/10/19 17:30 Discharge Attestations Time Spent in Discharge Care*: greater than 30 min Specific Discharge Activities: Specific discharge activities: educating p atient, discussing with pcp/other providers, discussing with rn case manager/social workers/dc planners, documenting/other paperwork and evaluating patient/reviewing data Status at Discharge: Cognitive status at discharge: cognitively intact , Behavioral status at discharge: cooperative , Functional status at discharge: independent ambulation Overall status at discharge: patient is progressing back to baseline Quality Metrics Clinical Quality Measures During this hospital stay, did patient experience: None Coding Level of Care Code Acute 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
--- NOTE | 2019-11-10 12:03 | PC.NURSE ---
Per Dr. Jha he said that the patient will be d/c today and gave a list of meds to be given for dc and how to take them. Chantal since she had a 7.5 mg dose of warfarin at 9 am today shw will not be taking any at 2pm.
--- NOTE | 2019-11-10 12:05 | PC.NURSE ---
Patient refused her morning miralax and bisacodyl said she had went to the bathroom 2 times this morning and it came out alright.
[2019-11-10] MEDS: enoxaparin 60 mg/0.6 mL Syringe SUBCUT (15:11)
--- NOTE | 2019-11-10 16:24 | PC.SOCIAL ---
Neupogen is not covered by insurance. Reviewed with Dr Jha per secure text and then verified by follow up call that it is okay to change to Zarxio which is covered same dose and same timeframe. Austyn updated in pharmacy.
--- NOTE | 2019-11-10 18:56 | PC.NURSE ---
patient was educated on new meds, disease processes, what to watch for. shown how to inject herself and had her do one, she had in the past with lovenox. she waited for meds and had home eval for o2 done and qualified, HOME brought over her o2 to go home with her before she left. There was a little issue with getting her neupogen she needs prior authorization and pharmacy in and external are working on it but if goes through patient will need to pick it up and understands this. patient left with in family vehicle to to home.
== END 2019-11-10 17:30 | disposition home health service (06) | DRG 812 ==
LOC: ER 20:45 → CSU 22:02
PROVIDERS: Family Medicine; Internal Medicine; Internal Medicine Critical Care Medicine; Physician Assistant; Surgery; Admitting Provider Student in an Organized Health Care Education/Training Program; Emergency Provider Family Medicine; Family Provider Family Medicine; PCP Family Medicine; Visit Provider Student in an Organized Health Care Education/Training Program
PROC: 0DJ08ZZ Inspection of Upper Intestinal Tract, Via Natural or Artificial Opening Endoscopic (ICD-10-PCS; CPT 43235; principal; 2019-10-26 11:00)
DX: D50.9 Iron deficiency anemia, unspecified (principal); K92.1 Melena; E87.1 Hypo-osmolality and hyponatremia; I48.11 Longstanding persistent atrial fibrillation; C34.90 Malignant neoplasm of unspecified part of unspecified bronchus or lung; I50.32 Chronic diastolic (congestive) heart failure; J44.1 Chronic obstructive pulmonary disease with (acute) exacerbation; G93.40 Encephalopathy, unspecified; J91.0 Malignant pleural effusion; K29.70 Gastritis, unspecified, without bleeding; I11.0 Hypertensive heart disease with heart failure; Z95.2 Presence of prosthetic heart valve; I27.20 Pulmonary hypertension, unspecified; Z79.01 Long term (current) use of anticoagulants; D70.9 Neutropenia, unspecified; Z79.899 Other long term (current) drug therapy; Z87.891 Personal history of nicotine dependence; K29.80 Duodenitis without bleeding
CPT/HCPCS: 12345; 36415; 36430; 36569; 36592; 43239; 70450; 71045; 71250; 76770; 76857; 80053; 80162; 80500; 81001; 81003; 82009; 82040; 82436; 82570; 82945; 83615; 83735; 83880; 83935; 83986; 84100; 84133; 84300; 84484; 84550; 85014; 85018; 85025; 85049; 85610; 85730; 86141; 86850; 86900; 86920; 87015; 87070; 87075; 87077; 87116; 87205; 87206; 87801; 87804; 88112; 88305; 89050; 93005; 93010; 94640; 94664; 96372; 96375; 97110; 97116; 97161; 97530; 99283; C9113; J1100; J1442; J1453; J1644; J1650; J1940; J2405; J2704; J3430; J3475; J3490; J7030; J7040; J7050; J7626; J8540; J8560; J9045; J9181; P9016; P9040; Q0162

== ENCOUNTER 2019-11-14 06:40 | Outpatient (CLI) | payer MEDICARE, SELFPAY ==
[2019-11-14 07:52] LABS: INR 4.66 (0.8-1.2)
[2019-11-14 07:53] LABS: Alanine Aminotransferase 36 U/L (0-33); Albumin Level 2.9 g/dL (3.5-5.2); Alkaline Phosphatase 94 IU/L (35-105); Anion Gap 12.6 (5-19); Aspartate Amino Transferase 23 U/L (0-32); Blood Urea Nitrogen 11 mg/dL (8-23); Calcium 8.9 mg/dL (8.5-10.5); Carbon Dioxide 30 mmol/L (22-29); Chloride 91 mmol/L (98-107); Globulin 2.9 g/dL (1.3-4.6); Glucose 99 mg/dL (65-115); Osmolality Calculated 266 mOsm/kg (285-295); Potassium 3.6 mmol/L (3.5-5.1); Sodium 130 mmol/L (136-145); Total Bilirubin 0.3 mg/dL (0.15-1.2); Total Protein 5.8 g/dL (6.6-8.7)
== END 2019-11-14 06:41 | disposition home or self-care (01) ==
LOC: ONCMED 11-15 10:21
PROVIDERS: Family Provider Family Medicine; PCP Family Medicine; Visit Provider Internal Medicine Hematology & Oncology
DX: C34.02 Malignant neoplasm of left main bronchus (principal)
CPT/HCPCS: 80053; 85610

== ENCOUNTER 2019-11-17 17:23 | Outpatient (CLI) | payer MEDICARE, SELFPAY ==
[2019-11-17 18:15] LABS: Basophils # 0.1 10^3/uL (0.0-0.1); Basophils % 0.2 %; Hematocrit 24.7 % (37.0-47.0); Hemoglobin 7.8 g/dL (11.5-15.3); Lymphocytes # 4.7 10^3/uL (0.8-4.8); Lymphocytes % 9.3 %; Mean Corpuscular HGB Conc 31.6 g/dL (30.0-36.0); Mean Corpuscular Hemoglobin 28.3 pg (28.0-34.0); Mean Corpuscular Volume 89.5 fL (81-99); Neutrophils # 31.1 10^3/uL (1.8-7.7); Neutrophils % 61.5 %; Nucleated Red Blood Cells # 0.5 /100WBC; Platelet Count 254 10^3/cmm (130-400); Red Blood Count 2.76 10^6/uL (4.1-5.3)
[2019-11-17 18:32] LABS: White Blood Count 50.5 10^3/uL (4.0-10.0)
[2019-11-17 18:48] LABS: Slide Review Slide Review Perform
[2019-11-17 18:52] LABS: Absolute Segmented Neutrophil 32.8 10/cmm (1.6-7.1); Band Neutrophils Absolute 6.6 10^3/cmm (0.0-1.2); Lymphocytes 10 %; Lymphocytes Absolute 6.1 10^3/cmm (1.2-3.4); Monocytes Absolute 3.5 10^3/cmm (0.1-0.6); Segmented Neutrophils 65 %; Total Cells Counted 100 (0-100)
[2019-11-17 18:53] LABS: Anisocytosis 2+; Macrocytosis 1+; Microcytosis 1+; Platelet Estimate Normal (Normal)
== END 2019-11-17 17:24 | disposition home or self-care (01) ==
LOC: LAB 17:26
PROVIDERS: Family Provider Family Medicine; PCP Family Medicine; Visit Provider Family Medicine
DX: R07.9 Chest pain, unspecified (principal)
CPT/HCPCS: 85007; 85025

== ENCOUNTER 2019-11-21 13:06 | Outpatient (REF) | payer MEDICARE, SELFPAY ==
[2019-11-21 13:23] LABS: Basophils # 0.1 10^3/uL (0.0-0.1); Basophils % 0.3 %; Hematocrit 25.6 % (37.0-47.0); Hemoglobin 7.5 g/dL (11.5-15.3); Lymphocytes # 2.8 10^3/uL (0.8-4.8); Lymphocytes % 8.6 %; Mean Corpuscular HGB Conc 29.3 g/dL (30.0-36.0); Mean Corpuscular Volume 95.5 fL (81-99); Mean Platelet Volume 10.4 fL (7.4-10.4); Monocytes # 3.7 10^3/uL (0.2-0.9); Monocytes % 11.4 %; Neutrophils # 14.5 10^3/uL (1.8-7.7); Neutrophils % 45.3 %; Nucleated Red Blood Cells # 0.4 /100WBC; Nucleated Red Blood Cells % 1.2 %; Platelet Count 456 10^3/cmm (130-400); Red Blood Count 2.68 10^6/uL (4.1-5.3); Red Cell Distribution Width 19.6 % (12.1-15.1)
[2019-11-21 14:09] LABS: Slide Review Slide Review Perform; White Blood Count 32.1 10^3/uL (4.0-10.0)
[2019-11-21 14:15] LABS: Band Neutrophils Absolute 6.1 10^3/cmm (0.0-1.2); Lymphocytes 15 %; Monocytes Absolute 3.2 10^3/cmm (0.1-0.6); Segmented Neutrophils 50 %; Total Cells Counted 100 (0-100)
[2019-11-21 14:17] LABS: Anisocytosis 3+; Macrocytosis 1+; Microcytosis 2+; Polychromasia 1+
[2019-11-21 14:18] LABS: Platelet Estimate Increased (Normal)
[2019-11-22 11:40] VITALS: PULSE 74; RESP 18; TEMP 36.9; O2SAT 100
[2019-11-22 11:55] VITALS: BP 125/50; PULSE 77; RESP 18; TEMP 37; O2SAT 100
== END 2019-11-21 13:07 | disposition home or self-care (01) ==
LOC: LAB 13:06
PROVIDERS: Family Provider Family Medicine; PCP Family Medicine; Visit Provider Internal Medicine Medical Oncology
DX: D64.9 Anemia, unspecified (principal)
CPT/HCPCS: 85007; 85025; 86850; 86900; 86920; P9016

== ENCOUNTER 2019-11-25 09:53 | Outpatient (RCR) | payer MEDICARE, SELFPAY ==
[2019-11-23 14:23] LABS: INR 5.69 (0.8-1.2)
--- NOTE | 2019-11-23 15:10 | ONC FU_ITS ---
Dr. Dlegadillo follow up note Patient: Debbi Garcias Unit #: [id number]: 1945 Dicatated By: Sonny Delgadillo M.D.Date of Visit:Nov 23, 2019 Onc Med Follow-up/Prog Note History of Present Illness: Mrs. Debbi Garcias, is a 74-year-old female who was admitted to hospital on 08/18/2019 with a COPD exacerbation, patient was treated with IV antibiotics and steroids and diuretics for possible fluid overload and chest x-ray was done which showed left hilar fullness subsequently underwent CT scan of chest which showed the lingular density could represent a cancer of lung with left with rapid growth of left hilar mediastinal lymphadenopathy. Small bilateral pleural effusions. Mitral valve replacement , pulmonology was consulted and on 09/09/2019, patient underwent EBUS which confirmed small cell carcinoma of the lung. Possible medical history significant for mechanical mitral valve replacement in 2000, since then on chronic Coumadin therapy History of atrial fibrillation. COPD, diastolic congestive heart failure, hypertension. Iron deficiency anemia on oral iron supplement. History of smoking for 35 years ,quit year ago. Patient denies any fever, chills, nausea or vomiting. Denies any headaches blurred vision double vision, denies any muscle or hematemesis, denies any jaundice denies any bony pains.CT PET scan done on 10/01/2019 showed left upper lobe mass with mediastinal invasion, malignant mediastinal, left internal mammary lymphadenopathy, other satellite subpleural nodules FDG positive consistent with malignancy, multifocal osseous metastatic disease. MRI scan of the head done on 09/28/2019 showed no evidence of metastatic disease Started on systemic chemotherapy with carboplatin/etoposide on 10/31/2019 as inpatient, as patient was admitted to hospital with progressive shortness of breath and pleural effusion, .Came for follow-up, denies any specific complaints except hoarseness of voice, with some improvement since last chemotherapy. Otherwise no hemoptysis or hematemesis, no nausea or vomiting, no diarrhea constipation, no fever or chills. She did receive 2 units of packed RBCs yesterday for hemoglobin around 7.5 g. Medications: Atorvastatin Calcium 1 Tablet (of 80 mg) Oral daily, buPROPion HCl ER (SR) 1 Tablet (of 150 mg) Tablet SR 12 HR Oral daily, Cholecalciferol 1 Tablet (of 1000 mg) Oral daily, Digoxin 1 Tablet (of 125 mcg) Oral daily, DULoxetine HCl 1 Capsule (of 20 mg) Capsule Delayed Release Particles Oral daily, HYDROcodone-Acetaminophen 1 Tablet (of 10-325 mg) Oral four times a day, Mirtazapine 0.5 Tablet (of 15 mg) Oral daily, Sotalol HCl 1 Tablet (of 80 mg) Oral daily, Warfarin Sodium Tablet Oral daily Allergies: Adhesive Tape and Ampicillin. Review of Systems: Constitutional - Appetite is fair and weight is decreasing. No fever, chills, hot flashes, or night sweats. Energy level is poor, ENMT - Positive for sinus congestion/drainage. No mouth sores. No sore throat or difficulty swallowing, Hematologic/Lymphatic - Positive for easy bruising, Respiratory - Positive for shortness of breath. No cough. No pleuritic pain or hemoptysis, Cardiovascular - No angina pain. No palpitations, Gastrointestinal - Positive for nausea, no vomiting. Positive for heartburn and acid reflux. No diarrhea or constipation. No blood in the stool or black stools, Genitourinary (F) - No dysuria or hematuria. No urinary frequency. No urgency or incontinence, Musculoskeletal - Positive for joint pain, Neurologic - No headache or dizziness. No numbness/paresthesias or other focal neurologic symptoms, Psychiatric - Positive for anxiety and depression. Vital Signs: Performed on Nov 23, 2019 14:07 Height - 61.00 in Weight - 110.6 lbs (HIGH) BSA - 1.47 sq.m BMI - 20.90 Temperature - 98.1 F (LOW) Pulse - 77 /min Respiration - 16 /min BP - 143/66 mm(hg) (HIGH) O2 Sat - 89 % (LOW) Pain - 0 Performance Status: 2 - Ambulatory/capable of all self-care, unable to perform any work activities. Up and about more than 50% of waking hours. (ECOG) Physical Examination: ENMT - no mouth sores, Respiratory - denies wheezing or shortness of breath, Cardiovascular - denies tachycardia or palpitation, Abdomen - no abdominal pain or fullness, Extremities - no edema or rash. Lab/Imaging: Test performed on Nov 23, 2019 12:30 PT 53.60 SECONDS INR 5.69 Test performed on Nov 21, 2019 11:16 WBC 32.1 10^9/L RBC 2.68 10^12/L HGB 7.5 g/dL HCT 25.6 % MCV 95.5 fl MCH 28.0 pg MCHC 29.3 g/dL RDW 19.6 % Platelet Count 456 10^9/L MPV 10.4 fL Neutrophils (Gran) 45.3 10^9/L Lymphocytes 8.6 10^9/L Monocytes 11.4 10^9/L Eosinophils 0.0 10^9/L Basophils 0.3 10^9/L Test performed on Nov 14, 2019 06:40 Sodium 130 mmol/L Potassium 3.6 mmol/L Chloride 91 mmol/L CO2 30 mmol/L Anion Gap 12.6 BUN 11 mg/dL Creatinine 0.7 mg/dL Cr Clearance (Est) 56.4800 mL/min Glucose 99 mg/dL Calcium 8.9 mg/dL Protein, Total 5.8 g/dL Albumin 2.9 g/dL Globulin 2.9 g/dL Bilirubin, Total 0.3 mg/dL ALT (SGPT) 36 U/L AST (SGOT) 23 U/L Alkaline Phosphatase 94 IU/L Test performed on Oct 17, 2019 16:00 Ferritin 31 ng/mL Iron 29 ug/dL Vitamin B12 352 pg/mL Iron Binding Capacity (TIBC) 323 mcg/dl % Iron Saturation 8.9 % UIBC 294 ug/dL Neutrophil % 74.6 % Lymphocyte % 17.7 % Monocyte % 6.6 % Eosinophil % 0.0 % Basophils % 0.5 % Impression: metastatic Small cell lung cancer involving left hilar per EBUS biopsy done on 09/09/2019 CT scan of chest done on 08/18/2019 shows lingular density could represent cancer of the lung with rapid growth of left hilar mediastinal lymphadenopathy, small bilateral pleural effusion, mitral valve replacement. follow-up CT PET scan done on 10/01/2019 showed a lingular mass invading into mediastinal measuring 7.2 x 6.5 cm with SUV of 11.6. Secondary nodule at the anterior left upper lobe measure 1.7 x 2.8 cm with SUV of 6.4. As subpleural nodule in the left lower lobe measure 1.4 cm with SUV of 2.6 consistent with metastatic disease. Multiple mediastinal and left internal mammary nodes are FDG positive consistent with metastatic disease. Multiple osseous metastatic disease is present index lesion in the right sacrum has an SUV of 5.4. Other suspicious, less conspicuous lesions are present in the posterior left iliac, L5, C7, left ischium . MRI scan of the head done on 09/28/2019 shows no brain metastases, clinical stage extensive disease small cell lung cancer COPD, on home oxygen Mitral valve replacement, on chronic anticoagulation Iron deficiency anemia on oral iron supplement Plan: Discussed with patient regarding her labs from 11/21/2019 white blood count 32.1 hemoglobin 7.5 hematocrit 25.6 platelets 456,000 and INR 5 Clinically, patient is doing reasonably well, especially after blood transfusion given yesterday, more energetic. Denies any fever or chills denies any acute symptoms. Her INR is elevated at 5, as per patient Dr. Connors her primary care physician is monitoring her Coumadin therapy, patient was advised to hold today's Coumadin dose and we will fax PT/INR report Dr. Connors's office for his attention, so that he can adjust her Coumadin dose. In the meantime we will consider starting on second cycle of chemotherapy with carboplatin/etoposide and also add immunotherapy to tecetriq with Neulasta support to prevent chemotherapy-induced neutropenia and also consider Xgeva to prevent skeletal related complications due to bone metastases. And patient will return to clinic in 2 weeks with CBC CMP As far as hoarseness of voice is concern, etiology is unclear could be due to recurrent laryngeal nerve involvement or laryngitis. We'll continue to monitor if there is a no improvement after second course of chemotherapy, then will consider her referrel to ENT for evaluation. Signed By: Sonny Delgadillo M.D. <<Signature on File>>
[2019-11-23 15:23] LABS: Add Urine Microscopic? NO
[2019-11-23 15:42] LABS: Urine Color Yellow (Yellow)
[2019-11-23 15:43] LABS: Bilirubin Urine Neg (NEGATIVE); Blood Urine Neg (Negative); Glucose Urine UA Norm (Normal); Ketones Urine Negative (Negative); Leukocyte Esterase Urine Negative (Negative); Nitrate Urine Negative (Negative); Protein Urine Neg (Negative); Specific Gravity, Urine 1.005 (1.005-1.030); Urine Appearance Clear (CLEAR); Urobilinogen Urine Norm (Negative); pH Urine 7 (5-7)
[2019-11-23 15:45] LABS: Alanine Aminotransferase 14 U/L (0-33); Albumin Level 3.5 g/dL (3.5-5.2); Alkaline Phosphatase 140 IU/L (35-105); Anion Gap 15.5 (5-19); Aspartate Amino Transferase 28 U/L (0-32); Blood Urea Nitrogen 8 mg/dL (8-23); Calcium 9.9 mg/dL (8.5-10.5); Carbon Dioxide 30 mmol/L (22-29); Chloride 92 mmol/L (98-107); Globulin 3.4 g/dL (1.3-4.6); Glucose 106 mg/dL (65-115); Osmolality Calculated 272 mOsm/kg (285-295); Potassium 4.5 mmol/L (3.5-5.1); Sodium 133 mmol/L (136-145); Total Bilirubin 0.6 mg/dL (0.15-1.2); Total Protein 6.9 g/dL (6.6-8.7)
[2019-11-24] MEDS: sodium chloride 0.9% 250 ML 300 ML IV (14:06)
[2019-11-25] MEDS: sodium chloride 0.9% 250 ML 75 ML IV (08:43)
== END 2019-11-25 10:00 | disposition home or self-care (01) ==
LOC: ONCMED 09:53
PROVIDERS: Family Provider Family Medicine; PCP Family Medicine; Visit Provider Internal Medicine Hematology & Oncology
DX: Z51.11 Encounter for antineoplastic chemotherapy (principal); C34.02 Malignant neoplasm of left main bronchus; C77.1 Secondary and unspecified malignant neoplasm of intrathoracic lymph nodes; C79.51 Secondary malignant neoplasm of bone; R49.0 Dysphonia; J44.9 Chronic obstructive pulmonary disease, unspecified; I11.0 Hypertensive heart disease with heart failure; I50.30 Unspecified diastolic (congestive) heart failure; D50.9 Iron deficiency anemia, unspecified; Z99.81 Dependence on supplemental oxygen; Z79.01 Long term (current) use of anticoagulants; Z79.899 Other long term (current) drug therapy; Z95.2 Presence of prosthetic heart valve; Z87.891 Personal history of nicotine dependence
CPT/HCPCS: 36592; 80053; 81003; 85610; 96367; 96413; 96417; 99214; J1100; J1453; J2405; J3490; J7040; J7050; J9022; J9045; J9181

== ENCOUNTER 2019-11-27 15:36 | Inpatient (IN) | payer MEDICARE, SELFPAY ==
[2019-11-27] VITALS (14 sets, daily range): BP systolic 121–172; BP diastolic 53–71; PULSE 75–96; RESP 20–29; TEMP 36.5; O2SAT 63–98; BMI 19.4
--- NOTE | 2019-11-27 15:40 | ECG_ITS ---
Measurements Intervals [place] Rate: 91 P: 98 [place]: 177 QRS: 17 QRSD: 98 T: 60 QT: 304 QTc: [address] & T-WAVE ABNORMALITY Compared to ECG 11/03/2019 14:07:51 Atrial fibrillation no longer present T-wave abnormality still present Electronically Signed On 11-28-2019 8:56:11 CDT by Blanca Weaver M.D. [email or web address]
--- NOTE | 2019-11-27 15:40 | XR_ITS ---
WS: [id number] CHEST XRAY TECHNIQUE: Portable chest. CLINICAL INFORMATION: sob COMPARISON: November 07, 2019 FINDINGS: Right PICC line with tip in the SVC. Sternotomy. AVR. Heart: Cardiomegaly. Aortic calcification. Lungs: Moderate left pleural effusion with consolidation left midlung and left lower lobe. Interstiti al thickening throughout the right lung likely due to edema. Bones: Normal visualized bony structures. XR/XR chest 1V portable 20209 IMPRESSION: 1. Interval increase in the left pleural effusion and left mid and left lower lobe consolidation consistent with pneumonia. 2. Interstitial thickening throughout right lung likely due to edema. 3. Sternotomy and aVR. Stable right PICC line.
--- NOTE | 2019-11-27 15:43 | W.ED.SOB ---
HPI - SOB/Dyspnea General: Chief Complaint: Shortness of Breath/Dyspnea Stated Complaint: SOB; ABD PAIN; WEAKNESS Time Seen by Provider: 11/27/19 15:37 Source: patient and EMS Mode of arrival: EMS Limitations: physical limitation History of Present Illness: HPI Narrative: 74-year-old female with a history of cancer along with COPD and CHF. Patient recently discharged from the hospital 2 weeks ago for COPD exacerbation and was also started on chemotherapy for her lung cancer. Patient states she has had increasing dyspnea even on her 4 L of oxygen at home. Patient given breathing treatment in route and feels slightly improved. She is in moderate distress here. She denies any fevers. MD elicited complaint: shortness of breath Pertinent past history: COPD and congestive heart failure Onset (ago): hour(s) Severity: moderate Exacerbating factors: nothing Relieving factors: nothing Associated symptoms: Reports abdominal pain; Deny chest pain or fever(s) Review of Systems Const: Denies: fever, chills, body aches or change in appetite Eyes: Denies: blurry vision or eye discomfort ENMT: Denies: throat pain or dental pain Card: Denies: chest pain Resp: Reports: shortness of breath GI: Reports: abdominal pain : Denies: painful urination Musc: Denies: neck pain or back pain Skin/Breast: Denies: rash Neuro: Denies: headache Psych: Denies: depression Royal/Lymph: Denies: easy bruising All/Imm: Denies: hives [facility] ED PFSH: Medical History (Updated 11/27/19 @ 18:24 by Mary Chavez MD) Aortic regurgitation Atrial fibrillation Chronic anticoagulation COPD (chronic obstructive pulmonary disease) Diastolic CHF, chronic Hypertension Hyponatremia Small cell lung cancer Subtherapeutic international normalized ratio (INR) Surgical History (Updated 11/27/19 @ 18:14 by Mary Chavez MD) H/O mitral valve replacement Mechanical valve 2000 H/O: hysterectomy Left oophorectomy History of carpal tunnel release Right History of lumbar surgery x 1 S/P thoracentesis x 3 secondary to malignant L pleural effusion Family History Mother Clotting disorder Father Clotting disorder Sister AAA (abdominal aortic aneurysm) Social History (Updated 11/27/19 @ 17:52 by Mary Chavez MD) Smoking and tobacco status: former smoker Quit status (tobacco): has quit using tobacco Year quit tobacco: 2020 - 0.5 PPD x 35 Years Alcohol intake: former Household members: spouse Marital status: Current occupational status: retired History of recent travel: No Current gender identity: Female Physical Exam Const: COMMON NORMALS: oriented x3 GENERAL APPEARANCE: in distress and ill appearing HENMT: COMMON NORMALS: normocephalic and head/scalp atraumatic HEAD & SCALP: normocephalic and atraumatic Eye: COMMON NORMALS: PERRL and EOMs intact bilaterally PUPIL: Yes PERRL Neck/C-Spine: COMMON NORMALS: full ROM and supple Chest: COMMONS NORMALS: inspection of chest normal and palpation of chest normal Resp: COMMON NORMALS: normal respiratory effort, no retractions, no use of accessory muscles and clear to auscultation bilaterally AUSCULTATION: clear to auscultation bilaterally Cardio: COMMON NORMALS: regular rate, regular rhythm and no murmurs RATE: regular rate RHYTHM: regular rhythm GI: COMMON NORMALS: normal to inspection, nondistended, normoactive bowel sounds, soft to palpation, non-tender and no masses PALPATION: Yes soft Extremity: COMMON NORMALS: normal to inspection and full ROM Neuro: COMMON NORMALS: oriented x3, moves all extremities and no focal motor deficits Psych: COMMON NORMALS: mental status grossly normal, thought process normal and cooperative THOUGHT PROCESS: normal thought process Skin: COMMON NORMALS: no rashes or lesions noted and no wounds GENERAL SKIN EXAM: no rashes or lesions noted Course Vital Signs: Vital signs: Vital Signs Temperature 97.7 F 11/27/19 15:37 Pulse Rate 88 11/27/19 18:00 Respiratory Rate 26 H 11/27/19 18:00 Blood Pressure 147/53 11/27/19 18:00 Pulse Oximetry 93 11/27/19 18:13 MDM - SOB/Dyspnea MDM Narrative: Medical decision making narrative: Patient presents here with shortness of breath and does have a pleural effusion along with CHF exacerbation. Patient here is improved after breathing treatment. Her INR is elevated so we will likely wait till tomorrow to drain her effusion. Patient's been seen in the ER by Dr. Guido doing will admit to the ICU. Lab Data: Labs: Lab Results 11/27/19 11/27/19 11/27/19 Range/Units 16:00 16:09 16:09 WBC 11.2 H (4.0-10.0) 10^3/ uL RBC 3.07 L (4.1-5.3) 10^6/u L Hgb 9.3 L (11.5-15.3) g/dL Hct 29.9 L (37.0-47.0) % MCV 97.4 (81-99) fL MCH 30.3 (28.0-34.0) pg MCHC 31.1 (30.0-36.0) g/dL RDW 18.6 H (12.1-15.1) % Plt Count 532 H (130-400) 10^3/c mm MPV 9.9 (7.4-10.4) fL Neut % (Auto) 95.3 % Lymph % (Auto) 3.0 % Candler % (Auto) 1.1 % Eos % (Auto) 0.0 % Baso % (Auto) 0.0 % Neut # (Auto) 10.6 H (1.8-7.7) 10^3/u L Lymph # (Auto) 0.3 L (0.8-4.8) 10^3/u L Candler # (Auto) 0.1 L (0.2-0.9) 10^3/u L Eos # (Auto) 0.0 (0.0-0.8) 10^3/u L Baso # (Auto) 0.0 (0.0-0.1) 10^3/u L Nucleated RBC % (a uto) 0.4 % Nucleated RBCs # 0.1 /100WBC PT 56.20 H (10.5-13.3) SECO NDS INR 6.03 H* (0.8-1.2) Specimen Type Arterial Sample Site Radial, left ABG pH 7.33 L (7.35-7.45) ABG pCO2 64.2 H* (35-45) mmHg ABG pO2 70.5 L (80.0-100.0) mmH g ABG HCO3 34.0 H (22-26) mmol/L ABG Base Excess 6.8 H (-2.0-2.0) mmol/ L Brennen Test Pos Hematocrit 28.8 L (37-47) % Hgb O2 Saturation 91.3 L (95-100) % Carboxyhemoglobin 1.7 (0.4-20.1) %THgb Methemoglobin 1.0 (0.4-1.5) % Total Hemoglobin 9.4 L (12-16) g/dL O2 Delivery Device Nc O2 Liters/Min 5.0 % FiO2 40.0 % Flame Cutting Machine Operator ID glc Sodium (136-145) mmol/L Potassium (3.5-5.1) mmol/L Chloride (98-107) mmol/L Carbon Dioxide (22-29) mmol/L Anion Gap (5-19) BUN (8-23) mg/dL Creatinine (0.5-0.9) mg/dL Glucose (65-115) mg/dL Calculated Osmolal ity (285-295) mOsm/k g Calcium (8.5-10.5) mg/dL Total Bilirubin (0.15-1.2) mg/dL AST (0-32) U/L ALT (0-33) U/L Alkaline Phosphata se (35-105) IU/L NT-Pro-B Natriuret Pep (0-125) pg/mL Total Protein (6.6-8.7) g/dL Albumin (3.5-5.2) g/dL Globulin (1.3-4.6) g/dL Lipase (13-60) U/L 11/27/19 Range/Units 16:09 WBC (4.0-10.0) 10^3/ uL RBC (4.1-5.3) 10^6/u L Hgb (11.5-15.3) g/dL Hct (37.0-47.0) % MCV (81-99) fL MCH (28.0-34.0) pg MCHC (30.0-36.0) g/dL RDW (12.1-15.1) % Plt Count (130-400) 10^3/c mm MPV (7.4-10.4) fL Neut % (Auto) % Lymph % (Auto) % Candler % (Auto) % Eos % (Auto) % Baso % (Auto) % Neut # (Auto) (1.8-7.7) 10^3/u L Lymph # (Auto) (0.8-4.8) 10^3/u L Candler # (Auto) (0.2-0.9) 10^3/u L Eos # (Auto) (0.0-0.8) 10^3/u L Baso # (Auto) (0.0-0.1) 10^3/u L Nucleated RBC % (a uto) % Nucleated RBCs # /100WBC PT (10.5-13.3) SECO NDS INR (0.8-1.2) Specimen Type Sample Site ABG pH (7.35-7.45) ABG pCO2 (35-45) mmHg ABG pO2 (80.0-100.0) mmH g ABG HCO3 (22-26) mmol/L ABG Base Excess (-2.0-2.0) mmol/ L Brennen Test Hematocrit (37-47) % Hgb O2 Saturation (95-100) % Carboxyhemoglobin (0.4-20.1) %THgb Methemoglobin (0.4-1.5) % Total Hemoglobin (12-16) g/dL O2 Delivery Device O2 Liters/Min % FiO2 % Flame Cutting Machine Operator ID Sodium 132 L (136-145) mmol/L Potassium 4.8 (3.5-5.1) mmol/L Chloride 93 L (98-107) mmol/L Carbon Dioxide 33 H (22-29) mmol/L Anion Gap 10.8 (5-19) BUN 21 (8-23) mg/dL Creatinine 0.4 L (0.5-0.9) mg/dL Glucose 137 H (65-115) mg/dL Calculated Osmolal ity 273 L (285-295) mOsm/k g Calcium 9.2 (8.5-10.5) mg/dL Total Bilirubin 0.6 (0.15-1.2) mg/dL AST 27 (0-32) U/L ALT 17 (0-33) U/L Alkaline Phosphata se 98 (35-105) IU/L NT-Pro-B Natriuret Pep 6611 H (0-125) pg/mL Total Protein 6.1 L (6.6-8.7) g/dL Albumin 3.3 L (3.5-5.2) g/dL Globulin 2.8 (1.3-4.6) g/dL Lipase 11 L (13-60) U/L Imaging Data^: CXR: Attestation: I personally reviewed and interpreted this imaging study as follows: My impression: pulmonary edema, large left pleural effusion EKG Data^: EKG 1: Attestation: I personally reviewed and interpreted this EKG as follows: EKG Interpretation Date: 11/27/19 EKG interpretation time: 16:38 Interpretation: nsr hr [address] or t wave abnormalities qrs 98 qtc 353 Discharge Plan Discharge Patient Disposition: Admitted As Inpatient Admit Provider: Mary Chavez Clinical Impression: Pleural effusion Congestive heart failure Qualifiers: Heart failure type: diastolic Heart failure chronicity: acute on chronic Qualified Code(s): I50.33 - Acute on chronic diastolic (congestive) heart failure Condition: Stable Referrals: Dylan Connors MD [Primary Care Provider] - Discharge Date/Time: 11/27/19 18:21 Coding Level of Care Code ED Display Designer Outside for Chg Fwd Exam Comprehensive
[2019-11-27] MEDS: ipratropium-albuterol 3 mL Neb INHALATION ×2 (15:53→20:59)
[2019-11-27 16:15] LABS: Hematocrit 29.9 % (37.0-47.0); Hemoglobin 9.3 g/dL (11.5-15.3); Lymphocytes # 0.3 10^3/uL (0.8-4.8); Mean Corpuscular HGB Conc 31.1 g/dL (30.0-36.0); Mean Corpuscular Hemoglobin 30.3 pg (28.0-34.0); Mean Corpuscular Volume 97.4 fL (81-99); Mean Platelet Volume 9.9 fL (7.4-10.4); Monocytes # 0.1 10^3/uL (0.2-0.9); Monocytes % 1.1 %; Neutrophils # 10.6 10^3/uL (1.8-7.7); Neutrophils % 95.3 %; Nucleated Red Blood Cells # 0.1 /100WBC; Nucleated Red Blood Cells % 0.4 %; Platelet Count 532 10^3/cmm (130-400); Red Blood Count 3.07 10^6/uL (4.1-5.3); Red Cell Distribution Width 18.6 % (12.1-15.1); White Blood Count 11.2 10^3/uL (4.0-10.0)
[2019-11-27 16:16] LABS: ABG PH Result 7.33 (7.35-7.45); Arterial Blood Gas Hematocrit 28.8 % (37-47); Base Excess ABG 6.8 mmol/L (-2.0-2.0); Blood Gas Allen Test Pos; Blood Gas Operator Identificat glc; Blood Gas Sample Site Radial, left; Blood Gas Sample Type Arterial; Carboxyhemoglobin 1.7 %THgb (0.4-20.1); HGB O2 Sat 91.3 % (95-100); Oxygen Device NC; PO2 ABG 70.5 mmHg (80.0-100.0); Total Hemoglobin 9.4 g/dL (12-16)
[2019-11-27 16:17] LABS: ABG PCO2 64.2 mmHg (35-45)
[2019-11-27 16:57] LABS: Alanine Aminotransferase 17 U/L (0-33); Albumin Level 3.3 g/dL (3.5-5.2); Alkaline Phosphatase 98 IU/L (35-105); Anion Gap 10.8 (5-19); Aspartate Amino Transferase 27 U/L (0-32); Blood Urea Nitrogen 21 mg/dL (8-23); Calcium 9.2 mg/dL (8.5-10.5); Carbon Dioxide 33 mmol/L (22-29); Chloride 93 mmol/L (98-107); Globulin 2.8 g/dL (1.3-4.6); Glucose 137 mg/dL (65-115); Lipase 11 U/L (13-60); NT Pro B Type Natriuretic Pept 6611 pg/mL (0-125); Osmolality Calculated 273 mOsm/kg (285-295); Potassium 4.8 mmol/L (3.5-5.1); Sodium 132 mmol/L (136-145); Total Bilirubin 0.6 mg/dL (0.15-1.2); Total Protein 6.1 g/dL (6.6-8.7)
[2019-11-27 17:07] LABS: INR 6.03 (0.8-1.2)
[2019-11-27] MEDS: FUROsemide 10 mg/mL SDV 10mL 60 MG IVP (17:15)
--- NOTE | 2019-11-27 17:36 | P.HP_ITS ---
Providers/Chief Complaint Admitting Physician: Mary Chavez MD Primary Care Provider: Dylan Connors MD Chief Complaint: SOB; ABD PAIN; WEAKNESS History of Present Illness Debbi Garcias is a 74 year old female with PMHx of recently diagnosed metastatic small cell lung cancer (left), Chronic diastolic CHF, HTN, hx of mitral valve (mechanical) replacement on AC with coumadin, Chronic atrial fibrillation, Oxygen-dependent COPD, Chronic anemia; presents from home for evaluation of ongoing and worsening dyspnea. Patient was recently admitted to our facility and had a prolonged hospital course from 10/24 to 11/09 when she was treated for a variety of things including hyponatremia, large pleural effusion, anemia with melena, acute COPD exacerbation. She required 2 thoracentesis x2 due to recurrent left pleural effusion, once on 11/03 with removal of 1700 mL and on 11/06 with aspiration of 1200 mL. She had GI work-up done during that admission with EGD showing gastritis, duodenitis, gastric and duodenal erosions and did require transfusion of blood products. She required bridging for anticoagulation with heparin and Coumadin. There was discussion about a [place] drain placement due to likelihood of recurrence of what looks like malignant left pleural effusion but due to concern for high risk of infection this was not done. She has been receiving systemic chemotherapy with carboplatin/etoposide and following up with Dr. Delgadillo. She states her last treatment was sometime last week. She did receive Neupogen due to neutropenia during her hospital stay. She had an echo done earlier this year showing an ejection fraction of 60% with grade 2 diastolic dysfunction, mild pulmonary hypertension, at least moderate AR and mild . She is quite frail and cachectic appearing with patchy alopecia. She is very dyspneic during my evaluation in the ER and is unable to speak in complete sentences. She reportedly required nonrebreather en route to the hospital via EMS, and is currently on 5 L with saturation in the low 90s. He had noted some lower extremity edema, has had poor appetite and oral intake. She does have a baseline oxygen requirement of 4 L which she reports been compliant with. There is question of underlying dementia. Work-up in the ER today indicates leukocytosis with a white count of 11.2, anemia with a hemoglobin of 9.3, platelet count of 532, hyponatremia with a sodium of 132, BUN of 21, creatinine of 0.4, ABG showing hypercapnia and hypoxia (7.33/64.2/70.5), BNP of 6611, INR of 6.03. Chest x-ray has not been reported but appears to have at least moderate left pleural effusion and moderate pulmonary vascular congestion on the right per my review. She is afebrile, tachypneic,. She quit smoking earlier this year and has a greater than [id number] history. She admits to some hematuria, denies any blood in her stool. She cannot recall any of her medications so compliance is in question. She has had a dry cough, denies chest pain, fever/chills. She has had some chest tightness particularly when her shortness of breath exacerbates with any exertion, has had orthopnea. Patient is being admitted for further IV diuresis, thoracentesis versus [place] drain placement. She will be admitted to ICU for close monitoring as she has a low threshold for decompensation. Review of Systems Const: Reports: change in appetite (decreased appetite) and fatigue; Denies: fever or chills ENMT: Reports: dry mouth; Denies: painful swallowing Card: Reports: swelling of feet/ankles, shortness of breath on exertion and shortness of breath when lying down Resp: Reports: shortness of breath and non-productive cough GI: Reports: abdominal pain; Denies: nausea, vomiting, vomiting blood or blood in stool : Reports: blood in urine; Denies: difficulty urinating or painful urination Musc: Denies: back pain Skin/Breast: Denies: rash Neuro: Reports: weakness in extremities; Denies: numbness in extremities Psych: Denies: anxiety Medications/Allergies Allergies Allergy/AdvReac Type Severity Reaction Status Date / Time adhesive tape Allergy Intermediate ALGY-Bliste Verified 08/31/19 13:03 r ampicillin Allergy Mild ALGY-Fever Verified 08/31/19 13:03 PFSH Acute PFSH: Medical History Aortic regurgitation Atrial fibrillation Chronic anticoagulation COPD (chronic obstructive pulmonary disease) Diastolic CHF, chronic Hypertension Hyponatremia Small cell lung cancer Subtherapeutic international normalized ratio (INR) Surgical History H/O mitral valve replacement Mechanical valve 2000 H/O: hysterectomy Left oophorectomy History of carpal tunnel release Right History of lumbar surgery x 1 S/P thoracentesis x 3 secondary to malignant L pleural effusion Family History Mother Clotting disorder Father Clotting disorder Sister AAA (abdominal aortic aneurysm) Social History (Updated 11/27/19 @ 17:52 by Mary Chavez MD) Smoking and tobacco status: former smoker Quit status (tobacco): has quit using tobacco Year quit tobacco: 2020 - 0.5 PPD x 35 Years Alcohol intake: former Household members: spouse Marital status: Current occupational status: retired History of recent travel: No Current gender identity: Female Vitals/I&O/Wt Last Vital Signs Temp 97.7 F 11/27/19 15:37 Pulse 95 11/27/19 17:23 Resp 24 H 11/27/19 17:23 BP 172/71 11/27/19 17:23 Pulse Ox 90 11/27/19 17:23 Weight last 48 hrs Weight 46.72 kg Physical Exam Const: COMMON NORMALS: no apparent distress and oriented x3 GENERAL APPEARANCE: cooperative, ill appearing and appears older than stated age NUTRITIONAL APPEARANCE: cachectic ORIENTATION/CONSCIOUSNESS: Yes awake HENMT: COMMON NORMALS: normocephalic, head/scalp atraumatic and hearing grossly normal bilaterally HEAD & SCALP: normocephalic, atraumatic and other (thinning hair, patchy alopecia) MOUTH: moist mucous membranes abnormal Details: parched Eye: COMMON NORMALS: PERRL, EOMs intact bilaterally and conjunctivae normal CONJUNCTIVA: Yes conjunctivae normal PUPIL: Yes PERRL Neck/C-Spine: COMMON NORMALS: full ROM GENERAL: Yes normal visual inspection and Yes trachea midline Resp: EFFORT & INSPECTION: No able to speak in complete sentences, Yes symmetric chest movement, Yes tachypneic, Yes retractions supraclavicular and Yes prolonged expiratory phase AUSCULTATION: crackles and diminished lung sounds on the left Cardio: COMMON NORMALS: regular rate, regular rhythm, S1 normal heart sound, S2 normal heart sound and no murmurs RATE: regular rate RHYTHM: regular rhythm HEART SOUNDS: S1 normal and S2 normal GI: COMMON NORMALS: normal to inspection, nondistended, normoactive bowel sounds, soft to palpation and non-tender PALPATION: Yes soft Extremity: COMMON NORMALS: normal to inspection and full ROM GENERAL: Yes edema (1+ pitting edema of bilateral LE) Neuro: COMMON NORMALS: oriented x3, moves all extremities, no focal motor deficits and no sensory deficits noted Psych: COMMON NORMALS: mental status grossly normal, thought process normal, cooperative and speech normal SPEECH: Yes normal speech MOOD & AFFECT: Yes flat affect THOUGHT PROCESS: normal thought process Skin: COMMON NORMALS: no rashes or lesions noted, no jaundice, no petechiae a nd no mottling GENERAL SKIN EXAM: no rashes or lesions noted HAIR: patchy alopecia Data : 11/27/19 16:09 11/27/19 16:09 Other Labs: -reviewed CBC, CMP, coags, ABG A&P Assessment and plan (1) Pleural effusion: -has had ongoing issues with recurrent L pleural effusions requiring multiple thoracentesis, most recently done during her last hospitalization, appears to be malignant secondary to small cell cancer for which she has been receiving chemotherapy. -may need [place] drain placement as likely to be recurrent; this was discussed during her last admission though not done due to concern for risk of infection. Will discuss this further with Dr. Lyle and Dr. Delgadillo -f/u CXR report, appears to be at least moderate pleural effusion (L) with noted pulmonary vascular congestion on R -will start on empiric antibiotic treatment with Levaquin due to noted leukocytosis, underlying immunocompromise, need for pleural drainage -Close monitoring of respiratory status, supplemental oxygen versus BiPAP as needed -Close monitoring of vital signs -Telemetry monitoring Status: Acute (2) Congestive heart failure: -has acutely decompensated chronic diastolic CHF as evidenced by dyspnea, orthopnea, LE edema, elevated BNP (6611) and evidence of fluid overload on imaging -received 60 mg dose of IV Lasix in ED, continue IV diuresis -daily weights, monitor Is & Os -Echo (08/2019): EF=60%, G2DD, mild pulmonary HTN, mild , at least moderate AR, mild TR -fluid restriction -cardiac diet as tolerated Status: Acute Qualifiers: Heart failure chronicity: acute on chronic Heart failure type: diastolic Qualified Code(s): I50.33 - Acute on chronic diastolic (congestive) heart failure (3) Dyspnea: -quite dyspneic clinically -likely secondary to pleural effusion and acute CHF exacerbation -has been on AC with coumadin, INR-6.03, likely to have PE and if she does would likely not gear changer -as noted above Status: Acute Qualifiers: Dyspnea type: unspecified Qualified Code(s): R06.00 - Dyspnea, unspecified (4) Small cell lung cancer: -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 Delgadillo -no evidence of metastatic disease on MRI head, noted mediastinal invasion, malignant mediastinal, left internal mammary lymphadenopathy, other satellite subpleural nodules, FDG positive, multifocal osseous metastatic disease on PET scan -noted anemia, not neutropenic or thrombocytopenic Status: Chronic (5) Hyponatremia: -Noted to be hyponatremic during last admission, sodium today is 132; likely secondary to underlying lung cancer -Continue to monitor -New baseline appears to be 129-132 Status: Acute (6) H/O mitral valve replacement with mechanical valve: -Has prior history of mitral valve replacement with mechanical valve -Is on anticoagulation with Coumadin, currently is supratherapeutic with INR of 6.03 -We will hold anticoagulation and continue to monitor INR in anticipation of drain placement -We will likely need to be bridged with heparin when anticoagulation will be resumed Status: Chronic (7) COPD (chronic obstructive pulmonary disease): -Has known history of COPD, currently oxygen dependent to the 4 L baseline requirement -Former smoker, quit earlier this year after smoking for over 40 years -Is currently quite dyspneic but this is likely due to fluid overload and pleural effusion rather than acute COPD exacerbation -Received dose of IV steroids in ER, would hold off on continuing this for now -Neb treatments as needed -Close monitoring of respiratory status Status: Chronic Qualifiers: COPD type: COPD with acute exacerbation Qualified Code(s): J44.1 - Chronic obstructive pulmonary disease with (acute) exacerbation (8) Hypertension: -Has known history of hypertension -Resume oral antihypertensives -Close monitoring of vital signs Status: Chronic Qualifiers: Hypertension type: essential hypertension Qualified Code(s): I10 - Essential (primary) hypertension (9) Anemia: -has chronic normocytic anemia, baseline Hg appears to be 8-9 -current Hg-9.3 though I think this is likely lower secondary to hemoconcentration from fluid overload -close monitoring of H/H -had recent EGD done (10/25) showing gastritis, duodenitis, gastric and duodenal erosions -Anticoagulation on hold Status: Acute Qualifiers: Anemia type: unspecified type Qualified Code(s): D64.9 - Anemia, unsp ecified Additional A&P Information -Former smoker -Cachectic with underlying lung cancer, with at least moderate protein calorie malnutrition: BMI-20 kg/m2 -History of chronic atrial fibrillation; on digoxin and sotalol -Mild pulmonary hypertension per echo -Dementia -cardiac diet as tolerated -GI ppx with famotidine -DVT ppx with SCDs, no AC due to supratherapeutic INR -Dispo: may need placement if prolonged hospitalization, deconditioning, drain placement -Code status: FULL code -ICU admission due to low threshold for decompensation Attestations Medical Necessity Statement*: Debbi Carey Tashia's hospital stay will require greater than 2 midnights for management of acute diastolic CHF exacerbation and malignant left pleural effusion requiring drainage and aggressive IV diuresis. Time Spent in Patient Care: Greater than 35 minutes (>than 50% of time spent in counselling and/or direct pt care on unit) . Coding Level of Care Code [facility] Diagnoses Pleural effusion J90 Congestive heart failure I50.33 Heart failure chronicity: acute on chronic Heart failure type: diastolic Dyspnea R06.00 Dyspnea type: unspecified Small cell lung cancer C34.90 Hyponatremia E87.1 H/O mitral valve replacement with mechanical valve Z95.2 COPD (chronic obstructive pulmonary disease) J44.1 COPD type: COPD with acute exacerbation Hypertension I10 Hypertension type: essential hypertension Anemia D64.9 Anemia type: unspecified type
[2019-11-27] MEDS: BuSPIRONE 5 mg Tablet PO (20:59)
[2019-11-27] MEDS: duloxetine 20 mg Capsule PO (20:59)
[2019-11-27] MEDS: sotalol 80 mg Tablet PO (20:59)
[2019-11-27] MEDS: sennosides-docusate Tablet 1 TAB PO (21:01)
[2019-11-27] MEDS: atorvastatin 40 mg Tablet 80 MG PO (21:01)
[2019-11-27] MEDS: ferrous sulfate EC 325 mg Tablet PO (21:01)
[2019-11-27] MEDS: famotidine 20 mg Tablet PO (21:01)
[2019-11-27] MEDS: levofloxacin-dextrose 5 % 750 MG/150 ML PREMIX 100 MG IV (21:02)
[2019-11-27] MEDS: FUROsemide 10 mg/mL SDV 4mL 40 MG IVP (21:05)
[2019-11-28] VITALS (21 sets, daily range): BP systolic 111–156; BP diastolic 44–71; PULSE 76–90; RESP 15–36; TEMP 36.4–36.8; O2SAT 93–98
[2019-11-28] MEDS: LORazepam 2 mg/mL INJ 1 mL 1 MG IVP ×3 (02:30→23:35)
[2019-11-28 04:57] LABS: Hematocrit 27.8 % (37.0-47.0); Hemoglobin 8.7 g/dL (11.5-15.3); Lymphocytes # 0.2 10^3/uL (0.8-4.8); Lymphocytes % 4.6 %; Mean Corpuscular HGB Conc 31.3 g/dL (30.0-36.0); Mean Corpuscular Hemoglobin 29.1 pg (28.0-34.0); Mean Platelet Volume 10.2 fL (7.4-10.4); Monocytes % 0.5 %; Neutrophils # 3.7 10^3/uL (1.8-7.7); Neutrophils % 94.1 %; Platelet Count 480 10^3/cmm (130-400); Red Blood Count 2.99 10^6/uL (4.1-5.3); Red Cell Distribution Width 18.1 % (12.1-15.1); White Blood Count 3.9 10^3/uL (4.0-10.0)
[2019-11-28 05:06] LABS: INR 3.48 (0.8-1.2)
[2019-11-28 05:17] LABS: Anion Gap 12.1 (5-19); Blood Urea Nitrogen 19 mg/dL (8-23); Calcium 9.4 mg/dL (8.5-10.5); Carbon Dioxide 38 mmol/L (22-29); Chloride 89 mmol/L (98-107); Glucose 120 mg/dL (65-115); Osmolality Calculated 278 mOsm/kg (285-295); Potassium 4.1 mmol/L (3.5-5.1); Sodium 135 mmol/L (136-145)
[2019-11-28 06:16] LABS: Slide Review Slide Review Perform
[2019-11-28] MEDS: FUROsemide 10 mg/mL SDV 4mL 40 MG IVP ×2 (06:28→21:38)
--- NOTE | 2019-11-28 08:01 | PM.PN ---
Subjective Subjective: Interval history: VSS, though continued tachypnea, remains on 5 L NC, AM labs noted with drop in WBC, Hg, INR down to 3.48. Had 2675 mL urine output overnight. Due to degree of dyspnea will place Jay catheter. Per nursing staff, was very restless overnight. Is still quite restless, seems disoriented. Medications: Reviewed: Yes Medication Review Details: Active Medications Generic Name Dose Route Start Last Admin Trade Name Freq PRN Reason Stop Dose Admin Acetaminophen 650 mg 11/27/19 19:05 Tylenol PO Q6H PRN MILD PAIN Hydrocodone Bitart /Acetaminophen 1 tab 11/27/19 19:05 [place] 10-325 Mg PO QID PRN Pain Albuterol/Ipratrop ium 3 ml 11/27/19 19:05 11/27/19 20:59 Duoneb INHALATION 3 ml Q6H.RESPIRATORY P RN Administration SHORTNESS OF HUEY TH Amlodipine Besylat e 5 mg 11/28/19 09:00 Norvasc PO DAILY JENNY Atorvastatin Calci um 80 mg 11/27/19 21:00 11/27/19 21:01 Lipitor PO 80 mg BEDTIME JENNY Administration Buspirone HCl 5 mg 11/27/19 19:05 11/27/19 20:59 Buspar PO 5 mg BID JENNY Administration Digoxin 125 mcg 11/28/19 09:00 Lanoxin PO DAILY JENNY Famotidine 20 mg 11/27/19 19:05 11/27/19 21:01 Pepcid Tab PO 20 mg BID JENNY Administration Ferrous Sulfate 325 mg 11/27/19 19:05 11/27/19 21:01 Ferrous Sulfate PO 325 mg BIDWM JENNY Administration Fluticasone Propio merry 1 spray 11/28/19 09:00 Flonase INTRANASAL DAILY JENNY Furosemide 40 mg 11/27/19 19:05 11/28/19 06:28 Lasix IVP 40 mg Q12H JENNY Administration Levofloxacin/Dextr ose 750 mg in 150 mls @ 100 mls/hr 11/27/19 19:05 11/27/19 21:02 Levaquin-D5w IV 100 mls/hr Q24H JENNY Administration Protocol Lisinopril 40 mg 11/28/19 09:00 Prinivil PO DAILY JENNY Lorazepam 1 mg 11/27/19 19:05 11/28/19 02:30 Ativan IVP 1 mg Q6H PRN Administration ANXIETY Ondansetron HCl 4 mg 11/27/19 19:05 Zofran IVP Q6H PRN NAUSEA AND VOMITI NG Senna/Docusate Sod ium 1 tab 11/27/19 19:05 11/27/19 21:01 Senna-S PO 1 tab BID JENNY Administration Sotalol HCl 80 mg 11/27/19 19:05 11/27/19 20:59 Betapace PO 80 mg BID JENNY Administration Vitamin D 1,000 unit 11/28/19 09:00 Vitamin D3 PO DAILY JENNY adhesive tape Allergy (Intermediate, Verified 08/31/19 13:03) ALGY-Blister ampicillin Allergy (Mild, Verified 08/31/19 13:03) ALGY-Fever Vitals/I&O/Wt Last Vital Signs Temp 97.7 F 11/27/19 22:12 Pulse 86 11/28/19 06:05 Resp 36 H 11/28/19 06:05 BP 132/50 11/28/19 06:05 Pulse Ox 95 11/28/19 06:05 11/27/19 11/28/19 11/28/19 22:59 06:59 14:59 Output Total 1450 / 1450 875 / 2325 350 / 350 Balance -1450 / -1450 -875 / -2325 -350 / -350 Weight last 48 hrs Weight 46.72 kg Physical Exam Const: COMMON NORMALS: no apparent distress GENERAL APPEARANCE: cooperative, lethargic, ill appearing, frail appearing and appears older than stated age NUTRITIONAL APPEARANCE: cachectic ORIENTATION/CONSCIOUSNESS: Yes awake, Yes lethargic and Yes other (disoriented, very restless) HENMT: COMMON NORMALS: normocephalic, head/scalp atraumatic and hearing grossly normal bilaterally HEAD & SCALP: normocephalic, atraumatic and other (thinning hair, patchy alopecia) MOUTH: moist mucous membranes abnormal Details: parched Eye: COMMON NORMALS: PERRL, EOMs intact bilaterally and conjunctivae normal CONJUNCTIVA: Yes conjunctivae normal PUPIL: Yes PERRL Neck/C-Spine: COMMON NORMALS: full ROM GENERAL: Yes normal visual inspection and Yes trachea midline Resp: EFFORT & INSPECTION: No able to speak in complete sentences, Yes symmetric chest movement, Yes tachypneic, Yes retractions supraclavicular and Yes prolonged expiratory phase AUSCULTATION: crackles and diminished lung sounds on the left Cardio: COMMON NORMALS: regular rate, regular rhythm, S1 normal heart sound, S2 normal heart sound and no murmurs RATE: regular rate RHYTHM: regular rhythm HEART SOUNDS: S1 normal and S2 normal GI: COMMON NORMALS: normal to inspection, nondistended, normoactive bowel sounds, soft to palpation and non-tender PALPATION: Yes soft : BLADDER/KIDNEY EXAM: Yes catheter in place Catheter type (Female): urethral Extremity: COMMON NORMALS: normal to inspection, full ROM and no pedal edema GENERAL: No edema Neuro: COMMON NORMALS: moves all extremities, no focal motor deficits and no sensory deficits noted SENSORIUM/ORIENTATION: Yes orientation impaired and Yes lethargic Psych: COMMON NORMALS: mental status grossly normal, thought process normal, cooperative and speech normal SPEECH: Yes normal speech MOOD & AFFECT: Yes flat affect THOUGHT PROCESS: normal thought process Skin: COMMON NORMALS: no rashes or lesions noted, no jaundice, no petechiae and no mottling GENERAL SKIN EXAM: no rashes or lesions noted HAIR: patchy alopecia Data : 11/28/19 04:15 11/28/19 04:15 Micro: Microbiology 11/27/19 19:50 Blood Culture - Preliminary Blood SPECIMEN COLLECTED 11/27/19 19:45 Blood Culture - Preliminary Blood SPECIMEN COLLECTED A&P Assessment and plan (1) Pleural effusion: -has had ongoing issues with recurrent L pleural effusions requiring multiple thoracentesis, most recently done during her last hospitalization, appears to be malignant secondary to small cell cancer for which she has been receiving chemotherapy. -may need [place] drain placement as likely to be recurrent; this was discussed during her last admission though not done due to concern for risk of infection. Discussed with Dr. Delgadillo who would like to wait to give chemotherapy a chance to work as if cancer responsive to treatment, then unlikely to continue to have recurrent pleural effusion. Case also discussed with Dr. Lyle. -CXR reported as increased L pleural effusion with left mid and left lower lobe consolidation; interstitial thickening throughout the R lung. -on empiric antibiotic treatment with Levaquin due to noted leukocytosis, underlying immunocompromise, need for pleural drainage -Close monitoring of respiratory status, supplemental oxygen versus BiPAP as needed -Close monitoring of vital signs -Telemetry monitoring -if INR < 2, can get therapeutic and diagnostic thoracentesis done tomorrow Status: Acute (2) Congestive heart failure: -has acutely decompensated chronic diastolic CHF as evidenced by dyspnea, orthopnea, LE edema, elevated BNP (6611) and evidence of fluid overload on imaging -received 60 mg dose of IV Lasix in ED, continue IV diuresis -daily weights, monitor Is & Os -Echo (08/2019): EF=60%, G2DD, mild pulmonary HTN, mild , at least moderate AR, mild TR -fluid restriction -cardiac diet as tolerated Status: Acute Qualifiers: Heart failure chronicity: acute on chronic Heart failure type: diastolic Qualified Code(s): I50.33 - Acute on chronic diastolic (congestive) heart failure (3) Dyspnea: -quite dyspneic clinically -likely secondary to pleural effusion and acute CHF exacerbation -has been on AC with coumadin, INR-6.03->3.48, unlikely to have PE and if she does would likely not climate change 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 Delgadillo -no evidence of metastatic disease on MRI head, noted mediastinal invasion, malignant mediastinal, left internal mammary lymphadenopathy, other satellite subpleural nodules, FDG positive, multifocal osseous metastatic disease on PET scan -noted anemia and leukopenia, not thrombocytopenic Status: Chronic (5) Hyponatremia: -Noted to be hyponatremic during last admission, likely secondary to underlying lung cancer -Continue to monitor; 135 today -New baseline appears to be 129-132 Status: Chronic (6) H/O mitral valve replacement with mechanical valve: -Has prior history of mitral valve replacement with mechanical valve -Is on anticoagulation with Coumadin, currently is supratherapeutic with INR of 3.48 -We will hold anticoagulation and continue to monitor INR in anticipation of drain placement -We will likely need to be bridged with heparin when anticoagulation is resumed Status: Chronic (7) COPD (chronic obstructive pulmonary disease): -Has known history of COPD, currently oxygen dependent to the 4 L baseline requirement -Former smoker, quit earlier this year after smoking for over 40 years -Is currently quite dyspneic but this is likely due to fluid overload and pleural effusion rather than acute COPD exacerbation -Received dose of IV steroids in ER, would hold off on continuing this for now -Neb treatments as needed -Close monitoring of respiratory status Status: Chronic Qualifiers: COPD type: COPD with acute exacerbation Qualified Code(s): J44.1 - Chronic obstructive pulmonary disease with (acute) exacerbation (8) Hypertension: -Has known history of hypertension -on oral antihypertensives -Close monitoring of vital signs Status: Chronic Qualifiers: Hypertension type: essential hypertension Qualified Code(s): I10 - Essential (primary) hypertension (9) Anemia: -has chronic normocytic anemia, baseline Hg appears to be 8-9 -current Hg-8.7 -close monitoring of H/H -had recent EGD done (10/25) showing gastritis, duodenitis, gastric and duodenal erosions -Anticoagulation on hold Status: Acute Qualifiers: Anemia type: unspecified type Qualified Code(s): D64.9 - Anemia, unspecified Additional A&P Information -Former smoker -Cachectic with underlying lung cancer, with at least moderate protein calorie malnutrition: BMI-20 kg/m2 -History of chronic atrial fibrillation; on digoxin and sotalol -Mild pulmonary hypertension per echo -Dementia -warfarin coagulopathy -cardiac diet as tolerated -GI ppx with famotidine -DVT ppx with SCDs, no AC due to supratherapeutic INR -Dispo: may need placement if prolonged hospitalization, deconditioning, drain placement -Code status: FULL code -ICU care due to low threshold for decompensation Attestations Medical Necessity Statement*: Patient requires hospitalization for continued IV diuresis, empiric IV antibiotics, pending management of L pleural effusion once coagulopathy is corrected. Time Spent in Patient Care: 16 - 35 minutes (>than 50% of time spent in counselling and/or direct pt care on unit). Coding Level of Care Code Acute Senior Program Manager for [facility] Fwd Exam Comprehensive Diagnoses Pleural effusion J90 Congestive heart failure I50.33 Heart failure chronicity: acute on chronic Heart failure type: diastolic Dyspnea R06.00 Dyspnea type: unspecified Small cell lung cancer C34.90 Hyponatremia E87.1 H/O mitral valve replacement with mechanical valve Z95.2 COPD (chronic obstructive pulmonary disease) J44.1 COPD type: COPD with acute exacerbation Hypertension I10 Hypertension type: essential hypertension Anemia D64.9 Anemia type: unspecified type
[2019-11-28] MEDS: digoxin 125 mcg Tablet PO (09:28)
[2019-11-28] MEDS: duloxetine 20 mg Capsule PO ×2 (09:28→17:08)
[2019-11-28] MEDS: cholecalciferol (vitamin D3) 1,000 unit Tablet 1000 UNIT PO (09:29)
[2019-11-28] MEDS: BuSPIRONE 5 mg Tablet PO ×2 (09:29→17:08)
[2019-11-28] MEDS: sotalol 80 mg Tablet PO ×2 (09:29→17:08)
[2019-11-28] MEDS: sennosides-docusate Tablet 1 TAB PO ×2 (09:29→17:08)
[2019-11-28] MEDS: ferrous sulfate EC 325 mg Tablet PO ×2 (09:29→17:08)
[2019-11-28] MEDS: famotidine 20 mg Tablet PO ×2 (09:29→17:08)
[2019-11-28] MEDS: fluticasone nasal spray 16gm Btl 1 SPRAY INTRANASAL (09:30)
[2019-11-28] MEDS: HYDROcodone-acetaminophen 10-325 mg Tablet 1 TAB PO (11:43)
[2019-11-28 19:54] LABS: INR 2.73 (0.8-1.2)
[2019-11-28] MEDS: sodium chloride 0.9% 100 ML (20:31)
[2019-11-28] MEDS: atorvastatin 40 mg Tablet 80 MG PO (21:29)
[2019-11-28] MEDS: levofloxacin-dextrose 5 % 750 MG/150 ML PREMIX 100 MG IV (21:29)
[2019-11-29] VITALS (25 sets, daily range): BP systolic 88–135; BP diastolic 34–87; PULSE 71–131; RESP 16–29; TEMP 36.4–36.9; O2SAT 90–99
--- NOTE | 2019-11-29 00:03 | PC.NURSE ---
Patient got really upset. Was tearful and wanting to go upstairs where her was . Sanchez different nurses tried explaining to the patient that the doctor wanted her to stay in ICU one more night then maybe could go upstairs tomorrow. Patient was asking to speak to her so we got him on the phone. Patient was getting more upset and starting to cuss at staff. She wanted to walk out the front door. Patient was given ativan and it helped patient to calm down and get some rest.
[2019-11-29 05:13] LABS: Hematocrit 27.5 % (37.0-47.0); Hemoglobin 8.9 g/dL (11.5-15.3); Lymphocytes # 0.4 10^3/uL (0.8-4.8); Lymphocytes % 4.8 %; Mean Corpuscular HGB Conc 32.4 g/dL (30.0-36.0); Mean Corpuscular Hemoglobin 30.2 pg (28.0-34.0); Mean Corpuscular Volume 93.2 fL (81-99); Mean Platelet Volume 10.3 fL (7.4-10.4); Monocytes % 0.4 %; Neutrophils # 7.2 10^3/uL (1.8-7.7); Nucleated Red Blood Cells % 0 %; Platelet Count 418 10^3/cmm (130-400); Red Blood Count 2.95 10^6/uL (4.1-5.3); Red Cell Distribution Width 17.8 % (12.1-15.1); White Blood Count 7.7 10^3/uL (4.0-10.0)
[2019-11-29 05:28] LABS: INR 1.85 (0.8-1.2)
[2019-11-29 05:37] LABS: Blood Urea Nitrogen 24 mg/dL (8-23); Calcium 9.6 mg/dL (8.5-10.5); Chloride 87 mmol/L (98-107); Glucose 123 mg/dL (65-115); Osmolality Calculated 280 mOsm/kg (285-295); Sodium 136 mmol/L (136-145)
[2019-11-29 05:42] LABS: Carbon Dioxide 41 mmol/L (22-29)
[2019-11-29 05:49] LABS: Slide Review Slide Review Perform
--- NOTE | 2019-11-29 08:24 | PC.NURSE ---
pt resting in bed at this time, lethargic but responds when stimulated. she has refused breakfast. states she wants to rest vs stable at this time.
--- NOTE | 2019-11-29 08:43 | PM.PN ---
Subjective Subjective: Interval history: Requested removal of Jay catheter yesterday due to discomfort, had 100 mL urine output overnight, much better output during the day. BP stable, starting to become tachycardic. Noted overnight nursing documentation stating patient was agitated and increasingly confused, seemed to settle down after dose of Ativan. She is quite hoarse when speaking. AM labs noted, INR down to 1.85. Will likely need to wait until tomorrow for thoracentesis. Overall, she seems to not be doing as well today, appears more frail and fatigued. Medications: Reviewed: Yes Medication Review Details: Active Medications Generic Name Dose Route Start Last Admin Trade Name Freq PRN Reason Stop Dose Admin Acetaminophen 650 mg 11/27/19 19:05 Tylenol PO Q6H PRN MILD PAIN Hydrocodone Bitart /Acetaminophen 1 tab 11/27/19 19:05 11/28/19 11:43 [place] 10-325 Mg PO 1 tab QID PRN Administration Pain Albuterol/Ipratrop ium 3 ml 11/27/19 19:05 11/27/19 20:59 Duoneb INHALATION 3 ml Q6H.RESPIRATORY P RN Administration SHORTNESS OF HUEY TH Amlodipine Besylat e 5 mg 11/28/19 09:00 11/28/19 09:29 Norvasc PO Not Given DAILY JENNY Atorvastatin Calci um 80 mg 11/27/19 21:00 11/28/19 21:29 Lipitor PO 80 mg BEDTIME JENNY Administration Buspirone HCl 5 mg 11/27/19 19:05 11/28/19 17:08 Buspar PO 5 mg BID JENNY Administration Digoxin 125 mcg 11/28/19 09:00 11/28/19 09:28 Lanoxin PO 125 mcg DAILY JENNY Administration Famotidine 20 mg 11/27/19 19:05 11/28/19 17:08 Pepcid Tab PO 20 mg BID JENNY Administration Ferrous Sulfate 325 mg 11/27/19 19:05 11/28/19 17:08 Ferrous Sulfate PO 325 mg BIDWM JENNY Administration Fluticasone Propio merry 1 spray 11/28/19 09:00 11/28/19 09:30 Flonase INTRANASAL 1 dose DAILY JENNY Administration Furosemide 40 mg 11/27/19 19:05 11/28/19 21:38 Lasix IVP 40 mg Q12H JENNY Administration Levofloxacin/Dextr ose 750 mg in 150 mls @ 100 mls/hr 11/27/19 19:05 11/28/19 21:29 Levaquin-D5w IV 100 mls/hr Q24H JENNY Administration Protocol Lisinopril 40 mg 11/28/19 09:00 11/28/19 09:30 Prinivil PO Not Given DAILY JENNY Lorazepam 1 mg 11/27/19 19:05 11/28/19 23:35 Ativan IVP 1 mg Q6H PRN Administration ANXIETY Metoprolol Tartrat e 5 mg 11/29/19 08:44 Metoprolol Tartr ate IV Q4H PRN HEART RATE-HIGH Ondansetron HCl 4 mg 11/27/19 19:05 Zofran IVP Q6H PRN NAUSEA AND VOMITI NG Senna/Docusate Sod ium 1 tab 11/27/19 19:05 11/28/19 17:08 Senna-S PO 1 tab BID JENNY Administration Sotalol HCl 80 mg 11/27/19 19:05 11/28/19 17:08 Betapace PO 80 mg BID JENNY Administration Vitamin D 1,000 unit 11/28/19 09:00 11/28/19 09:29 Vitamin D3 PO 1,000 unit DAILY JENNY Administration adhesive tape Allergy (Intermediate, Verified 08/31/19 13:03) ALGY-Blister ampicillin Allergy (Mild, Verified 08/31/19 13:03) ALGY-Fever Vitals/I&O/Wt Last Vital Signs Temp 98.4 F 11/29/19 07:23 Pulse 126 H 11/29/19 07:23 Resp 22 H 11/29/19 07:23 BP 122/69 11/29/19 07:23 Pulse Ox 98 11/29/19 07:23 11/28/19 11/29/19 11/29/19 22:59 06:59 14:59 Intake Total 582 / 582 Output Total 850 / 1400 100 / 1500 Balance -268 / -818 -100 / -918 Weight last 48 hrs Weight 51.256 kg Weight 46.72 kg Physical Exam Const: COMMON NORMALS: no apparent distress GENERAL APPEARANCE: cooperative, lethargic, ill appearing, frail appearing and appears older than stated age NUTRITIONAL APPEARANCE: cachectic ORIENTATION/CONSCIOUSNESS: Yes awake, Yes lethargic and Yes other (disoriented, very restless) HENMT: COMMON NORMALS: normocephalic, head/scalp atraumatic and hearing grossly normal bilaterally HEAD & SCALP: normocephalic, atraumatic and other (thinning hair, patchy alopecia) MOUTH: moist mucous membranes abnormal Details: parched Eye: COMMON NORMALS: PERRL, EOMs intact bilaterally and conjunctivae normal CONJUNCTIVA: Yes conjunctivae normal PUPIL: Yes PERRL Neck/C-Spine: COMMON NORMALS: full ROM GENERAL: Yes normal visual inspection and Yes trachea midline Resp: EFFORT & INSPECTION: No able to speak in complete sentences, Yes symmetric chest movement, Yes tachypneic, Yes retractions supraclavicular and Yes prolonged expiratory phase AUSCULTATION: crackles and diminished lung sounds on the left OTHER: -very hoarse voice Cardio: COMMON NORMALS: regular rate, regular rhythm, S1 normal heart sound, S2 normal heart sound and no murmurs RATE: regular rate RHYTHM: regular rhythm HEART SOUNDS: S1 normal and S2 normal GI: COMMON NORMALS: normal to inspection, nondistended, normoactive bowel sounds, soft to palpation and non-tender PALPATION: Yes soft Extremity: COMMON NORMALS: normal to inspection, full ROM and no pedal edema GENERAL: No edema Neuro: COMMON NORMALS: moves all extremities, no focal motor deficits and no sensory deficits noted SENSORIUM/ORIENTATION: Yes orientation impaired and Yes lethargic Psych: COMMON NORMALS: mental status grossly normal, thought process normal, cooperative and speech normal SPEECH: Yes normal speech MOOD & AFFECT: Yes flat affect THOUGHT PROCESS: normal thought process Skin: COMMON NORMALS: no rashes or lesions noted, no jaundice, no petechiae and no mottling GENERAL SKIN EXAM: no rashes or lesions noted HAIR: patchy alopecia Urinary Catheter Management^: Jay: Cath Placed During This Visit: yes Urinary Catheter Date of Insertion: 11/28/19 Urinary Catheter Time of Insertion: 11:29 Data : 11/29/19 04:40 11/29/19 04:40 Micro: Microbiology 11/27/19 19:50 Blood Culture - Preliminary Blood NEGATIVE TO DATE 11/27/19 19:45 Blood Culture - Preliminary Blood NEGATIVE TO DATE 11/28/19 08:47 Occult Blood (FIT) - Final Stool A&P Assessment and plan (1) Pleural effusion: -has had ongoing issues with recurrent L pleural effusions requiring multiple thoracentesis, most recently done during her last hospitalization, appears to be malignant secondary to small cell cancer for which she has been receiving chemotherapy. -may need [place] drain placement as likely to be recurrent; this was discussed during her last admission though not done due to concern for risk of infection. Discussed with Dr. Delgadillo who would like to wait to give chemotherapy a chance to work as if cancer responsive to treatment, then unlikely to continue to have recurrent pleural effusion. Case also discussed with Dr. Lyle. -CXR reported as increased L pleural effusion with left mid and left lower lobe consolidation; interstitial thickening throughout the R lung. -on empiric antibiotic treatment with Levaquin due to noted leukocytosis, underlying immunocompromise, need for pleural drainage -Close monitoring of respiratory status, supplemental oxygen versus BiPAP as needed -Close monitoring of vital signs -Telemetry monitoring -if INR < 2, can get therapeutic and diagnostic thoracentesis done tomorrow likely by Dr. Lyle. Got 1 unit of FFPs. Would avoid dropping INR too much as will need bridging once AC is resumed. Status: Acute (2) Congestive heart failure: -has acutely decompensated chronic diastolic CHF as evidenced by dyspnea, orthopnea, LE edema, elevated BNP (6611) and evidence of fluid overload on imaging -continue IV diuresis -daily weights, monitor Is & Os -Echo (08/2019): EF=60%, G2DD, mild pulmonary HTN, mild , at least moderate AR, mild TR -fluid restriction -cardiac diet as tolerated Status: Acute Qualifiers: Heart failure chronicity: acute on chronic Heart failure type: diastolic Qualified Code(s): I50.33 - Acute on chronic diastolic (congestive) heart failure (3) Dyspnea: -quite dyspneic clinically -likely secondary to pleural effusion and acute CHF exacerbation -has been on AC with coumadin, INR-6.03->3.48->1.85, unlikely to have PE and if she does would likely not change advisor -ABG indicates hypercapnia and hypoxia (7.33/64.7/70.5) -as noted above -does not meet criteria for COVID-19 testing Status: Acute Qualifiers: Dyspnea type: unspecified Qualified Code(s): R06.00 - Dyspnea, unspecified (4) Small cell lung cancer: -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 Delgadillo -no evidence of metastatic disease on MRI head, noted mediastinal invasion, malignant mediastinal, left internal mammary lymphadenopathy, other satellite subpleural nodules, FDG positive, multifocal osseous metastatic disease on PET scan -noted anemia and leukopenia, not thrombocytopenic Status: Chronic (5) Hyponatremia: -Noted to be hyponatremic during last admission, likely secondary to underlying lung cancer -Continue to monitor; 136 today -New baseline appears to be 129-132 Status: Chronic (6) H/O mitral valve replacement with mechanical valve: -Has prior history of mitral valve replacement with mechanical valve -Is on anticoagulation with Coumadin, currently is supratherapeutic with INR of 1.85 -We will hold anticoagulation and continue to monitor INR in anticipation of drain placement -We will likely need to be bridged with heparin when anticoagulation is resumed Status: Chronic (7) COPD (chronic obstructive pulmonary disease): -Has known history of COPD, currently oxygen dependent to the 4 L baseline requirement -Former smoker, quit earlier this year after smoking for over 40 years -Is currently quite dyspneic but this is likely due to fluid overload and pleural effusion rather than acute COPD exacerbation -Received dose of IV steroids in ER, would hold off on continuing this for now -Neb treatments as needed -Close monitoring of respiratory status Status: Chronic Qualifiers: COPD type: COPD with acute exacerbation Qualified Code(s): J44.1 - Chronic obstructive pulmonary disease with (acute) exacerbation (8) Hypertension: -Has known history of hypertension -on oral antihypertensives -Close monitoring of vital signs Status: Chronic Qualifiers: Hypertension type: essential hypertension Qualified Code(s): I10 - Essential (primary) hypertension (9) Anemia: -has chronic normocytic anemia, baseline Hg appears to be 8-9 -current Hg-8.7 -close monitoring of H/H -had recent EGD done (10/25) showing gastritis, duodenitis, gastric and duodenal erosions -Anticoagulation on hold Status: Acute Qualifiers: Anemia type: unspecified type Qualified Code(s): D64.9 - Anemia, unspecified Additional A&P Information -Former smoker -Cachectic with underlying lung cancer, with at least moderate protein calorie malnutrition: BMI-20 kg/m2 -History of chronic atrial fibrillation; on digoxin and sotalol -Mild pulmonary hypertension per echo -Dementia -warfarin coagulopathy -cardiac diet as tolerated -GI ppx with famotidine -DVT ppx with SCDs, no AC due to supratherapeutic INR -Dispo: may need placement if prolonged hospitalization, deconditioning, drain placement -Code status: FULL code -ICU care due to low threshold for decompensation Attestations Medical Necessity Statement*: Patient requires hospitalization for continued IV diuresis and IV antibiotics, pending thoracentesis for L pleural effusion. Time Spent in Patient Care: 16 - 35 minutes (>than 50% of time spent in counselling and/or direct pt care on unit). 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
[2019-11-29] MEDS: duloxetine 20 mg Capsule PO ×2 (08:46→17:20)
[2019-11-29] MEDS: BuSPIRONE 5 mg Tablet PO ×2 (08:46→17:20)
[2019-11-29] MEDS: cholecalciferol (vitamin D3) 1,000 unit Tablet 1000 UNIT PO (08:46)
[2019-11-29] MEDS: sennosides-docusate Tablet 1 TAB PO ×2 (08:46→17:20)
[2019-11-29] MEDS: ferrous sulfate EC 325 mg Tablet PO ×2 (08:47→17:20)
[2019-11-29] MEDS: digoxin 125 mcg Tablet PO (08:47)
[2019-11-29] MEDS: famotidine 20 mg Tablet PO ×2 (08:47→17:20)
[2019-11-29] MEDS: sotalol 80 mg Tablet PO ×2 (08:48→17:20)
[2019-11-29] MEDS: FUROsemide 10 mg/mL SDV 4mL 40 MG IVP (08:50)
[2019-11-29] MEDS: ondansetron 2 mg/ML SDV 2 mL 4 MG IVP (08:59)
--- NOTE | 2019-11-29 09:09 | PC.NURSE ---
pt heart rate staying anywhere from 110-135 occasionally jumping to 140's. pt given morning dose of digoxin and sotalol. prn metoprolol ordered if needed.
[2019-11-29] MEDS: ipratropium-albuterol 3 mL Neb INHALATION ×2 (10:00→17:35)
[2019-11-29] MEDS: lisinopril 20 mg Tablet 40 MG PO (10:18)
[2019-11-29] MEDS: amlodipine 5 mg Tablet PO (10:18)
[2019-11-29] MEDS: HYDROcodone-acetaminophen 10-325 mg Tablet 1 TAB PO ×2 (10:31→22:11)
--- NOTE | 2019-11-29 13:01 | PC.NURSE ---
pt bp was low this am, bp meds held. blood pressure started to come up, medications given. bp at this time is 88/48. Dr. Chavez notified stated to take bp more often and to notifiy her if it continues to decrease.
[2019-11-29] MEDS: levofloxacin-dextrose 5 % 750 MG/150 ML PREMIX 100 MG IV (20:16)
[2019-11-29] MEDS: atorvastatin 40 mg Tablet 80 MG PO (20:20)
[2019-11-30] VITALS (15 sets, daily range): BP systolic 99–154; BP diastolic 41–85; PULSE 71–83; RESP 16–28; TEMP 36.2–36.7; O2SAT 92–100
[2019-11-30 04:39] LABS: Eosinophils % 0.2 %; Hematocrit 25.4 % (37.0-47.0); Hemoglobin 8.1 g/dL (11.5-15.3); Lymphocytes # 0.6 10^3/uL (0.8-4.8); Lymphocytes % 10.1 %; Mean Corpuscular HGB Conc 31.9 g/dL (30.0-36.0); Mean Corpuscular Hemoglobin 30.2 pg (28.0-34.0); Mean Corpuscular Volume 94.8 fL (81-99); Mean Platelet Volume 10.4 fL (7.4-10.4); Monocytes % 0.6 %; Neutrophils # 5.5 10^3/uL (1.8-7.7); Neutrophils % 88.3 %; Nucleated Red Blood Cells % 0 %; Platelet Count 420 10^3/cmm (130-400); Red Blood Count 2.68 10^6/uL (4.1-5.3); Red Cell Distribution Width 17.9 % (12.1-15.1); White Blood Count 6.3 10^3/uL (4.0-10.0)
[2019-11-30 04:56] LABS: INR 1.67 (0.8-1.2)
[2019-11-30 05:02] LABS: Blood Urea Nitrogen 36 mg/dL (8-23); Calcium 9.2 mg/dL (8.5-10.5); Chloride 87 mmol/L (98-107); Glucose 129 mg/dL (65-115); Osmolality Calculated 281 mOsm/kg (285-295); Sodium 136 mmol/L (136-145)
[2019-11-30 05:12] LABS: Carbon Dioxide 43 mmol/L (22-29)
--- NOTE | 2019-11-30 05:46 | PC.NURSE ---
pt had no output during the night. assessed pt. bladder scanned pt. total volume 585. got pt up to void. output of 200. post bladder scan at 385. will have pt try and void again in 30mins. if no success will notify dr gaytan.
--- NOTE | 2019-11-30 06:35 | PC.NURSE ---
Addendum entered by Lashay Vences 11/30/19 06:58: TO per dr gaytan to straight cath x1 Original Note: attempted to get pt back up to use bsc 30mins after trying the first time. pt is unable to urinate at this time. pt had 358ml post void bladder scan prior to this attempt of using the bsc. i notified dr gaytan. waiting for orders.
[2019-11-30] MEDS: sotalol 80 mg Tablet PO ×2 (08:29→18:07)
[2019-11-30] MEDS: duloxetine 20 mg Capsule PO ×2 (08:29→19:46)
[2019-11-30] MEDS: famotidine 20 mg Tablet PO ×2 (08:29→19:44)
[2019-11-30] MEDS: digoxin 125 mcg Tablet PO (08:32)
[2019-11-30] MEDS: sennosides-docusate Tablet 1 TAB PO ×2 (08:32→19:44)
[2019-11-30] MEDS: lisinopril 20 mg Tablet 40 MG PO (08:32)
[2019-11-30] MEDS: BuSPIRONE 5 mg Tablet PO ×2 (08:33→19:46)
[2019-11-30] MEDS: ferrous sulfate EC 325 mg Tablet PO ×2 (08:33→19:45)
[2019-11-30] MEDS: FUROsemide 10 mg/mL SDV 4mL 40 MG IVP (08:33)
[2019-11-30] MEDS: amlodipine 5 mg Tablet PO (08:33)
[2019-11-30] MEDS: cholecalciferol (vitamin D3) 1,000 unit Tablet 1000 UNIT PO (08:34)
[2019-11-30] MEDS: fluticasone nasal spray 16gm Btl 1 SPRAY INTRANASAL (08:56)
--- NOTE | 2019-11-30 08:57 | P.PN_ITS ---
Subjective Subjective: Interval history: Had low to low normal BP overnight so held lasix. Had 200 mL urine output overnight. Plan for pleural fluid drainage today, INR-1.67. Down to 2 L NC. Continued drop in Hg (8.1), FOBT +. Patient seen and examined several times throughout the day, has remained very restless and anxious, intermittently tearful and requesting to see her family. Present for Pleurx drain placement by Dr. Lyle at bedside with aspiration of approximately 1100 mL of bloody fluid. Chest x-ray ordered. Will work on arranging home health to continue Crockett drain management. We will go ahead and start on therapeutic Lovenox and resume Coumadin. Medications: Reviewed: Yes Medication Review Details: Active Medications Generic Name Dose Route Start Last Admin Trade Name Freq PRN Reason Stop Dose Admin Acetaminophen 650 mg 11/27/19 19:05 Tylenol PO Q6H PRN MILD PAIN Hydrocodone Bitart /Acetaminophen 1 tab 11/27/19 19:05 11/29/19 22:11 [place] 10-325 Mg PO 1 tab QID PRN Administration Pain Albuterol/Ipratrop ium 3 ml 11/27/19 19:05 11/29/19 17:35 Duoneb INHALATION 3 ml Q6H.RESPIRATORY P RN Administration SHORTNESS OF HUEY TH Amlodipine Besylat e 5 mg 11/28/19 09:00 11/30/19 08:33 Norvasc PO 5 mg DAILY JENNY Administration Atorvastatin Calci um 80 mg 11/27/19 21:00 11/29/19 20:20 Lipitor PO 80 mg BEDTIME JENNY Administration Buspirone HCl 5 mg 11/27/19 19:05 11/30/19 08:33 Buspar PO 5 mg BID JENNY Administration Digoxin 125 mcg 11/28/19 09:00 11/30/19 08:32 Lanoxin PO 125 mcg DAILY JENNY Administration Famotidine 20 mg 11/27/19 19:05 11/30/19 08:29 Pepcid Tab PO 20 mg BID JENNY Administration Ferrous Sulfate 325 mg 11/27/19 19:05 11/30/19 08:33 Ferrous Sulfate PO 325 mg BIDWM JENNY Administration Fluticasone Propio merry 1 spray 11/28/19 09:00 11/30/19 08:56 Flonase INTRANASAL 1 dose DAILY JENNY Administration Furosemide 40 mg 11/27/19 19:05 11/30/19 08:33 Lasix IVP 40 mg Q12H JENNY Administration Levofloxacin/Dextr ose 750 mg in 150 mls @ 100 mls/hr 11/27/19 19:05 11/29/19 20:16 Levaquin-D5w IV 100 mls/hr Q24H JENNY Administration Protocol Lisinopril 40 mg 11/28/19 09:00 11/30/19 08:32 Prinivil PO 40 mg DAILY JENNY Administration Lorazepam 1 mg 11/27/19 19:05 11/28/19 23:35 Ativan IVP 1 mg Q6H PRN Administration ANXIETY Metoprolol Tartrat e 5 mg 11/29/19 08:44 Metoprolol Tartr ate IV Q4H PRN HEART RATE-HIGH Ondansetron HCl 4 mg 11/27/19 19:05 11/29/19 08:59 Zofran IVP 4 mg Q6H PRN Administration NAUSEA AND VOMITI NG Senna/Docusate Sod ium 1 tab 11/27/19 19:05 11/30/19 08:32 Senna-S PO 1 tab BID JENNY Administration Sotalol HCl 80 mg 11/27/19 19:05 11/30/19 08:29 Betapace PO 80 mg BID JENNY Administration Vitamin D 1,000 unit 11/28/19 09:00 11/30/19 08:34 Vitamin D3 PO 1,000 unit DAILY JENNY Administration adhesive tape Allergy (Intermediate, Verified 08/31/19 13:03) ALGY-Blister ampicillin Allergy (Mild, Verified 08/31/19 13:03) ALGY-Fever Vitals/I&O/Wt Last Vital Signs Temp 98.1 F 11/30/19 08:00 Pulse 75 11/30/19 08:32 Resp 16 11/30/19 08:00 BP 114/41 11/30/19 08:00 Pulse Ox 98 11/30/19 08:00 11/29/19 11/30/19 11/30/19 22:59 06:59 14:59 Intake Total 340 / 400 100 / 500 Output Total 200 / 770 Balance 340 / -170 -100 / -270 Weight last 48 hrs Weight 47.219 kg Weight 51.256 kg Weight 51.256 kg Physical Exam Const: COMMON NORMALS: no apparent distress GENERAL APPEARANCE: cooperative, lethargic, ill appearing, frail appearing and appears older than stated age; not comfortable NUTRITIONAL APPEARANCE: cachectic ORIENTATION/CONSCIOUSNESS: Yes awake, Yes lethargic and Yes other (disoriented, very restless) HENMT: COMMON NORMALS: normocephalic, head/scalp atraumatic and hearing grossly normal bilaterally HEAD & SCALP: normocephalic, atraumatic and other (thinning hair, patchy alopecia) MOUTH: moist mucous membranes abnormal Details: parched Eye: COMMON NORMALS: PERRL, EOMs intact bilaterally and conjunctivae normal CONJUNCTIVA: Yes conjunctivae normal PUPIL: Yes PERRL Neck/C-Spine: COMMON NORMALS: full ROM GENERAL: Yes normal visual inspection and Yes trachea midline Chest: OTHER: -pleurex drain in place on L Resp: EFFORT & INSPECTION: No able to speak in complete sentences, Yes symmetric chest movement, Yes tachypneic, Yes retractions supraclavicular and Yes prolonged expiratory phase AUSCULTATION: crackles and diminished lung sounds on the left OTHER: -very hoarse voice Cardio: COMMON NORMALS: regular rate, regular rhythm, S1 normal heart sound, S2 normal heart sound and no murmurs RATE: regular rate RHYTHM: regular rhythm HEART SOUNDS: S1 normal, S2 normal and click GI: COMMON NORMALS: normal to inspection, nondistended, normoactive bowel sounds, soft to palpation and non-tender PALPATION: Yes soft Extremity: COMMON NORMALS: normal to inspection, full ROM and no pedal edema GENERAL: No edema OTHER: -PICC line on RUE Neuro: COMMON NORMALS: moves all extremities, no focal motor deficits and no sensory deficits noted SENSORIUM/ORIENTATION: Yes orientation impaired and Yes lethargic Psych: COMMON NORMALS: mental status grossly normal, thought process normal, cooperative and speech normal SPEECH: Yes normal speech MOOD & AFFECT: Yes flat affect THOUGHT PROCESS: normal thought process Skin: COMMON NORMALS: no rashes or lesions noted, no jaundice, no petechiae and no mottling GENERAL SKIN EXAM: no rashes or lesions noted HAIR: patchy alopecia Urinary Catheter Management^: Jay: Cath Placed During This Visit: yes Urinary Catheter Date of Insertion: 11/28/19 Urinary Catheter Time of Insertion: 11:29 Data : 11/30/19 04:15 11/30/19 04:15 A&P Assessment and plan (1) Pleural effusion: -has had ongoing issues with recurrent L pleural effusions requiring multiple thoracentesis, most recently done during her last hospitalization, appears to be malignant secondary to small cell cancer for which she has been receiving chemotherapy. -may need Gerry drain placement as likely to be recurrent; this was discussed during her last admission though not done due to concern for risk of infection. Discussed with Dr. Delgadillo who would like to wait to give chemotherapy a chance to work as if cancer responsive to treatment, then unlikely to continue to have recurrent pleural effusion. Case also discussed with Dr. Lyle. -CXR reported as increased L pleural effusion with left mid and left lower lobe consolidation; interstitial thickening throughout the R lung. -on empiric antibiotic treatment with Levaquin due to noted leukocytosis, underlying immunocompromise, need for pleural drainage -Close monitoring of respiratory status, supplemental oxygen versus BiPAP as needed -Close monitoring of vital signs -Telemetry monitoring -Crockett drain placement done today by Dr. Lyle. Got 1 unit of FFPs. Would avoid dropping INR too much as will need bridging once AC is resumed. Status: Acute (2) Congestive heart failure: -has acutely decompensated chronic diastolic CHF as evidenced by dyspnea, orthopnea, LE edema, elevated BNP (6611) and evidence of fluid overload on imaging -hold further IV diuresis due to low BP; so far has diuresed 3.2 L -daily weights, monitor Is & Os -Echo (08/2019): EF=60%, G2DD, mild pulmonary HTN, mild , at least moderate AR, mild TR -fluid restriction -cardiac diet as tolerated Status: Acute Qualifiers: Heart failure chronicity: acute on chronic Heart failure type: diastolic Qualified Code(s): I50.33 - Acute on chronic diastolic (congestive) heart failure (3) Dyspnea: -quite dyspneic clinically -likely secondary to pleural effusion and acute CHF exacerbation -has been on AC with coumadin, INR-6.03--->1.67, unlikely to have PE and 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 Delgadillo -no evidence of metastatic disease on MRI head, noted mediastinal invasion, malignant mediastinal, left internal mammary lymphadenopathy, other satellite subpleural nodules, FDG positive, multifocal osseous metastatic disease on PET scan -noted anemia and leukopenia, not thrombocytopenic Status: Chronic (5) Hyponatremia: -Noted to be hyponatremic during last admission, likely secondary to underlying lung cancer -Continue to monitor; 136 today -New baseline appears to be 129-132 Status: Chronic (6) H/O mitral valve replacement with mechanical valve: -Has prior history of mitral valve replacement with mechanical valve -Is on anticoagulation with Coumadin, INR-1.67 -will hold anticoagulation and continue to monitor INR in anticipation of drain placement -will start bridging with lovenox and resume coumadin; daily INR Status: Chronic (7) COPD (chronic obstructive pulmonary disease): -Has known history of COPD, currently oxygen dependent to the 4 L baseline requirement -Former smoker, quit earlier this year after smoking for over 40 years -Is currently quite dyspneic but this is likely due to fluid overload and pleural effusion rather than acute COPD exacerbation -Received dose of IV steroids in ER, would hold off on continuing this for now -Neb treatments as needed -Close monitoring of respiratory status Status: Chronic Qualifiers: COPD type: COPD with acute exacerbation Qualified Code(s): J44.1 - Chronic obstructive pulmonary disease with (acute) exacerbation (8) Hypertension: -Has known history of hypertension -on oral antihypertensives -Close monitoring of vital signs Status: Chronic Qualifiers: Hypertension type: essential hypertension Qualified Code(s): I10 - Essential (primary) hypertension (9) Anemia: -has chronic normocytic anemia, baseline Hg appears to be 8-9 -current Hg-8.1 -close monitoring of H/H -had recent EGD done (10/25) showing gastritis, duodenitis, gastric and duodenal erosions -Anticoagulation on hold Status: Acute Qualifiers: Anemia type: unspecified type Qualified Code(s): D64.9 - Anemia, unspecified Additional A&P Information -Former smoker -Cachectic with underlying lung cancer, with at least moderate protein calorie malnutrition: BMI-20 kg/m2 -History of chronic atrial fibrillation; on digoxin and sotalol -Mild pulmonary hypertension per echo -Dementia, anxiety: ativan PRN -warfarin coagulopathy -cardiac diet as tolerated -GI ppx with famotidine -DVT ppx with SCDs, no AC due to supratherapeutic INR -Dispo: home with HH; particularly with need for continued AC and drain placement -Code status: FULL code -ICU care due to low threshold for decompensation -daughter Maty Gilbert ([phone]); called and left message per patient request just to have she was cautious of dyspnea and Dr. zimmerman in 1 day next never had Attestations Medical Necessity Statement*: Patient requires hospitalization for continued management of L pleural effusion pending drainage. Time Spent in Patient Care: Greater than 35 minutes (>than 50% of time spent in counselling and/or direct pt care on unit) . Coding Level of Care Code Acute Podiatrist Assistant for Danielleg Fwd Exam Comprehensive Diagnoses Pleural effusion J90 Congestive heart failure I50.33 Heart failure chronicity: acute on chronic Heart failure type: diastolic Dyspnea R06.00 Dyspnea type: unspecified Small cell lung cancer C34.90 Hyponatremia E87.1 H/O mitral valve replacement with mechanical valve Z95.2 COPD (chronic obstructive pulmonary disease) J44.1 COPD type: COPD with acute exacerbation Hypertension I10 Hypertension type: essential hypertension Anemia D64.9 Anemia type: unspecified type
[2019-11-30] MEDS: LORazepam 2 mg/mL INJ 1 mL 1 MG IVP ×2 (09:12→18:07)
--- NOTE | 2019-11-30 09:18 | PC.NURSE ---
patient urinated. bladder scan shows 258ml after urination. there is an order for straight cath now. patient refuses straight cath. Dr Chavez notified that patient refused. per Dr Chavez continue to monitor patient and do not straight cath patient at this time.
--- NOTE | 2019-11-30 10:27 | PC.RESP ---
Pulmonary Rehab information to patient.
[2019-11-30] MEDS: lidocaine 1% INJ 20 mL IV (14:00)
[2019-11-30] MEDS: fentaNYL 50 mcg/mL INJ 2mL IVP (14:00)
[2019-11-30] MEDS: midazolam 1 mg/mL INJ 2 mL 2 MG IVP (16:00)
--- NOTE | 2019-11-30 16:58 | XR_ITS ---
WS: [id number] CHEST XRAY TECHNIQUE: Portable chest. CLINICAL INFORMATION: s/p pleural drain placement COMPARISON: November 27, 2019 FINDINGS: Sternotomy. AVR. Left chest tube in place. No visualized pneumothorax. Drainage of the left pleural effusion. Heart: Normal cardiac silhouette. Lungs: Left chest tube. No visualized pneumothorax. Lungs well aerated. Improved pulmonary vascular c ongestion. Resolution of the left pleural effusion Bones: Normal visualized bony structures. XR/XR chest 1V portable [id number] IMPRESSION: 1. New left chest tube with drainage of the left pleural effusion. 2. Cardiomegaly with sternotomy and aVR. 3. Right PICC line with tip in the proximal SVC.
--- NOTE | 2019-11-30 17:19 | PM.ACPR ---
Procedure/Consent Time out: Time Out Performed: Yes Consent: Consent for Procedure: Consent obtained from patient Procedure Narrative: Name of the procedure: Left-sided Pleurx catheter placement Anesthesia: Conscious sedation Local: 1% lidocaine 13 mL. Fentanyl 50 mcg, Versed 1 mg Description of the procedure: The patient was placed in right lateral position. Using the ultrasound a safe fluid pocket was identified in the left ninth intercostal space in the midaxillary line. The site was marked. The patient was then prepared using sterile technique. 1% lidocaine was used to anesthetize the skin and subcutaneous tissue periosteum and the pleural space was entered. Serosanguineous fluid was aspirated. The introducer needle was then introduced into the pleural space. The guide wire was introduced and left in place. About 6 cm from the initial introduction site in the anterolateral chest wall a second incision was made. The pleural catheter was then tunneled under the skin with the help of a trocar. The initial site was then dilated and the Pleurx catheter was advanced into the pleural space without any difficulty. The incision sites were sutured. There was good hemostasis. 1100 cc of serosanguineous fluid was drained. Complications: None Follow-up: 1. The patient will follow-up with me in 10 days time for removal of sutures. Acute Procedures Epistaxis Control: Time out performed: Yes
--- NOTE | 2019-11-30 17:23 | PM.CONSULT ---
Providers/Reason For Consult Consulting Physican/Specialty*: Pulmonary critical care medicine Reason for Consult*: Malignant pleural effusion Attending Physician: Mary Chavez MD Primary Care Provider: Dylan Connors MD History of Present Illness History of Present Illness Debbi Garcias is a 74 year old female and a patient of mine. The patient was recently diagnosed with small cell lung cancer after a bronchoscopy and endobronchial ultrasound-guided transbronchial needle aspiration of the left hilar lesion. The patient has started her chemotherapeutic regimen unfortunately she continues to have recurrent pleural effusion. I have performed thoracentesis twice in October when she was hospitalized with hyponatremia and shortness of breath. Since her discharge from the hospital, the patient had another course of chemotherapy however when she presented to the hospital this time with worsening shortness of breath and hypoxia her left-sided pleural effusion had recurred. The patient is currently getting treated with antibiotic for pneumonia, was diuresed for acute exacerbation of heart failure. The patient still continued to be tachypneic in mid 30s and profoundly short of breath. The patient has a history of prior heart valve replacement and is on chronic anticoagulation therapy. Any time the patient needs a thoracentesis she has to undergo a controlled reduction of her INR and bridge with heparin. The patient has some degree of dementia and his breathing process keeps her in the hospital for a long time. Today when I evaluated the patient in ICU she was tearful and all she wanted to do was to go back home. The patient complained of significant shortness of breath. She was short of breath laying flat. The chest x-ray on admission revealed large left-sided pleural effusion as well as interstitial infiltrate on the right side. Review of Systems Narrative: General: No fevers or chills Skin: No rash HEENT: No nasal congestion, rhinitis, sinusitis, sneezing, there is significant hoarseness of voice. Respiratory: Please see my HPI. Cardiovascular: No chest pain, significant shortness of breath, orthopnea Gastrointestinal: No abdominal pain, nausea, vomiting, melena Musculoskeletal: No joint pain or swelling Neurological: Patient is awake alert and oriented x3 during examination, no paralysis, gross motor function is normal. Psychiatric: Occasional episodes of confusion Meds/Allergies Home Medications and Allergies Home Medications Medication Instructions Recorded Confirmed Type atorvastatin 80 mg PO DAILY 08/18/19 11/27/19 History budesonide-formoterol [Symbicort] 2 puff INHALATION BID PRN 08/18/19 11/27/19 History calcium polycarbophil [FiberCon] 625 mg PO BID 08/18/19 11/27/19 History cholecalciferol (vitamin D3) 1,000 unit PO DAILY 08/18/19 11/27/19 History [Vitamin D3] digoxin 125 mcg PO DAILY 08/18/19 11/27/19 History famotidine 20 mg PO BID 08/18/19 11/27/19 History fluticasone propionate [Flonase 1 spray INTRANASAL DAILY 08/18/19 11/27/19 History Allergy Relief] hydrocodone-acetaminophen [[place]] 1 tab PO QID PRN 08/18/19 11/27/19 History lisinopril 40 mg PO DAILY 08/18/19 11/27/19 History sotalol 80 mg PO BID 08/18/19 11/27/19 History buspirone 5 mg PO BID 10/25/19 11/27/19 History duloxetine 20 mg PO BID 10/25/19 11/27/19 History amlodipine 5 mg PO DAILY #30 tab 11/10/19 11/27/19 Rx ferrous sulfate 325 mg PO BIDWM #60 tab 11/10/19 11/27/19 Rx filgrastim [Neupogen] 480 mcg SUBCUT Q24H #7 ml 11/10/19 11/27/19 Rx warfarin 5 mg PO DAILY #30 tab 11/10/19 11/27/19 Rx Allergies Allergy/AdvReac Type Severity Reaction Status Date / Time adhesive tape Allergy Intermediate ALGY-Bliste Verified 08/31/19 13:03 r ampicillin Allergy Mild ALGY-Fever Verified 08/31/19 13:03 Current Medications Current Medications Generic Name Dose Route Start Last Admin Trade Name Freq PRN Reason Stop Dose Admin Hydrocodone Bitart/Acetaminophen 1 tab 11/27/19 19:05 11/29/19 22:11 [place] 10-325 Mg PO 1 tab QID PRN Administration Pain Albuterol/Ipratropium 3 ml 11/27/19 19:05 11/29/19 17:35 Duoneb INHALATION 3 ml Q6H.RESPIRATORY PRN Administration SHORTNESS OF BREATH Amlodipine Besylate 5 mg 11/28/19 09:00 11/30/19 08:33 Norvasc PO 5 mg DAILY JENNY Administration Atorvastatin Calcium 80 mg 11/27/19 21:00 11/29/19 20:20 Lipitor PO 80 mg BEDTIME JENNY Administration Buspirone HCl 5 mg 11/27/19 19:05 11/30/19 08:33 Buspar PO 5 mg BID JENNY Administration Digoxin 125 mcg 11/28/19 09:00 11/30/19 08:32 Lanoxin PO 125 mcg DAILY JENNY Administration Famotidine 20 mg 11/27/19 19:05 11/30/19 08:29 Pepcid Tab PO 20 mg BID JENNY Administration Ferrous Sulfate 325 mg 11/27/19 19:05 11/30/19 08:33 Ferrous Sulfate PO 325 mg BIDWM JENNY Administration Fluticasone Propionate 1 spray 11/28/19 09:00 11/30/19 08:56 Flonase INTRANASAL 1 dose DAILY JENNY Administration Furosemide 40 mg 11/27/19 19:05 11/30/19 08:33 Lasix IVP 40 mg Q12H JENNY Administration Levofloxacin/Dextrose 750 mg in 150 mls @ 100 mls/hr 11/27/19 19:05 11/29/19 20:16 Levaquin-D5w IV 100 mls/hr Q24H JENNY Administration Protocol Lisinopril 40 mg 11/28/19 09:00 11/30/19 08:32 Prinivil PO 40 mg DAILY JENNY Administration Lorazepam 1 mg 11/27/19 19:05 11/30/19 09:12 Ativan IVP 1 mg Q6H PRN Administration ANXIETY Ondansetron HCl 4 mg 11/27/19 19:05 11/29/19 08:59 Zofran IVP 4 mg Q6H PRN Administration NAUSEA AND VOMITING Senna/Docusate Sodium 1 tab 11/27/19 19:05 11/30/19 08:32 Senna-S PO 1 tab BID JENNY Administration Sotalol HCl 80 mg 11/27/19 19:05 11/30/19 08:29 Betapace PO 80 mg BID JENNY Administration Vitamin D 1,000 unit 11/28/19 09:00 11/30/19 08:34 Vitamin D3 PO 1,000 unit DAILY JENNY Administration PFSH Acute PFSH: Medical History Aortic regurgitation Atrial fibrillation Chronic anticoagulation COPD (chronic obstructive pulmonary disease) Diastolic CHF, chronic Hypertension Hyponatremia Small cell lung cancer Subtherapeutic international normalized ratio (INR) Surgical History H/O mitral valve replacement Mechanical valve 2000 H/O: hysterectomy Left oophorectomy History of carpal tunnel release Right History of lumbar surgery x 1 S/P thoracentesis x 3 secondary to malignant L pleural effusion Family History Mother Clotting disorder Father Clotting disorder Sister AAA (abdominal aortic aneurysm) Social History Smoking and tobacco status: former smoker Quit status (tobacco): has quit using tobacco Year quit tobacco: 2020 - 0.5 PPD x 35 Years Alcohol intake: former Household members: spouse Marital status: Current occupational status: retired History of recent travel: No Current gender identity: Female Vitals/I&O/Wt Last Vital Signs Temp 97.2 F L 11/30/19 14:00 Pulse 83 11/30/19 16:00 Resp 24 H 11/30/19 16:00 BP 119/45 11/30/19 16:00 Pulse Ox 94 11/30/19 16:00 11/30/19 11/30/19 11/30/19 06:59 14:59 22:59 Intake Total 100 / 500 Output Total 200 / 770 400 / 400 Balance -100 / -270 -400 / -400 Weight last 48 hrs Weight 103 lb 11.2 oz Weight 104 lb 1.6 oz Weight 113 lb Physical Exam Narrative: EXAM NARRATIVE: General: Patient is awake alert and oriented, in mild distress from tachypnea. Neck: No JVD, no cervical or supraclavicular lymphadenopathy. Respiratory: Inspection: No visible deformity of the chest wall, reduced chest movement on the left side Palpation: Trachea is mildly deviated to the right Percussion: Stony dullness to percussion in the left hemithorax Auscultation: Absent breath sound in the left anterior lateral and posterior left except the very upper anterior part. Cardiovascular: Regular rate and rhythm, S1-S2 present, diastolic murmur at the aortic area, no right ventricular heave, no peripheral edema. Abdomen: Soft, nontender, nondistended, positive bowel sound Musculoskeletal: No obvious joint deformity Skin: No rash, no evidence of erythema nodosum or multiforme. Neuro: Mental status is normal, no gross cranial nerve deficit, normal motor and coordination. Urinary Catheter Management^: Jay: Cath Placed During This Visit: yes Urinary Catheter Date of Insertion: 11/28/19 Urinary Catheter Time of Insertion: 11:29 Data Labs: Other Labs: I have reviewed the patient's laboratory, microbiologic and radiologic data. The patient has developed metabolic alkalosis likely secondary to diuresis. I had performed a bedside ultrasound which revealed small inferior vena cava with complete collapse with inspiration. There was mild B-lines in the right lung A&P Assessment and plan (1) Small cell lung cancer: The patient has small cell lung cancer and is currently on chemotherapy. The patient received chemotherapy with carboplatin and etoposide in November. Status: Chronic (2) Malignant pleural effusion: The patient has malignant left-sided pleural effusion and underwent multiple thoracentesis in the past. She has received 2 courses of chemotherapy however she still continues to have a large left-sided pleural effusion. The patient has mechanical heart valve and anytime she needs a procedure her INR had to be brought down with vitamin K for the completion of the procedure. This has resulted in multiple times when she was bridged with heparin that resulted in prolonged hospital admission. Today when I evaluated the patient, the predominant wish that the patient had was to go back home. Given the persistence of the left-sided pleural effusion after 2 thoracentesis and completion of 2 courses of chemotherapy I do believe that the patient will benefit significantly from an indwelling pleural catheter. If the pleural effusion disappears or the patient achieves pleurodesis the Pleurx catheter can easily be taken out. Status: Acute (3) Respiratory failure, acute and chronic: The patient has acute on chronic hypoxic respiratory failure. This could be secondary to the development of the large left-sided pleural effusion however the patient also had evidence of interstitial opacity involving the right lung. She was treated as acute exacerbation of heart failure with preserved ejection fraction. However, she had recently received etoposide which is known to cause pulmonary toxicity. She was also treated with Levaquin for atypical pneumonia. If the patient does not experience significant respiratory status improvement she might require steroid therapy for the pneumonitis. The patient will need to follow-up with me in 10 days time which could be December 10. Status: Acute Coding Level of Care Code Acute Back Strip Machine Operator for Chg Fwd Diagnoses Small cell lung cancer C34.90 Malignant pleural effusion J91.0 Respiratory failure, acute and chronic J96.20
--- NOTE | 2019-11-30 17:38 | PC.NURSE ---
Addendum entered by Ruma Cabrera RN 11/30/19 17:49: Previous note states 1mg Versed. Patient was given 2mg Versed during procedure. Original Note: Dr. Lyle and Dr. Chavez came to bedside. This RN in to assist primary nurse. Consent on chart. Time out performed. Patient given 50mcg Fentanyl and 1 mg Versed. 1 bottle of 1% lidocaine was used by Dr. Lyle in procedure. [place] drain placed without incident and 1000mL of serosanguineous drained off.
[2019-11-30] MEDS: warfarin 5 mg Tablet PO (20:23)
[2019-11-30] MEDS: atorvastatin 40 mg Tablet 80 MG PO (20:23)
[2019-11-30] MEDS: enoxaparin 40 mg/0.4 mL Syringe SUBCUT (20:24)
[2019-11-30] MEDS: levofloxacin-dextrose 5 % 750 MG/150 ML PREMIX 100 MG IV (20:24)
[2019-12-01] VITALS (12 sets, daily range): BP systolic 87–133; BP diastolic 43–62; PULSE 78–132; RESP 18–28; O2SAT 91–100
[2019-12-01] MEDS: HYDROcodone-acetaminophen 10-325 mg Tablet 1 TAB PO ×2 (02:24→08:09)
--- NOTE | 2019-12-01 02:30 | PC.NURSE ---
pt co pain in left side rates 05/[address] and time at this time. vss per cm. hydrocodone given per oct. assessment per flowsheet. drsg to left side c/d/i . sitter at bedside. mendy.
[2019-12-01 04:52] LABS: Basophils % 0.2 %; Hematocrit 26.6 % (37.0-47.0); Hemoglobin 8.4 g/dL (11.5-15.3); Lymphocytes # 0.4 10^3/uL (0.8-4.8); Lymphocytes % 4.2 %; Mean Corpuscular HGB Conc 31.6 g/dL (30.0-36.0); Mean Corpuscular Hemoglobin 29.6 pg (28.0-34.0); Mean Corpuscular Volume 93.7 fL (81-99); Mean Platelet Volume 10.4 fL (7.4-10.4); Monocytes # 0.1 10^3/uL (0.2-0.9); Monocytes % 0.9 %; Neutrophils # 8.7 10^3/uL (1.8-7.7); Neutrophils % 93.6 %; Nucleated Red Blood Cells % 0 %; Platelet Count 380 10^3/cmm (130-400); Red Blood Count 2.84 10^6/uL (4.1-5.3); Red Cell Distribution Width 17.8 % (12.1-15.1); White Blood Count 9.3 10^3/uL (4.0-10.0)
[2019-12-01 05:13] LABS: Blood Urea Nitrogen 31 mg/dL (8-23); Calcium 9.7 mg/dL (8.5-10.5); Chloride 88 mmol/L (98-107); Glucose 151 mg/dL (65-115); Osmolality Calculated 284 mOsm/kg (285-295); Sodium 137 mmol/L (136-145)
[2019-12-01 05:14] LABS: Carbon Dioxide 41 mmol/L (22-29)
--- NOTE | 2019-12-01 06:00 | XR_ITS ---
WS: [id number] CHEST XRAY TECHNIQUE: Portable chest. CLINICAL INFORMATION: follow up on L pleural effusion COMPARISON: November 30, 2019 FINDINGS: Right PICC line with tip in SVC. Heart: Cardiomegaly. Sternotomy. AVR. Lungs: Left chest tube. No definite visualized pneumothorax. Trace left pleural fluid. Left basilar a telectasis. Volume loss left lower lobe unchanged. Bones: Normal visualized bony structures. XR/XR chest 1V portable [id number] IMPRESSION: 1. Left chest tube in place. No visualized pneumothorax 2. Trace left pleural fluid with left basilar atelectasis. 3. Stable right PICC line
[2019-12-01] MEDS: sennosides-docusate Tablet 1 TAB PO (08:08)
[2019-12-01] MEDS: BuSPIRONE 5 mg Tablet PO (08:08)
[2019-12-01] MEDS: amlodipine 5 mg Tablet PO (08:08)
[2019-12-01] MEDS: sotalol 80 mg Tablet PO (08:08)
[2019-12-01] MEDS: cholecalciferol (vitamin D3) 1,000 unit Tablet 1000 UNIT PO (08:08)
[2019-12-01] MEDS: famotidine 20 mg Tablet PO (08:09)
[2019-12-01] MEDS: enoxaparin 40 mg/0.4 mL Syringe SUBCUT (08:10)
[2019-12-01] MEDS: digoxin 125 mcg Tablet PO (08:11)
[2019-12-01] MEDS: fluticasone nasal spray 16gm Btl 1 SPRAY INTRANASAL (08:13)
[2019-12-01] MEDS: duloxetine 20 mg Capsule PO (08:13)
[2019-12-01] MEDS: ferrous sulfate EC 325 mg Tablet PO (08:13)
[2019-12-01] MEDS: ipratropium-albuterol 3 mL Neb INHALATION (08:48)
--- NOTE | 2019-12-01 09:06 | CT_ITS ---
WS: [id number] CT CHEST TECHNIQUE: Noncontrast CT of the chest with coronal and sagittal reformatted images. CLINICAL INFORMATION: hx of small cell L cancer, interstitial thickening on R COMPARISON: CT chest November 03, 2019 DLP: 319.[address] scans at [facility] use at least one of these dose optimization techniques: automat ed exposure control; mA and/or kV adjustment per patient size (includes targeted exams where dose is matched to clinical indication); or iterative reconstruction. FINDINGS: Left chest tube in place. Interval drainage of the left pleural effusion since since the prior examin ation with reexpansion of the left lung. Left lung is well aerated today. Slight atelectasis in the l [place] and left lower lobe. No pneumothorax. Mild diffuse interlobular septal thickening throughout the right lung similar to the recent radiograp hs. Differential considerations include interstitial edema or interstitial pneumonitis. Lymphangitic spread of disease less likely. No focal consolidation or pleural fluid. Normal caliber thoracic aorta. Aortic calcification. Coronary calcification. Partially visualized met astatic lesions in the liver appear to have decreased in number. This is partially evaluated. No significant mediastinal or hilar lymphadenopathy today. This is significantly improved from previo us. Adrenal glands are normal. Advanced degenerative changes in the lumbar spine with disc space narr owing at L2-3. CT/CT chest wo con [id number] IMPRESSION: 1. Interval drainage of the left pleural effusion with left chest tube in plac e. 2. No visualized pneumothorax. 3. Subsegmental atelectasis in the lingula. 4. Mild diffuse interlobular septal thickening throughout the right lung is no nspecific but likely due to edema versus interstitial pneumonitis. Lymphangitic spread of disease less likely. Recommend interval follow-up. 5. No focal pneumonia. 6. Previously described metastatic liver lesions appear decreased in number bu t only partially evaluated today. 7. Previously described mediastinal or hilar lymphadenopathy has significantly improved.
--- NOTE | 2019-12-01 09:07 | P.PN_ITS ---
Subjective Subjective: Interval history: Patient seen and examined, remains quite anxious and tearful, really wants to go home. Overnight required one-on-one monitoring due to need for frequent redirection. Per nursing staff PICC line in right upper extremity unable to flush and no blood return noted. We will try Cathflo. She does have alternative peripheral IV access in place. PICC line had been placed for chemo use. Discussed with Dr. Lyle, requested CT chest after drainage of L lung. Medications: Reviewed: Yes Medication Review Details: Active Medications Generic Name Dose Route Start Last Admin Trade Name Freq PRN Reason Stop Dose Admin Acetaminophen 650 mg 11/27/19 19:05 Tylenol PO Q6H PRN MILD PAIN Hydrocodone Bitart /Acetaminophen 1 tab 11/27/19 19:05 12/01/19 08:09 [place] 10-325 Mg PO 1 tab QID PRN Administration Pain Albuterol/Ipratrop ium 3 ml 11/27/19 19:05 12/01/19 08:48 Duoneb INHALATION 3 ml Q6H.RESPIRATORY P RN Administration SHORTNESS OF HUEY TH Alteplase, Recombi nant 2 mg 12/01/19 09:06 Cathflo INTRACATH 12/01/19 09:07 ONCE ONE Amlodipine Besylat e 5 mg 11/28/19 09:00 12/01/19 08:08 Norvasc PO 5 mg DAILY JENNY Administration Atorvastatin Calci um 80 mg 11/27/19 21:00 11/30/19 20:23 Lipitor PO 80 mg BEDTIME JENNY Administration Buspirone HCl 5 mg 11/27/19 19:05 12/01/19 08:08 Buspar PO 5 mg BID JENNY Administration Digoxin 125 mcg 11/28/19 09:00 12/01/19 08:11 Lanoxin PO 125 mcg DAILY JENNY Administration Enoxaparin Sodium 40 mg 11/30/19 18:00 12/01/19 08:10 Lovenox SUBCUT 40 mg Q12H JENNY Administration Famotidine 20 mg 11/27/19 19:05 12/01/19 08:09 Pepcid Tab PO 20 mg BID JENNY Administration Ferrous Sulfate 325 mg 11/27/19 19:05 12/01/19 08:13 Ferrous Sulfate PO 325 mg BIDWM JENNY Administration Fluticasone Propio merry 1 spray 11/28/19 09:00 12/01/19 08:13 Flonase INTRANASAL 2 dose DAILY JENNY Administration Levofloxacin/Dextr ose 750 mg in 150 mls @ 100 mls/hr 11/27/19 19:05 11/30/19 20:24 Levaquin-D5w IV 100 mls/hr Q24H JENNY Administration Protocol Lisinopril 40 mg 11/28/19 09:00 11/30/19 08:32 Prinivil PO 40 mg DAILY JENNY Administration Lorazepam 1 mg 11/27/19 19:05 11/30/19 18:07 Ativan IVP 1 mg Q6H PRN Administration ANXIETY Metoprolol Tartrat e 5 mg 11/29/19 08:44 Metoprolol Tartr ate IV Q4H PRN HEART RATE-HIGH Ondansetron HCl 4 mg 11/27/19 19:05 11/29/19 08:59 Zofran IVP 4 mg Q6H PRN Administration NAUSEA AND VOMITI NG Senna/Docusate Sod ium 1 tab 11/27/19 19:05 12/01/19 08:08 Senna-S PO 1 tab BID JENNY Administration Sotalol HCl 80 mg 11/27/19 19:05 12/01/19 08:08 Betapace PO 80 mg BID JENNY Administration Vitamin D 1,000 unit 11/28/19 09:00 12/01/19 08:08 Vitamin D3 PO 1,000 unit DAILY JENNY Administration Warfarin Sodium 5 mg 11/30/19 17:55 11/30/19 20:23 Coumadin PO 5 mg DAILY@1400 JENNY Administration adhesive tape Allergy (Intermediate, Verified 08/31/19 13:03) ALGY-Blister ampicillin Allergy (Mild, Verified 08/31/19 13:03) ALGY-Fever Vitals/I&O/Wt Last Vital Signs Temp 97.4 F L 11/30/19 20:04 Pulse 126 H 12/01/19 08:52 Resp 18 12/01/19 08:50 BP 121/44 12/01/19 06:21 Pulse Ox 97 12/01/19 08:50 11/30/19 12/01/19 12/01/19 22:59 06:59 14:59 Intake Total 240 / 240 300 / 300 Output Total 200 / 600 Balance 240 / -160 -200 / -360 300 / 300 Weight last 48 hrs Weight 47.038 kg Weight 47.219 kg Weight 51.256 kg Physical Exam Const: COMMON NORMALS: no apparent distress GENERAL APPEARANCE: coop erative, lethargic, ill appearing, frail appearing and appears older than stated age; not comfortable NUTRITIONAL APPEARANCE: cachectic ORIENTATION/CONSCIOUSNESS: Yes awake, Yes lethargic and Yes other (disoriented, very restless) HENMT: COMMON NORMALS: normocephalic, head/scalp atraumatic and hearing grossly normal bilaterally HEAD & SCALP: normocephalic, atraumatic and other (thinning hair, patchy alopecia) MOUTH: moist mucous membranes abnormal Details: parched Eye: COMMON NORMALS: PERRL, EOMs intact bilaterally and conjunctivae normal CONJUNCTIVA: Yes conjunctivae normal PUPIL: Yes PERRL Neck/C-Spine: COMMON NORMALS: full ROM GENERAL: Yes normal visual inspection and Yes trachea midline Chest: OTHER: -pleurex drain in place on L Resp: EFFORT & INSPECTION: No able to speak in complete sentences, Yes symmetric chest movement, Yes tachypneic and Yes retractions supraclavicular AUSCULTATION: diminished lung sounds on the left OTHER: -very hoarse voice Cardio: COMMON NORMALS: regular rate, regular rhythm, S1 normal heart sound, S2 normal heart sound and no murmurs RATE: regular rate RHYTHM: regular rhythm HEART SOUNDS: S1 normal, S2 normal and click GI: COMMON NORMALS: normal to inspection, nondistended, normoactive bowel sounds, soft to palpation and non-tender PALPATION: Yes soft : BLADDER/KIDNEY EXAM: Yes catheter in place Catheter type (Female): urethral Extremity: COMMON NORMALS: normal to inspection, full ROM and no pedal edema GENERAL: No edema OTHER: -PICC line on RUE Neuro: COMMON NORMALS: moves all extremities, no focal motor deficits and no s ensory deficits noted SENSORIUM/ORIENTATION: Yes orientation impaired and Yes lethargic Psych: COMMON NORMALS: mental status grossly normal, thought process normal, cooperative and speech normal SPEECH: Yes normal speech MOOD & AFFECT: Yes anxious and Yes tearful THOUGHT PROCESS: normal thought process Skin: COMMON NORMALS: no rashes or lesions noted, no jaundice, no petechiae and no mottling GENERAL SKIN EXAM: no rashes or lesions noted HAIR: patchy alopecia Urinary Catheter Management^: Jay: Cath Placed During This Visit: yes Urinary Catheter Date of Insertion: 11/28/19 Urinary Catheter Time of Insertion: 11:29 Data : 12/01/19 04:25 12/01/19 04:25 A&P Assessment and plan (1) Pleural effusion: -has had ongoing issues with recurrent L pleural effusions requiring multiple thoracentesis, most recently done during her last hospitalization, appears to be malignant secondary to small cell cancer for which she has been receiving chemotherapy. -s/p left-sided Pleurx drain placement by Dr. Lyle (11/29). -CXR reported as increased L pleural effusion with left mid and left lower lobe consolidation; interstitial thickening throughout the R lung. Will evaluate thi s further with CT chest w/o contrast -on empiric antibiotic treatment with Levaquin due to noted leukocytosis, underlying immunocompromise, need for pleural drainage -Close monitoring of respiratory status, supplemental oxygen versus BiPAP as needed -Close monitoring of vital signs -Telemetry monitoring Status: Acute (2) Congestive heart failure: -has acutely decompensated chronic diastolic CHF as evidenced by dyspnea, orthopnea, LE edema, elevated BNP (6611) and evidence of fluid overload on imagi ng -hold further IV diuresis due to low BP; so far has diuresed 3.2 L -daily weights, monitor Is & Os -Echo (08/2019): EF=60%, G2DD, mild pulmonary HTN, mild , at least moderate AR, mild TR -fluid restriction -cardiac diet as tolerated Status: Acute Qualifiers: Heart failure chronicity: acute on chronic Heart failure type: diasto lic Qualified Code(s): I50.33 - Acute on chronic diastolic (congestive) heart failure (3) Dyspnea: -quite dyspneic clinically -likely secondary to pleural effusion and acute CHF exacerbation -has been on AC with coumadin, INR-6.03--->1.40, unlikely to have PE and if she does would likely not traveler changer -ABG indicates hypercapnia and hypoxia (7.33/64.7/70.5) -as noted above -does not meet criteria for COVID-19 testing Status: Acute Qualifiers: Dyspnea type: unspecified Qualified Code(s): R06.00 - Dyspnea, unspecified (4) Small cell lung cancer: -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 Delgadillo -no evidence of metastatic disease on MRI head, noted mediastinal invasion, malignant mediastinal, left internal mammary lymphadenopathy, other satellite subpleural nodules, FDG positive, multifocal osseous metastatic disease on PET scan -noted anemia and leukopenia, not thrombocytopenic Status: Chronic (5) Hyponatremia: -Noted to be hyponatremic during last admission, likely secondary to underlying lung cancer -Continue to monitor; 137 today -New baseline appears to be 129-132 Status: Chronic (6) H/O mitral valve replacement with mechanical valve: -Has prior history of mitral valve replacement with mechanical valve -Is on anticoagulation with Coumadin, INR-1.40 -will hold anticoagulation and continue to monitor INR in anticipation of drain placement -started bridging with lovenox and resumed coumadin; daily INR Status: Chronic (7) COPD (chronic obstructive pulmonary disease): -Has known history of COPD, currently oxygen dependent to the 4 L baseline requirement -Former smoker, quit earlier this year after smoking for over 40 years -dyspnea is likely due to fluid overload and pleural effusion rather than acute COPD exacerbation -Received dose of IV steroids in ER, would hold off on continuing this for now -Neb treatments as needed -Close monitoring of respiratory status -will add oral steroids for coverage for pneumonitis Status: Chronic Qualifiers: COPD type: COPD with acute exacerbation Qualified Code(s): J44.1 - Chronic obstructive pulmonary disease with (acute) exacerbation (8) Hypertension: -Has known history of hypertension -on oral antihypertensives -Close monitoring of vital signs Status: Chronic Qualifiers: Hypertension type: essential hypertension Qualified Code(s): I10 - Essential (primary) hypertension (9) Anemia: -has chronic normocytic anemia, baseline Hg appears to be 8-9 -current Hg-8.4 -close monitoring of H/H -had recent EGD done (10/25) showing gastritis, duodenitis, gastric and duodenal erosions -Anticoagulation resumed Status: Acute Qualifiers: Anemia type: unspecified type Qualified Code(s): D64.9 - Anemia, unspecified Additional A&P Information -Former smoker -Cachectic with underlying lung cancer, with at least moderate protein calorie malnutrition: BMI-20 kg/m2 -History of chronic atrial fibrillation; on digoxin and sotalol -Mild pulmonary hypertension per echo -Dementia, anxiety: ativan PRN -warfarin coagulopathy -cardiac diet as tolerated -GI ppx with famotidine -DVT ppx with SCDs, no AC due to supratherapeutic INR -Dispo: home with HH; particularly with need for continued AC and drain placement -Code status: FULL code -ICU care due to low threshold for decompensation -daughter Maty Gilbert ([phone]); son Daniel Gilbert ([phone]) Attestations Medical Necessity Statement*: Likely discharge this afternoon if able to arrange HH Time Spent in Patient Care: Greater than 35 minutes (>than 50% of time spent in counselling and/or direct pt care on unit) . Coding Level of Care Code Acute Water Resources Technical Officer for Chg Fwd Diagnoses Pleural effusion J90 Congestive heart failure I50.33 Heart failure chronicity: acute on chronic Heart failure type: diastolic Dyspnea R06.00 Dyspnea type: unspecified Small cell lung cancer C34.90 Hyponatremia E87.1 H/O mitral valve replacement with mechanical valve Z95.2 COPD (chronic obstructive pulmonary disease) J44.1 COPD type: COPD with acute exacerbation Hypertension I10 Hypertension type: essential hypertension Anemia D64.9 Anemia type: unspecified type
[2019-12-01] MEDS: alteplase 1 mg/mL SDV 2 mL 2 MG INTRACATH ×2 (09:43)
--- NOTE | 2019-12-01 10:38 | PC.NURSE ---
0945- CATHFLO INSTILLED TO BOTH LUMENS OF PICC LINE. ALLOWED TO DWELL FOR APPROXIMATELY 1 HOUR. GOOD BLOOD RETURN FROM BOTH LUMENS. ASPIRATED 4ML BLOOD/CATHFLO FROM BOTH LUMENS, THEN FLUSHED WITH NS. END CAPS CHANGED.
[2019-12-01] MEDS: predniSONE 20 mg Tablet 40 MG PO (12:09)
[2019-12-01] MEDS: LORazepam 2 mg/mL INJ 1 mL 1 MG IVP (12:09)
[2019-12-01] MEDS: warfarin 5 mg Tablet PO (12:11)
--- NOTE | 2019-12-01 12:44 | P.DS_ITS ---
Discharge Providers Date of Admission: 11/27/19 17:50 Date of Discharge: December 01, 2019 Attending Provider at Admission: Mary Chavez MD Attending Provider at Discharge: Mary Chavez MD Primary Care Provider: Dylan Connors MD Diagnoses at Discharge Discharge Diagnosis (1) Pleural effusion: Status: Acute Problem details: -has had ongoing issues with recurrent L pleural effusions requiring multiple thoracentesis, most recently done during her last hospitalization, appears to be malignant secondary to small cell cancer for which she has been receiving chemotherapy. -s/p left-sided Pleurx drain placement by Dr. Lyle (11/29). -CXR reported as increased L pleural effusion with left mid and left lower lobe consolidation; interstitial thickening throughout the R lung. Will evaluate this further with CT chest w/o contrast -on empiric antibiotic treatment with Levaquin due to noted leukocytosis, underlying immunocompromise, need for pleural drainage -Close monitoring of respiratory status, supplemental oxygen versus BiPAP as needed -Close monitoring of vital signs -Telemetry monitoring (2) Congestive heart failure: Status: Acute Problem details: -has acutely decompensated chronic diastolic CHF as evidenced by dyspnea, orthopnea, LE edema, elevated BNP (6611) and evidence of fluid overload on imaging -hold further IV diuresis due to low BP; so far has diuresed 3.2 L -daily weights, monitor Is & Os -Echo (08/2019): EF=60%, G2DD, mild pulmonary HTN, mild , at least moderate AR, mild TR -fluid restriction -cardiac diet as tolerated Qualifiers: Heart failure chronicity: acute on chronic Heart failure type: diastolic Qualified Code(s): I50.33 - Acute on chronic diastolic (congestive) heart failure (3) Dyspnea: Status: Acute Problem details: -quite dyspneic clinically, improved following pleural drainage -likely secondary to pleural effusion and acute CHF exacerbation -has been on AC with coumadin, INR-6.03--->1.40, unlikely to have PE and if she does would likely not tire changer -ABG indicates hypercapnia and hypoxia (7.33/64.7/70.5) -as noted above -does not meet criteria for COVID-19 testing Qualifiers: Dyspnea type: unspecified Qualified Code(s): R06.00 - Dyspnea, unspecified (4) Small cell lung cancer: Status: Chronic Problem details: -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 Delgadillo -no evidence of metastatic disease on MRI head, noted mediastinal invasion, malignant mediastinal, left internal mammary lymphadenopathy, other satellite subpleural nodules, FDG positive, multifocal osseous metastatic disease on PET scan -noted anemia and leukopenia, not thrombocytopenic -repeat CT chest showing mild diffuse interlobular septal thickening throughout R lung (edema vs. interstitial pneumonitis). Lymphangitic spread less likely. F/u imaging recommended (5) Hyponatremia: Status: Resolved Problem details: -Noted to be hyponatremic during last admission, likely secondary to underlying lung cancer -Continue to monitor; 137 today -New baseline appears to be 129-132 (6) H/O mitral valve replacement with mechanical valve: Status: Chronic Problem details: -Has prior history of mitral valve replacement with mechanical valve -Is on anticoagulation with Coumadin, INR-1.40 -will hold anticoagulation and continue to monitor INR in anticipation of drain placement -started bridging with lovenox and resumed coumadin; daily INR (7) COPD (chronic obstructive pulmonary disease): Status: Chronic Problem details: -Has known history of COPD, currently oxygen dependent to the 4 L baseline requirement -Former smoker, quit earlier this year after smoking for over 40 years -dyspnea is likely due to fluid overload and pleural effusion rather than acute COPD exacerbation -Received dose of IV steroids in ER, would hold off on continuing this for now -Neb treatments as needed -Close monitoring of respiratory status -will add oral steroids for coverage for pneumonitis Qualifiers: COPD type: COPD with acute exacerbation Qualified Code(s): J44.1 - Chronic obstructive pulmonary disease with (acute) exacerbation (8) Hypertension: Status: Chronic Problem details: -Has known history of hypertension -on oral antihypertensives -Close monitoring of vital signs Qualifiers: Hypertension type: essential hypertension Qualified Code(s): I10 - Essential (primary) hypertension (9) Anemia: Status: Acute Problem details: -has chronic normocytic anemia, baseline Hg appears to be 8-9 -current Hg-8.4 -close monitoring of H/H -had recent EGD done (10/25) showing gastritis, duodenitis, gastric and duodenal erosions -Anticoagulation resumed Qualifiers: Anemia type: unspecified type Qualified Code(s): D64.9 - Anemia, unspecified Other Information Additional DC diagnoses/information: -Former smoker -Cachectic with underlying lung cancer, with at least moderate protein calorie malnutrition: BMI-20 kg/m2 -History of chronic atrial fibrillation; on digoxin and sotalol -Mild pulmonary hypertension per echo -Dementia, anxiety: ativan PRN -warfarin coagulopathy Reason for Visit Reason for Visit: Reason For Visit: SOB; ABD PAIN; WEAKNESS Hospital Course Hospital Course: Patient was admitted to ICU and started on broad-spectrum IV antibiotics and IV diuresis. Due to supratherapeutic INR, we needed to hold off on her drainage of noted the left pleural effusion. She did require 1 unit of FFP's to correct her warfarin coagulopathy in anticipation of thoracentesis versus [place] drain placement. Given her tendency for fluid reaccumulation as well as underlying left small cell lung cancer, decision was made to place Pleurx drain which was done by Dr. Lyle at bedside once INR was within an acceptable threshold. Following the procedure she had a chest x-ray done which did not show any pneumothorax and showed improvement in her left pleural effusion. Anticoagulation was resumed with Lovenox started for bridging purposes as patient has a mechanical valve. She is quite frail overall, has exhibited intermittent confusion throughout her hospital stay as well as anxiety which increases her dyspnea. Anticipate that much of this will continue moving forward and given her overall frailty and underlying comorbidities including small cell lung cancer she is likely high risk for readmission. The hope is that with the Pleurx drain in place, hospital readmission secondary to pleural effusion will be decreased. She will need continued follow-up with Dr. Delgadillo who is her primary oncologist as well as with Dr. Lyle and her primary care physician. Home health has been arranged to continue to manage her Pleurx drain and provide usp as well as therapy services. Of note there was some interstitial thickening noted on the right which appears to be new and was further evaluated with CT chest as noted above. Patient will continue therapeutic dose lovenox for 3 days in addition to warfarin then have INR ch ecked in 3 days. PCP can determine need for continued bridging at that time based on INR. Discharge Summary: -Patient to follow-up with her primary care physician within 1 week -Patient to continue to follow up with Oncology Dr. Delgadillo as scheduled -Patient to follow up with Dr. Lyle in 7-10 days. Physical Exam Const: COMMON NORMALS: no apparent distress GENERAL APPEARANCE: cooperative, lethargic, ill appearing, frail appearing and appears older than stated age; not comfortable NUTRITIONAL APPEARANCE: cachectic ORIENTATION/CONSCIOUSNESS: Yes awake, Yes lethargic and Yes other (disoriented, very restless) HENMT: COMMON NORMALS: normocephalic, head/scalp atraumatic and hearing grossly normal bilaterally HEAD & SCALP: normocephalic, atraumatic and other (thinning hair, patchy alopecia) MOUTH: moist mucous membranes abnormal Details: parched Eye: COMMON NORMALS: PERRL, EOMs intact bilaterally and conjunctivae normal CONJUNCTIVA: Yes conjunctivae normal PUPIL: Yes PERRL Neck/C-Spine: COMMON NORMALS: full ROM GENERAL: Yes normal visual inspection and Yes trachea midline Chest: OTHER: -pleurex drain in place on L Resp: EFFORT & INSPECTION: No able to speak in complete sentences, Yes symmetric chest movement, Yes tachypneic and Yes retractions supraclavicular AUSCULTATION: diminished lung sounds on the left OTHER: -very hoarse voice Cardio: COMMON NORMALS: regular rate, regular rhythm, S1 normal heart sound, S2 normal heart sound and no murmurs RATE: regular rate RHYTHM: regular rhythm HEART SOUNDS: S1 normal, S2 normal and click GI: COMMON NORMALS: normal to inspection, nondistended, normoactive bowel sounds, soft to palpation and non-tender PALPATION: Yes soft : BLADDER/KIDNEY EXAM: Yes catheter in place Catheter type (Female): urethral Extremity: COMMON NORMALS: normal to inspection, full ROM and no pedal edema GENERAL: No edema OTHER: -PICC line on RUE Neuro: COMMON NORMALS: moves all extremities, no focal motor deficits and no sensory deficits noted SENSORIUM/ORIENTATION: Yes orientation impaired and Yes lethargic Psych: COMMON NORMALS: mental status grossly normal, thought process normal, cooperative and speech normal SPEECH: Yes normal speech MOOD & AFFECT: Yes anxious and Yes tearful THOUGHT PROCESS: normal thought process Skin: COMMON NORMALS: no rashes or lesions noted, no jaundice, no petechiae and no mottling GENERAL SKIN EXAM: no rashes or lesions noted HAIR: patchy alopecia Urinary Catheter Management^: Jay: Cath Placed During This Visit: yes Urinary Catheter Date of Insertion: 11/28/19 Urinary Catheter Time of Insertion: 11:29 Discharge Data Data Completed and Pending: Completed Studies During Hospitalization Category Date Time Status XR chest 1V tere ble [id number] Routine Exams 11/30/19 16:58 Completed XR chest 1V tere ble [id number] Routine Exams 12/01/19 06:00 Completed XR chest 1V tere ble [id number] Urgent Exams 11/27/19 15:40 Completed Pending at discharge Category Date Time Status CT chest wo con 7 1250 Routine Cat Scan 12/01/19 09:06 Taken Blood Culture Sta t Lab 11/27/19 19:50 Results Labs from last 24 hours 12/01/19 12/01/19 12/01/19 04:25 04:25 04:25 WBC 9.3 RBC 2.84 L Hgb 8.4 L Hct 26.6 L MCV 93.7 MCH 29.6 MCHC 31.6 RDW 17.8 H Plt Count 380 MPV 10.4 Neut % (Auto) 93.6 Lymph % (Auto) 4.2 [place] % (Auto) 0.9 Eos % (Auto) 0.0 Baso % (Auto) 0.2 Neut # (Auto) 8.7 H Lymph # (Auto) 0.4 L [place] # (Auto) 0.1 L Eos # (Auto) 0.0 Baso # (Auto) 0.0 Nucleated RBC % (a uto) 0 Nucleated RBCs # 0.0 PT 17.60 H INR 1.40 H Sodium 137 Potassium 4.0 Chloride 88 L Carbon Dioxide 41 H Anion Gap 12.0 BUN 31 H Creatinine 0.7 Glucose 151 H Calculated Osmolal ity 284 L Calcium 9.7 Vitals: Last Vital Signs Temp 97.4 F L 11/30/19 20:04 Pulse 126 H 12/01/19 08:52 Resp 18 12/01/19 08:50 BP 124/54 12/01/19 08:00 Pulse Ox 97 12/01/19 08:50 Discharge Plan Discharge Patient Disposition: Home Health Service Condition: Stable Prescriptions: New prednisone 20 mg Tablet 40 mg PO DAILY Qty: 10 RF: 0 sennosides-docusate sodium 8.6-50 mg Tablet 1 tab PO BID 30 Days Qty: 60 RF: 0 Levaquin 750 mg tablet 750 mg PO DAILY 5 Days Qty: 5 RF: 0 enoxaparin [Lovenox] 40 mg/0.4 mL syringe 47 mg SUBCUT Q12H 4 Days Qty: 3.76 RF: 0 Continued atorvastatin 80 mg tablet 80 mg PO DAILY RF: 0 sotalol 80 mg Tablet 80 mg PO BID RF: 0 hydrocodone-acetaminophen [[place]] 10-325 mg Tablet 1 tab PO QID PRN (Reason: Pain) RF: 0 famotidine 20 mg Tablet 20 mg PO BID RF: 0 digoxin 125 mcg (0.125 mg) Tablet 125 mcg PO DAILY RF: 0 fluticasone propionate [Flonase Allergy Relief] 50 mcg/actuation [place],Suspension 1 spray INTRANASAL DAILY RF: 0 cholecalciferol (vitamin D3) [Vitamin D3] 1,000 unit Capsule 1,000 unit PO DAILY RF: 0 budesonide-formoterol [Symbicort] 160-4.5 mcg/actuation Hfa Aerosol Inhaler 2 puff INHALATION BID PRN (Reason: Shortness Of Breath) RF: 0 calcium polycarbophil [FiberCon] 625 mg Tablet 625 mg PO BID RF: 0 buspirone 5 mg Tablet 5 mg PO BID RF: 0 duloxetine 20 mg Capsule,Delayed Release(Dr/Ec) 20 mg PO BID RF: 0 amlodipine 5 mg Tablet 5 mg PO DAILY Qty: 30 RF: 0 ferrous sulfate 325 mg (65 mg iron) Tablet,Delayed Release (Dr/Ec) 325 mg PO BIDWM Qty: 60 RF: 0 warfarin 5 mg tablet 5 mg PO DAILY Qty: 30 RF: 0 Changed lisinopril 20 mg Tablet 20 mg PO DAILY Qty: 30 RF: 0 Discontinued Neupogen 480 mcg/1.6 mL Solution 480 mcg SUBCUT Q24H Qty: 7 RF: 0 Discharge Orders: Discharge Order (Routine); Ordered 12/01/19 Ordered By: Mary Chavez Referrals: [facility] ([facility]) [Outside] Darrel Lyle MD [Physician] - 7-10 days (Post hospital follow up) Sonny Delgadillo MD [Staff Physician] - 7-10 days (Continued follow up for small cell lung cancer. ) Dylan Connors MD [Primary Care Provider] - 4-7 days (Post hospital discharge follow up) Discharge Diet: Regular Discharge Activity: Use walker/crutches as instructed Activity Restrictions/Additional Instructions: -Please continue to use supplemental oxygen at home -Please be careful when walking around at home -Patient will need INR checked in 3 days as she is on therapeutic Lovenox and warfarin. She has a mechanical mitral valve and goal INR is 2.5 (lower threshold due to patient being on active chemotherapy) Discharge Attestations Time Spent in Discharge Care*: greater than 30 min Specific Discharge Activities: Specific discharge activities: educating patient, educating and/or supporting family/caregiver, discussing with pcp/other providers, discussing with caseworker protective services/social workers/dc planners, documenting/other paperwork and evaluating patient/reviewing data Status at Discharge: Cognitive status at discharge: mildly impaired cognition , Behavioral status at discharge: cooperative , Functional status at discharge: uses cane/walker Overall status at discharge: patient is progressing back to baseline Quality Metrics Clinical Quality Measures During this hospital stay, did patient experience: None Coding Level of Care Code Acute Margarine Churn Operator for Len Fwd Exam Comprehensive Diagnoses Pleural effusion J90 Congestive heart failure I50.33 Heart failure chronicity: acute on chronic Heart failure type: diastolic Dyspnea R06.00 Dyspnea type: unspecified Small cell lung cancer C34.90 Hyponatremia E87.1 H/O mitral valve replacement with mechanical valve Z95.2 COPD (chronic obstructive pulmonary disease) J44.1 COPD type: COPD with acute exacerbation Hypertension I10 Hypertension type: essential hypertension Anemia D64.9 Anemia type: unspecified type
--- NOTE | 2019-12-01 13:40 | PC.NURSE ---
1300- sitter discontinued resting quietly in bed after ct scan
--- NOTE | 2019-12-01 18:01 | PC.NURSE ---
1715-- AFTER SEVERAL MESSAGES LEFT FOR PHILLIP THAT PT WAS BEING DISCHARGED & NO RETURN CALLS. I CALLED PT DAUGHTER JOANNA & SHE SAID SHE WILL BE HERE IN 15 MINUTES TO HARNESS REPAIRER HER MOM. PERSONAL BELONGINGS PACKED UP & TAKEN WITH PT. WISHED WELL
== END 2019-12-01 17:45 | disposition home health service (06) | DRG 180 ==
LOC: ER 17:36 → ICU 18:21
PROVIDERS: Admitting Provider Family Medicine; Emergency Provider Emergency Medicine; Family Provider Family Medicine; PCP Family Medicine; Visit Provider Family Medicine
DX: C34.92 Malignant neoplasm of unspecified part of left bronchus or lung (principal); I50.33 Acute on chronic diastolic (congestive) heart failure; J18.9 Pneumonia, unspecified organism; C77.1 Secondary and unspecified malignant neoplasm of intrathoracic lymph nodes; C79.51 Secondary malignant neoplasm of bone; J91.0 Malignant pleural effusion; I48.20 Chronic atrial fibrillation, unspecified; J44.1 Chronic obstructive pulmonary disease with (acute) exacerbation; J44.0 Chronic obstructive pulmonary disease with (acute) lower respiratory infection; E87.1 Hypo-osmolality and hyponatremia; E44.0 Moderate protein-calorie malnutrition; I11.0 Hypertensive heart disease with heart failure; Z95.2 Presence of prosthetic heart valve; Z79.01 Long term (current) use of anticoagulants; Z99.81 Dependence on supplemental oxygen; D64.9 Anemia, unspecified; Z79.891 Long term (current) use of opiate analgesic; Z87.891 Personal history of nicotine dependence; I35.1 Nonrheumatic aortic (valve) insufficiency; Z68.20 Body mass index [BMI] 20.0-20.9, adult; I27.20 Pulmonary hypertension, unspecified; F03.90 Unspecified dementia, unspecified severity, without behavioral disturbance, psychotic disturbance, mood disturbance, and anxiety
CPT/HCPCS: 12345; 36415; 36430; 36600; 51702; 51798; 71045; 71250; 80048; 80053; 82274; 82805; 83690; 83880; 85025; 85610; 86900; 86927; 87040; 92610; 93005; 94640; 96367; 96372; 96374; 96375; 96413; 96417; 99214; 99283; C1729; J1100; J1453; J1650; J1940; J1956; J2001; J2060; J2250; J2405; J2930; J2997; J3010; J3490; J7040; J7050; J7512; J7611; J9022; J9045; J9181; P9017

== ENCOUNTER 2019-12-02 11:07 | Emergency (ER) | payer MEDICARE, SELFPAY ==
[2019-12-02 11:13] VITALS: BP 118/67; PULSE 103; RESP 18; TEMP 36.7; O2SAT 99; BMI 21.3
--- NOTE | 2019-12-02 11:28 | ED_ITS ---
HPI - Chest Pain General: Chief Complaint: Chest Pain Stated Complaint: CHEST PAIN Time Seen by Provider: 12/02/19 11:14 History of Present Illness: HPI narrative: 74-year-old female presents emergency room with a complaint of chest pain. She has a history of lung cancer and she is conversationally dyspneic. She has chest pain for the last 5 days she really locates it to the lower sternum it does not radiate. She does not notice anything that seems to make it better or worse. she recently was hospitalized for car monoxide poisoning. She was living at home alone with her developed congestive heart failure and over anticoagulation, she was ho spitalized at discharge her and her both of been living with her son. Since discharge she denies any fever. She denies any urinary tract symptoms no vomiting or diarrhea. She is still undergoing radiation and chemo she sees Dr. Delgadillo is her oncologist. She has a known history of coronary disease with previous coronary artery bypass graft MD complaint: chest pain Pertinent past history: coronary artery disease and CABG Onset (ago): day(s) (5) Timing of current episode: constant Prior episodes: Yes Onset: during rest Pain location: substernal Pain radiation: none Severity: mild Quality: tightness and sharp Relieving factors: nothing Exacerbating factors: nothing Context: recent illness (Carbon monoxide poisoning) Associated symptoms: Reports dyspnea; Deny abdominal pain, diaphoresis, fever(s), leg edema, nausea, palpitations or vomiting Treatment prior to arrival: none Review of Systems Const: Denies: fever or diaphoresis ENMT: Denies: throat pain, ear pain, nasal discharge or nasal congestion Card: Denies: palpitations Resp: Reports: shortness of breath GI: Denies: abdominal pain, nausea or vomiting : Denies: flank pain, difficulty urinating, painful urination, urinary frequency or urinary urgency Skin/Breast: Denies: rash or itching PFS ED PFSH: Social History Smoking and tobacco status: former smoker Quit status (tobacco): has quit using tobacco Year quit tobacco: 2020 - 0.5 PPD x 35 Years Alcohol intake: former Household members: spouse Marital status: Current occupational status: retired History of recent travel: No Current gender identity: Female Physical Exam Const: COMMON NORMALS: no apparent distress GENERAL APPEARANCE: cooperative and comfortable ORIENTATION/CONSCIOUSNESS: Yes awake, Yes oriented to person, Yes oriented to place and Yes oriented to time HENMT: COMMON NORMALS: normocephalic, head/scalp atraumatic, hearing grossly normal bilaterally, external ears normal, EAC's normal, TM's normal bilaterally, nasal mucous membranes and turbinates normal, moist oral mucous membranes and oropharynx normal HEAD & SCALP: normocephalic and atraumatic NOSE: nasal mucous membranes and turbinates normal EXTERNAL EAR: Yes external ears normal EXTERNAL AUDITORY CANAL: EAC's normal TYMPANIC MEMBRANE: TM's normal bilaterally Eye: COMMON NORMALS: PERRL, EOMs intact bilaterally, conjunctivae normal and no scleral icterus CONJUNCTIVA: Yes conjunctivae normal PUPIL: Yes PERRL Neck/C-Spine: COMMON NORMALS: full ROM, no lymphadenopathy, supple and no JVD Lymph: LYMPHATIC: no lymphadenopathy noted and no lymphedema noted Resp: COMMON NORMALS: normal respiratory effort, no retractions, no use of accessory muscles and clear to auscultation bilaterally AUSCULTATION: clear to auscultation bilaterally Cardio: COMMON NORMALS: no JVD, regular rate, regular rhythm and no murmurs RATE: regular rate RHYTHM: regular rhythm GI: COMMON NORMALS: soft to palpation and no hepatosplenomegaly AUSCULTATION: Yes normoactive bowel sounds PALPATION: Yes soft, No tender, No guarding and Yes no hepatosplenomegaly Extremity: COMMON NORMALS: normal to inspection, normal capillary refill, no clubbing, cyanosis or edema, no calf tenderness and no pedal edema Neuro: SENSORIUM/ORIENTATION: Yes oriented to person, Yes oriented to place and Yes oriented to time Skin: COMMON NORMALS: no rashes or lesions noted GENERAL SKIN EXAM: no rashes or lesions noted Course Vital Signs: Vital signs: Vital Signs Temperature 98.1 F 12/02/19 11:13 Pulse Rate 103 H 12/02/19 11:13 Respiratory Rate 18 12/02/19 11:13 Blood Pressure 118/67 12/02/19 11:13 Pulse Oximetry 99 12/02/19 11:13 MDM - Chest Pain MDM Narrative: Medical decision making narrative: Troponin elevated but no significant delta. Patient has had this pain for several days discussed with the patient as well as with family via phone. We will opt to discharge her home she does not want to do anything further she is not really a candidate for any intervention given her metastatic lung cancer which is significantly disseminated, and she does not want to do any testing. She does not want to be readmitted to the hospital. Suspect her pain is due to her metastasis rather than cardiac in origin. Return if has any further problems follow-up with her oncologist or primary care doctor. Lab Data: Attestation: I reviewed the patient's lab results. Labs: Lab Results 12/02/19 12/02/19 12/02/19 Range/Units 10:30 10:30 10:30 WBC 5.0 (4.0-10.0) 10^3/ uL RBC 3.19 L (4.1-5.3) 10^6/u L Hgb 9.4 L (11.5-15.3) g/dL Hct 29.6 L (37.0-47.0) % MCV 92.8 (81-99) fL MCH 29.5 (28.0-34.0) pg MCHC 31.8 (30.0-36.0) g/dL RDW 18.1 H (12.1-15.1) % Plt Count 341 (130-400) 10^3/c mm MPV 11.5 H (7.4-10.4) fL Neut % (Auto) 82.1 % Lymph % (Auto) 13.3 % [place] % (Auto) 2.6 % Eos % (Auto) 0.0 % Baso % (Auto) 0.4 % Neut # (Auto) 4.1 (1.8-7.7) 10^3/u L Lymph # (Auto) 0.7 L (0.8-4.8) 10^3/u L [place] # (Auto) 0.1 L (0.2-0.9) 10^3/u L Eos # (Auto) 0.0 (0.0-0.8) 10^3/u L Baso # (Auto) 0.0 (0.0-0.1) 10^3/u L Nucleated RBC % (a uto) 0 % Nucleated RBCs # 0.0 /100WBC PT (10.5-13.3) SECO NDS INR (0.8-1.2) Specimen Type Sample Site ABG pH (7.35-7.45) ABG pCO2 (35-45) mmHg ABG pO2 (80.0-100.0) mmH g ABG HCO3 (22-26) mmol/L ABG O2 Saturation ABG Base Excess (-2.0-2.0) mmol/ L Brennen Test Hematocrit (37-47) % Hgb O2 Saturation (95-100) % Carboxyhemoglobin (0.4-20.1) %THgb Methemoglobin (0.4-1.5) % Total Hemoglobin (12-16) g/dL Ionized Calcium (1.1-1.4) mmol/L O2 Delivery Device O2 Liters/Min % Credit Office Manager ID Sodium 134 L (136-145) mmol/L Potassium 4.0 (3.5-5.1) mmol/L Chloride 86 L (98-107) mmol/L Carbon Dioxide 39 H (22-29) mmol/L Anion Gap 13.0 (5-19) BUN 42 H (8-23) mg/dL Creatinine 0.8 (0.5-0.9) mg/dL Glucose 117 H (65-115) mg/dL Calculated Osmolal ity 277 L (285-295) mOsm/k g Calcium 10.2 (8.5-10.5) mg/dL Total Bilirubin 0.5 (0.15-1.2) mg/dL AST 21 (0-32) U/L ALT 16 (0-33) U/L Alkaline Phosphata se 86 (35-105) IU/L Troponin T Baselin e 33 H (0-10) ng/mL Troponin T 120 Min [place] (0-10) ng/mL Delta Troponin T (0-10) ABS# Total Protein 6.9 (6.6-8.7) g/dL Albumin 3.9 (3.5-5.2) g/dL Globulin 3.0 (1.3-4.6) g/dL 12/02/19 12/02/19 12/02/19 Range/Units 10:30 12:30 13:13 WBC (4.0-10.0) 10^3/ uL RBC (4.1-5.3) 10^6/u L Hgb (11.5-15.3) g/dL Hct (37.0-47.0) % MCV (81-99) fL MCH (28.0-34.0) pg MCHC (30.0-36.0) g/dL RDW (12.1-15.1) % Plt Count (130-400) 10^3/c mm MPV (7.4-10.4) fL Neut % (Auto) % Lymph % (Auto) % [place] % (Auto) % Eos % (Auto) % Baso % (Auto) % Neut # (Auto) (1.8-7.7) 10^3/u L Lymph # (Auto) (0.8-4.8) 10^3/u L [place] # (Auto) (0.2-0.9) 10^3/u L Eos # (Auto) (0.0-0.8) 10^3/u L Baso # (Auto) (0.0-0.1) 10^3/u L Nucleated RBC % (a uto) % Nucleated RBCs # /100WBC PT 20.80 H (10.5-13.3) SECO NDS INR 1.73 H (0.8-1.2) Specimen Type Arterial Sample Site Radial, left ABG pH 7.49 H (7.35-7.45) ABG pCO2 53.1 H (35-45) mmHg ABG pO2 89.0 (80.0-100.0) mmH g ABG HCO3 40.4 H (22-26) mmol/L ABG O2 Saturation 98.2 ABG Base Excess 15.3 H (-2.0-2.0) mmol/ L Brennen Test Pos Hematocrit 26.4 L (37-47) % Hgb O2 Saturation 95.9 (95-100) % Carboxyhemoglobin 1.5 (0.4-20.1) %THgb Methemoglobin 0.9 (0.4-1.5) % Total Hemoglobin 8.6 L (12-16) g/dL Ionized Calcium 1.2 (1.1-1.4) mmol/L O2 Delivery Device Nc O2 Liters/Min 3.0 % Credit Office Manager ID jmn Sodium 133.0 (136-145) mmol/L Potassium 3.9 (3.5-5.1) mmol/L Chloride (98-107) mmol/L Carbon Dioxide (22-29) mmol/L Anion Gap (5-19) BUN (8-23) mg/dL Creatinine (0.5-0.9) mg/dL Glucose 108.0 (65-115) mg/dL Calculated Osmolal ity (285-295) mOsm/k g Calcium (8.5-10.5) mg/dL Total Bilirubin (0.15-1.2) mg/dL AST (0-32) U/L ALT (0-33) U/L Alkaline Phosphata se (35-105) IU/L Troponin T Baselin e (0-10) ng/mL Troponin T 120 Min [place] 34.29 H (0-10) ng/mL Delta Troponin T 1.29 (0-10) ABS# Total Protein (6.6-8.7) g/dL Albumin (3.5-5.2) g/dL Globulin (1.3-4.6) g/dL Discharge Plan Discharge Patient Disposition: Home, Self-Care Clinical Impression: Small cell lung cancer, Metastatic primary lung cancer Condition: Stable Prescriptions: No Action atorvastatin 80 mg tablet 80 mg PO DAILY RF: 0 sotalol 80 mg Tablet 80 mg PO BID RF: 0 hydrocodone-acetaminophen [[place]] 10-325 mg Tablet 1 tab PO QID PRN (Reason: Pain) RF: 0 famotidine 20 mg Tablet 20 mg PO BID RF: 0 digoxin 125 mcg (0.125 mg) Tablet 125 mcg PO DAILY RF: 0 fluticasone propionate [Flonase Allergy Relief] 50 mcg/actuation [place],Suspension 1 spray INTRANASAL DAILY RF: 0 cholecalciferol (vitamin D3) [Vitamin D3] 1,000 unit Capsule 1,000 unit PO DAILY RF: 0 budesonide-formoterol [Symbicort] 160-4.5 mcg/actuation Hfa Aerosol Inhaler 2 puff INHALATION BID PRN (Reason: Shortness Of Breath) RF: 0 calcium polycarbophil [FiberCon] 625 mg Tablet 625 mg PO BID RF: 0 prednisone 20 mg Tablet 40 mg PO DAILY Qty: 10 RF: 0 sennosides-docusate sodium 8.6-50 mg Tablet 1 tab PO BID 30 Days Qty: 60 RF: 0 levofloxacin [Levaquin] 750 mg tablet 750 mg PO DAILY 5 Days Qty: 5 RF: 0 buspirone 5 mg Tablet 5 mg PO BID RF: 0 duloxetine 20 mg Capsule,Delayed Release(Dr/Ec) 20 mg PO DAILY RF: 0 amlodipine 5 mg Tablet 5 mg PO DAILY Qty: 30 RF: 0 ferrous sulfate 325 mg (65 mg iron) Tablet,Delayed Release (Dr/Ec) 325 mg PO BIDWM Qty: 60 RF: 0 warfarin 5 mg tablet 5 mg PO DAILY Qty: 30 RF: 0 mirtazapine 15 mg Tablet 7.5 mg PO DAILY RF: 0 Wellbutrin XL 150 mg Tablet Extended Release 24 Hr 150 mg PO QAM RF: 0 Zarxio 480 mcg/0.8 mL Syringe 480 mcg SUBCUT DAILY RF: 0 lisinopril 20 mg tablet 20 mg PO BID RF: 0 ipratropium-albuterol 0.5 mg-3 mg(2.5 mg base)/3 mL Solution For Nebulization 3 ml INHALATION Q4H PRN (Reason: Shortness Of Breath) RF: 0 albuterol sulfate 2.5 mg /3 mL (0.083 %) Solution For Nebulization 2.5 mg INHALATION Q4H PRN (Reason: Shortness Of Breath) RF: 0 Discharge Orders: Discharge Order (Routine); Ordered 12/02/19 Ordered By: Shaka Mendoza Referrals: Dylan Connors MD [Primary Care Provider] - Discharge Diet: Usual diet Discharge Activity: Increase activity as tolerated Discharge Date/Time: 12/02/19 16:05 Coding Level of Care Code ED [employer] for Danielleg Fwd Exam Comprehensive
--- NOTE | 2019-12-02 11:32 | XR_ITS ---
WS: [id number] CHEST XRAY TECHNIQUE: Portable chest. CLINICAL INFORMATION: dyspnea/cough COMPARISON: December 01, 2019 FINDINGS: Right PICC line with tip in the SVC. Left chest tube in place. No definite visualized pneum othorax. Subsegmental atelectasis left lung base with improved aeration. Elevation left hemidiaphragm . Stable interstitial thickening right lung. Heart: Cardiomegaly. Sternotomy. AVR. Aortic calcification. XR/XR chest 1V portable [id number] IMPRESSION: 1. Left chest tube in place. No visualized pneumothorax. 2. Improved aeration left lower lobe with persistent atelectasis left lung bas e. 3. Stable interstitial thickening right lung unchanged 4. Stable right PICC line.
--- NOTE | 2019-12-02 11:32 | ECG_ITS ---
Measurements Intervals [place] Rate: 89 P: SD: 0 QRS: 28 QRSD: 105 T: 269 QT: 305 QTc: [address] DEVIATION AND MODERATE T-WAVE ABNORMALITY, CONSIDER LATERAL ISCHEMIA [-0.1+ mV T WAVE IN I/aVL/V5/V6] ST DEVIATION AND MODERATE T-WAVE ABNORMALITY, CONSIDER INFERIOR ISCHEMIA [-0.1+ mV T WAVE IN II/aVF] Compared to ECG 11/27/2019 16:20:31 Possible ischemia now present Sinus rhythm no longer present T-wave abnormality still present Electronically Signed On 12-02-2019 15:00:46 CDT by Adriel Alvarez M.D. [id number] [place]
[2019-12-02 11:53] LABS: Basophils % 0.4 %; Hematocrit 29.6 % (37.0-47.0); Hemoglobin 9.4 g/dL (11.5-15.3); Lymphocytes # 0.7 10^3/uL (0.8-4.8); Lymphocytes % 13.3 %; Mean Corpuscular HGB Conc 31.8 g/dL (30.0-36.0); Mean Corpuscular Hemoglobin 29.5 pg (28.0-34.0); Mean Corpuscular Volume 92.8 fL (81-99); Mean Platelet Volume 11.5 fL (7.4-10.4); Monocytes # 0.1 10^3/uL (0.2-0.9); Monocytes % 2.6 %; Neutrophils # 4.1 10^3/uL (1.8-7.7); Neutrophils % 82.1 %; Nucleated Red Blood Cells % 0 %; Platelet Count 341 10^3/cmm (130-400); Red Blood Count 3.19 10^6/uL (4.1-5.3); Red Cell Distribution Width 18.1 % (12.1-15.1)
[2019-12-02 12:10] LABS: Alanine Aminotransferase 16 U/L (0-33); Albumin Level 3.9 g/dL (3.5-5.2); Alkaline Phosphatase 86 IU/L (35-105); Aspartate Amino Transferase 21 U/L (0-32); Blood Urea Nitrogen 42 mg/dL (8-23); Calcium 10.2 mg/dL (8.5-10.5); Carbon Dioxide 39 mmol/L (22-29); Chloride 86 mmol/L (98-107); Glucose 117 mg/dL (65-115); Osmolality Calculated 277 mOsm/kg (285-295); Sodium 134 mmol/L (136-145); Total Bilirubin 0.5 mg/dL (0.15-1.2); Total Protein 6.9 g/dL (6.6-8.7)
[2019-12-02 12:12] LABS: Troponin(5th) Baseline 33 ng/mL (0-10)
[2019-12-02 12:36] LABS: INR 1.73 (0.8-1.2)
[2019-12-02 12:41] LABS: ABG PCO2 53.1 mmHg (35-45); ABG PH Result 7.49 (7.35-7.45); Arterial Blood Gas Hematocrit 26.4 % (37-47); Base Excess ABG 15.3 mmol/L (-2.0-2.0); Blood Gas Allen Test Pos; Blood Gas Sample Site Radial, left; Blood Gas Sample Type Arterial; Carboxyhemoglobin 1.5 %THgb (0.4-20.1); HCO3 ABG 40.4 mmol/L (22-26); HGB O2 Sat 95.9 % (95-100); Ionized Calcium Level - ABG 1.2 mmol/L (1.1-1.4); Methemoglobin 0.9 % (0.4-1.5); Oxygen Device NC; Oxygen Saturation ABG 98.2; Potassium Level - ABG 3.9 mmol/L (3.5-5.0); Total Hemoglobin 8.6 g/dL (12-16)
--- NOTE | 2019-12-02 13:32 | ECG_ITS ---
Measurements Intervals [place] Rate: 103 P: MI: 0 QRS: 5 QRSD: 105 T: 265 QT: 307 QTc: 403 ATRIAL FIBRILLATION WITH RAPID VENTRICULAR RESPONSE ST DEVIATION AND MODERATE T-WAVE ABNORMALITY, CONSIDER ANTEROLATERAL ISCHEMIA [-0 [-0.1+ mV T WAVE IN V3-V6] ST DEVIATION AND MODERATE T-WAVE ABNORMALITY, CONSIDER INFERIOR ISCHEMIA [-0.1+ mV T WAVE IN II/aVF] Compared to ECG 11/27/2019 16:20:31 Possible ischemia now present Sinus rhythm no longer present T-wave abnormality still present Electronically Signed On 12-02-2019 15:04:05 CDT by Adriel Alvarez M.D. [id number]
[2019-12-02 13:40] LABS: Troponin 5 2HR 34.29 ng/mL (0-10); Troponin 5 2HR Delta 1.29 ABS# (0-10)
--- NOTE | 2019-12-02 16:31 | PC.NURSE ---
Patient refusing to lay in bed. Patient given chair at bedside to sit down.
--- NOTE | 2019-12-02 16:31 | PC.NURSE ---
Patient in hallway, trying to ambulate down hallway. This nurse walked patient back to chair at bedside.
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
== END 2019-12-02 16:05 | disposition home or self-care (01) ==
PROVIDERS: Emergency Provider Family Medicine; Family Provider Family Medicine; PCP Family Medicine
DX: C34.90 Malignant neoplasm of unspecified part of unspecified bronchus or lung (principal); Z79.01 Long term (current) use of anticoagulants; I25.10 Atherosclerotic heart disease of native coronary artery without angina pectoris; Z95.1 Presence of aortocoronary bypass graft; Z87.891 Personal history of nicotine dependence
CPT/HCPCS: 12345; 36415; 71045; 80051; 80053; 82810; 83986; 84484; 85025; 85610; 87040; 93005; 99283

== ENCOUNTER 2019-12-07 14:28 | Inpatient (IN) | payer MEDICARE, SELFPAY ==
[2019-12-07] VITALS (17 sets, daily range): BP systolic 93–163; BP diastolic 46–102; PULSE 50–127; RESP 14–27; TEMP 35.9–36.3; O2SAT 88–100; BMI 20.7
--- NOTE | 2019-12-07 14:46 | CT_ITS ---
WS: [id number] CT ABDOMEN AND PELVIS WITH CONTRAST HISTORY: abdominal pain TECHNIQUE: Imaging performed of the abdomen and pelvis with IV contrast. Single phase imaging of the abdomen. Coronal and sagittal reformats are submitted. All CT scans at [facility] use at least one of these dose optimization techniques: automated exposure control; mA and/or kV adjustment per patient size (includes targeted exams where dose is matched to clinical indication); or iterativ e reconstruction. IV CONTRAST: Omnipaque 300; 95 mL IV. Oral contrast: No DLP: 642.2 mGy.cm COMPARISON: 12/10/2018 Lower thorax: Small layering LEFT pleural effusion. Cardiac chamber size is normal. Mitral valve repl acement. No hiatal hernia. Liver/biliary system: Periportal edema is now present. There are a few scattered low-attenuation nodu les within the liver. Patient has a known history of hepatic metastasis. The residual low-attenuation lesions measure less than 1 cm. Gallbladder: Gallbladder is slightly contracted. Small amount of fluid in the gallbladder fossa. Pancreas: Normal. Spleen: Small spleen with granulomata. Adrenal glands: Normal. Right kidney: Normal. Left kidney: Normal. Aorta: Extensive atherosclerosis within the aorta. No aneurysm. Lymphadenopathy: None. Free fluid: None. GI tract: No GI tract obstruction. No acute inflammatory changes. Mucosal thickening and edema involv ing the antrum of the stomach. Abdominal wall: Unremarkable abdominal wall. No hernia. Pelvis: Well-distended urinary bladder. Bones: Severe degenerative disc disease at L2-3. Bones are diffusely osteopenic. Notified JAIME Jacques at 12/07/2019 3:[address]/CT abdomen pelvis w con* [id number] IMPRESSION: 1. Small LEFT pleural effusion. 2. No ascites. 3. Mild thickening of the antrum. May be due to focal peristalsis or wall 4. . Portal edema is probably due to aggressive hydration. 5. A few scattered nonenhancing low-attenuation nodules in the liver. Probably the residual of previously described metastasis. 6. No GI tract obstruction. There is mild thickening involving the antrum of t he stomach. Correlate for possible ulcer acute inflammatory process.
--- NOTE | 2019-12-07 14:48 | ECG_ITS ---
Measurements Intervals [place] Rate: 103 P: ND: 0 QRS: 18 QRSD: 111 T: 120 QT: 340 QTc: 446 ATRIAL FIBRILLATION WITH RAPID VENTRICULAR RESPONSE MODERATE INTRAVENTRICULAR CONDUCTION DELAY [110+ ms QRS DURATION] NONSPECIFIC ST & T-WAVE ABNORMALITY Compared to ECG 12/02/2019 13:41:46 Intraventricular conduction delay now present Possible ischemia no longer present T-wave abnormality still present Electronically Signed On 12-07-2019 19:44:15 CDT by Blanca Weaver M.D. [id number] f
--- NOTE | 2019-12-07 14:48 | XR_ITS ---
WS: [id number] PORTABLE CHEST HISTORY: upper abdominal pain COMPARISON: Study earlier the same day. Left-sided thoracostomy tube with tip directed superiorly. No pneumothorax. Prior median sternotomy and cardiac valve replacement. Blunting of the LEFT costophrenic angle is sim ilar to the prior study. No pulmonary congestion. Right-sided PICC line remains with tip in the dista l SVC. Cardiac size: Normal. Mediastinum/Aorta: Mild atherosclerosis aorta. No osseous abnormality seen. XR/XR chest 1V portable [id number] IMPRESSION: 1. Soft tissue thickening and blunting at the LEFT costophrenic angle similar to prior studies. 2. LEFT thoracostomy tube with no pneumothorax. 3. Right-sided PICC line in good position.
--- NOTE | 2019-12-07 14:49 | ED_ITS ---
HPI - Abdominal Pain General: Chief Complaint: Abdominal Pain Stated Complaint: STOMACH PAIN Time Seen by Provider: 12/07/19 14:35 Source: patient Mode of arrival: ambulatory Limitations: no limitations History of Present Illness: HPI narrative: Patient is a 74-year-old female who presents to ED today with complaints of abdominal pain over the past 3 to 4 days. Patient states she is also had associated nausea and vomiting-she has not noticed any blood in her vomit. Patient tells me she was seen by Dr. Fernandez yesterday and felt better after that visit although cannot name any specific interventions that were performed. She tells me to just refer to the paperwork . Unfortunately I am not able to view any record from Dr. Fernandez from yesterday's visit. Patient ultimately is a very poor historian refusing to answer the majority of my questions stating that she is in too much pain to think. She does tell me she has been having normal bowel movements. She does not complain of any urinary symptoms. She reportedly has not been running fevers. Patient's PMH is significant for metastatic small cell lung cancer, CHF, HTN, mitral valve replacement, atrial fibrillation, COPD, and anemia. Associated Symptoms: Reports nausea and vomiting; Denies bloating, change in stool character, chills, diarrhea, dysuria, fever(s), hematochezia, hematemesis, melena and syncope Review of Systems Const: Denies: fever, chills, body aches or fatigue Eyes: Denies: change in vision or photophobia ENMT: Denies: throat pain, enlarged tonsils or painful swallowing Card: Reports: shortness of breath on exertion (chronic); Denies: chest pain, palpitations, edema, swelling of feet/ankles, lightheadedness, syncope or pre-syncope Resp: Reports: shortness of breath (chronic ) GI: Reports: abdominal pain, nausea and vomiting; Denies: vomiting blood, diarrhea, bloating, change in stool character, blood in stool, black tarry stool or white/light colored stool : Denies: flank pain, difficulty urinating, painful urination, urinary frequency, urinary urgency or urinary hesitancy Musc: Denies: neck pain or back pain Skin/Breast: Denies: rash Neuro: Denies: headache, numbness in extremities, weakness in extremities or changes in sensation PFSH ED PFSH: Social History (System 04/27/20 @ 11:14 by Tania Gonzalez) Smoking and tobacco status: former smoker Quit status (tobacco): has quit using tobacco Year quit tobacco: 2020 - 0.5 PPD x 35 Years Alcohol intake: former Household members: spouse Marital status: Current occupational status: retired History of recent travel: No Current gender identity: Female Physical Exam Const: COMMON NORMALS: oriented x3, no limitations and alert GENERAL APPEARANCE: in distress (in pain) and frail appearing HENMT: COMMON NORMALS: normocephalic and head/scalp atraumatic HEAD & SCALP: normocephalic and atraumatic Resp: COMMON NORMALS: clear to auscultation bilaterally EFFORT & INSPECTION: Yes other (chronically has conversational dyspnea; chronically on 4L O2) AUSCULTATION: clear to auscultation bilaterally Cardio: COMMON NORMALS: regular rate RATE: regular rate RHYTHM: abnormal rhythm irregularly irregular GI: AUSCULTATION: Yes normoactive bowel sounds PALPATION: Yes tender (diffusely but moreso to upper abdomen ) RECTAL EXAM: heme positive stool : COMMON NORMALS: Yes no CVA tenderness BLADDER/KIDNEY EXAM: Yes no CVA tenderness Back/Pelvis: COMMON NORMALS: no CVA tenderness Extremity: COMMON NORMALS: normal to inspection Neuro: COMMON NORMALS: oriented x3 SENSORIUM/ORIENTATION: Yes alert Skin: COMMON NORMALS: no rashes or lesions noted GENERAL SKIN EXAM: no rashes or lesions noted Course Reevaluation(s): Reevaluation #1: Patient states she is feeling much better and now answers questions very appropriately and accurately. She tells me she is having black stools and has so for about 6 months now. She states she has received blood transfusions in the past but not sure what for. Vital Signs: Vital signs: Vital Signs Pulse Rate 50 L 12/07/19 16:07 Respiratory Rate 22 H 12/07/19 14:40 Blood Pressure 132/57 12/07/19 16:07 Pulse Oximetry 98 12/07/19 16:07 MDM - Abdominal Pain MDM Narrative: Medical decision making narrative: Patient feeling much better after IV pain and nausea medications. On her labs she is noted to have a hemoglobin of 6.6. On 12/01 hemoglobin was 9.4 and on 12/05 it was 7.3. She does have a history of anemia however given her positive heme stool here patient most likely needs to be admitted for blood transfusion and further evaluation of this. In addition pt is on wafarin (INR today was 3.08). Dr. Maharaj performed an EGD on patient just last month on 10/26/2019 which showed gastritis, gastric erosions, duodenitis, and duodenal erosions. His report states that none of the erosions were actively bleeding. According to Dr. Maharaj's note patient had a colonoscopy approximately 5 years ago without acute findings. Patient CT scan today showing mucosal thickening and edema about the antrum of her stomach which could correlate with an ulcer. I spoke to Dr. Acosta who will evaluate patient and speak to hospitalist. Lab Data: Labs: Lab Results 12/07/19 12/07/19 12/07/19 Range/Units 15:10 15:10 15:10 WBC 3.6 L (4.0-10.0) 10^3/ uL RBC 2.22 L (4.1-5.3) 10^6/u L Hgb 6.6 L (11.5-15.3) g/dL Hct 20.9 L (37.0-47.0) % MCV 94.1 (81-99) fL MCH 29.7 (28.0-34.0) pg MCHC 31.6 (30.0-36.0) g/dL RDW 17.7 H (12.1-15.1) % Plt Count 36 L (130-400) 10^3/c mm MPV 10.7 H (7.4-10.4) fL Neut % (Auto) 77.9 % Lymph % (Auto) 12.3 % [place] % (Auto) 9.2 % Eos % (Auto) 0.0 % Baso % (Auto) 0.0 % Neut # (Auto) 2.8 (1.8-7.7) 10^3/u L Lymph # (Auto) 0.4 L (0.8-4.8) 10^3/u L King[place] # (Auto) 0.3 (0.2-0.9) 10^3/u L Eos # (Auto) 0.0 (0.0-0.8) 10^3/u L Baso # (Auto) 0.0 (0.0-0.1) 10^3/u L Nucleated RBC % (a uto) 0 % Nucleated RBCs # 0.0 /100WBC PT (10.5-13.3) SECO NDS INR (0.8-1.2) Sodium 129 L (136-145) mmol/L Potassium 4.6 (3.5-5.1) mmol/L Chloride 91 L (98-107) mmol/L Carbon Dioxide 31 H (22-29) mmol/L Anion Gap 11.6 (5-19) BUN 16 (8-23) mg/dL Creatinine 0.6 (0.5-0.9) mg/dL Glucose 146 H (65-115) mg/dL Calculated Osmolal ity 267 L (285-295) mOsm/k g Lactate 1.5 (0.5-2.2) mmol/L Calcium 9.3 (8.5-10.5) mg/dL Total Bilirubin 0.3 (0.15-1.2) mg/dL AST 23 (0-32) U/L ALT 23 (0-33) U/L Alkaline Phosphata se 71 (35-105) IU/L Total Protein 5.9 L (6.6-8.7) g/dL Albumin 3.6 (3.5-5.2) g/dL Globulin 2.3 (1.3-4.6) g/dL Lipase 16 (13-60) U/L Digoxin 1.3 H (0.6-1.2) ng/mL 12/07/19 Range/Units 15:10 WBC (4.0-10.0) 10^3/ uL RBC (4.1-5.3) 10^6/u L Hgb (11.5-15.3) g/dL Hct (37.0-47.0) % MCV (81-99) fL MCH (28.0-34.0) pg MCHC (30.0-36.0) g/dL RDW (12.1-15.1) % Plt Count (130-400) 10^3/c mm MPV (7.4-10.4) fL Neut % (Auto) % Lymph % (Auto) % [place] % (Auto) % Eos % (Auto) % Baso % (Auto) % Neut # (Auto) (1.8-7.7) 10^3/u L Lymph # (Auto) (0.8-4.8) 10^3/u L Kingman # (Auto) (0.2-0.9) 10^3/u L Eos # (Auto) (0.0-0.8) 10^3/u L Baso # (Auto) (0.0-0.1) 10^3/u L Nucleated RBC % (a uto) % Nucleated RBCs # /100WBC PT 33.00 H (10.5-13.3) SECO NDS INR 3.08 H (0.8-1.2) Sodium (136-145) mmol/L Potassium (3.5-5.1) mmol/L Chloride (98-107) mmol/L Carbon Dioxide (22-29) mmol/L Anion Gap (5-19) BUN (8-23) mg/dL Creatinine (0.5-0.9) mg/dL Glucose (65-115) mg/dL Calculated Osmolal ity (285-295) mOsm/k g Lactate (0.5-2.2) mmol/L Calcium (8.5-10.5) mg/dL Total Bilirubin (0.15-1.2) mg/dL AST (0-32) U/L ALT (0-33) U/L Alkaline Phosphata se (35-105) IU/L Total Protein (6.6-8.7) g/dL Albumin (3.5-5.2) g/dL Globulin (1.3-4.6) g/dL Lipase (13-60) U/L Digoxin (0.6-1.2) ng/mL Imaging Data ^: CXR: Radiologist's impression: [address] [address] XRay Report Signed Patient: Debbi Garcias Unit #: [id number] : 1945 Age/Sex: 74 / F ADM Date: 12/07/19 Loc: ER Room/Bed: Attending Dr: Ordering Provider/Ordering MD: Sheba Arnold Date of Service: 12/07/19 Procedure(s): XR chest 1V portable [id number] Accession Number(s): [id number] Report Number: [id number] WS: [id number] PORTABLE CHEST HISTORY: upper abdominal pain COMPARISON: Study earlier the same day. Left-sided thoracostomy tube with tip directed superiorly. No pneumothorax. Prior median sternotomy and cardiac valve replacement. Blunting of the LEFT costophrenic angle is similar to the prior study. No pulmonary congestion. Right-sided PICC line remains with tip in the distal SVC. Cardiac size: Normal. Mediastinum/Aorta: Mild atherosclerosis aorta. No osseous abnormality seen. XR/XR chest 1V portable [id number] IMPRESSION: 1. Soft tissue thickening and blunting at the LEFT costophrenic angle similar to prior studies. 2. LEFT thoracostomy tube with no pneumothorax. 3. Right-sided PICC line in good position. Dictated By: Vanessa Carr DO Signed By: Vanessa Carr DO Signed Date/Time: 12/07/19 1502 DD/ 1500 CT Abd/Pel: Radiologist's impression: [place] [id number] CT Scan Report Signed Patient: Debbi Garcias Unit #: [id number] : 1945 Age/Sex: 74 / F ADM Date: 12/07/19 Loc: ER Room/Bed: Attending Dr: Ordering Provider/Ordering MD: Sheba Arnold Date of Service: 12/07/19 Procedure(s): CT abdomen pelvis w con* [id number] Accession Number(s): [id number] Report Number: [id number] WS: [id number] CT ABDOMEN AND PELVIS WITH CONTRAST HISTORY: abdominal pain TECHNIQUE: Imaging performed of the abdomen and pelvis with IV contrast. Single phase imaging of the abdomen. Coronal and sagittal reformats are submitted. All CT scans at [facility] use at least one of these dose optimization techniques: automated exposure control; mA and/or kV adjustment per patient size (includes targeted exams where dose is matched to clinical indication); or iterative reconstruction. IV CONTRAST: Omnipaque 300; 95 mL IV. Oral contrast: No DLP: 642.2 mGy.cm COMPARISON: 12/10/2018 Lower thorax: Small layering LEFT pleural effusion. Cardiac chamber size is normal. Mitral valve replacement. No hiatal hernia. Liver/biliary system: Periportal edema is now present. There are a few scattered low-attenuation nodules within the liver. Patient has a known history of hepatic metastasis. The residual low- attenuation lesions measure less than 1 cm. Gallbladder: Gallbladder is slightly contracted. Small amount of fluid in the gallbladder fossa. Pancreas: Normal. Spleen: Small spleen with granulomata. Adrenal glands: Normal. Right kidney: Normal. Left kidney: Normal. Aorta: Extensive atherosclerosis within the aorta. No aneurysm. Lymphadenopathy: None. Free fluid: None. GI tract: No GI tract obstruction. No acute inflammatory changes. Mucosal thickening and edema involving the antrum of the stomach. Abdominal wall: Unremarkable abdominal wall. No hernia. Pelvis: Well-distended urinary bladder. Bones: Severe degenerative disc disease at L2-3. Bones are diffusely osteopenic. Notified JAIME Jacques at 12/07/2019 3:[address]/CT abdomen pelvis w con* [id number] IMPRESSION: 1. Small LEFT pleural effusion. 2. No ascites. 3. Mild thickening of the antrum. May be due to focal peristalsis or wall 4. . Portal edema is probably due to aggressive hydration. 5. A few scattered nonenhancing low-attenuation nodules in the liver. Probably the residual of previously described metastasis. 6. No GI tract obstruction. There is mild thickening involving the antrum of the stomach. Correlate for possible ulcer acute inflammatory process. Dictated By: Vanessa Carr DO Signed By: Vanessa Carr DO Signed Date/Time: 12/07/19 1556 DD/ 1542 Discharge Plan Discharge Patient Disposition: Admitted As Inpatient Clinical Impression: Anemia due to GI blood loss Gastric erosion Qualifiers: Gastric ulcer chronicity: chronic Qualified Code(s): K25.7 - Chronic gastric ulcer without hemorrhage or perforation Atrial fibrillation Qualifiers: Atrial fibrillation type: longstanding persistent Qualified Code(s): I48.11 - Longstanding persistent atrial fibrillation Metastatic primary lung cancer Qualifiers: Laterality: left Qualified Code(s): C34.92 - Malignant neoplasm of unspecified part of left bronchus or lung Condition: Stable Referrals: Dylan Connors MD [Primary Care Provider] - Coding Level of Care Code ED Software Engineering Specialist for Chg Fwd Exam Comprehensive
[2019-12-07] MEDS: HYDROmorphone 1 mg/mL INJ 1 mL 0.5 MG IVP (15:04)
[2019-12-07] MEDS: ondansetron 2 mg/ML SDV 2 mL 4 MG IVP (15:04)
--- NOTE | 2019-12-07 15:20 | PC.NURSE ---
pt to CT by stretcher with tech
[2019-12-07] MEDS: iohexol 300 mg/mL 100 mL Btl IV (15:26)
[2019-12-07 15:28] LABS: Hematocrit 20.9 % (37.0-47.0); Hemoglobin 6.6 g/dL (11.5-15.3); Lymphocytes # 0.4 10^3/uL (0.8-4.8); Lymphocytes % 12.3 %; Mean Corpuscular HGB Conc 31.6 g/dL (30.0-36.0); Mean Corpuscular Hemoglobin 29.7 pg (28.0-34.0); Mean Corpuscular Volume 94.1 fL (81-99); Mean Platelet Volume 10.7 fL (7.4-10.4); Monocytes # 0.3 10^3/uL (0.2-0.9); Monocytes % 9.2 %; Neutrophils # 2.8 10^3/uL (1.8-7.7); Neutrophils % 77.9 %; Nucleated Red Blood Cells % 0 %; Platelet Count 36 10^3/cmm (130-400); Red Blood Count 2.22 10^6/uL (4.1-5.3); Red Cell Distribution Width 17.7 % (12.1-15.1); White Blood Count 3.6 10^3/uL (4.0-10.0)
[2019-12-07 15:34] LABS: INR 3.08 (0.8-1.2)
[2019-12-07 15:45] LABS: Alanine Aminotransferase 23 U/L (0-33); Albumin Level 3.6 g/dL (3.5-5.2); Alkaline Phosphatase 71 IU/L (35-105); Anion Gap 11.6 (5-19); Aspartate Amino Transferase 23 U/L (0-32); Blood Urea Nitrogen 16 mg/dL (8-23); Calcium 9.3 mg/dL (8.5-10.5); Carbon Dioxide 31 mmol/L (22-29); Chloride 91 mmol/L (98-107); Creatinine Clr Calc Pharmacy 48.0891; Digoxin 1.3 ng/mL (0.6-1.2); Globulin 2.3 g/dL (1.3-4.6); Glucose 146 mg/dL (65-115); Lipase 16 U/L (13-60); Osmolality Calculated 267 mOsm/kg (285-295); Potassium 4.6 mmol/L (3.5-5.1); Sodium 129 mmol/L (136-145); Total Bilirubin 0.3 mg/dL (0.15-1.2); Total Protein 5.9 g/dL (6.6-8.7)
[2019-12-07 15:46] LABS: Lactate (Lactic Acid level) 1.5 mmol/L (0.5-2.2)
[2019-12-07] MEDS: pantoprazole 40 mg SDV 80 MG IVP (17:47)
[2019-12-07] MEDS: pantoprazole 40 MG in sodium chloride 0.9% (plus) 100 ML 20 MG IV (17:49)
--- NOTE | 2019-12-07 18:02 | P.HP_ITS ---
Providers/Chief Complaint Admitting Physician: Arnold Esteban Primary Care Provider: Dylan Connors MD Chief Complaint: STOMACH PAIN History of Present Illness Debbi Garcias is a 74 year old pleasant lady, with recent admission here during which she underwent assessment for pleural effusion, CHF exacerbation, acute blood loss anemia, will including endoscopic upper GI evaluation due to reported hematemesis, also with chronic underlying COPD at baseline on 4 L, pulmonary malignancy previously receiving chemotherapy, following with oncology, as well as chronic anticoagulation with warfarin due to mechanical mitral valve returns to the hospital due to upper abdominal pain of several days duration, with noted Hemoccult positive stool in ER, as well as decline in hemoglobin down to 6.6. INR is 3.0. She is also noted thrombocytopenic with platelets of 36,000. Review of Systems Const: Reports: other; Denies: fever, chills, body aches or malaise Eyes: Denies: change in vision or eye redness ENMT: Denies: throat pain, oral sores/lesions or ear pain Card: Denies: chest pain, edema, pre-syncope or shortness of breath on exertion Resp: Reports: other (Chronically on oxygen, although denies significant shortness of breath currently, denies cough, chest pain.); Denies: shortness of breath, productive cough, change in phlegm color or coughing up blood GI: Reports: abdominal pain (pain across upper abdomen) and other (Has noticed some dark stools); Denies: nausea, vomiting, diarrhea, constipation or blood in stool : Denies: flank pain, urinary frequency or blood in urine Musc: Denies: back pain, joint swelling or redness Skin/Breast: Denies: rash, sores or new lesion Neuro: Denies: headache, numbness in extremities, weakness in extremities, dizziness, confusion or seizure-like activity Endo: Denies: excessive urination or excessive thirst Royal/Lymph: Denies: easy bleeding or purpura All/Imm: Denies: hives, throat swelling or tongue swelling Medications/Allergies Home Medications Medication Instructions Recorded Confirmed Last Taken Type atorvastatin 80 mg PO DAILY 08/18/19 12/07/19 10/25/19 History budesonide-formoterol [Symbicort] 2 puff INHALATION BID PRN 08/18/19 12/07/19 10/25/19 History calcium polycarbophil [FiberCon] 625 mg PO BID 08/18/19 12/07/19 10/24/19 History cholecalciferol (vitamin D3) 1,000 unit PO DAILY 08/18/19 12/07/19 10/24/19 History [Vitamin D3] digoxin 125 mcg PO DAILY 08/18/19 12/07/19 10/25/19 History famotidine 40 mg PO BID 08/18/19 12/07/19 09/08/19 History fluticasone propionate [Flonase 1 spray INTRANASAL DAILY 08/18/19 12/07/19 10/25/19 History Allergy Relief] hydrocodone-acetaminophen [[place]] 1 tab PO QID PRN 08/18/19 12/07/19 10/25/19 History sotalol 80 mg PO BID 08/18/19 12/07/19 10/25/19 History duloxetine 20 mg PO DAILY 10/25/19 12/07/19 10/25/19 History warfarin 5 mg PO DAILY #30 tab 11/10/19 12/07/19 Unknown Rx bupropion HCl [Wellbutrin XL] 150 mg PO QAM 12/02/19 12/07/19 Unknown History ipratropium-albuterol 3 ml INHALATION Q6H PRN 12/02/19 12/07/19 Unknown History mirtazapine 7.5 mg PO DAILY 12/02/19 12/07/19 Unknown History docusate sodium [Colace] 100 mg PO BID 12/07/19 12/07/19 Unknown History hydromorphone 2 mg PO Q4H PRN 12/07/19 12/07/19 Unknown History levofloxacin [Levaquin] 750 mg PO DAILY 12/07/19 12/07/19 12/07/19 History lorazepam [Ativan] See Rx Instructions .ROUTE .COMPLEX 12/07/19 12/07/19 Unknown History ondansetron HCl [Zofran] 4 mg PO Q6H PRN 12/07/19 12/07/19 Unknown History prednisone See Rx Instructions .ROUTE .COMPLEX 12/07/19 12/07/19 Unknown History Allergies Allergy/AdvReac Type Severity Reaction Status Date / Time adhesive tape Allergy Intermediate ALGY-Bliste Verified 12/05/19 11:14 r ampicillin Allergy Mild ALGY-Fever Verified 12/05/19 11:14 PFSH Acute PFSH: Medical History Aortic regurgitation Atrial fibrillation Chronic anticoagulation COPD (chronic obstructive pulmonary disease) Diastolic CHF, chronic Hypertension Hyponatremia Small cell lung cancer Subtherapeutic international normalized ratio (INR) Surgical History H/O mitral valve replacement Mechanical valve 2000 H/O: hysterectomy Left oophorectomy History of carpal tunnel release Right History of lumbar surgery x 1 S/P thoracentesis x 3 secondary to malignant L pleural effusion Family History Mother Clotting disorder Father Clotting disorder Sister AAA (abdominal aortic aneurysm) Social History Smoking and tobacco status: former smoker Quit status (tobacco): has quit using tobacco Year quit tobacco: 2020 - 0.5 PPD x 35 Years Alcohol intake: former Household members: spouse Marital status: Current occupational status: retired History of recent travel: No Current gender identity: Female Vitals/I&O/Wt Last Vital Signs Pulse 98 12/07/19 17:54 Resp 22 H 12/07/19 14:40 BP 96/73 12/07/19 17:54 Pulse Ox 91 12/07/19 17:54 Weight last 48 hrs Weight 49.895 kg Physical Exam Const: COMMON NORMALS: no apparent distress and oriented x3 ORIENTATION/CONSCIOUSNESS: Yes other (Not a good historian.) HENMT: COMMON NORMALS: oropharynx normal Neck/C-Spine: COMMON NORMALS: no JVD Resp: COMMON NORMALS: normal respiratory effort and clear to auscultation bilaterally AUSCULTATION: clear to auscultation bilaterally Cardio: COMMON NORMALS: no JVD, regular rhythm, S1 normal heart sound, S2 normal heart sound and no murmurs RHYTHM: regular rhythm HEART SOUNDS: S1 normal and S2 normal GI: COMMON NORMALS: normal to inspection, nondistended, normoactive bowel sounds, soft to palpation and non-tender PALPATION: Yes soft Extremity: COMMON NORMALS: no joint enlargement and no pedal edema Neuro: COMMON NORMALS: oriented x3 and moves all extremities Skin: COMMON NORMALS: no rashes or lesions noted GENERAL SKIN EXAM: no rashes or lesions noted Data : 12/07/19 15:10 12/07/19 15:10 A&P Assessment and plan (1) Anemia due to GI blood loss: Upper abdominal pain, recently with EGD with finding of gastritis, duodenitis, although no active bleeding. Did receive prednisone subsequently it appears probably for COPD exacerbation. Currently with acute blood loss anemia, hemoglobin 6.6, Hemoccult positive stool. Also thrombocytopenia, with platelets 36,000. 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 For now 1 unit, recheck around 1 AM after the transfusion, and additional platelets if still below 50,000. Hold off warfarin for today, recheck INR, and if subtherapeutic, will need to be started on heparin drip, depending on hemoglobin/bleeding. Discussed this with her and she is agreeable with the plan. Appreciate surgical evaluation regarding GI bleeding in this difficult settings with chronic anticoagulation, as well as thrombocytopenia. Status: Acute Attestations Medical Necessity Statement*: Admission of over 2 midnights is going to be needed for assessment management of GI bleeding in the setting of chronic anticoagulation, as well as thrombocytopenia in a lady with multiple comorb idities including pulmonary malignancy, CHF, chronic oxygen dependent COPD on 4 L by nasal cannula. Coding Level of Care Code Acute Presidential Helicopter Crew Chief for [facility] Fwd Diagnoses Anemia due to GI blood loss D50.0
--- NOTE | 2019-12-07 18:11 | PC.NURSE ---
attempted to call report to ICU. Nurse not ready
--- NOTE | 2019-12-07 19:08 | PC.NURSE ---
Report received from Arpan TORO, and care transferred to CORTEZ Anaya
--- NOTE | 2019-12-07 21:00 | PC.NURSE ---
DR FINA SENIOR CALLED. GAVE ORDER FOR 20MG LASIX BETWEEN UNITS OF BLOOD. PLATELETS ARE TO BE GIVEN ALSO, HE GAVE ORDER THAT IF AFTER PLATELETS ARE GIVEN, IF COUNT IS NOT UP TO 50,000 TO ORDER ANOTHER UNIT. HE STATED TARGET HGB AFTER BLOOD IS GREATER THAN 7.
--- NOTE | 2019-12-07 22:04 | PC.NURSE ---
PT WAS ADMITTED WITH PICC LINE ALREADY INSERTED.
--- NOTE | 2019-12-07 22:40 | PC.NURSE ---
DR FINA LOWE BECAME VERY TEARFUL, WANTING SOMETHING TO DRINK, SOBBING BECAUSE SHE STATES HER FAMILY IS LYING TO HER. DR VELOZ WAS CALLED, HE GAVE THE OKAY TO GIVE HER SOME JUICE.
[2019-12-07] MEDS: sodium chloride 0.9% (100 ml) 100 ML (23:11)
[2019-12-08] VITALS (34 sets, daily range): BP systolic 115–167; BP diastolic 62–108; PULSE 88–125; RESP 15–36; TEMP 36.1–36.6; O2SAT 84–100
[2019-12-08] MEDS: FUROsemide 10 mg/mL SDV 2mL 20 MG IVP (02:18)
[2019-12-08 05:41] LABS: Eosinophils % 0.3 %; Hematocrit 26.5 % (37.0-47.0); Hemoglobin 8.7 g/dL (11.5-15.3); Lymphocytes % 29.5 %; Mean Corpuscular HGB Conc 32.8 g/dL (30.0-36.0); Mean Corpuscular Hemoglobin 30.1 pg (28.0-34.0); Mean Corpuscular Volume 91.7 fL (81-99); Mean Platelet Volume 10.4 fL (7.4-10.4); Monocytes # 0.5 10^3/uL (0.2-0.9); Monocytes % 15.6 %; Neutrophils # 1.8 10^3/uL (1.8-7.7); Neutrophils % 54.3 %; Nucleated Red Blood Cells % 1.2 %; Platelet Count 82 10^3/cmm (130-400); Red Blood Count 2.89 10^6/uL (4.1-5.3); Red Cell Distribution Width 15.9 % (12.1-15.1); White Blood Count 3.4 10^3/uL (4.0-10.0)
[2019-12-08 05:54] LABS: INR 2.13 (0.8-1.2)
[2019-12-08 05:59] LABS: Alanine Aminotransferase 22 U/L (0-33); Albumin Level 3.8 g/dL (3.5-5.2); Alkaline Phosphatase 74 IU/L (35-105); Anion Gap 12.3 (5-19); Aspartate Amino Transferase 21 U/L (0-32); Blood Urea Nitrogen 12 mg/dL (8-23); Calcium 9.7 mg/dL (8.5-10.5); Carbon Dioxide 34 mmol/L (22-29); Chloride 94 mmol/L (98-107); Creatinine Clr Calc Pharmacy 48.0891; Glucose 84 mg/dL (65-115); Osmolality Calculated 277 mOsm/kg (285-295); Potassium 4.3 mmol/L (3.5-5.1); Sodium 136 mmol/L (136-145); Total Bilirubin 0.9 mg/dL (0.15-1.2); Total Protein 5.8 g/dL (6.6-8.7)
[2019-12-08 06:00] LABS: Alanine Aminotransferase 22 U/L (0-33); Albumin Level 3.7 g/dL (3.5-5.2); Alkaline Phosphatase 74 IU/L (35-105); Anion Gap 11.3 (5-19); Aspartate Amino Transferase 21 U/L (0-32); Blood Urea Nitrogen 12 mg/dL (8-23); Calcium 9.9 mg/dL (8.5-10.5); Carbon Dioxide 34 mmol/L (22-29); Chloride 94 mmol/L (98-107); Creatinine Clr Calc Pharmacy 48.0891; Digoxin 1.1 ng/mL (0.6-1.2); Globulin 2.4 g/dL (1.3-4.6); Glucose 85 mg/dL (65-115); Osmolality Calculated 275 mOsm/kg (285-295); Potassium 4.3 mmol/L (3.5-5.1); Sodium 135 mmol/L (136-145); Total Bilirubin 0.9 mg/dL (0.15-1.2); Total Protein 6.1 g/dL (6.6-8.7)
--- NOTE | 2019-12-08 06:25 | PC.NURSE ---
SHIFT SUMMARY PT HAS GOTTEN BLOOD THROUGHOUT THE NIGHT. NO REACTION HAS BEEN NOTED. PT AT TIMES IS VERY TEARFUL AND ANGRY, USUALLY CALMS DOWN WITHIN A 2-3 MINUTES. PT HAS BEEN ABLE TO GET UP TO BSC WITH SBA. PT PICC LINE REMAINS PATENT. WITH MORNING LABS. HGB WILL BE INCORRECT, BLOOD WAS INFUSING WHEN LAB WAS DRAWN.
--- NOTE | 2019-12-08 06:29 | PC.NURSE ---
PLATELET COUNT WENT FROM 36 TO 82, NO NEW PLATELETS WERE ORDERED.
[2019-12-08] MEDS: buPROPion XL (24 HR) 150 mg Tablet PO (06:43)
[2019-12-08 08:44] LABS: Hemoglobin 10.6 g/dL (11.5-15.3)
--- NOTE | 2019-12-08 08:57 | PM.PN ---
Subjective Subjective: Interval history: She is unhappy about being in the hospital, and feels that she usually does better at home. She does understand that due to her anticoagulation, GI bleeding, and in the setting of low platelets, she requires closer monitoring that what is possible on outpatient basis, and is agreeable to continue. She feels that due to staying in bed the entire night had her bottom had gotten raw. Vitals/I&O/Wt Last Vital Signs Temp 97.8 F 12/08/19 07:32 Pulse 110 H 12/08/19 08:31 Resp 18 12/08/19 08:28 BP 141/91 12/08/19 07:32 Pulse Ox 96 12/08/19 08:28 12/07/19 12/08/19 12/08/19 22:59 06:59 14:59 Intake Total 399 / 399 250 / 250 Output Total 500 / 500 Balance -500 / -500 399 / -101 250 / 250 Weight last 48 hrs Weight 49.895 kg Physical Exam Const: COMMON NORMALS: no apparent distress and oriented x3 ORIENTATION/CONSCIOUSNESS: Yes other (Not a good historian.) OTHER: Hard of hearing. HENMT: COMMON NORMALS: oropharynx normal Neck/C-Spine: COMMON NORMALS: no JVD Resp: COMMON NORMALS: normal respiratory effort and clear to auscultation bilaterally AUSCULTATION: clear to auscultation bilaterally Cardio: COMMON NORMALS: no JVD, regular rhythm, S1 normal heart sound, S2 normal heart sound and no murmurs RHYTHM: regular rhythm HEART SOUNDS: S1 normal and S2 normal GI: COMMON NORMALS: normal to inspection, nondistended, normoactive bowel sounds, soft to palpation and non-tender PALPATION: Yes soft Extremity: COMMON NORMALS: no joint enlargement and no pedal edema Neuro: COMMON NORMALS: oriented x3 and moves all extremities Skin: COMMON NORMALS: no rashes or lesions noted GENERAL SKIN EXAM: no rashes or lesions noted Data : 12/08/19 08:32 12/08/19 05:25 A&P Assessment and plan (1) Anemia due to GI blood loss: Abdomen seems to be better today. No tenderness noted on palpation. Upper abdominal pain, recently with EGD with finding of gastritis, duodenitis, although no active bleeding. Did receive prednisone subsequently it appears probably for COPD exacerbation. Currently with acute blood loss anemia, Hemoccult positive stool. Responded well to PBC transfusion, platelet transfusion. INR down to subtherapeutic today. We will start heparin drip. Monitor blood counts. Monitor INR, depending on how she does, possibly resume warfarin at lower dose. Also thrombocytopenia, with platelets 36,000. Appreciate surgical evaluation regarding GI bleeding in this difficult settings with chronic anticoagulation, as well as thrombocytopenia. Could not reach next of kin for update. Status: Acute Additional A&P Information Thrombocytopenia: Platelets down to 36,000 on presentation. Received 1 unit platelet transfusion, with good response up to 80,000 this morning. Lung cancer: Small cell, has been undergoing chemotherapy under supervision of Dr. Delgadillo. Given her overall condition, however, it is not clear that she will be able to continue. Gastritis, duodenitis: Noted on EGD during prior hospitalization. Suspect this is likely because of recurrent bleeding. Possibly PUD, with some antral thickening noted on CT scan during this admission. Will check H. pylori. Continue Protonix drip at this time. Severe chronic COPD: On baseline 4 L oxygen by nasal cannula Diastolic CHF HTN A. fib Attestations Medical Necessity Statement*: Continue admission for assessment of management of GI bleeding in the setting of chronic anticoagulation, mechanical mitral valve, thrombocytopenia, and multiple other committees including lung cancer. Coding Level of Care Code Acute Beaver Trapper for Len Del Rio Diagnoses Anemia due to GI blood loss D50.0
[2019-12-08] MEDS: sotalol 80 mg Tablet PO ×2 (09:23→17:54)
[2019-12-08] MEDS: cholecalciferol (vitamin D3) 1,000 unit Tablet 1000 UNIT PO (09:23)
[2019-12-08] MEDS: HYDROcodone-acetaminophen 10-325 mg Tablet 1 TAB PO ×3 (09:23→23:55)
[2019-12-08] MEDS: calcium polycarbophil 625 mg Tablet PO ×2 (09:23→17:54)
[2019-12-08] MEDS: atorvastatin 40 mg Tablet 80 MG PO (09:24)
[2019-12-08] MEDS: duloxetine 20 mg Capsule PO (09:24)
[2019-12-08] MEDS: fluticasone nasal spray 16gm Btl 1 SPRAY INTRANASAL (09:26)
--- NOTE | 2019-12-08 11:00 | PC.NURSE ---
Central line assessment opened to access central line kit charge. Dressing used on [facility].
--- NOTE | 2019-12-08 12:10 | PC.NURSE ---
Report faxed to [facility]. Further report given to CORTEZ Burris. Pt then transferred to room 254-1, with all personal belongings.
[2019-12-08 12:33] LABS: H. Pylori IgG Antibody Negative (Negative)
--- NOTE | 2019-12-08 13:11 | PC.NURSE ---
, Richy and Daughter, Greta, called to update them on transfer and room number.
[2019-12-08] MEDS: heparin 5,000 unit/mL INJ 1 mL IV (13:29)
[2019-12-08] MEDS: heparin drip 25,000 UNIT/500 ML PREMIX 14 UNIT IV (13:32)
[2019-12-08] MEDS: mirtazapine 15 mg Tablet 7.5 MG PO (19:53)
[2019-12-08 21:09] LABS: Partial Thromboplastin Time 208.5 SECONDS (23.9-36.7)
[2019-12-09] VITALS (10 sets, daily range): BP systolic 88–149; BP diastolic 47–83; PULSE 80–102; RESP 16–22; TEMP 36.4–36.6; O2SAT 92–98
[2019-12-09 04:44] LABS: Basophils % 0.4 %; Eosinophils % 0.8 %; Hematocrit 31.8 % (37.0-47.0); Hemoglobin 10.3 g/dL (11.5-15.3); Lymphocytes # 0.7 10^3/uL (0.8-4.8); Lymphocytes % 28.9 %; Mean Corpuscular HGB Conc 32.4 g/dL (30.0-36.0); Mean Corpuscular Hemoglobin 29.7 pg (28.0-34.0); Mean Corpuscular Volume 91.6 fL (81-99); Monocytes # 0.4 10^3/uL (0.2-0.9); Monocytes % 15.2 %; Neutrophils # 1.4 10^3/uL (1.8-7.7); Neutrophils % 53.1 %; Nucleated Red Blood Cells # 0.2 /100WBC; Nucleated Red Blood Cells % 5.9 %; Platelet Count 69 10^3/cmm (130-400); Red Blood Count 3.47 10^6/uL (4.1-5.3); Red Cell Distribution Width 16.7 % (12.1-15.1); White Blood Count 2.6 10^3/uL (4.0-10.0)
[2019-12-09 05:01] LABS: Alanine Aminotransferase 21 U/L (0-33); Albumin Level 3.5 g/dL (3.5-5.2); Alkaline Phosphatase 72 IU/L (35-105); Anion Gap 12.8 (5-19); Aspartate Amino Transferase 22 U/L (0-32); Blood Urea Nitrogen 12 mg/dL (8-23); Calcium 9.7 mg/dL (8.5-10.5); Carbon Dioxide 31 mmol/L (22-29); Chloride 92 mmol/L (98-107); Creatinine Clr Calc Pharmacy 48.0891; Globulin 2.6 g/dL (1.3-4.6); Glucose 126 mg/dL (65-115); Osmolality Calculated 270 mOsm/kg (285-295); Potassium 4.8 mmol/L (3.5-5.1); Sodium 131 mmol/L (136-145); Total Bilirubin 0.5 mg/dL (0.15-1.2); Total Protein 6.1 g/dL (6.6-8.7)
[2019-12-09] MEDS: buPROPion XL (24 HR) 150 mg Tablet PO (05:08)
[2019-12-09 05:38] LABS: Partial Thromboplastin Time 140.6 SECONDS (23.9-36.7)
[2019-12-09] MEDS: sotalol 80 mg Tablet PO ×2 (08:44→17:37)
[2019-12-09] MEDS: cholecalciferol (vitamin D3) 1,000 unit Tablet 1000 UNIT PO (08:44)
[2019-12-09] MEDS: duloxetine 20 mg Capsule PO (08:44)
[2019-12-09] MEDS: atorvastatin 40 mg Tablet 80 MG PO (08:44)
[2019-12-09] MEDS: fluticasone nasal spray 16gm Btl 1 SPRAY INTRANASAL (08:44)
[2019-12-09] MEDS: calcium polycarbophil 625 mg Tablet PO ×2 (08:44→17:36)
--- NOTE | 2019-12-09 09:53 | PC.CHAP ---
Pastoral Care Encounter/Spiritual Assessment Type of Contact [] Declined prevention specialist visit [] Patient/Family/Request visit [] Outpatient visit [] Follow-up visit [] Physician referral [] Code/Alert [x] Routine visit [] Staff referral [] Actively dying [] Patient sleeping [] Family support [] [] Out of room [] Palliative care [] [] Receiving care in room [] Pre-surgical visit [] Trauma [] Long length of stay [] ICU visit [] Other: Relational/Emotional Strength [] Patient feels connected with others/family/visitors/staff [] Distress [] Loneliness/isolation [] Abandonment Spirituality of Patient [] Person of Eunice [] Attends Anabaptism of their [place]un[place] [x] Believes in Prayer [] Reads Bible or Jehovah'S Witness materials [] There are Spiritual issues to be addressed Income Tax Expert Interventions [x Prayer [] Active listening [] Non-anxious presence [] Spiritual/emotional support [] Crisis/trauma care [] Spiritual counseling [] Bereavement support [] Provided bereavement packet [] Provided Bible/devotional materials [] Provided toy/stuffed animal, coloring book to patient or family member [] Provided Communion [] Anointing/[place] [] Salvation [x] Completed spiritual assessment [] Other: Impact on Illness or Injury [] Angry [] Fearful [] Anxious [] Often cries [] Exhaustion [] Unable to work [] Unable to attend restoration [] Unable to walk/stand [] Unable to read [] Unable to drive [] Unable to eat/drink [] Unable to sleep [] Unable to be with family [] Patient intubated [] Other: Summary Patient states she has cancer. Patient is feeling strong. Time spent with patient 10min
[2019-12-09] MEDS: HYDROcodone-acetaminophen 10-325 mg Tablet 1 TAB PO ×2 (10:31→17:36)
[2019-12-09 12:24] LABS: Partial Thromboplastin Time 82.8 SECONDS (23.9-36.7)
[2019-12-09] MEDS: warfarin 5 mg Tablet PO (14:54)
[2019-12-09 18:52] LABS: Partial Thromboplastin Time 76.1 SECONDS (23.9-36.7)
[2019-12-09] MEDS: mirtazapine 15 mg Tablet 7.5 MG PO (20:49)
[2019-12-09] MEDS: ipratropium-albuterol 3 mL Neb INHALATION (20:59)
--- NOTE | 2019-12-09 22:07 | P.PN_ITS ---
Subjective Subjective: Interval history: She states she is not doing well, although does not have a specific complaint. Does still have tenderness in the mid abdomen. Vitals/I&O/Wt Last Vital Signs Temp 97.9 F 12/09/19 19:49 Pulse 94 12/09/19 20:59 Resp 20 H 12/09/19 20:59 BP 146/72 12/09/19 19:49 Pulse Ox 92 12/09/19 20:59 12/09/19 12/09/19 12/09/19 06:59 14:59 22:59 Intake Total 200 / 990 840 / 840 1316 / 2156 Output Total 300 / 300 350 / 350 Balance -100 / 690 840 / 840 966 / 1806 Weight last 48 hrs Weight 50.984 kg Physical Exam Const: COMMON NORMALS: no apparent distress and oriented x3 ORIENTATION/CONSCIOUSNESS: Yes other (Not a good historian.) OTHER: Hard of hearing. HENMT: COMMON NORMALS: oropharynx normal Neck/C-Spine: COMMON NORMALS: no JVD Resp: COMMON NORMALS: normal respiratory effort and clear to auscultation bilaterally AUSCULTATION: clear to auscultation bilaterally Cardio: COMMON NORMALS: no JVD, regular rhythm, S1 normal heart sound, S2 normal heart sound and no murmurs RHYTHM: regular rhythm HEART SOUNDS: S1 normal and S2 normal GI: COMMON NORMALS: normal to inspection, nondistended, normoactive bowel sounds, soft to palpation and non-tender PALPATION: Yes soft Extremity: COMMON NORMALS: no joint enlargement and no pedal edema Neuro: COMMON NORMALS: oriented x3 and moves all extremities Skin: COMMON NORMALS: no rashes or lesions noted GENERAL SKIN EXAM: no rashes or lesions noted Data : 12/09/19 04:29 12/09/19 04:29 A&P Assessment and plan (1) Anemia due to GI blood loss: Complains of still some abdominal discomfort, although no tenderness in noted on deep palpation. Seems to bother her mostly when she moves around. Hemoglobin appears to be stable. We have resumed her warfarin. Will recheck INR. Once in therapeutic range 2.5-3.5, and hemoglobin remained stable, may discontinue heparin drip, and safely discharge. Suspected steroid-induced exacerbation of gastritis and duodenitis. Status: Acute Additional A&P Information Thrombocytopenia: Platelet level improved. Lung cancer: Small cell, has been undergoing chemotherapy under supervision of Dr. Delgadillo. Given her overall condition, however, it is not clear that she will be able to continue. Gastritis, duodenitis: H. pylori serology negative. Noted on EGD during prior hospitalization. Suspect this is likely because of recurrent bleeding. Possibly PUD, with some antral thickening noted on CT scan during this admission. Transition to Protonix IV twice daily 40 mg. Severe chronic COPD: On baseline 4 L oxygen by nasal cannula Diastolic CHF HTN A. fib Attestations 2 Medical Necessity Statement*: Continue admission for assessment management of GI bleeding, gastritis, duodenitis in the setting of chronic anticoagulation with a mechanical mitral valve, thrombocytopenia, lung cancer. Continue preparations for discharge. Coding Level of Care Code Acute Funeral Director/Embalmer/Owner for Danielleg Matthewd Diagnoses Anemia due to GI blood loss D50.0
[2019-12-09] MEDS: pantoprazole 40 mg SDV IVP (23:05)
[2019-12-10] VITALS (7 sets, daily range): BP systolic 107–142; BP diastolic 61–76; PULSE 66–119; RESP 18–22; TEMP 36.1–36.8; O2SAT 92–98
[2019-12-10 00:52] LABS: Partial Thromboplastin Time 80.7 SECONDS (23.9-36.7)
[2019-12-10] MEDS: buPROPion XL (24 HR) 150 mg Tablet PO (05:17)
[2019-12-10 06:00] LABS: Eosinophils % 0.6 %; Hematocrit 29.9 % (37.0-47.0); Hemoglobin 9.6 g/dL (11.5-15.3); Lymphocytes # 0.5 10^3/uL (0.8-4.8); Lymphocytes % 31.4 %; Mean Corpuscular HGB Conc 32.1 g/dL (30.0-36.0); Mean Corpuscular Volume 93.4 fL (81-99); Monocytes # 0.3 10^3/uL (0.2-0.9); Monocytes % 19.9 %; Neutrophils % 46.8 %; Nucleated Red Blood Cells # 0.1 /100WBC; Nucleated Red Blood Cells % 5.8 %; Platelet Count 85 10^3/cmm (130-400); Red Cell Distribution Width 17.2 % (12.1-15.1); White Blood Count 1.6 10^3/uL (4.0-10.0)
[2019-12-10 06:05] LABS: INR 3.26 (0.8-1.2)
[2019-12-10 06:18] LABS: Neutrophils # 0.7 10^3/uL (1.8-7.7)
[2019-12-10 06:24] LABS: Alanine Aminotransferase 20 U/L (0-33); Alkaline Phosphatase 74 IU/L (35-105); Anion Gap 11.1 (5-19); Aspartate Amino Transferase 17 U/L (0-32); Blood Urea Nitrogen 8 mg/dL (8-23); Calcium 9.2 mg/dL (8.5-10.5); Carbon Dioxide 33 mmol/L (22-29); Chloride 95 mmol/L (98-107); Globulin 2.6 g/dL (1.3-4.6); Glucose 95 mg/dL (65-115); Osmolality Calculated 276 mOsm/kg (285-295); Potassium 4.1 mmol/L (3.5-5.1); Sodium 135 mmol/L (136-145); Total Bilirubin 0.5 mg/dL (0.15-1.2); Total Protein 5.6 g/dL (6.6-8.7)
[2019-12-10 07:28] LABS: Partial Thromboplastin Time 67.1 SECONDS (23.9-36.7)
[2019-12-10] MEDS: atorvastatin 40 mg Tablet 80 MG PO (08:43)
[2019-12-10] MEDS: sotalol 80 mg Tablet PO ×2 (08:44→17:37)
[2019-12-10] MEDS: fluticasone nasal spray 16gm Btl 1 SPRAY INTRANASAL (08:44)
[2019-12-10] MEDS: duloxetine 20 mg Capsule PO (08:44)
[2019-12-10] MEDS: cholecalciferol (vitamin D3) 1,000 unit Tablet 1000 UNIT PO (08:44)
[2019-12-10] MEDS: HYDROcodone-acetaminophen 10-325 mg Tablet 1 TAB PO ×2 (08:44→20:38)
[2019-12-10] MEDS: pantoprazole 40 mg SDV IVP ×2 (09:43→20:39)
--- NOTE | 2019-12-10 12:21 | PC.SOCIAL ---
Pg 2 IMM Explained to pt Pg 2 IMM. Pt verbally understands. No questions voiced. A copy was provided & left on pt's bedside table. Signed, dated, & timed a copy & placed in pt's chart.
[2019-12-10] MEDS: warfarin 5 mg Tablet PO (14:36)
--- NOTE | 2019-12-10 19:07 | P.PN_ITS ---
Subjective Subjective: Interval history: States today she is doing okay, much better overall and states that her abdominal discomfort has resolved. Vitals/I&O/Wt Last Vital Signs Temp 96.9 F L 12/10/19 15:18 Pulse 82 12/10/19 15:18 Resp 22 H 12/10/19 15:18 BP 126/64 12/10/19 15:18 Pulse Ox 97 12/10/19 15:18 12/10/19 12/10/19 12/10/19 06:59 14:59 22:59 Intake Total 840 / 840 360 / 1200 Output Total 125 / 875 900 / 900 400 / 1300 Balance -125 / 1281 -60 / -60 -40 / -100 Weight last 48 hrs Weight 50.893 kg Weight 50.984 kg Physical Exam Const: COMMON NORMALS: no apparent distress and oriented x3 GENERAL APPEARANCE: frail appearing ORIENTATION/CONSCIOUSNESS: Yes other (Not a good historian.) OTHER: Hard of hearing. Today in much better spirits, pleasant, conversant. HENMT: COMMON NORMALS: oropharynx normal Neck/C-Spine: COMMON NORMALS: no JVD Resp: COMMON NORMALS: normal respiratory effort and clear to auscultation b ilaterally AUSCULTATION: clear to auscultation bilaterally Cardio: COMMON NORMALS: no JVD, regular rhythm, S1 normal heart sound, S2 normal heart sound and no murmurs RHYTHM: regular rhythm HEART SOUNDS: S1 normal and S2 normal GI: COMMON NORMALS: normal to inspection, nondistended, normoactive bowel sounds, soft to palpation and non-tender PALPATION: Yes soft Extremity: COMMON NORMALS: no joint enlargement and no pedal edema Neuro: COMMON NORMALS: oriented x3 and moves all extremities Skin: COMMON NORMALS: no rashes or lesions noted GENERAL SKIN EXAM: no rashes or lesions noted Data : 12/10/19 05:19 12/10/19 05:19 A&P Assessment and plan (1) Anemia due to GI blood loss: Hemoglobin stabilized. Today abdominal pain is resolved. INR is now therapeutic. Discontinue heparin drip. Monitor hemoglobin. If remains stable may discharge back to SNF. Suspected steroid-induced exacerbation of gastritis and duodenitis. Status: Acute Additional A&P Information Neutropenia: WBC count decreased, today is neutropenic. Placed on neutropenic precautions and neutropenic diet. Afebrile, no sign of active infection. Monitor cell counts. Follow-up with heme-onc. Thrombocytopenia: Platelet level improved. Lung cancer: Small cell, has been undergoing chemotherapy under supervision of Dr. Delgadillo. Given her overall condition, however, it is not clear that she will be able to continue. Gastritis, duodenitis: H. pylori serology negative. Noted on EGD during prior hospitalization. Suspect this is likely because of recurrent bleeding. Possibly PUD, with some antral thickening noted on CT scan during this admission. Transition to Protonix IV twice daily 40 mg. Severe chronic COPD: On baseline 4 L oxygen by nasal cannula Diastolic CHF HTN A. fib Attestations Medical Necessity Statement*: Continue admission for assessment management of GI bleeding in the setting of chronic anticoagulation with warfarin due to mechanical mitral valve, in the setting of thrombocytopenia, lung cancer. Preparations for discharge. Coding Level of Care Code Acute Bowling Alley Attendant for Len Del Rio Diagnoses Anemia due to GI blood loss D50.0
[2019-12-10] MEDS: mirtazapine 15 mg Tablet 7.5 MG PO (20:39)
[2019-12-11] VITALS (8 sets, daily range): BP systolic 112–161; BP diastolic 64–79; PULSE 82–123; RESP 17–22; TEMP 36.3–36.7; O2SAT 91–98; BMI 21.2
[2019-12-11] MEDS: buPROPion XL (24 HR) 150 mg Tablet PO (05:51)
[2019-12-11] MEDS: HYDROcodone-acetaminophen 10-325 mg Tablet 1 TAB PO ×2 (05:51→20:39)
[2019-12-11 06:08] LABS: Basophils % 0.5 %; Hematocrit 30.1 % (37.0-47.0); Hemoglobin 9.5 g/dL (11.5-15.3); Lymphocytes # 0.5 10^3/uL (0.8-4.8); Lymphocytes % 23.6 %; Mean Corpuscular HGB Conc 31.6 g/dL (30.0-36.0); Mean Corpuscular Hemoglobin 30.3 pg (28.0-34.0); Mean Corpuscular Volume 95.9 fL (81-99); Mean Platelet Volume 11.1 fL (7.4-10.4); Monocytes # 0.5 10^3/uL (0.2-0.9); Monocytes % 25.7 %; Neutrophils # 0.9 10^3/uL (1.8-7.7); Neutrophils % 47.6 %; Nucleated Red Blood Cells # 0.1 /100WBC; Nucleated Red Blood Cells % 2.6 %; Platelet Count 120 10^3/cmm (130-400); Red Blood Count 3.14 10^6/uL (4.1-5.3); Red Cell Distribution Width 17.2 % (12.1-15.1); White Blood Count 1.9 10^3/uL (4.0-10.0)
[2019-12-11 06:22] LABS: Anion Gap 9.3 (5-19); Blood Urea Nitrogen 8 mg/dL (8-23); Calcium 8.9 mg/dL (8.5-10.5); Carbon Dioxide 35 mmol/L (22-29); Chloride 95 mmol/L (98-107); Glucose 117 mg/dL (65-115); Osmolality Calculated 277 mOsm/kg (285-295); Potassium 4.3 mmol/L (3.5-5.1); Sodium 135 mmol/L (136-145)
[2019-12-11 07:44] LABS: INR 4.52 (0.8-1.2)
[2019-12-11] MEDS: LORazepam 0.5 mg Tablet PO (07:57)
[2019-12-11] MEDS: ipratropium-albuterol 3 mL Neb INHALATION (08:10)
[2019-12-11] MEDS: fluticasone nasal spray 16gm Btl 1 SPRAY INTRANASAL (08:45)
[2019-12-11] MEDS: atorvastatin 40 mg Tablet 80 MG PO (08:45)
[2019-12-11] MEDS: cholecalciferol (vitamin D3) 1,000 unit Tablet 1000 UNIT PO (08:45)
[2019-12-11] MEDS: sotalol 80 mg Tablet PO ×2 (08:45→17:45)
[2019-12-11] MEDS: duloxetine 20 mg Capsule PO (08:45)
[2019-12-11] MEDS: pantoprazole 40 mg SDV IVP ×2 (09:19→22:06)
[2019-12-11] MEDS: warfarin 2 mg Tablet 4 MG PO (14:24)
--- NOTE | 2019-12-11 19:46 | PM.PN ---
Subjective Subjective: Interval history: She is doing well, still intermittent discomfort in her belly, but not particularly bothersome. Vitals/I&O/Wt Last Vital Signs Temp 97.8 F 12/11/19 15:33 Pulse 90 12/11/19 15:33 Resp 18 12/11/19 15:33 BP 126/76 12/11/19 15:33 Pulse Ox 91 12/11/19 15:33 12/11/19 12/11/19 12/11/19 06:59 14:59 22:59 Intake Total 300 / 1500 120 / 120 120 / 240 Balance 300 / 200 120 / 120 120 / 240 Weight last 48 hrs Weight 51.001 kg Weight 50.893 kg Physical Exam Const: COMMON NORMALS: no apparent distress and oriented x3 GENERAL APPEARANCE: frail appearing ORIENTATION/CONSCIOUSNESS: Yes other (Not a good historian.) OTHER: Sleeping. Wakes up easily. Hard of hearing. HENMT: COMMON NORMALS: oropharynx normal Neck/C-Spine: COMMON NORMALS: no JVD Resp: COMMON NORMALS: normal respiratory effort and clear to auscultation bilaterally AUSCULTATION: clear to auscultation bilaterally Cardio: COMMON NORMALS: no JVD, regular rhythm, S1 normal heart sound, S2 normal heart sound and no murmurs RHYTHM: regular rhythm HEART SOUNDS: S1 normal and S2 normal GI: COMMON NORMALS: normal to inspection, nondistended, normoactive bowel sounds, soft to palpation and non-tender PALPATION: Yes soft Extremity: COMMON NORMALS: no joint enlargement and no pedal edema Neuro: COMMON NORMALS: oriented x3 and moves all extremities Skin: COMMON NORMALS: no rashes or lesions noted GENERAL SKIN EXAM: no rashes or lesions noted Data : 12/11/19 05:50 12/11/19 05:50 A&P Assessment and plan (1) Anemia due to GI blood loss: Hemoglobin perhaps with mild decline to 9.5. Continue to monitor. Heparin drip has been discontinued. INR is supratherapeutic. Decrease warfarin dose to 4 mg. Pending authorization to return to SNF. Suspected steroid-induced exacerbation of gastritis and duodenitis. Status: Acute Additional A&P Information Neutropenia: With improvement today. WBC count decreased, today is neutropenic. Placed on neutropenic precautions and neutropenic diet. Afebrile, no sign of active infection. Monitor cell counts. Follow-up with heme-onc. Thrombocytopenia: Platelet level improved. Lung cancer: Small cell, has been undergoing chemotherapy under supervision of Dr. Delgadillo. Given her overall condition, however, it is not clear that she will be able to continue. Gastritis, duodenitis: H. pylori serology negative. Noted on EGD during prior hospitalization. Suspect this is likely because of recurrent bleeding. Possibly PUD, with some antral thickening noted on CT scan during this admission. Transition to Protonix IV twice daily 40 mg. Severe chronic COPD: On baseline 4 L oxygen by nasal cannula Diastolic CHF HTN A. fib Attestations Medical Necessity Statement*: Continue admission for assessment management of GI bleeding, gastritis in the setting of chronic anticoagulation due to mechanical mitral valve, and lung cancer with pancytopenia after chemotherapy. 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
[2019-12-11] MEDS: mirtazapine 15 mg Tablet 7.5 MG PO (20:40)
[2019-12-12] VITALS (8 sets, daily range): BP systolic 120–143; BP diastolic 63–79; PULSE 78–88; RESP 16–20; TEMP 36.3–36.7; O2SAT 79–100
[2019-12-12 05:23] LABS: Basophils % 0.4 %; Eosinophils % 0.9 %; Hematocrit 29.7 % (37.0-47.0); Hemoglobin 9.5 g/dL (11.5-15.3); Lymphocytes # 0.7 10^3/uL (0.8-4.8); Lymphocytes % 28.9 %; Mean Corpuscular Hemoglobin 30.6 pg (28.0-34.0); Mean Corpuscular Volume 95.8 fL (81-99); Mean Platelet Volume 11.4 fL (7.4-10.4); Monocytes # 0.7 10^3/uL (0.2-0.9); Monocytes % 29.8 %; Neutrophils # 0.9 10^3/uL (1.8-7.7); Neutrophils % 37.8 %; Nucleated Red Blood Cells # 0.1 /100WBC; Nucleated Red Blood Cells % 4.8 %; Platelet Count 147 10^3/cmm (130-400); Red Cell Distribution Width 17.3 % (12.1-15.1); White Blood Count 2.3 10^3/uL (4.0-10.0)
[2019-12-12 05:35] LABS: INR 4.84 (0.8-1.2)
[2019-12-12 05:51] LABS: Anion Gap 10.4 (5-19); Blood Urea Nitrogen 14 mg/dL (8-23); Calcium 9.2 mg/dL (8.5-10.5); Carbon Dioxide 32 mmol/L (22-29); Chloride 94 mmol/L (98-107); Glucose 141 mg/dL (65-115); Osmolality Calculated 273 mOsm/kg (285-295); Potassium 4.4 mmol/L (3.5-5.1); Sodium 132 mmol/L (136-145)
[2019-12-12] MEDS: HYDROcodone-acetaminophen 10-325 mg Tablet 1 TAB PO (05:59)
[2019-12-12] MEDS: buPROPion XL (24 HR) 150 mg Tablet PO (05:59)
[2019-12-12] MEDS: ipratropium-albuterol 3 mL Neb INHALATION (08:20)
[2019-12-12] MEDS: fluticasone nasal spray 16gm Btl 1 SPRAY INTRANASAL (08:33)
[2019-12-12] MEDS: atorvastatin 40 mg Tablet 80 MG PO (08:33)
[2019-12-12] MEDS: duloxetine 20 mg Capsule PO (08:33)
[2019-12-12] MEDS: sotalol 80 mg Tablet PO (08:33)
[2019-12-12] MEDS: cholecalciferol (vitamin D3) 1,000 unit Tablet 1000 UNIT PO (08:33)
[2019-12-12] MEDS: calcium polycarbophil 625 mg Tablet PO (08:33)
[2019-12-12 10:45] LABS: Add Urine Microscopic? YES; Bilirubin Urine 1+ (NEGATIVE); Blood Urine Neg (Negative); Glucose Urine UA Norm (Normal); Ketones Urine Negative (Negative); Leukocyte Esterase Urine Negative (Negative); Nitrate Urine Negative (Negative); Protein Urine Trace (Negative); Urine Appearance Clear (CLEAR); Urine Color Amber (Yellow); Urobilinogen Urine 4 mg/dL (Negative)
--- NOTE | 2019-12-12 11:30 | PC.SOCIAL ---
IMM Updated. Updated pt on Pg 2 IMM. No questions voiced. Provided pt a copy. Signed, dated, & timed the copy in pt's chart.
[2019-12-12 11:34] LABS: Add Urine Culture? No; Bacteria Urine 1+; Hyaline Casts Urine 0-4; WBC Urine 0-4 /hpf (0-5)
[2019-12-12] MEDS: warfarin 2 mg Tablet 3 MG PO (13:52)
--- NOTE | 2019-12-12 21:48 | P.DS_ITS ---
Discharge Providers Date of Admission: 12/07/19 17:00 Date of Discharge: December 12, 2019 Attending Provider at Admission: Arnold Esteban Attending Provider at Discharge: Arnold Esteban Primary Care Provider: Dylan Connors MD Diagnoses at Discharge Discharge Diagnosis (1) Anemia due to GI blood loss: Status: Acute Problem details: Gastritis, duodenitis, exacerbated by steroid, in setting of chronic anticoagulation, mechanical mitral valve, pancytopenia, lung cancer, chemotherapy. Reason for Visit Reason for Visit: Reason For Visit: STOMACH PAIN Hospital Course Hospital Course: Very pleasant 74-year-old lady with small cell lung cancer recently undergoing chemotherapy, with intermittent pancytopenia, on chronic anticoagulation due to mechanical mitral valve, with history of severe COPD on chronic 4 L of oxygen by nasal cannula, with recent admission for assessment management of pleural effusion with placement of pleural drain, as well as heart failure, dyspnea, acute blood loss anemia for which was assessed by EGD by Dr. Owens with finding of gastritis, duodenitis, and it appears with COPD exacerbation requiring a course of prednisone on discharge, returned to the [facility] with mid abdominal pain, acute blood loss anemia with hemoglobin of 6.6, and positive Hemoccult in ER, as well as noted platelet level of 36,000. She was started on Protonix drip, received PRBC transfusion, as well as platelet transfusion. Warfarin was held, and once subtherapeutic was bridged with heparin drip. Case was discussed with surgery in case of worsening/recurrent anemia, and requiring endoscopy. H. pylori was checked and serology was negative. Her hemoglobin stabilized. Abdominal plain was gradually resolving. Platelet level stabilized. Transiently severely neutropenic and was placed on neutropenic precautions, but without sign of active infection. Her symptoms continue to improve and she was feeling better. She was restarted on warfarin, and once therapeutic taken off heparin drip. Pending prior authorization was completed today, and as she has remained stable, and feeling well, due to deconditioning with multiple recent admissions, multiple underlying issues, was accepted to SNF for additional rehabilitation. Physical Exam Const: COMMON NORMALS: no apparent distress and oriented x3 GENERAL APPEARANCE: frail appearing ORIENTATION/CONSCIOUSNESS: Yes other (Not a good historian.) OTHER: Sleeping. Wakes up easily. Hard of hearing. HENMT: COMMON NORMALS: oropharynx normal Neck/C-Spine: COMMON NORMALS: no JVD Resp: COMMON NORMALS: normal respiratory effort and clear to auscultation bilaterally AUSCULTATION: clear to auscultation bilaterally Cardio: COMMON NORMALS: no JVD, regular rhythm, S1 normal heart sound, S2 normal heart sound and no murmurs RHYTHM: regular rhythm HEART SOUNDS: S1 normal and S2 normal GI: COMMON NORMALS: normal to inspection, nondistended, normoactive bowel sounds, soft to palpation and non-tender PALPATION: Yes soft Extremity: COMMON NORMALS: no joint enlargement and no pedal edema Neuro: COMMON NORMALS: oriented x3 and moves all extremities Skin: COMMON NORMALS: no rashes or lesions noted GENERAL SKIN EXAM: no rashes or lesions noted Discharge Data Data Completed and Pending: Completed Studies During Hospitalization Category Date Time Status CT abdomen pelvis w con* [id number] Urge nt Cat Scan 12/07/19 14:46 Completed XR chest 1V tere ble [id number] Urgent Exams 12/07/19 14:48 Completed Labs from last 24 hours 12/12/19 12/12/19 12/12/19 10:15 05:04 05:04 WBC 2.3 L RBC 3.10 L Hgb 9.5 L Hct 29.7 L MCV 95.8 MCH 30.6 MCHC 32.0 RDW 17.3 H Plt Count 147 MPV 11.4 H Neut % (Auto) 37.8 Lymph % (Auto) 28.9 [place] % (Auto) 29.8 Eos % (Auto) 0.9 Baso % (Auto) 0.4 Neut # (Auto) 0.9 L Lymph # (Auto) 0.7 L [place] # (Auto) 0.7 Eos # (Auto) 0.0 Baso # (Auto) 0.0 Nucleated RBC % (a uto) 4.8 Nucleated RBCs # 0.1 PT INR Sodium 132 L Potassium 4.4 Chloride 94 L Carbon Dioxide 32 H Anion Gap 10.4 BUN 14 Creatinine 0.7 Glucose 141 H Calculated Osmolal ity 273 L Calcium 9.2 Urine Color [place] Urine Appearance Clear Urine pH 5.0 Ur Specific Gravit y 1.020 Urine Protein Trace Urine Glucose (UA) Norm Urine Ketones Negative Urine Blood Neg Urine Nitrate Negative Urine Bilirubin 1+ H Urine Urobilinogen 4 H Ur Leukocyte [place] ase Negative Urine RBC None Urine WBC 0-4 H Ur Squamous Epith Cells 10-15 H Urine Bacteria 1+ H Hyaline Casts 0-4 H 12/12/19 05:04 WBC RBC Hgb Hct MCV MCH MCHC RDW Plt Count MPV Neut % (Auto) Lymph % (Auto) [place] % (Auto) Eos % (Auto) Baso % (Auto) Neut # (Auto) Lymph # (Auto) [place] # (Auto) Eos # (Auto) Baso # (Auto) Nucleated RBC % (a uto) Nucleated RBCs # PT 47.20 H INR 4.84 H Sodium Potassium Chloride Carbon Dioxide Anion Gap BUN Creatinine Glucose Calculated Osmolal ity Calcium Urine Color Urine Appearance Urine pH Ur Specific Gravit y Urine Protein Urine Glucose (UA) Urine Ketones Urine Blood Urine Nitrate Urine Bilirubin Urine Urobilinogen Ur Leukocyte [place] ase Urine RBC Urine WBC Ur Squamous Epith Cells Urine Bacteria Hyaline Casts Vitals: Last Vital Signs Temp 98.0 F 12/12/19 16:10 Pulse 78 12/12/19 16:10 Resp 18 12/12/19 16:10 BP 143/66 12/12/19 16:10 Pulse Ox 98 12/12/19 16:10 Discharge Plan Discharge Patient Disposition: Xfer [facility] Condition: Stable Prescriptions: New warfarin 3 mg tablet 3 mg PO DAILY Qty: 7 RF: 0 pantoprazole 40 mg tablet,delayed release (DR/EC) 40 mg PO BID Qty: 60 RF: 0 Continued atorvastatin 80 mg tablet 80 mg PO DAILY RF: 0 sotalol 80 mg Tablet 80 mg PO BID RF: 0 hydrocodone-acetaminophen [[place]] 10-325 mg Tablet 1 tab PO QID PRN (Reason: Pain) RF: 0 digoxin 125 mcg (0.125 mg) Tablet 125 mcg PO DAILY RF: 0 fluticasone propionate [Flonase Allergy Relief] 50 mcg/actuation [place],Suspension 1 spray INTRANASAL DAILY RF: 0 cholecalciferol (vitamin D3) [Vitamin D3] 1,000 unit Capsule 1,000 unit PO DAILY RF: 0 budesonide-formoterol [Symbicort] 160-4.5 mcg/actuation Hfa Aerosol Inhaler 2 puff INHALATION BID PRN (Reason: Shortness Of Breath) RF: 0 calcium polycarbophil [FiberCon] 625 mg Tablet 625 mg PO BID RF: 0 duloxetine 20 mg Capsule,Delayed Release(Dr/Ec) 20 mg PO DAILY RF: 0 mirtazapine 15 mg Tablet 7.5 mg PO DAILY RF: 0 bupropion HCl [Wellbutrin XL] 150 mg Tablet Extended Release 24 Hr 150 mg PO QAM RF: 0 ipratropium-albuterol 0.5 mg-3 mg(2.5 mg base)/3 mL Solution For Nebulization 3 ml INHALATION Q6H PRN (Reason: Shortness Of Breath) RF: 0 hydromorphone 2 mg tablet 2 mg PO Q4H PRN (Reason: Pain) RF: 0 docusate sodium [Colace] 100 mg Capsule 100 mg PO BID RF: 0 ondansetron HCl [Zofran] 4 mg Tablet 4 mg PO Q6H PRN (Reason: Nausea) RF: 0 Ativan 0.5 mg Tablet See Rx Instructions .ROUTE .COMPLEX RF: 0 Discontinued famotidine 20 mg Tablet 40 mg PO BID RF: 0 warfarin 5 mg tablet 5 mg PO DAILY Qty: 30 RF: 0 prednisone 20 mg tablet See Rx Instructions .ROUTE .COMPLEX RF: 0 levofloxacin [Levaquin] 750 mg Tablet 750 mg PO DAILY RF: 0 Discharge Orders: Discharge Order (Routine); Ordered 12/12/19 Ordered By: Arnold Estebna Other Ambulatory Orders: Complete Blood Count w/Auto (Routine) Timeframe: 3 Days Location: Determined by Patient Ordered By: Arnold Esteban Prothrombin Time INR (Routine) Timeframe: 2 Days Facility: [facility] - Location: Lab - Main Lab Ordered By: Arnold Esteban Referrals: Sonny Delgadillo MD [Staff Physician] - 1 week (Pancytopenia, lung cancer) Dylan Connors MD [Primary Care Provider] - 4-7 days Discharge Diet: Regular and GI Soft Discharge Activity: Resume usual activity and Increase activity as tolerated Activity Restrictions/Additional Instructions: If blood counts, neutrophils decrease again, with absolute neutrophil count below 500 or so, please maintain neutropenic diet. Neutropenic precautions. Please target INR 3.5-4.5 due to mechanical valve. Adjust warfarin dose accordingly. Continue care for pleural catheter as previously. Continue follow-up with other subspecialties as previously scheduled, including pulmonology, cardiology. Avoid NSAIDs due to gastritis, duodenitis. Exercise caution with use of steroids. Discharge Date/Time: 12/12/19 16:12 Discharge Attestations Time Spent in Discharge Care*: greater than 30 min Status at Discharge: Cognitive status at discharge: mildly impaired cognition , Behavioral status at discharge: cooperative , Quality Metrics Clinical Quality Measures During this hospital stay, did patient experience: None Coding Level of Care Code Acute Pathology Secretary/Transcriptionist for Chg Fwd Diagnoses Anemia due to GI blood loss D50.0
== END 2019-12-12 16:12 | disposition home or self-care (01) | DRG 377 ==
LOC: ER 16:27 → ICU 17:35 → MEDSURG 12-08 12:49
PROVIDERS: Internal Medicine; Admitting Provider Internal Medicine; Emergency Provider Physician Assistant; Family Provider Family Medicine; PCP Family Medicine; Visit Provider Internal Medicine
DX: K92.2 Gastrointestinal hemorrhage, unspecified (principal); D61.810 Antineoplastic chemotherapy induced pancytopenia; D62 Acute posthemorrhagic anemia; I50.32 Chronic diastolic (congestive) heart failure; C34.90 Malignant neoplasm of unspecified part of unspecified bronchus or lung; E87.1 Hypo-osmolality and hyponatremia; D69.6 Thrombocytopenia, unspecified; J44.9 Chronic obstructive pulmonary disease, unspecified; I11.0 Hypertensive heart disease with heart failure; Z92.21 Personal history of antineoplastic chemotherapy; Z79.01 Long term (current) use of anticoagulants; Z95.2 Presence of prosthetic heart valve; I35.1 Nonrheumatic aortic (valve) insufficiency; I48.91 Unspecified atrial fibrillation; Z87.891 Personal history of nicotine dependence; F10.21 Alcohol dependence, in remission; Z99.81 Dependence on supplemental oxygen; T45.1X5A Adverse effect of antineoplastic and immunosuppressive drugs, initial encounter; Z79.891 Long term (current) use of opiate analgesic; T38.0X5A Adverse effect of glucocorticoids and synthetic analogues, initial encounter
CPT/HCPCS: 12345; 36415; 36430; 36592; 71045; 71046; 74177; 76705; 78227; 80048; 80053; 80162; 80307; 81001; 82140; 82306; 83605; 83615; 83690; 83880; 84443; 84484; 85007; 85014; 85018; 85025; 85610; 85651; 85730; 86677; 86705; 86706; 86709; 86803; 86850; 86900; 86920; 86927; 87040; 87070; 87075; 87205; 87340; 93005; 94640; 94664; 96361; 96365; 96375; 97110; 97161; 97530; 99214; 99283; A9537; C9113; G0378; J0696; J1100; J1170; J1644; J1885; J1940; J2405; J3430; J3490; J7030; J7050; P9017; P9037; P9040; P9058; Q9967

== ENCOUNTER 2019-12-08 08:03 | Outpatient (RCR) | payer MEDICARE, SELFPAY ==
--- NOTE | 2019-12-06 10:34 | XR_ITS ---
WS: [id number] PROCEDURE: XR chest 2V* [id number] CLINICAL INFORMATION: PLEURITIC CHEST PAIN, CHEST TUBE PLACEMENT EVALUATION COMPARISON: December 02, 2019 FINDINGS: Right PICC line in place with tip in the mid SVC. Heart: Cardiomegaly. Sternotomy. AVR. Aortic calcification. Lungs: Moderate chronic emphysematous changes. Calcified granuloma right lower lobe. Small pleural ef fusion/pleural thickening. Volume loss left lung base. Left chest tube in place. No visualized pneumo thorax. Bones: Mild thoracic curve convex right. XR/XR chest 2V* [id number] IMPRESSION: 1. Left chest tube in place. No visualized pneumothorax. 2. Volume loss left lung with small left pleural effusion/pleural thickening. Improved aeration left lower lobe. 3. Right PICC line with tip in the proximal and mid SVC.
[2019-12-06 11:32] LABS: Basophils % 0.5 %; Eosinophils % 0.5 %; Hematocrit 22.9 % (37.0-47.0); Hemoglobin 7.3 g/dL (11.5-15.3); Lymphocytes # 0.6 10^3/uL (0.8-4.8); Lymphocytes % 28.4 %; Mean Corpuscular HGB Conc 31.9 g/dL (30.0-36.0); Mean Corpuscular Hemoglobin 29.7 pg (28.0-34.0); Mean Corpuscular Volume 93.1 fL (81-99); Monocytes # 0.3 10^3/uL (0.2-0.9); Monocytes % 13.7 %; Neutrophils # 1.1 10^3/uL (1.8-7.7); Neutrophils % 56.4 %; Nucleated Red Blood Cells % 0 %; Platelet Count 63 10^3/cmm (130-400); Red Blood Count 2.46 10^6/uL (4.1-5.3); Red Cell Distribution Width 17.8 % (12.1-15.1)
[2019-12-06 12:00] LABS: INR 2.21 (0.8-1.2)
[2019-12-06 12:40] VITALS: RESP 17; O2SAT 95
[2019-12-06] MEDS: HYDROmorphone 1 mg/mL INJ 1 mL IV (12:40)
[2019-12-06] MEDS: sodium chloride 0.9% 1,000 ML 999 ML IV (13:13)
[2019-12-06 13:31] LABS: Alanine Aminotransferase 21 U/L (0-33); Albumin Level 3.5 g/dL (3.5-5.2); Alkaline Phosphatase 74 IU/L (35-105); Anion Gap 8.7 (5-19); Aspartate Amino Transferase 23 U/L (0-32); Blood Urea Nitrogen 15 mg/dL (8-23); Calcium 9.3 mg/dL (8.5-10.5); Carbon Dioxide 35 mmol/L (22-29); Chloride 91 mmol/L (98-107); Globulin 2.4 g/dL (1.3-4.6); Glucose 115 mg/dL (65-115); Lactate Dehydrogenase 322 U/L (135-214); Lipase 21 U/L (13-60); Osmolality Calculated 269 mOsm/kg (285-295); Potassium 3.7 mmol/L (3.5-5.1); Sodium 131 mmol/L (136-145); Thyroid Stimulating Hormone 0.45 uIU/mL (0.27-4.20); Total Bilirubin 0.3 mg/dL (0.15-1.2); Total Protein 5.9 g/dL (6.6-8.7)
[2019-12-06 13:59] LABS: Erythrocyte Sedimentation Rate 35 mm/hr (0-15)
[2019-12-06 15:40] LABS: 25 Hydroxy Vitamin D 38 ng/mL (30-100)
--- NOTE | 2019-12-08 11:10 | ONC FU_ITS ---
Dr. Fernandez Patient Follow-Up Note Patient: Debbi Garcias Unit #: [id number]: 1945 Dicatated By: Sharif Fernandez M.D.Date of Visit:Dec 06, 2019 Onc Med Follow-up/Prog Note Chief Complaint: Ssmall cell lung cancer. 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 She was admitted to hospital on 08/18/2019 with a COPD exacerbation, patient was treated with IV antibiotics and steroids and diuretics for possible fluid overload and chest x-ray was done which showed left hilar fullness subsequently underwent CT scan of chest which showed the lingular density could represent a cancer of lung with left with rapid growth of left hilar mediastinal lymphadenopathy. There were small bilateral pleural effusions. On 09/09/2019 she underwent EBUS which confirmed small cell carcinoma of the lung. Her medical history is significant for mechanical mitral valve replacement in 2000, with subsequent on chronic Coumadin therapy. She has atrial fibrillation, COPD, diastolic congestive heart failure, and hypertension. She had evidence of iron deficiency anemia, on oral iron supplement. History of smoking for 35 years. She quit one year ago. PET/CT on 10/01/2019 showed left upper lobe mass with mediastinal invasion, malignant mediastinal, left internal mammary lymphadenopathy, other satellite subpleural nodules FDG positive consistent with malignancy, and multifocal osseous metastatic disease. MRI scan of the head done on 09/28/2019 showed no evidence of metastatic disease Started on systemic chemotherapy with carboplatin/etoposide on 10/31/2019 as inpatient, as patient was admitted to hospital with progressive shortness of breath and pleural effusion. She continued with her second cycle of chemotherapy on 11/24/2019, but she did require PRBC transfusion prior to that treatment. On 11/27/2019 she was admitted to the hospital with shortness of breath and persistent pleural effusion. She underwent thoracentesis and she subsequently underwent placement of Gerry drain in the left chest. Repeat chest CT on 12/01/2019 showed interval drainage of the pleural effusion. There was mild diffuse interlobar septal thickening throughout the right lung. There appeared to be improvement in the metastatic liver lesions and there was significant improvement in mediastinal/hilar adenopathy. She is seen for an unplanned visit. She has been having significant problems since she was discharged from the hospital. The most significant is that she has been having pretty severe abdominal pain in the morning after she eats breakfast and takes her medication. This lasts for several hours, during which time she also gets lethargic and has some confusion. However, she is usually then able to eat lunch sometime in the afternoon and for the rest of the day she feels pretty good. She is doing some walking at home. Her ECOG score is 2. Her appetite generally has been real good. She does not have fever or night sweats. She says her breathing is fine. She does complain that she feels phlegmy and she has a hard time coughing anything up. She is having some discomfort with the chest tube, particularly with the recent attempts to drain it. They are not getting much output from it. She has had some nausea with the abdominal pain, and she also feels belching and gassy. Her bowel function has been adequate with senna/docusate. Bladder function has been okay. She is not having any significant joint or bone pain. She does not complain of headache or dizziness, and she has no focal neurologic symptoms. Medications: Atorvastatin Calcium 1 Tablet (of 80 mg) Oral daily, buPROPion HCl ER (SR) 1 Tablet (of 150 mg) Tablet SR 12 HR Oral daily, Cholecalciferol 1 Tablet (of 1000 Units) Oral daily, Digoxin 1 Tablet (of 125 mcg) Oral daily, DULoxetine HCl 1 Capsule (of 20 mg) Capsule Delayed Release Particles Oral daily, Famotidine 1 Tablet (of 40 mg) Oral b.i.d., Ferrous Sulfate 1 Tablet (of 325 (65 fe) mg) Oral daily, Fiber 1 Capsule (of 625 mg) Oral b.i.d., Flonase 1 [place](s) (of 50 mcg/act) Suspension Nasal daily, HYDROcodone-Acetaminophen 1 Tablet (of 10-325 mg) Oral four times a day, levoFLOXacin 1 Tablet (of 750 mg) Oral daily for 5 days, Lisinopril 1 Tablet (of 10 mg) Oral b.i.d., Mirtazapine 0.5 Tablet (of 15 mg) Oral daily, predniSONE 2 Tablet (of 20 mg) Oral daily, Senna Plus 1 Capsule (of 50-8.6 mg) Oral b.i.d., Sotalol HCl 1 Tablet (of 80 mg) Oral b.i.d., Symbicort 2 Puff(s) (of 160-4.5 mcg/act) Aerosol Inhalation b.i.d., Warfarin Sodium 1 Tablet (of 5 mg) Oral daily, Zofran 1 Tablet (of 4 mg) Oral q 4 hours Allergies: Adhesive Tape and Ampicillin. Review of Systems: Constitutional - Her energy level is good in the afternoons, but she has poor energy in the mornings due to pain. She ambulates independently. Her appetite is generally good and weight is stable. No fever, chills, hot flashes, or night sweats. ECOG score is 2, ENMT - She has some sinus drainage. No mouth sores. No sore throat or difficulty swallowing, Hematologic/Lymphatic - She bruises easily, Respiratory - No shortness of breath. She has a slight cough. No pleuritic pain or hemoptysis, Cardiovascular - No angina pain. No palpitations, Gastrointestinal - She is having frequent nausea. She is taking Pecid 40mg twice daily for heartburn. No diarrhea or constipation. No blood in the stool or black stools, Genitourinary (F) - No dysuria or hematuria. No urinary frequency. No urgency or incontinence, Musculoskeletal - She is having significant pain in her epigastric area that occurs in the mornings after taking morning medications. She is also having pain near her chest tube, Integumentary - No skin complications. She has a PICC line and she has a chest tube in place to left lung that is being cared [place] [facility] [place] [facility], Neurologic - No headache or dizziness. No numbness/paresthesias or other focal neurologic symptoms. She has periods of confusion, Psychiatric - No anxiety or depression. No insomnia. Vital Signs: Performed on Dec 06, 2019 11:29 Height - 61.00 in Temperature - 98.4 F Pulse - 84 /min Respiration - 26 /min BP - 95/46 mm(hg) O2 Sat - 100 % Pain - 8 Physical Examination: Constitutional - She appears generally weak. She is somewhat lethargic, and she is in significant discomfort, Eyes - Sclerae nonicteric. Conjunctivae clear, ENMT - No lesions noted in the oral cavity, Hematologic/Lymphatic - No cervical, clavicular, or axillary adenopathy, Respiratory - Lungs sound clear with diminished air movement bilaterally, Cardiovascular - Heart rhythm is irregular. There is no murmur, gallop, or rub noted, Abdomen - Mildly tender but soft. Liver and spleen are not enlarged. There is no abdominal mass or ascites noted. Bowel sounds are normal. There is no inguinal adenopathy, Extremities - No edema, Integumentary - No rashes. No suspicious skin lesions noted, Neurologic - No focal neurologic deficits noted. Lab/Imaging: Test performed on Dec 06, 2019 12:30 LDH (Total) 322 U/L Sodium 131 mmol/L TSH 0.45 uIU/mL Potassium 3.7 mmol/L Chloride 91 mmol/L CO2 35 mmol/L Anion Gap 8.7 BUN 15 mg/dL Creatinine 0.5 mg/dL Cr Clearance (Est) 79.3600 mL/min Glucose 115 mg/dL Calcium 9.3 mg/dL Protein, Total 5.9 g/dL Albumin 3.5 g/dL Globulin 2.4 g/dL Bilirubin, Total 0.3 mg/dL ALT (SGPT) 21 U/L AST (SGOT) 23 U/L Alkaline Phosphatase 74 IU/L ESR (Sed Rate) 35 mm/hr Test performed on Dec 06, 2019 11:20 PT 24.80 SECONDS WBC 2.0 10 3/uL INR 2.21 RBC 2.46 10 6/uL HGB 7.3 g/dL HCT 22.9 % MCV 93.1 fL MCH 29.7 pg MCHC 31.9 g/dL RDW 17.8 % Platelet Count 63 10 3/cmm MPV 11.0 fL Neutrophils 1.1 10 3/uL Lymphocytes 0.6 10 3/uL Monocytes 0.3 10 3/uL Eosinophils 0.0 10 3/uL Basophils 0.0 10 3/uL Neutrophil % 56.4 % Lymphocyte % 28.4 % Monocyte % 13.7 % Eosinophil % 0.5 % Basophils % 0.5 % Impression: metastatic Small cell lung cancer involving left hilar per EBUS biopsy done on 09/09/2019 CT scan of chest done on 08/18/2019 shows lingular density could represent cancer of the lung with rapid growth of left hilar mediastinal lymphadenopathy, small bilateral pleural effusion, mitral valve replacement. follow-up CT PET scan done on 10/01/2019 showed a lingular mass invading into mediastinal measuring 7.2 x 6.5 cm with SUV of 11.6. Secondary nodule at the anterior left upper lobe measure 1.7 x 2.8 cm with SUV of 6.4. As subpleural nodule in the left lower lobe measure 1.4 cm with SUV of 2.6 consistent with metastatic disease. Multiple mediastinal and left internal mammary nodes are FDG positive consistent with metastatic disease. Multiple osseous metastatic disease is present index lesion in the right sacrum has an SUV of 5.4. Other suspicious, less conspicuous lesions are present in the posterior left iliac, L5, C7, left ischium . MRI scan of the head done on 09/28/2019 shows no brain metastases, clinical stage extensive disease small cell lung cancer COPD, on home oxygen Mitral valve replacement, on chronic anticoagulation Iron deficiency anemia on oral iron supplement She is seen following completion of 2 cycles of chemotherapy. She does appear to be showing significant response by CT scan, though she has significant pancytopenia. It is uncertain to what extent that may be due to chemotherapy or to the underlying malignancy. She is having significant abdominal pain, but mainly just in the morning after she takes her medication. I am wondering if some of that may not just be due to the senna or to the iron supplement. She has not had CT or clinical evidence of other abdominal pathology to account for it. Plan: She is being given IV fluid and IV antiemetic in the office, I also will give her a small dose of hydromorphone IV for the abdominal pain. She is going to stop both the senna and the iron supplement. She will be given a prescription for lorazepam to take as needed. With her blood pressure relatively low, of also advised her to stop lisinopril. She has prescriptions for Levaquin and prednisone from the hospitalist. She is advised to take the Levaquin as prescribed. She will take prednisone 20 mg daily for 3 days and then decrease to 10 mg daily. We are arranging for her to return sometime this week for another transfusion of 2 units PRBC. She will follow-up then with Dr. Delgadillo. Signed By: Sharif Fernandez M.D. <<Signature on File>>
== END 2019-12-08 23:59 | disposition home or self-care (01) ==
LOC: ONCMED 08:03
PROVIDERS: Internal Medicine Medical Oncology; Family Provider Family Medicine; PCP Family Medicine; Visit Provider Internal Medicine Hematology & Oncology
DX: C34.02 Malignant neoplasm of left main bronchus (principal); C77.1 Secondary and unspecified malignant neoplasm of intrathoracic lymph nodes; C79.51 Secondary malignant neoplasm of bone; R07.81 Pleurodynia; R53.83 Other fatigue; R10.9 Unspecified abdominal pain; D50.9 Iron deficiency anemia, unspecified; J44.9 Chronic obstructive pulmonary disease, unspecified; Z95.2 Presence of prosthetic heart valve; Z99.81 Dependence on supplemental oxygen; Z79.01 Long term (current) use of anticoagulants; Z79.899 Other long term (current) drug therapy; Z79.891 Long term (current) use of opiate analgesic; Z97.8 Presence of other specified devices
CPT/HCPCS: 71046; 80053; 82306; 83615; 83690; 84443; 85025; 85610; 85651; 86850; 86900; 86920; 96361; 96365; 96375; 99214; J1100; J1170; J2405; J7030

== ENCOUNTER 2019-12-13 08:01 | Inpatient (IN) | payer MEDICARE, SELFPAY ==
[2019-12-13] VITALS (11 sets, daily range): BP systolic 94–185; BP diastolic 57–88; PULSE 102–157; RESP 16–22; TEMP 36.4–36.9; O2SAT 93–99; BMI 19.3
--- NOTE | 2019-12-13 08:10 | XR_ITS ---
WS: [id number] XR chest 1V portable [id number] REASON FOR EXAM: chest pain FINDINGS: Left pleural effusion is noted. This is increased since previous exam. A catheter is seen in the left thoracic cavity unchanged in position since earlier exams. There is evidence of mitral valve replacement. A PICC line is seen the tip is in the middle superior vena cava. The right lung guerra shows mild pulmonary edema today. XR/XR chest 1V portable [id number] IMPRESSION: Increased left pleural effusion A catheter seen in the left thoracic cavity. Previous atrial valve replacement. PICC line in good position. Mild pulmonary edema lung.
--- NOTE | 2019-12-13 08:11 | ECG_ITS ---
Measurements Intervals [place] Rate: 127 P: 76 MS: 169 QRS: -2 QRSD: 89 T: 132 QT: 273 QTc: [address] DEVIATION AND MODERATE T-WAVE ABNORMALITY, CONSIDER LATERAL ISCHEMIA [-0.1+ mV mV T WAVE IN I/aVL/V5/V6] Compared to ECG 12/07/2019 16:06:56 Possible ischemia now present Atrial fibrillation no longer present Intraventricular conduction delay no longer present T-wave abnormality still present Electronically Signed On 12-13-2019 17:13:36 CDT by Messi Green M.D. [email or web address]
--- NOTE | 2019-12-13 08:20 | W.ED.CHESTPA ---
HPI - Chest Pain General: Chief Complaint: Chest Pain Stated Complaint: CHEST PAIN, SOB Time Seen by Provider: 12/13/19 08:08 History of Present Illness: Associated symptoms: Reports abdominal pain and nausea; Deny vomiting Review of Systems General: Reports: 10 or more systems reviewed and unremarkable except in HPI and below GI: Reports: abdominal pain, nausea and cramping; Denies: vomiting PFSH ED PFSH: Medical History Aortic regurgitation Atrial fibrillation Chronic anticoagulation COPD (chronic obstructive pulmonary disease) Diastolic CHF, chronic Hypertension Hyponatremia Small cell lung cancer Subtherapeutic international normalized ratio (INR) Surgical History H/O mitral valve replacement Mechanical valve 2000 H/O: hysterectomy Left oophorectomy History of carpal tunnel release Right History of lumbar surgery x 1 S/P thoracentesis x 3 secondary to malignant L pleural effusion Family History Mother Clotting disorder Father Clotting disorder Sister AAA (abdominal aortic aneurysm) Social History Smoking and tobacco status: former smoker Quit status (tobacco): has quit using tobacco Year quit tobacco: 2020 - 0.5 PPD x 35 Years Alcohol intake: former Household members: spouse Marital status: Current occupational status: retired History of recent travel: No Current gender identity: Female Physical Exam Const: COMMON NORMALS: oriented x3, no limitations and alert GENERAL APPEARANCE: in distress, disheveled, ill appearing, frail appearing and appears older than stated age NUTRITIONAL APPEARANCE: cachectic ORIENTATION/CONSCIOUSNESS: Yes awake HENMT: COMMON NORMALS: normocephalic, head/scalp atraumatic, hearing grossly normal bilaterally, external ears normal, EAC's normal, TM's normal bilaterally, external nose normal, nasal mucous membranes and turbinates normal, moist oral mucous membranes, oropharynx normal, dentition normal and gingiva normal HEAD & SCALP: normocephalic and atraumatic NOSE: external nose normal and nasal mucous membranes and turbinates normal EXTERNAL EAR: Yes external ears normal EXTERNAL AUDITORY CANAL: EAC's normal TYMPANIC MEMBRANE: TM's normal bilaterally Eye: COMMON NORMALS: PERRL, EOMs intact bilaterally, conjunctivae normal, no scleral icterus, no papilledema, normal visual guerra by confrontation and fundi normal bilaterally CONJUNCTIVA: Yes conjunctivae normal PUPIL: Yes PERRL DIRECT OPHTHALMOSCOPY: Yes no papilledema and Yes fundi normal bilaterally Neck/C-Spine: COMMON NORMALS: full ROM, no lymphadenopathy, supple, no meningeal signs, no JVD, thyroid normal and no carotid bruits THYROID: thyroid normal Chest: COMMONS NORMALS: inspection of chest normal and palpation of chest normal Resp: COMMON NORMALS: normal respiratory effort, no retractions, no use of accessory muscles, clear to auscultation bilaterally and percussion normal AUSCULTATION: clear to auscultation bilaterally PERCUSSION: percussion normal Cardio: COMMON NORMALS: no JVD, regular rate, regular rhythm, S1 normal heart sound, S2 normal heart sound, no gallops, no clicks, no murmurs, no rub and peripheral pulses 2+ throughout RATE: regular rate RHYTHM: regular rhythm HEART SOUNDS: S1 normal and S2 normal PERIPHERAL PULSES: pulses 2+ throughout GI: PALPATION: Yes tender and Yes guarding : COMMON NORMALS: Yes no CVA tenderness and Yes external appearance normal BLADDER/KIDNEY EXAM: Yes no CVA tenderness Back/Pelvis: COMMON NORMALS: no CVA tenderness, thoracic and lumbar spine normal to inspection, no thoracic nor lumbar tenderness, thoraco-lumbar ROM normal and straight leg raise negative bilaterally Extremity: COMMON NORMALS: normal to inspection, full ROM, normal capillary refill, no joint enlargement, no clubbing, cyanosis or edema, no calf tenderness and no pedal edema Neuro: COMMON NORMALS: oriented x3 SENSORIUM/ORIENTATION: Yes alert MENINGEAL SIGNS: Yes no meningeal signs Skin: COMMON NORMALS: no rashes or lesions noted, no wounds, skin turgor normal, no jaundice, no petechiae and no mottling GENERAL SKIN EXAM: no rashes or lesions noted and turgor normal Course Vital Signs: Vital signs: Vital Signs Temperature 97.6 F 12/13/19 08:02 Pulse Rate 127 H 12/13/19 08:02 Respiratory Rate 22 H 12/13/19 08:02 Blood Pressure 185/88 12/13/19 08:02 Pulse Oximetry 93 12/13/19 08:02 MDM - Chest Pain Lab Data: Labs: Lab Results 12/13/19 12/13/19 12/13/19 Range/Units 09:10 09:10 09:10 WBC 3.1 L (4.0-10.0) 10^3/ uL RBC 3.32 L (4.1-5.3) 10^6/u L Hgb 10.2 L (11.5-15.3) g/dL Hct 32.2 L (37.0-47.0) % MCV 97.0 (81-99) fL MCH 30.7 (28.0-34.0) pg MCHC 31.7 (30.0-36.0) g/dL RDW 17.1 H (12.1-15.1) % Plt Count 207 (130-400) 10^3/c mm MPV 10.7 H (7.4-10.4) fL Neut % (Auto) 53.5 % Lymph % (Auto) 14.2 % [place] % (Auto) 27.5 % Eos % (Auto) 0.3 % Baso % (Auto) 0.0 % Neut # (Auto) 1.7 L (1.8-7.7) 10^3/u L Lymph # (Auto) 0.4 L (0.8-4.8) 10^3/u L [place] # (Auto) 0.9 (0.2-0.9) 10^3/u L Eos # (Auto) 0.0 (0.0-0.8) 10^3/u L Baso # (Auto) 0.0 (0.0-0.1) 10^3/u L Nucleated RBC % (a uto) 1.9 % Nucleated RBCs # 0.1 /100WBC PT 71.70 H (10.5-13.3) SECO NDS INR 8.20 H* (0.8-1.2) Sodium 133 L (136-145) mmol/L Potassium 4.9 (3.5-5.1) mmol/L Chloride 93 L (98-107) mmol/L Carbon Dioxide 32 H (22-29) mmol/L Anion Gap 12.9 (5-19) BUN 16 (8-23) mg/dL Creatinine 0.7 (0.5-0.9) mg/dL Glucose 133 H (65-115) mg/dL Calculated Osmolal ity 274 L (285-295) mOsm/k g Lactate (0.5-2.2) mmol/L Calcium 8.6 (8.5-10.5) mg/dL Total Bilirubin 0.7 (0.15-1.2) mg/dL AST 312 H (0-32) U/L ALT 593 H (0-33) U/L Alkaline Phosphata se 156 H (35-105) IU/L Troponin T Baselin e (0-10) ng/mL NT-Pro-B Natriuret Pep 90865 H (0-125) pg/mL Total Protein 5.5 L (6.6-8.7) g/dL Albumin 3.4 L (3.5-5.2) g/dL Globulin 2.1 (1.3-4.6) g/dL Lipase 7 L (13-60) U/L Urine Color (Yellow) Urine Appearance (CLEAR) Urine pH (5-7) Ur Specific Gravit y (1.005-1.030) Urine Protein (Negative) Urine Glucose (UA) (Normal) Urine Ketones (Negative) Urine Blood (Negative) Urine Nitrate (Negative) Urine Bilirubin (NEGATIVE) Urine Urobilinogen (Negative) mg/dL Ur Leukocyte [place] ase (Negative) Urine RBC (0-2) /hpf Urine WBC (0-5) /hpf Ur Squamous Epith Cells (0-5) Urine Bacteria (NONE) Hyaline Casts Urine Mucus Digoxin 1.2 (0.6-1.2) ng/mL 12/13/19 12/13/19 12/13/19 Range/Units 09:10 09:10 10:20 WBC (4.0-10.0) 10^3/ uL RBC (4.1-5.3) 10^6/u L Hgb (11.5-15.3) g/dL Hct (37.0-47.0) % MCV (81-99) fL MCH (28.0-34.0) pg MCHC (30.0-36.0) g/dL RDW (12.1-15.1) % Plt Count (130-400) 10^3/c mm MPV (7.4-10.4) fL Neut % (Auto) % Lymph % (Auto) % [place] % (Auto) % Eos % (Auto) % Baso % (Auto) % Neut # (Auto) (1.8-7.7) 10^3/u L Lymph # (Auto) (0.8-4.8) 10^3/u L [place] # (Auto) (0.2-0.9) 10^3/u L Eos # (Auto) (0.0-0.8) 10^3/u L Baso # (Auto) (0.0-0.1) 10^3/u L Nucleated RBC % (a uto) % Nucleated RBCs # /100WBC PT (10.5-13.3) SECO NDS INR (0.8-1.2) Sodium (136-145) mmol/L Potassium (3.5-5.1) mmol/L Chloride (98-107) mmol/L Carbon Dioxide (22-29) mmol/L Anion Gap (5-19) BUN (8-23) mg/dL Creatinine (0.5-0.9) mg/dL Glucose (65-115) mg/dL Calculated Osmolal ity (285-295) mOsm/k g Lactate 1.7 (0.5-2.2) mmol/L Calcium (8.5-10.5) mg/dL Total Bilirubin (0.15-1.2) mg/dL AST (0-32) U/L ALT (0-33) U/L Alkaline Phosphata se (35-105) IU/L Troponin T Baselin e 49 H (0-10) ng/mL NT-Pro-B Natriuret Pep (0-125) pg/mL Total Protein (6.6-8.7) g/dL Albumin (3.5-5.2) g/dL Globulin (1.3-4.6) g/dL Lipase (13-60) U/L Urine Color Dark yellow (Yellow) Urine Appearance Clear (CLEAR) Urine pH 5 (5-7) Ur Specific Gravit y 1.020 (1.005-1.030) Urine Protein Trace (Negative) Urine Glucose (UA) Norm (Normal) Urine Ketones 2+ H (Negative) Urine Blood Neg (Negative) Urine Nitrate Negative (Negative) Urine Bilirubin 1+ H (NEGATIVE) Urine Urobilinogen 1 H (Negative) mg/dL Ur Leukocyte [place] ase Negative (Negative) Urine RBC None (0-2) /hpf Urine WBC Rare (0-5) /hpf Ur Squamous Epith Cells 5-10 H (0-5) Urine Bacteria 1+ H (NONE) Hyaline Casts 5-10 H Urine Mucus 1+ Digoxin (0.6-1.2) ng/mL Discharge Plan Discharge Patient Disposition: Admitted As Inpatient Clinical Impression: Atypical chest pain Metastatic primary lung cancer Qualifiers: Laterality: unspecified laterality Qualified Code(s): C34.90 - Malignant neoplasm of unspecified part of unspecified bronchus or lung Congestive heart failure Qualifiers: Heart failure type: unspecified Heart failure chronicity: acute Qualified Code(s): I50.9 - Heart failure, unspecified Coumadin toxicity Qualifiers: Encounter type: initial encounter Injury intent: accidental or unintentional Qualified Code(s): T45.511A - Poisoning by anticoagulants, accidental (unintentional), initial encounter Condition: Fair Referrals: Dylan Connors MD [Primary Care Provider] - Coding Level of Care Code ED Log Skidder for g Fwd Exam Comprehensive
[2019-12-13] MEDS: ketorolac 30 mg/mL INJ IVP (09:05)
[2019-12-13] MEDS: ondansetron 2 mg/ML SDV 2 mL 4 MG IVP ×2 (09:05→17:27)
[2019-12-13] MEDS: sodium chloride 0.9% 1,000 ML 999 ML IV (09:06)
[2019-12-13 09:32] LABS: Eosinophils % 0.3 %; Hematocrit 32.2 % (37.0-47.0); Hemoglobin 10.2 g/dL (11.5-15.3); Lymphocytes # 0.4 10^3/uL (0.8-4.8); Lymphocytes % 14.2 %; Mean Corpuscular HGB Conc 31.7 g/dL (30.0-36.0); Mean Corpuscular Hemoglobin 30.7 pg (28.0-34.0); Mean Platelet Volume 10.7 fL (7.4-10.4); Monocytes # 0.9 10^3/uL (0.2-0.9); Monocytes % 27.5 %; Neutrophils # 1.7 10^3/uL (1.8-7.7); Neutrophils % 53.5 %; Nucleated Red Blood Cells # 0.1 /100WBC; Nucleated Red Blood Cells % 1.9 %; Platelet Count 207 10^3/cmm (130-400); Red Blood Count 3.32 10^6/uL (4.1-5.3); Red Cell Distribution Width 17.1 % (12.1-15.1); White Blood Count 3.1 10^3/uL (4.0-10.0)
[2019-12-13 09:53] LABS: Lactate (Lactic Acid level) 1.7 mmol/L (0.5-2.2)
[2019-12-13 10:02] LABS: Alanine Aminotransferase 593 U/L (0-33); Albumin Level 3.4 g/dL (3.5-5.2); Alkaline Phosphatase 156 IU/L (35-105); Anion Gap 12.9 (5-19); Aspartate Amino Transferase 312 U/L (0-32); Blood Urea Nitrogen 16 mg/dL (8-23); Calcium 8.6 mg/dL (8.5-10.5); Carbon Dioxide 32 mmol/L (22-29); Chloride 93 mmol/L (98-107); Digoxin 1.2 ng/mL (0.6-1.2); Globulin 2.1 g/dL (1.3-4.6); Glucose 133 mg/dL (65-115); Lipase 7 U/L (13-60); Osmolality Calculated 274 mOsm/kg (285-295); Potassium 4.9 mmol/L (3.5-5.1); Sodium 133 mmol/L (136-145); Total Bilirubin 0.7 mg/dL (0.15-1.2); Total Protein 5.5 g/dL (6.6-8.7)
[2019-12-13 10:09] LABS: Troponin(5th) Baseline 49 ng/mL (0-10)
[2019-12-13 10:31] LABS: Urine Appearance Clear (CLEAR); Urine Color Dark Yellow (Yellow); pH Urine 5 (5-7)
[2019-12-13 10:32] LABS: Add Urine Culture? No; Add Urine Microscopic? YES; Bacteria Urine 1+; Bilirubin Urine 1+ (NEGATIVE); Blood Urine Neg (Negative); Glucose Urine UA Norm (Normal); Ketones Urine 2+ (Negative); Leukocyte Esterase Urine Negative (Negative); Mucus Urine 1+; Nitrate Urine Negative (Negative); Protein Urine Trace (Negative); Urobilinogen Urine 1 mg/dL (Negative); WBC Urine RARE /hpf (0-5)
[2019-12-13] MEDS: HYDROcodone-acetaminophen 5-325 mg Tablet 2 TAB PO (11:45)
--- NOTE | 2019-12-13 12:14 | US_ITS ---
WS: [id number] ABDOMINAL ULTRASOUND LIMITED REASON FOR VISIT: hepatitis TECHNIQUE: Grayscale and Doppler ultrasound examination of the abdomen. FINDINGS: Pancreas: Pancreas poorly seen due to overriding gas. Abdominal aorta and IVC: Within normal limits. Liver: Liver measures 20.4 cm in length. Hypoechoic liver seen suggesting fatty infiltration. The zeke er did not show any definite metastatic changes. Gallbladder: Gallbladder wall thickness measures 0.4 mm. Thickening and debris in the gallbladder a m ass cannot be excluded. Common bile duct measured 0.48 cm . Right kidney: Right kidney measures 7.8 cm x 5.0 cm x 4.9 cm. Cortex not measured. US/US liver [id number] IMPRESSION: Hepatomegaly with a fatty liver. Thickened wall gallbladder with debris in the gallbladder.
[2019-12-13] MEDS: sodium chloride 0.9% 1,000 ML 100 ML IV (15:15)
--- NOTE | 2019-12-13 16:38 | PM.HP ---
Providers/Chief Complaint Admitting Physician: Leela Allison DO Primary Care Provider: Dylan Connors MD Chief Complaint: METASTIC LUNG CA, ATYPICAL CEST PAIN History of Present Illness Debbi Garcias is a 74 year old female with a past medical history of small cell lung cancer undergoing chemotherapy and intermittent pancytopenia and chronic anticoagulation due to mechanical valve repair that presented to the emergency department from [facility] due to shortness of breath. Patient reports that she began having intermittent chest pain which is chronic in nature due to her underlying lung cancer and therefore the intermediate sent her in for further evaluation and treatment. She reported some occasional discomfort in her abdomen which waxes and wanes, uncertain if any food makes symptoms worse. Patient reported intermittently having to increase her home oxygen requirements, she is typically on 4 L of oxygen by nasal cannula at baseline. She was recently discharged yesterday due to concern for acute GI blood loss she underwent endoscopy and was placed on PPI and warfarin was held. Patient was bridged with warfarin and heparin and when she returned to a therapeutic level heparin drip was discontinued. Patient was then discharged to [facility] facility. Patient was seen and evaluated in the emergency department noted to have concern for acute increase in LFTs and INR with concern for supratherapeutic INR. Review of Systems Const: Denies: fever or chills Eyes: Denies: change in vision ENMT: Denies: nasal congestion Card: Denies: chest pain, palpitations or edema Resp: Reports: shortness of breath and productive cough; Denies: coughing up blood GI: Reports: abdominal pain and constipation; Denies: nausea, vomiting, diarrhea, blood in stool or black tarry stool : Denies: painful urination or blood in urine Musc: Denies: extremity pain or muscle cramps Skin/Breast: Denies: rash or new lesion Neuro: Denies: headache or dizziness Psych: Denies: anxiety or depression Endo: Denies: excessive urination or hot flashes Royal/Lymph: Denies: easy bruising or easy bleeding Medications/Allergies Home Medications Medication Instructions Recorded Confirmed Last Taken Type atorvastatin 80 mg PO DAILY 08/18/19 12/13/19 10/25/19 History budesonide-formoterol [Symbicort] 2 puff INHALATION BID PRN 08/18/19 12/13/19 10/25/19 History calcium polycarbophil [FiberCon] 625 mg PO BID 08/18/19 12/13/19 10/24/19 History cholecalciferol (vitamin D3) 1,000 unit PO DAILY 08/18/19 12/13/19 10/24/19 History [Vitamin D3] digoxin 125 mcg PO DAILY 08/18/19 12/13/19 12/13/19 History fluticasone propionate [Flonase 1 spray INTRANASAL DAILY 08/18/19 12/13/19 10/25/19 History Allergy Relief] hydrocodone-acetaminophen [Standish] 1 tab PO QID PRN 08/18/19 12/13/19 10/25/19 History sotalol 80 mg PO BID 08/18/19 12/13/19 10/25/19 History duloxetine 20 mg PO DAILY 10/25/19 12/13/19 10/25/19 History bupropion HCl [Wellbutrin XL] 150 mg PO QAM 12/02/19 12/13/19 Unknown History mirtazapine 7.5 mg PO DAILY 12/02/19 12/13/19 Unknown History docusate sodium [Colace] 100 mg PO BID 12/07/19 12/13/19 Unknown History hydromorphone 2 mg PO Q4H PRN 12/07/19 12/13/19 Unknown History lorazepam [Ativan] See Rx Instructions .ROUTE .COMPLEX 12/07/19 12/13/19 Unknown History ondansetron HCl [Zofran] 4 mg PO Q6H PRN 12/07/19 12/13/19 Unknown History pantoprazole 40 mg PO BID #60 tab 12/12/19 12/13/19 Unknown Rx warfarin 3 mg PO DAILY #7 tab 12/12/19 12/13/19 Unknown Rx Normal Saline Flush See Rx Instructions .ROUTE .COMPLEX 12/13/19 12/13/19 Unknown History acetaminophen [Tylenol] 650 mg PO Q6H PRN 12/13/19 12/13/19 Unknown History albuterol sulfate [Proventil HFA] 1 puff INHALATION Q6H PRN 12/13/19 12/13/19 Unknown History bisacodyl 10 mg IA DAILY PRN 12/13/19 12/13/19 Unknown History bisacodyl [Dulcolax (bisacodyl)] 10 mg PO DAILY PRN 12/13/19 12/13/19 Unknown History magnesium hydroxide [Milk of 30 ml PO DAILY PRN 12/13/19 12/13/19 Unknown History Magnesia] sodium phosphates [Fleet Enema] 118 ml IA DAILY PRN 12/13/19 12/13/19 Unknown History tuberculin PPD [Aplisol] See Rx Instructions .ROUTE .COMPLEX 12/13/19 12/13/19 Unknown History Allergies Allergy/AdvReac Type Severity Reaction Status Date / Time adhesive tape Allergy Intermediate ALGY-Bliste Verified 12/05/19 11:14 r ampicillin Allergy Mild ALGY-Fever Verified 12/05/19 11:14 PFSH Acute PFSH: Medical History Aortic regurgitation Atrial fibrillation Chronic anticoagulation COPD (chronic obstructive pulmonary disease) Diastolic CHF, chronic Hypertension Hyponatremia Small cell lung cancer Subtherapeutic international normalized ratio (INR) Surgical History H/O mitral valve replacement Mechanical valve 2000 H/O: hysterectomy Left oophorectomy History of carpal tunnel release Right History of lumbar surgery x 1 S/P thoracentesis x 3 secondary to malignant L pleural effusion Family History Mother Clotting disorder Father Clotting disorder Sister AAA (abdominal aortic aneurysm) Social History Smoking and tobacco status: former smoker Quit status (tobacco): has quit using tobacco Year quit tobacco: 2020 - 0.5 PPD x 35 Years Alcohol intake: former Household members: spouse Marital status: Current occupational status: retired History of recent travel: No Current gender identity: Female Vitals/I&O/Wt Last Vital Signs Temp 97.9 F 12/13/19 15:30 Pulse 157 H 12/13/19 15:30 Resp 18 12/13/19 15:30 BP 131/63 12/13/19 15:30 Pulse Ox 98 12/13/19 15:30 Weight last 48 hrs Weight 46.266 kg Physical Exam Const: COMMON NORMALS: oriented x3 and alert GENERAL APPEARANCE: cooperative, ill appearing and frail appearing ORIENTATION/CONSCIOUSNESS: Yes awake, Yes oriented to person, Yes oriented to place and Yes oriented to time HENMT: COMMON NORMALS: normocephalic and head/scalp atraumatic HEAD & SCALP: normocephalic and atraumatic Eye: COMMON NORMALS: PERRL PUPIL: Yes PERRL Neck/C-Spine: COMMON NORMALS: supple GENERAL: Yes normal visual inspection Resp: EFFORT & INSPECTION: Yes tachypneic and Yes uses accessory muscles AUSCULTATION: wheezes OTHER: Diminished breath sounds bilaterally with prolonged expiratory phase, diminished breath sounds in the left base Cardio: COMMON NORMALS: regular rhythm and no murmurs RATE: tachycardic RHYTHM: regular rhythm GI: COMMON NORMALS: soft to palpation INSPECTION: No abdominal distension AUSCULTATION: Yes normoactive bowel sounds PALPATION: Yes soft and Yes tender Details: other (Epigastric region) : COMMON NORMALS: Yes no CVA tenderness BLADDER/KIDNEY EXAM: Yes no CVA tenderness Back/Pelvis: COMMON NORMALS: no CVA tenderness Extremity: COMMON NORMALS: no calf tenderness OTHER: Clubbing in the hands bilaterally Neuro: COMMON NORMALS: oriented x3, CN's II-XII intact bilaterally, moves all extremities and no focal motor deficits SENSORIUM/ORIENTATION: Yes alert, Yes oriented to person, Yes oriented to place and Yes oriented to time SPEECH: speech normal Psych: COMMON NORMALS: mental status grossly normal and cooperative Skin: GENERAL SKIN EXAM: no rashes or lesions noted Data : 12/13/19 09:10 12/13/19 09:10 Micro: Microbiology 12/13/19 11:22 Blood Culture - Preliminary Blood SPECIMEN COLLECTED 12/13/19 09:10 Blood Culture - Preliminary Blood SPECIMEN COLLECTED US: I personally reviewed and interpreted this imaging study as follows: Radiologist's impression: FINDINGS: Pancreas: Pancreas poorly seen due to overriding gas. Abdominal aorta and IVC: Within normal limits. Liver: Liver measures 20.4 cm in length. Hypoechoic liver seen suggesting fatty infiltration. The liver did not show any definite metastatic changes. Gallbladder: Gallbladder wall thickness measures 0.4 mm. Thickening and debris in the gallbladder a mass cannot be excluded. Common bile duct measured 0.48 cm . Right kidney: Right kidney measures 7.8 cm x 5.0 cm x 4.9 cm. Cortex not measured. US/US liver [id number] IMPRESSION: Hepatomegaly with a fatty liver. Thickened wall gallbladder with debris in the gallbladder. CXR: I personally reviewed and interpreted this imaging study as follows: Radiologist's impression: IMPRESSION: Increased left pleural effusion A catheter seen in the left thoracic cavity. Previous atrial valve replacement. PICC line in good position. Mild pulmonary edema lung. A&P Assessment and plan (1) Coumadin toxicity: Patient is supratherapeutic on Coumadin Recently discharged with Coumadin 3 mg daily, will hold at this time due to INR of 8.2 Recheck PT/INR in the morning No evidence of any active bleeding at this time, no indication for reversal at this time Continue to monitor hemoglobin closely Status: Acute Qualifiers: Encounter type: initial encounter Injury intent: accidental or unintentional Qualified Code(s): T45.511A - Poisoning by anticoagulants, accidental (unintentional), initial encounter (2) Atrial fibrillation: Patient in sinus rhythm at this time, however tachycardic and reports that she has not had any of her home medications today including sotalol and digoxin, will give both doses now Status: Acute Qualifiers: Atrial fibrillation type: longstanding persistent Qualified Code(s): I48.11 - Longstanding persistent atrial fibrillation (3) Metastatic primary lung cancer: With metastatic small cell lung cancer Followed by Dr. Delgadillo Currently on chemotherapy Chronic left pleural effusion due to malignancy Status: Acute Qualifiers: Laterality: unspecified laterality Qualified Code(s): C34.90 - Malignant neoplasm of unspecified part of unspecified bronchus or lung (4) Malignant pleural effusion: Status post Pleurx drain, drainage of 650 mL of fluid today Status: Acute (5) Dyspnea: Chronic dyspnea, believed to be multifactorial due to patient's underlying malignancy, severe COPD, malignant pleural effusion. Respiratory therapy to assess and treat, oxygen per protocol. Status: Acute Qualifiers: Dyspnea type: unspecified Qualified Code(s): R06.00 - Dyspnea, unspecified (6) Hyponatremia: Chronic hyponatremia secondary to malignancy Status: Resolved (7) Transaminitis: Patient with some vague epigastric tenderness, right upper quadrant ultrasound shows thickened gallbladder wall, will discuss with general surgery. Holding statin Will place on empiric antibiotics due to patient's underlying malignancy and concern for epigastric discomfort with acute transaminitis, Rocephin Status: Acute Additional A&P Information Chronic anticoagulation with Coumadin: Currently on hold due to supratherapeutic INR Mitral valve repair: Holding anticoagulation as noted above Recent diagnosis of gastritis with recent GI bleed: Hemoglobin improved today from previous admission, holding Coumadin at this time due to supratherapeutic level. Continue on PPI twice daily Chronic oxygen requirement of 4 L by nasal cannula Neutropenia, improved, patient is on chemotherapy due to underlying malignancy, lung cancer Atrial fibrillation: Continue sotalol and digoxin, patient has not received her doses at the intermediate today, will give at this time. Holding anticoagulation due to above DVT prophylaxis: SCDs, no pharmacologic prophylaxis due to concern for supratherapeutic INR Diet: Low-fat diet CODE STATUS: Limited resuscitation, DO NOT INTUBATE. Patient is okay with other resuscitative measures Attestations Medical Necessity Statement*: Requires hospitalization due to concern for transaminitis with metastatic cancer and supratherapeutic INR Coding Level of Care Code Acute Workplace Rehabilitation Officer for [facility] [place] Diagnoses Coumadin toxicity T45.511A Encounter type: initial encounter Injury intent: accidental or unintentional Atrial fibrillation I48.11 Atrial fibrillation type: longstanding persistent Metastatic primary lung cancer C34.90 Laterality: unspecified laterality Malignant pleural effusion J91.0 Dyspnea R06.00 Dyspnea type: unspecified Hyponatremia E87.1 Transaminitis R74.0
[2019-12-13] MEDS: sotalol 80 mg Tablet PO (17:27)
[2019-12-13] MEDS: digoxin 125 mcg Tablet PO (17:27)
[2019-12-13] MEDS: Fleet Enema 133 mL Enema PR (17:27)
[2019-12-13] MEDS: pantoprazole DR 40 mg Tablet PO (17:28)
[2019-12-13] MEDS: docusate sodium 100 mg Capsule PO (17:29)
[2019-12-13] MEDS: cefTRIAXone 1,000 MG in sodium chloride 0.9% (plus) 50 ML 100 MG IV (17:29)
--- NOTE | 2019-12-13 18:26 | ECG_ITS ---
Measurements Intervals [place] Rate: 139 P: FL: 0 QRS: -21 QRSD: 91 T: 100 QT: 259 QTc: 394 ATRIAL FIBRILLATION WITH RAPID VENTRICULAR RESPONSE INCOMPLETE RIGHT BUNDLE BRANCH BLOCK [90+ ms QRS DURATION, TERMINAL R IN V1/V2, 40+ ms S IN I/aVL/V4/V5/V6] SEPTAL MYOCARDIAL INFARCTION [40+ ms Q WAVE IN V1/V2], OF INDETERMINATE AGE Compared to ECG 12/13/2019 08:18:03 Incomplete right bundle-branch block now present Myocardial infarct finding now present Sinus tachycardia no longer present T-wave abnormality no longer present Possible ischemia no longer present Electronically Signed On 12-14-2019 17:09:46 CDT by Adriel Alvarez M.D. [email or web address]
[2019-12-13] MEDS: metoprolol tartrate 1 mg/1 mL SDV 5 mL 5 MG IV (19:54)
[2019-12-14] VITALS (10 sets, daily range): BP systolic 139–161; BP diastolic 58–91; PULSE 74–91; RESP 17–24; TEMP 35.7–36.9; O2SAT 94–98
[2019-12-14] MEDS: buPROPion XL (24 HR) 150 mg Tablet PO (05:58)
[2019-12-14 06:47] LABS: Basophils % 0.2 %; Hematocrit 31.8 % (37.0-47.0); Hemoglobin 9.9 g/dL (11.5-15.3); Lymphocytes # 0.2 10^3/uL (0.8-4.8); Lymphocytes % 3.6 %; Mean Corpuscular HGB Conc 31.1 g/dL (30.0-36.0); Mean Corpuscular Hemoglobin 30.1 pg (28.0-34.0); Mean Corpuscular Volume 96.7 fL (81-99); Mean Platelet Volume 11.5 fL (7.4-10.4); Monocytes # 0.6 10^3/uL (0.2-0.9); Monocytes % 10.6 %; Neutrophils # 4.9 10^3/uL (1.8-7.7); Nucleated Red Blood Cells # 0.2 /100WBC; Nucleated Red Blood Cells % 2.7 %; Platelet Count 243 10^3/cmm (130-400); Red Blood Count 3.29 10^6/uL (4.1-5.3); Red Cell Distribution Width 17.1 % (12.1-15.1); White Blood Count 5.9 10^3/uL (4.0-10.0)
[2019-12-14 07:04] LABS: Prothrombin Time > 120.00 SECONDS (10.5-13.3)
[2019-12-14 07:05] LABS: INR > 20.00 (0.8-1.2)
[2019-12-14 07:12] LABS: Alkaline Phosphatase 148 IU/L (35-105); Blood Urea Nitrogen 29 mg/dL (8-23); Calcium 8.9 mg/dL (8.5-10.5); Carbon Dioxide 25 mmol/L (22-29); Chloride 91 mmol/L (98-107); Globulin 2.6 g/dL (1.3-4.6); Glucose 90 mg/dL (65-115); Osmolality Calculated 271 mOsm/kg (285-295); Sodium 132 mmol/L (136-145); Total Bilirubin 2.8 mg/dL (0.15-1.2); Total Protein 5.6 g/dL (6.6-8.7)
--- NOTE | 2019-12-14 07:15 | PC.NURSE ---
hernest[facility] critical labs from Lab. real estate underwriter notified Dr Allison of critical lab of INR >20 and PT >120. Dr Allison requested that real estate underwriter call lab and see what CMP results are. Geological E Logger called lab and was told CMP results will be entered soon. Geological E Logger notified Dr Allison.
--- NOTE | 2019-12-14 07:18 | PC.NURSE ---
Patient taken to NH for test
[2019-12-14 07:24] LABS: Alanine Aminotransferase 4113 U/L (0-33)
[2019-12-14 07:26] LABS: Aspartate Amino Transferase 5513 U/L (0-32)
--- NOTE | 2019-12-14 08:28 | US_ITS ---
WS: [id number] ABDOMINAL ULTRASOUND LIMITED REASON FOR VISIT: acute liver failure TECHNIQUE: Grayscale and Doppler ultrasound examination of the abdomen. FINDINGS: There is good flow seen through the portal vein with hepatopedal circulation seen. No definite thromb us changes are noted. The liver parenchyma shows normal reflective pattern. US/US liver [id number] IMPRESSION: No evidence of thrombosis of the portal vein. Normal flow is identified. The parenchyma in the liver essentially normal with normal hepatopedal circulat ion.
--- NOTE | 2019-12-14 09:04 | PC.NURSE ---
patient has been off unit since billiard table mechanic. comic writer has not seen patient for this shift yet
--- NOTE | 2019-12-14 09:50 | PC.NURSE ---
patient arrived on unit
--- NOTE | 2019-12-14 10:11 | PC.CHAP ---
Pastoral Care Encounter/Spiritual Assessment Type of Contact [] Declined fine patcher visit [] Patient/Family/Request visit [] Outpatient visit [] Follow-up visit [] Physician referral [] Code/Alert [x] Routine visit [] Staff referral [] Actively dying [] Patient sleeping [] Family support [] [] Out of room [] Palliative care [] [] Receiving care in room [] Pre-surgical visit [] Trauma [] Long length of stay [] ICU visit [] Other: Relational/Emotional Strength [] Patient feels connected with others/family/visitors/staff [] Distress [] Loneliness/isolation [] Abandonment Spirituality of Patient [] Person of Eunice [] Attends Mosque of their [place] [] Believes in Prayer [] Reads Bible or Catholic materials [] There are Spiritual issues to be addressed Steam Fitter Helper Interventions [] Prayer [] Active listening [] Non-anxious presence [] Spiritual/emotional support [] Crisis/trauma care [] Spiritual counseling [] Bereavement support [] Provided bereavement packet [] Provided Bible/devotional materials [] Provided toy/stuffed animal, coloring book to patient or family member [] Provided Communion [] Anointing/[facility] [] Salvation [x] Completed spiritual assessment [] Other: Impact on Illness or Injury [] Angry [] Fearful [] Anxious [] Often cries [] Exhaustion [] Unable to work [] Unable to attend yazdanism [] Unable to walk/stand [] Unable to read [] Unable to drive [] Unable to eat/drink [] Unable to sleep [] Unable to be with family [] Patient intubated [] Other: Summary NOTE: Patient moved to ICU Time spent with patient
[2019-12-14] MEDS: sotalol 80 mg Tablet PO (10:19)
[2019-12-14] MEDS: docusate sodium 100 mg Capsule PO (10:19)
[2019-12-14] MEDS: mirtazapine 15 mg Tablet 7.5 MG PO (10:19)
[2019-12-14] MEDS: pantoprazole DR 40 mg Tablet PO (10:20)
[2019-12-14] MEDS: digoxin 125 mcg Tablet PO (10:20)
[2019-12-14] MEDS: duloxetine 20 mg Capsule PO (10:20)
[2019-12-14] MEDS: calcium polycarbophil 625 mg Tablet PO (10:20)
[2019-12-14] MEDS: phytonadione (ADULT) 10 mg/mL Ampule 1 mL 5 MG IV (10:20)
[2019-12-14] MEDS: HYDROcodone-acetaminophen 5-325 mg Tablet 1 TAB PO (10:21)
[2019-12-14] MEDS: fluticasone nasal spray 16gm Btl 1 SPRAY INTRANASAL (10:21)
[2019-12-14 10:56] LABS: Ammonia 44 umol/L (11-51)
[2019-12-14 10:57] LABS: Acetaminophen < 10.0 ug/mL (10-30); Albumin Level 3.2 g/dL (3.5-5.2); Alkaline Phosphatase 172 IU/L (35-105); Anion Gap 26.3 (5-19); Blood Urea Nitrogen 30 mg/dL (8-23); Carbon Dioxide 19 mmol/L (22-29); Chloride 91 mmol/L (98-107); Glucose 73 mg/dL (65-115); Osmolality Calculated 266 mOsm/kg (285-295); Potassium 6.3 mmol/L (3.5-5.1); Sodium 130 mmol/L (136-145); Total Bilirubin 3.2 mg/dL (0.15-1.2); Total Protein 6.2 g/dL (6.6-8.7)
[2019-12-14 10:59] LABS: Lactic Sepsis W/Reflex 5.7 mmol/L (0.5-2.2)
[2019-12-14 11:08] LABS: Alanine Aminotransferase 4771 U/L (0-33)
[2019-12-14 11:27] LABS: Aspartate Amino Transferase 5670 U/L (0-32)
[2019-12-14 11:37] LABS: Hepatitis A Antibody IgM Non-Reactive (Nonreactive); Hepatitis B Surface Antigen Non-Reactive (Nonreactive); Hepatitis C Virus Antibody Non-Reactive (Nonreactive)
[2019-12-14 11:46] LABS: Hematocrit 35.3 % (37.0-47.0); Hemoglobin 10.7 g/dL (11.5-15.3); Mean Corpuscular HGB Conc 30.3 g/dL (30.0-36.0); Mean Corpuscular Hemoglobin 30.9 pg (28.0-34.0); Mean Platelet Volume 11.6 fL (7.4-10.4); Nucleated Red Blood Cells # 0.3 /100WBC; Nucleated Red Blood Cells % 3.4 %; Platelet Count 295 10^3/cmm (130-400); Red Blood Count 3.46 10^6/uL (4.1-5.3); Red Cell Distribution Width 17.2 % (12.1-15.1); White Blood Count 7.6 10^3/uL (4.0-10.0)
[2019-12-14 12:11] LABS: Slide Review Slide Review Perform
[2019-12-14 12:14] LABS: Absolute Segmented Neutrophil 3.2 10/cmm (1.6-7.1); Band Neutrophils Absolute 2.9 10^3/cmm (0.0-1.2); Lymphocytes 8 %; Monocytes Absolute 0.8 10^3/cmm (0.1-0.6); Segmented Neutrophils 43 %; Total Cells Counted 100 (0-100)
[2019-12-14 12:15] LABS: Anisocytosis 1+; Macrocytosis 1+; Platelet Estimate Normal (Normal); Poikilocytosis 1+
--- NOTE | 2019-12-14 12:26 | ECG_ITS ---
Measurements Intervals [place] Rate: 76 P: 102 MO: 193 QRS: -5 QRSD: 94 T: 154 QT: 391 QTc: 442 SINUS RHYTHM MODERATE T-WAVE ABNORMALITY, CONSIDER ANTEROLATERAL ISCHEMIA [-0.1+ mV T WAVE IN V3-V6] Compared to ECG 12/13/2019 08:18:03 Sinus tachycardia no longer present T-wave abnormality still present Possible ischemia still present Electronically Signed On 12-14-2019 17:11:58 CDT by Adriel Alvarez M.D. [email or web address]
[2019-12-14 12:37] LABS: Hepatitis B Core AB, Total Reactive (Nonreactive)
--- NOTE | 2019-12-14 13:00 | PC.SOCIAL ---
Called Dr Ryann Villanueva at [facility] and spoke with Little. Gave detailed information regarding patient care to try and coordinate transfer to their facility. Provided Dr Allison phone number to Little. She will get the remaining information from her and see about getting a bed. Advised a call back if no bed available after talking to Dr Allison so we dont hold up getting patient transferred that is critically ill and requiring Hepatology along with other specialists. Gave number for floor as well.
--- NOTE | 2019-12-14 13:27 | PM.DCS ---
Discharge Providers Date of Admission: 12/13/19 16:34 Date of Discharge: December 14, 2019 Attending Provider at Admission: Leela Allison DO Attending Provider at Discharge: Leela Allison DO Primary Care Provider: Dylan Connors MD Diagnoses at Discharge Discharge Diagnosis (1) Coumadin toxicity: Status: Acute Qualifiers: Encounter type: initial encounter Injury intent: accidental or unintentional Qualified Code(s): T45.511A - Poisoning by anticoagulants, accidental (unintentional), initial encounter (2) Atrial fibrillation: Status: Acute Qualifiers: Atrial fibrillation type: longstanding persistent Qualified Code(s): I48.11 - Longstanding persistent atrial fibrillation (3) Metastatic primary lung cancer: Status: Acute Qualifiers: Laterality: unspecified laterality Qualified Code(s): C34.90 - Malignant neoplasm of unspecified part of unspecified bronchus or lung (4) Malignant pleural effusion: Status: Acute (5) Dyspnea: Status: Acute Problem details: -quite dyspneic clinically, improved following pleural drainage -likely secondary to pleural effusion and acute CHF exacerbation -has been on AC with coumadin, INR-6.03--->1.40, unlikely to have PE and 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 -ABG indicates hypercapnia and hypoxia (7.33/64.7/70.5) -as noted above -does not meet criteria for COVID-19 testing Qualifiers: Dyspnea type: unspecified Qualified Code(s): R06.00 - Dyspnea, unspecified (6) Hyponatremia: Status: Resolved (7) Transaminitis: Status: Acute (8) Acute liver failure: Status: Acute (9) Acute kidney failure: Status: Acute Reason for Visit Reason for Visit: Reason For Visit: METASTIC LUNG CA, ATYPICAL CEST PAIN Hospital Course Hospital Course: Patient was seen and evaluated in the emergency department and noted to have concern for elevated INR as well as transaminitis. 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 She was placed in the hospital for close monitoring due to concern for acute transaminitis. She was given Rocephin due to concern for gallbladder wall thickening, however patient did not have any tenderness, no fever, no leukocytosis or concern for infection however empiric antibiotics were continued. Repeat labs were performed and patient was noted to have acute liver failure and acute kidney injury with doubling of her BUN and creatinine as well as hyperkalemia, AST and ALT increased greater than 4 and 5000 and she developed hyperbilirubinemia. Patient had repeat liver ultrasound performed due to concern for the possibility of portal venous thrombus and a repeat CT scan of the abdomen was ordered. Discussed with general surgeon and also discussed with nephrology team. Patient was given FFP and vitamin K and had repeat labs checked in her kidney function, liver function, bilirubin and lactic acid continued to worsen. Patient was transferred to the ICU. Discussion with patient and family about goals and plan of care. Family discussed with patient and they wish for patient to be discharged to home on hospice and continue with comfort care measures. Discussion with family and they reported that they would like for patient to go home today. Physical Exam Const: GENERAL APPEARANCE: cooperative, lethargic, ill appearing and frail appearing ORIENTATION/CONSCIOUSNESS: Yes awake, Yes oriented to person, Yes oriented to time and Yes lethargic HENMT: COMMON NORMALS: normocephalic and head/scalp atraumatic HEAD & SCALP: normocephalic and atraumatic Eye: COMMON NORMALS: PERRL PUPIL: Yes PERRL Neck/C-Spine: COMMON NORMALS: supple GENERAL: Yes normal visual inspection Resp: EFFORT & INSPECTION: Yes tachypneic and Yes uses accessory muscles AUSCULTATION: wheezes OTHER: Diminished breath sounds bilaterally with prolonged expiratory phase, diminished breath sounds in the left base Cardio: COMMON NORMALS: regular rhythm and no murmurs RHYTHM: regular rhythm GI: OTHER: Today patient has tenderness to palpation in the right upper quadrant, normal bowel sounds Extremity: COMMON NORMALS: no calf tenderness OTHER: Clubbing in the hands bilaterally Neuro: COMMON NORMALS: CN's II-XII intact bilaterally, moves all extremities and no focal motor deficits SENSORIUM/ORIENTATION: Yes oriented to person, Yes oriented to time and Yes lethargic SPEECH: speech normal Psych: COMMON NORMALS: cooperative Discharge Data Data Completed and Pending: Completed Studies During Hospitalization Category Date Time Status XR chest 1V tere ble [id number] Stat Exams 12/13/19 08:10 Completed NM hepatobiliary w phar* [id number] Rout ine Nuc Med 12/14/19 16:56 [place] liver [address] St at Ultrasound 12/14/19 08:28 [place] liver [id number] Ur gent Ultrasound 12/13/19 12:14 Completed Pending at discharge Category Date Time Status ABO/Rh Type Routi ne Lab 12/14/19 10:25 Results Arterial Blood Ga s W/O Coox Routine Lab 12/14/19 08:20 Ordered Blood Culture Sta t Lab 12/13/19 11:22 Results Blood Culture Sta t Lab 12/14/19 10:11 Results Body Fluid Cultur e & GS Stat Lab 12/14/19 10:48 Received Complete Blood Co unt w/Auto AM LABS Lab 12/15/19 04:00 Ordered Complete Blood Co unt w/Auto AM LABS Lab 12/16/19 04:00 Ordered Complete Crossmat ch Routine Lab 12/14/19 10:25 Results Comprehensive Met abolic Panel AM LA BS Lab 12/15/19 04:00 Ordered Comprehensive Met abolic Panel AM LA BS Lab 12/16/19 04:00 Ordered Frozem Plasma FZ <24 1st Cont Routi ne Lab 12/14/19 10:25 Results Prothrombin Time INR Timed Lab 12/14/19 16:30 Ordered Labs from last 24 hours 12/14/19 12/14/19 12/14/19 10:25 10:11 10:11 WBC RBC Hgb Hct MCV MCH MCHC RDW Plt Count MPV Neut % (Auto) Lymph % (Auto) [place] % (Auto) Eos % (Auto) Baso % (Auto) Neut # (Auto) Lymph # (Auto) [place] # (Auto) Eos # (Auto) Baso # (Auto) Nucleated RBC % (a uto) Total Counted Segmented Neutroph ils Band Neutrophils Lymphocytes (Manua l) Monocytes (Manual) Absolute Monocytes Nucleated RBCs Nucleated RBCs # Platelet Estimate Poikilocytosis Anisocytosis Macrocytosis PT INR Sodium Potassium Chloride Carbon Dioxide Anion Gap BUN Creatinine Glucose Calculated Osmolal ity Lactic Acid 5.7 H* Calcium Total Bilirubin AST ALT Alkaline Phosphata se Ammonia 44 Total Protein Albumin Globulin Acetaminophen Hepatitis A IgM Ab Hep Bs Antigen Hep Bs Antibody Hep B Core Total A b Hepatitis C Antibo dy Blood Type A Negative Rho(D) Type Negaive 12/14/19 12/14/19 12/14/19 10:11 10:11 10:11 WBC 7.6 RBC 3.46 L Hgb 10.7 L Hct 35.3 L MCV 102.0 H D MCH 30.9 MCHC 30.3 RDW 17.2 H Plt Count 295 MPV 11.6 H Neut % (Auto) Lymph % (Auto) [place] % (Auto) Eos % (Auto) Baso % (Auto) Neut # (Auto) Lymph # (Auto) [place] # (Auto) Eos # (Auto) Baso # (Auto) Nucleated RBC % (a uto) 3.4 Total Counted 100 Segmented Neutroph ils 43 Band Neutrophils 38.0 Lymphocytes (Manua l) 8 Monocytes (Manual) 11.0 Absolute Monocytes 0.8 H Nucleated RBCs 2.0 H Nucleated RBCs # 0.3 Platelet Estimate Normal Poikilocytosis 1+ H Anisocytosis 1+ H Macrocytosis 1+ H PT INR Sodium 130 L Potassium 6.3 H Chloride 91 L Carbon Dioxide 19 L Anion Gap 26.3 H BUN 30 H Creatinine 1.5 H Glucose 73 Calculated Osmolal ity 266 L Lactic Acid Calcium 9.0 Total Bilirubin 3.2 H AST 5670 H ALT 4771 H Alkaline Phosphata se 172 H Ammonia Total Protein 6.2 L Albumin 3.2 L Globulin 3.0 Acetaminophen < 10.0 L Hepatitis A IgM Ab Non-reactive Hep Bs Antigen Non-reactive Hep Bs Antibody 13.0 H Hep B Core Total A b Reactive H Hepatitis C Antibo dy Non-reactive Blood Type Rho(D) Type 12/14/19 12/14/19 12/14/19 05:45 05:45 05:45 WBC 5.9 RBC 3.29 L Hgb 9.9 L Hct 31.8 L MCV 96.7 MCH 30.1 MCHC 31.1 RDW 17.1 H Plt Count 243 MPV 11.5 H Neut % (Auto) 83.0 Lymph % (Auto) 3.6 [place] % (Auto) 10.6 Eos % (Auto) 0.0 Baso % (Auto) 0.2 Neut # (Auto) 4.9 Lymph # (Auto) 0.2 L [place] # (Auto) 0.6 Eos # (Auto) 0.0 Baso # (Auto) 0.0 Nucleated RBC % (a uto) 2.7 Total Counted Segmented Neutroph ils Band Neutrophils Lymphocytes (Manua l) Monocytes (Manual) Absolute Monocytes Nucleated RBCs Nucleated RBCs # 0.2 Platelet Estimate Poikilocytosis Anisocytosis Macrocytosis PT > 120.00 H INR > 20.00 H* Sodium 132 L Potassium 6.0 H Chloride 91 L Carbon Dioxide 25 Anion Gap 22.0 H BUN 29 H Creatinine 1.3 H Glucose 90 Calculated Osmolal ity 271 L Lactic Acid Calcium 8.9 Total Bilirubin 2.8 H AST 5513 H ALT 4113 H Alkaline Phosphata se 148 H Ammonia Total Protein 5.6 L Albumin 3.0 L Globulin 2.6 Acetaminophen Hepatitis A IgM Ab Hep Bs Antigen Hep Bs Antibody Hep B Core Total A b Hepatitis C Antibo dy Blood Type Rho(D) Type Vitals: Last Vital Signs Temp 97.6 F 12/14/19 12:41 Pulse 78 12/14/19 12:41 Resp 21 H 12/14/19 12:41 BP 154/58 12/14/19 12:41 Pulse Ox 98 12/14/19 12:41 Discharge Plan Discharge Patient Disposition: Hospice - Home Condition: Critical Prescriptions: New morphine 20 mg/5 mL (4 mg/mL) solution 2.5 mg PO Q1H PRN (Reason: dyspnea) Qty: 100 RF: 0 Ativan 2 mg/mL solution 1 mg sublingual Q1H PRN (Reason: dyspnea) 5 Days Qty: 100 RF: 0 atropine 1 % drops 2 drop SUBLINGUAL Q1H PRN (Reason: secretions) 5 Days Qty: 15 RF: 0 Continued budesonide-formoterol [Symbicort] 160-4.5 mcg/actuation Hfa Aerosol Inhaler 2 puff INHALATION BID PRN (Reason: Shortness Of Breath) RF: 0 hydromorphone 2 mg tablet 2 mg PO Q4H PRN (Reason: Pain) RF: 0 lorazepam [Ativan] 0.5 mg Tablet See Rx Instructions .ROUTE .COMPLEX RF: 0 bisacodyl 10 mg Suppository 10 mg [place] DAILY PRN (Reason: Constipation) RF: 0 Dulcolax (bisacodyl) 5 mg Tablet,Delayed Release (Dr/Ec) 10 mg PO DAILY PRN (Reason: Constipation) RF: 0 Proventil HFA 90 mcg/actuation Hfa Aerosol Inhaler 1 puff INHALATION Q6H PRN (Reason: Shortness Of Breath) RF: 0 Discontinued atorvastatin 80 mg tablet 80 mg PO DAILY RF: 0 sotalol 80 mg Tablet 80 mg PO BID RF: 0 hydrocodone-acetaminophen [Fleming] 10-325 mg Tablet 1 tab PO QID PRN (Reason: Pain) RF: 0 digoxin 125 mcg (0.125 mg) Tablet 125 mcg PO DAILY RF: 0 fluticasone propionate [Flonase Allergy Relief] 50 mcg/actuation M[place],Suspension 1 spray INTRANASAL DAILY RF: 0 cholecalciferol (vitamin D3) [Vitamin D3] 1,000 unit Capsule 1,000 unit PO DAILY RF: 0 calcium polycarbophil [FiberCon] 625 mg Tablet 625 mg PO BID RF: 0 duloxetine 20 mg Capsule,Delayed Release(Dr/Ec) 20 mg PO DAILY RF: 0 mirtazapine 15 mg Tablet 7.5 mg PO DAILY RF: 0 bupropion HCl [Wellbutrin XL] 150 mg Tablet Extended Release 24 Hr 150 mg PO QAM RF: 0 docusate sodium [Colace] 100 mg Capsule 100 mg PO BID RF: 0 ondansetron HCl [Zofran] 4 mg Tablet 4 mg PO Q6H PRN (Reason: Nausea) RF: 0 warfarin 3 mg tablet 3 mg PO DAILY Qty: 7 RF: 0 pantoprazole 40 mg tablet,delayed release (DR/EC) 40 mg PO BID Qty: 60 RF: 0 Aplisol 5 tub. unit /0.1 mL Solution See Rx Instructions .ROUTE .COMPLEX RF: 0 acetaminophen [Tylenol] 325 mg Tablet 650 mg PO Q6H PRN (Reason: Pain) RF: 0 magnesium hydroxide [Milk of Magnesia] 400 mg/5 mL Suspension 30 ml PO DAILY PRN (Reason: Constipation) RF: 0 Fleet Enema 19-7 gram/118 mL Enema 118 ml [place] DAILY PRN (Reason: Constipation) RF: 0 Normal Saline Flush See Rx Instructions .ROUTE .COMPLEX RF: 0 Discharge Orders: Discharge Order (Routine); Ordered 12/14/19 Ordered By: Leela Allison Referrals: [facility] [Outside] Dylan Connors MD [Primary Care Provider] - Discharge Diet: Advance as tolerated Discharge Activity: Increase activity as tolerated and Oxygen as instructed Activity Restrictions/Additional Instructions: Patient discharged home with [facility] care Patient with known metastatic lung cancer with concern for acute renal failure and acute liver failure. 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
--- NOTE | 2019-12-14 16:56 | NM_ITS ---
WS: [id number] NM hepatobiliary w phar* [id number] REASON FOR EXAM: transaminitis, abnormal RUQ US TECHNICAL: The patient was injected with 8.5 mCi technetium 99m mebrofenin. The gallbladder visualize s well at approximately 60 to 90 minutes. The patient was then given 8 ounces of ensure plus no detec tion of the ejection fraction was seen. No defined emptying NM/NM hepatobiliary w phar* [id number] IMPRESSION: Delayed accumulation of the radiotracer in the gallbladder with limited are no ejection fraction noted consistent with primary gallbladder disease.
== END 2019-12-14 15:44 | disposition hospice, home (50) | DRG 917 ==
LOC: ER 13:46 → MEDSURG 15:06 → ICU 12-14 12:21
PROVIDERS: Admitting Provider Family Medicine; Emergency Provider Family Medicine; Family Provider Family Medicine; PCP Family Medicine; Visit Provider Family Medicine
DX: T45.511A Poisoning by anticoagulants, accidental (unintentional), initial encounter (principal); I50.33 Acute on chronic diastolic (congestive) heart failure; K72.00 Acute and subacute hepatic failure without coma; C34.90 Malignant neoplasm of unspecified part of unspecified bronchus or lung; I48.19 Other persistent atrial fibrillation; J91.0 Malignant pleural effusion; E87.1 Hypo-osmolality and hyponatremia; N17.9 Acute kidney failure, unspecified; Z79.899 Other long term (current) drug therapy; Z79.01 Long term (current) use of anticoagulants; Z95.2 Presence of prosthetic heart valve; G89.3 Neoplasm related pain (acute) (chronic); I35.1 Nonrheumatic aortic (valve) insufficiency; J44.9 Chronic obstructive pulmonary disease, unspecified; I11.0 Hypertensive heart disease with heart failure; Z87.891 Personal history of nicotine dependence; K76.0 Fatty (change of) liver, not elsewhere classified; R16.0 Hepatomegaly, not elsewhere classified; D70.1 Agranulocytosis secondary to cancer chemotherapy; T45.1X5A Adverse effect of antineoplastic and immunosuppressive drugs, initial encounter; E87.5 Hyperkalemia; Z79.51 Long term (current) use of inhaled steroids; Z79.891 Long term (current) use of opiate analgesic; R09.02 Hypoxemia; R06.89 Other abnormalities of breathing
CPT/HCPCS: 12345; 36415; 36430; 36592; 71045; 76705; 78227; 80053; 80162; 80307; 81001; 82140; 83605; 83690; 83880; 84484; 85007; 85025; 85610; 86705; 86706; 86709; 86803; 86900; 86927; 87040; 87070; 87075; 87205; 87340; 93005; 94664; 96375; 99283; A9537; G0378; J0696; J1885; J2405; J3430; J3490; J7030; P9017